=== PATIENT | male | born 1975 | race Caucasian/White ===

== ENCOUNTER 2022-08-21 16:36 | Emergency (ER) | payer MEDICAID, SELFPAY ==
[2022-08-21 16:46] VITALS: BP 136/90; PULSE 97; RESP 18; TEMP 36.1; O2SAT 98
--- NOTE | 2022-08-21 23:35 | ED.BACK ---
HPI - Back Pain/Injury General Chief Complaint: Back Injury/Pain Stated Complaint: Back Pain Time Seen by Provider: 08/21/22 17:07 History of Present Illness HPI Narrative: 47-year-old man presenting to the emergency department with complaint of low back pain. Had a series of falls in June with subsequent injury to his back. Is visiting/traveling from [facility] and has been what sounds like receiving Toradol injections in regional ERs. He reports receiving 1 dose of possibly prednisone as well. Describes a deep boring pain centered around the low back and when up and ambulating tingling discomfort down his entire left leg. He did earlier on manage a couple of visits with physical therapy but subsequently developed what sounds like a diverticular abscess where drains were placed through July-lifts short to show consistent freshly scarred site-this derailed his care on his back; deferred surgical intervention he indicates. Does have an appointment after this weekend on Wednesday, he shows scheduled provider at [facility] looking to be Sports Med or Orthopedics, to arrange next steps in care. Has been treating with topical NSAID and lidocaine patches and ibuprofen and at 1 point muscle relaxers none which apparently do not do much. He is having trouble sleeping and would just like some relief of pain. Does have MRI records among other imaging and I am able to review the read which shows moderate neural foraminal narrowing on the left at L5-S1. Spinal canal otherwise is patent. Disc bulging and facet arthrosis at L4-5 and L5-S1. Is not currently having any new weakness Related Data Previous Rx's Medication Instructions Recorded hydrocodone 5 mg-acetaminophen 325 1 - 2 tab PO Q6H PRN pain #15 tabs 08/21/22 mg tablet prednisone 20 mg tablet See Rx Instructions .Route 08/21/22 .COMPLEX #17 tabs Allergies Allergy/AdvReac Type Severity Reaction Status Date / Time No Known Drug Allergies Allergy Verified 08/21/22 16:50 Review of Systems Status of ROS: Reports: 6 or more systems reviewed and unremarkable except as noted in History and below [facility]SH [facility] Social History (Updated 08/21/22 @ 23:43 by King Olmedo MD) Smoking Status: Current every day smoker Exam Narrative: Exam Narrative: Pleasant. Tall. Talkative. Skin is warm and dry. No lower extremity edema. Well-perfused generally. Breathing easily. Transfers just a little gingerly. Head is atraumatic. Examination of the back is without deformity. No upper back tenderness. Is generally moderately tender to palpation across the low back through the SI joints across the top of the sacrum. He flinches with this exam. Positive straight leg raise on the left reproducing the aforementioned tingling through the entire leg. Heart with elevated rate in a regular rhythm. Const: Vital Signs, click to edit/add: Vital Signs - 24 hr 08/21/22 16:46 Temperature 97 F L Pulse Rate [Right Pulse Oximeter] 97 Respiratory Rate 18 Blood Pressure [Ri ght Upper Arm] 136/90 H Pulse Oximetry 98 Oxygen Delivery Me thod Room Air Documenting provider has reviewed patient's vital signs: yes Course Vital Signs Vital signs: Initial Vital Signs Temperature 97 F L 08/21/22 16:46 Temperature Source Temporal Artery Scan 08/21/22 16:46 Pulse Rate 97 08/21/22 16:46 Pulse Rhythm 08/21/22 16:46 Pulse Strength 3+ Normal 08/21/22 16:46 Respiratory Rate 18 08/21/22 16:46 Blood Pressure 136/90 H 08/21/22 16:46 Blood Pressure Mean 105 08/21/22 16:46 Blood Pressure Position Sitting 08/21/22 16:46 Pulse Oximetry 98 08/21/22 16:46 Oxygen Delivery Method 08/21/22 16:46 Vital Signs Temperature 97 F L 08/21/22 16:46 Pulse Rate 97 08/21/22 16:46 Respiratory Rate 18 08/21/22 16:46 Blood Pressure 136/90 H 08/21/22 16:46 Pulse Oximetry 98 08/21/22 16:46 Oxygen Delivery Method 08/21/22 16:46 Temperature 97 F L 08/21/22 16:46 Pulse Rate 97 08/21/22 16:46 Respiratory Rate 18 08/21/22 16:46 Blood Pressure 136/90 H 08/21/22 16:46 Pulse Oximetry 98 08/21/22 16:46 Oxygen Delivery Method 08/21/22 16:46 MDM - Back Pain/Injury MDM Narrative Medical decision making narrative: We discussed potential treatment possibilities. He has only been on a brief course of steroids; perhaps it is time to do a little longer course. Does have pending more definitive appointment upcoming shortly. Needing care through the weekend. I did review [employer]; consistent as reported. Medical Records Attestation: I reviewed the patient's medical records. Discharge Plan Discharge Clinical Impression: Radicular low back pain, Nicotine dependence Patient Disposition: Home w/ Parent or Adult Condition: Stable Additional Instructions: See handout for review of exercises or stretches that might benefit your low back and radiating symptoms. Follow-up Wednesday as scheduled. Ibuprofen or naproxen can be combined with any of your prescribed medications. Maximum singular dosing of acetaminophen is 1000 mg. Keep in mind that each tablet of [place] has 325 mg of acetaminophen. Be sure to stay well hydrated. This can help with pain and decrease chance of constipation. If you are taking [place], I might pair that with senna once or twice a day as a bowel stimulant. Please try to quit smoking. Prescriptions: New hydrocodone-acetaminophen 5-325 mg tablet 1 - 2 tab PO Q6H PRN (Reason: pain) Qty: 15 0RF prednisone 20 mg tablet See Rx Instructions .ROUTE .COMPLEX Qty: 17 0RF Rx Instructions: Take 60 mg p.o. daily days 1 through 3; then 40 mg daily days 4 through 6; then 20 mg daily days 7 - 8 Follow Up/Referrals: Provider,Not a Local [Primary Care Provider] - Stand Alone Forms: [employer] Info Instructions
== END 2022-08-21 20:00 | disposition home or self-care (01) ==
LOC: ED 19:38
PROVIDERS: Emergency Provider Family Medicine
DX: M54.16 Radiculopathy, lumbar region (principal); F17.200 Nicotine dependence, unspecified, uncomplicated
CPT/HCPCS: 99282; 99283

== ENCOUNTER 2023-05-03 22:42 | Emergency (ER) | payer MEDICAID, SELFPAY ==
[2023-05-03 23:07] VITALS: BP 141/103; PULSE 111; RESP 16; TEMP 36.7; O2SAT 98; BMI 26.1
[2023-05-03] MEDS: ONDANSETRON 2 MG/ML inj 4 MG IVP (23:15)
[2023-05-03] MEDS: 0.9 % SODIUM CHLORIDE 1000 ml 1,000 ML IV (23:15)
--- NOTE | 2023-05-03 23:27 | CRLHL7_ITS ---
For Patients: As a result of the Century Cures Act, medical imaging exams and procedure reports are released immediately into your electronic medical record. You may view this report before your referring provider. If you have questions, please contact your health care provider. INDICATION: Lower abdominal pain, history of diverticulitis TECHNIQUE: CT abdomen and pelvis acquired with 98 cc Isovue 370 IV contrast. Permanently recorded images are archived. COMPARISON: None. FINDINGS: Lower chest: 6 mm left lower lobe pulmonary nodule. 4 mm nodule more inferiorly within the left lower lobe. Mild scarring versus atelectasis in the lower lobes. Liver: Numerous too small to characterize hypodense foci throughout the liver. There is an ill-defined hypodense lesion within segment II the liver with nodular discontinuous peripheral enhancement measuring approximately 4.5 x 3.8 x 3.3 cm. Small simple cyst in segment VIII. Gallbladder and bile ducts: Unremarkable. No stones or inflammation. No biliary dilatation. Pancreas: Unremarkable. No mass or inflammation. Spleen: Unremarkable. Normal in size. No masses. Adrenal glands: Unremarkable. No nodules. Kidneys, Ureters, and Bladder: Unremarkable. No suspicious masses, stones, or hydronephrosis. Unremarkable ureters and bladder. GI tract: Extensive colonic diverticulosis. Short-segment mural thickening with pericolonic inflammation by inflamed diverticulum in the proximal sigmoid colon. No evidence for perforation or abscess formation. No obstruction. Normal appendix. Vasculature: Abdominal aorta is normal in caliber. Mesenteric arteries are patent. Lymph nodes: No lymphadenopathy. Peritoneum/Abdominal Wall: Small bilateral fat-containing inguinal hernias. No free air or significant free fluid. Pelvis: Unremarkable. Bones: Unremarkable for age. IMPRESSION: Acute uncomplicated proximal sigmoid colon diverticulitis. Recommend follow-up imaging or direct visualization after treatment to exclude an underlying inflammatory carcinoma. Ill-defined hypodense lesion within segment II of the liver with nodular discontinuous peripheral enhancement measuring up to 4.5 cm, most likely a hemangioma. Consider of outpatient liver MRI for confirmation. 6 mm left lower lobe pulmonary nodule. Recommend follow-up chest CT in 6 to 12 months to evaluate for interval change. Please note that all CT scans at this facility use dose modulation, iterative reconstruction, and/or weight-based dosing when appropriate to reduce radiation dose to as low as reasonably achievable. Dictated by Hemal Negrete MD @ 05/04/2023 12:11:22 AM ----- ADDENDUM ----- Addendum: Additional comparison studies, CTs of the abdomen pelvis from 04/04/2023, 01/01/2023, 12/30/2022 and 03/2022, have been made available. Unchanged hypodense lesion within segment II of the liver with fluid attenuation. There a similar pattern of peripheral vascular flow, which is favored to be within hepatic and portal veins vice the lesion itself. This is most consistent with a simple cyst. This is also unchanged in size compared to 07/16/2022. No further follow-up is recommended. The 6 mm left lower lobe pulmonary nodule is stable compared to 07/16/2022. Consider follow-up chest CT in 8-14 months. Dictated by Hemal Negrete MD @ May 18 2023 6:09PM (Electronically Signed)
[2023-05-03 23:31] VITALS: TEMP 36.7
[2023-05-03] MEDS: KETOROLAC 15 MG/ML inj IVP (23:31)
[2023-05-03] MEDS: MORPHINE 4 MG/ML INJ IVP (23:32)
[2023-05-03 23:34] LABS: Lactate* 1.4 mmol/L (0.5-1.9)
[2023-05-03 23:36] LABS: Basophils Percent Auto 0.4 % (0.0-3.0); Eosinophils Percent Auto 2.3 % (0.0-7.0); Hematocrit 45.4 % (37.0-53.0); Hemoglobin* 15.3 gm/dL (13.5-17.5); Immature Granulocytes Pct Auto 0.9 %; Mean Corpuscular HGB Conc 34 gm/dL (32-36); Mean Corpuscular Hemoglobin 30 pg (26-34); Mean Corpuscular Volume 90 fL (80-100); Monocytes Percent Auto 5.4 % (0.0-11.0); Platelet Count* 240 K/uL (140-440); RDW Coefficient of Variation % 13.4 % (11.5-15.5); Red Blood Count 5.04 m/uL (4.30-5.90); Slide Review Reflex No; White Blood Count* 16.19 K/uL (4.50-11.00)
[2023-05-03 23:49] LABS: Albumin* 4.4 g/dL (3.3-5.0)
[2023-05-03 23:50] LABS: Chloride* 104 mmol/L (96-114); Sodium* 138 mmol/L (135-149)
[2023-05-03 23:52] LABS: Amylase* 59 U/L (18-89); Anion Gap 8 mEq/L (7-15); Aspartate Amino Transferase* 29 U/L (12-35); Bilirubin Direct* 0.1 mg/dL (0.0-0.5); Bilirubin Total* 0.4 mg/dL (0.1-1.5); Blood Urea Nitrogen* 18 mg/dL (7-30); Carbon Dioxide* 26 mmol/L (20-32); Creatinine* 0.8 mg/dL (0.5-1.5); Est. Creatinine Clearance* 139.22; Estimated Glomerular Filt Rate 108 ml/min; Total Protein* 7.3 g/dL (6.0-8.3)
[2023-05-03 23:53] LABS: Alanine Aminotransferase* 28 U/L (4-50); Alkaline Phosphatase* 75 U/L (40-150); Calcium* 9.6 mg/dL (8.4-10.6); Glucose* 91 mg/dL (60-115); Lipase* 88 U/L (23-300)
[2023-05-03 23:58] LABS: Ethanol* < 0.01 % (0.01-0.03)
[2023-05-04] MEDS: PIPERACILLIN/TAZOBACTAM 4.5 GM in 0.9 % SODIUM CHLORIDE Mini-bag 100 ML IVPB (00:45)
--- NOTE | 2023-05-04 00:56 | ED.ABDPAIN ---
HPI - Abdominal Pain General Chief Complaint: Abdominal Pain Stated Complaint: bad stomach pains Time Seen by Provider: 05/03/23 23:22 Source: patient Mode of arrival: ambulatory Limitations: no limitations History of Present Illness HPI narrative: Patient is a 48-year-old gentleman who presents here with abdominal pain this characteristic of his diverticulitis, he has had 2 previous resections of partial for this. Min told that he may need to have a total colectomy if this is ongoing, he noted pain about 3 or 4 days ago that is increased, is usually left-sided but now it is more across the middle. He is hopeful that it will not do become abscess, as he has had previous drains done by Interventional Radiology. 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 No history of drugs, he had a normal bowel movement today, but no diarrhea he has had no nausea vomiting ate well today. He tells me Augmentin usually takes away the infection, MD elicited complaint: abdominal pain Location: LLQ and suprapubic Quality: cramping, stabbing and aching Radiation: none Migration to: no migration Exacerbating factors: nothing Associated symptoms: denies other symptoms Treatments prior to arrival: other Related Data Home Medications Medication Instructions Recorded Confirmed No Known Home Medications 05/03/23 05/03/23 Allergies Allergy/AdvReac Type Severity Reaction Status Date / Time No Known Drug Allergies Allergy Verified 08/21/22 16:50 Review of Systems Status of ROS Reports: 10 or more systems reviewed and unremarkable except as noted in History and below PFSH [facility] Social History Smoking Status: Current every day smoker What tobacco products do you use: cigarettes Do you use any of these nicotine containing products: None Second hand tobacco smoke exposure: No How often do you have a drink containing alcohol: never How often do you have six or more drinks on one occasion: Never AUDIT-C Alcohol total score: 0 Non-prescribed substance use: denies use service: No Exam Narrative: Exam Narrative: On examination he is in no apparent distress he is pleasant alert and pupils equal round reactive to light TMs are normal oropharynx normal there is no adenopathy anterior posterior chains chest is good air entry bilaterally with no wheezing crackles noted heart sounds are normal he is tender along his left lower quadrant along the suprapubic he does not have peritoneal signs bowel sounds are quiet, there is no organomegaly, no CVA tenderness normal male genitalia is appreciated, there is no hernias. Rectal exam is deferred Const: Vital Signs, click to edit/add: Vital Signs - 24 hr 05/03/23 23:07 05/03/23 23:31 Temperature 98.1 F 98.1 F Pulse Rate [Left F emoral] 111 H Respiratory Rate 16 Blood Pressure [Ri ght Upper Arm] 141/103 H Pulse Oximetry 98 Oxygen Delivery Me thod Room Air Documenting provider has reviewed patient's vital signs: yes Course Course ED Course: I did discuss with him we will give him a dose of Zosyn here. He was reassured by this CT scan at least from the lack of an abscess for the diverticulitis I think we will place him on Augmentin, have follow-up with his wrecked colorectal surgeon at [facility]. I also think they need to compare this CT of today's visit with previous CTs to see if the left lobe issue was there previous. He does tell me he has had a colonoscopy within the last year, as metastatic issues could also arise like this. He was comfortable this plan. Vital Signs Vital signs: Initial Vital Signs Temperature 98.1 F 05/03/23 23:07 Temperature Source Temporal Artery Scan 05/03/23 23:07 Pulse Rate 111 H 05/03/23 23:07 Respiratory Rate 16 05/03/23 23:07 Blood Pressure 141/103 H 05/03/23 23:07 Blood Pressure Mean 115 H 05/03/23 23:07 Blood Pressure Position Sitting 05/03/23 23:07 Pulse Oximetry 98 05/03/23 23:07 Oxygen Delivery Method Room Air 05/03/23 23:07 Vital Signs Temperature 98.1 F 05/03/23 23:07 Pulse Rate 111 H 05/03/23 23:07 Respiratory Rate 16 05/03/23 23:07 Blood Pressure 141/103 H 05/03/23 23:07 Pulse Oximetry 98 05/03/23 23:07 Oxygen Delivery Method Room Air 05/03/23 23:07 Temperature 98.1 F 09/25/23 23:31 Pulse Rate 111 H 05/03/23 23:07 Respiratory Rate 16 05/03/23 23:07 Blood Pressure 141/103 H 05/03/23 23:07 Pulse Oximetry 98 05/03/23 23:07 Oxygen Delivery Method Room Air 05/03/23 23:07 MDM - Abdominal Pain MDM Narrative Medical decision making narrative: During this evaluation of this patient I considered multiple differential diagnosis is which included the life-threatening such as appendicitis, aortic aneurysm, mesenteric ischemia, bowel perforation, volvulus, and bowel obstruction. Other differential diagnosis is include but are not limited to cholecystitis, pancreatitis, hepatitis, gastritis, GERD, diverticulitis, peptic ulcer disease, pyelonephritis/UTI, renal colic/stone, testicular torsion as well as other acute scrotal processes, inflammatory bowel disease, as well as other etiologies Medical Records Attestation: I reviewed the patient's medical records. Lab Data Attestation: I reviewed the patient's lab results. Labs: Lab Results 05/03/23 Range/Units 23:15 WBC 16.19 H (4.50-11.00) K/uL RBC 5.04 (4.30-5.90) m/uL Hgb 15.3 (13.5-17.5) gm/dL Hct 45.4 (37.0-53.0) % MCV 90 (80-100) fL MCH 30 (26-34) pg MCHC 34 (32-36) gm/dL RDW Coeff of Romero 13.4 (11.5-15.5) % Plt Count 240 (140-440) K/uL Neut % (Auto) 71.0 (42.0-72.0) % Lymph % (Auto) 20.0 (20-44) % [place] % (Auto) 5.4 (0.0-11.0) % Eos % (Auto) 2.3 (0.0-7.0) % Baso % (Auto) 0.4 (0.0-3.0) % Neut # (Auto) 11.50 H (1.7-7.0) K/uL Lymph # (Auto) 3.20 H (0.90-2.90) K/uL [place] # (Auto) 0.90 (0.00-0.90) K/UL Eos # (Auto) 0.40 (0.00-0.50) K/uL Baso # (Auto) 0.10 (0.00-0.30) K/uL Abs Immat Gran (auto) 0.10 (0.00-0.30) K/uL Imm/Tot Granulo (auto) 0.9 % Sodium 138 (135-149) mmol/L Potassium 4.0 (3.6-5.1) mmol/L Chloride 104 (96-114) mmol/L Carbon Dioxide 26 (20-32) mmol/L Anion Gap 8 (7-15) mEq/L BUN 18 (7-30) mg/dL Creatinine 0.8 (0.5-1.5) mg/dL Estimated Creat Clear 139.22 Estimated GFR 108 ml/min Glucose 91 (60-115) mg/dL Lactate 1.4 (0.5-1.9) mmol/L Calcium 9.6 (8.4-10.6) mg/dL Total Bilirubin 0.4 (0.1-1.5) mg/dL Direct Bilirubin 0.1 (0.0-0.5) mg/dL AST 29 (12-35) U/L ALT 28 (4-50) U/L Alkaline Phosphatase 75 (40-150) U/L Total Protein 7.3 (6.0-8.3) g/dL Albumin 4.4 (3.3-5.0) g/dL Amylase 59 (18-89) U/L Lipase 88 (23-300) U/L Ethyl Alcohol < 0.01 L (0.01-0.03) % Imaging Data CT scan - abdomen: My impression: Uncomplicated diverticulitis with the of the sigmoid colon, no evidence of abscess, or perforation. He does however have what appears to be a left lobe of his liver either a mass or hemangioma. I do not have old CT scans to compare to. Discharge Plan Discharge Clinical Impression: Diverticulitis, Liver mass, left lobe Patient Disposition: Home, Self-Care Condition: Improved Instructions: Diverticulitis (DC) Additional Instructions: Home rest medications as directed. I do recommend that you call [facility] tomorrow and get appointment with your [facility] specialist, also recommend that you send the CD to them so they can compare with your previous CT over the spot on your liver that we discussed. Increasing abdominal pain fevers chills or signs that this is worsening you need to come back to the emergency room, take antibiotics as directed. Activity Level: Light activity Discharge Diet: Regular Prescriptions: No Action No Known Home Medications Follow Up/Referrals: Provider,Not a Local [Primary Care Provider] - Stand Alone Forms: [employer] Info Instructions
== END 2023-05-04 01:32 | disposition home or self-care (01) ==
PROVIDERS: Emergency Provider Family Medicine
DX: K57.92 Diverticulitis of intestine, part unspecified, without perforation or abscess without bleeding (principal); R16.0 Hepatomegaly, not elsewhere classified
CPT/HCPCS: 36415; 74177; 80048; 80076; 81001; 82077; 82150; 83605; 83690; 85025; 96365; 96375; 99284; 99285; J1885; J2270; J2405; J2543; J7030; Q9967

== ENCOUNTER 2023-06-21 21:18 | Emergency (ER) | payer MEDICAID, SELFPAY ==
[2023-06-21 21:53] VITALS: BP 136/94; PULSE 91; RESP 18; TEMP 36.7; O2SAT 98
--- NOTE | 2023-06-21 22:13 | ED.GENADULT ---
HPI - General Adult General Date Seen: 06/21/23 Chief complaint: Abdominal Pain Stated complaint: Stomach pain Time Seen by Provider: 06/21/23 21:57 Source: patient, RN notes reviewed and old records reviewed Mode of arrival: ambulatory Limitations: no limitations History of Present Illness HPI narrative: Patient is a 48-year-old male with a history of chronic neck and back pain, alcohol use, generalized anxiety and diverticulitis who presents with left lower quadrant pain. He has had multiple bouts of diverticulitis and tells me he scheduled to have surgery at [facility] on Wednesday. He has been on every other day Augmentin for quite some time and says about 5 days ago he was having more pain so his doctor at [facility] told him to go to twice a day Augmentin. For quite sometime he has had persistent abdominal pain and has been being prescribed Pride by his primary clinic for management of this pain. He last filled 15 tablets on the and says that was supposed to last him through the weekend. He says he contacted the clinic today but Dr. Trinh was not available and so he is out of pain pills. He says that pain has not changed, it is no worse and he does not have any complaints of nausea vomiting fever or other symptoms. He is here because he ran out of pain medication. Related Data Home Medications Medication Instructions Recorded Confirmed ibuprofen 200 mg tablet 600 mg PO Q6H PRN 05/18/23 05/26/23 amoxicillin 875 mg-potassium tab PO 05/26/23 05/26/23 clavulanate 125 mg tablet Previous Rx's Medication Instructions Recorded nicotine (polacrilex) 4 mg gum 4 mg buccal Q1-2H PRN nicotine 05/06/23 cravings #50 ea hydrocodone 5 mg-acetaminophen 325 1 tab PO TID PRN Diverticulitis 06/16/23 mg tablet #15 tabs Allergies Allergy/AdvReac Type Severity Reaction Status Date / Time No Known Drug Allergies Allergy Verified 05/26/23 09:20 [facility] Medical History (Updated 06/21/23 @ 22:13 by Gaye Cortez MD) Chronic neck and back pain ?M54.2 - Cervicalgia (ICD-10) ?M54.9 - Dorsalgia, unspecified (ICD-10) ?G89.29 - Other chronic pain (ICD-10) Hypertension ?I10 - Essential (primary) hypertension (ICD-10) Cochlear implant status ?Z96.21 - Cochlear implant status (ICD-10) Alcohol use disorder ?F10.90 - Alcohol use, unspecified, uncomplicated (ICD-10) Generalized anxiety disorder ?F41.1 - Generalized anxiety disorder (ICD-10) Surgical History (Updated 05/18/23 @ 09:58 by Nelly Serra MD) H/O arthroscopic knee surgery ?Z98.890 - Other specified postprocedural states (ICD-10) S/P colectomy ?Z90.49 - Acquired absence of other specified parts of digestive tract (ICD-10) Social History (Updated 05/25/23 @ 11:41 by Anahi Boothe ~ PSR) Narrative: Not working currently. Lives with sister in [place], [place] use Smoking Status: Current every day smoker What tobacco products do you use: cigarettes Do you use any of these nicotine containing products: None Second hand tobacco smoke exposure: No How often do you have a drink containing alcohol: never How often do you have six or more drinks on one occasion: Never AUDIT-C Alcohol total score: 0 Non-prescribed substance use: denies use Little interest or pleasure in doing things: not at all Feeling down, depressed, or hopeless: not at all service: No Exam Narrative: Exam Narrative: Vital signs as noted above. In general, an alert, well-appearing patient. Looks comfortable. Head: Normocephalic, atraumatic. Eyes: Pupils are equal reactive. Extraocular movements are full. Conjunctivae are normal. ENT: Mucous membranes are moist. Throat is normal. Neck: Supple without lymphadenopathy. Heart: Regular rate and rhythm. No murmur or rub. Lungs: Clear bilaterally. No increased work of breathing, crackles or wheezes. Abdomen: Soft and minimally tender, he identifies a point at the site of an old drain insertion as where his pain is localized. There is no rebound guarding or rigidity. Extremities: Well perfused. No edema. No calf tenderness. Pulses intact. Neurologic: Patient is alert and oriented to person and place. Speech is fluent. Face is symmetric. Moves all extremities equally. Affect: Normal. Skin: Warm and dry. Well perfused. Const: Vital Signs, click to edit/add: Vital Signs - 24 hr 06/21/23 21:53 Temperature 98.1 F Pulse Rate [Right Pulse Oximeter] 91 Respiratory Rate 18 Blood Pressure [Ri ght Upper Arm] 136/94 H Pulse Oximetry 98 Oxygen Delivery Me thod Room Air Documenting provider has reviewed patient's vital signs: yes Course Course ED Course: I was unable to review the [employer] due to some kind of problem with the website. I did review his previous records and recent hydrocodone feels. His abdominal exam is benign, he is afebrile, he is supposed to go to [facility] the day after tomorrow for a complete workup including imaging. I think for now we do not need to pursue significant workup as he is not here for worsening symptoms. Have discussed with him that true refills of his medication will need to come from the clinics I would like him to call again tomorrow. I am giving him for oxycodone from [facility], he drove himself here so I do not want to give him oral meds here prior to him leaving. Did review with him that if he is worsening, if he has more significant pain, fever, vomiting etc. that he needs to be seen again in the ER rather than waiting until Wednesday to make sure he does not have a complications such as abscess, perforation etcetera. Vital Signs Vital signs: Initial Vital Signs Temperature 98.1 F 06/21/23 21:53 Temperature Source Temporal Artery Scan 06/21/23 21:53 Pulse Rate 91 06/21/23 21:53 Respiratory Rate 18 06/21/23 21:53 Blood Pressure 136/94 H 06/21/23 21:53 Blood Pressure Mean 108 H 06/21/23 21:53 Blood Pressure Position Semi-Fowlers 06/21/23 21:53 Pulse Oximetry 98 06/21/23 21:53 Oxygen Delivery Method Room Air 06/21/23 21:53 Vital Signs Temperature 98.1 F 06/21/23 21:53 Pulse Rate 91 06/21/23 21:53 Respiratory Rate 18 06/21/23 21:53 Blood Pressure 136/94 H 06/21/23 21:53 Pulse Oximetry 98 06/21/23 21:53 Oxygen Delivery Method Room Air 06/21/23 21:53 Temperature 98.1 F 06/21/23 21:53 Pulse Rate 91 06/21/23 21:53 Respiratory Rate 18 06/21/23 21:53 Blood Pressure 136/94 H 06/21/23 21:53 Pulse Oximetry 98 06/21/23 21:53 Oxygen Delivery Method Room Air 06/21/23 21:53 Discharge Plan Discharge Clinical Impression: Diverticulitis, Chronic abdominal pain Patient Disposition: Home, Self-Care Condition: Stable Instructions: Diverticulitis (DC) Additional Instructions: If you have worsening pain or new symptoms such as fever, vomiting, bloody stools, return to the emergency department for evaluation. Otherwise, follow up at [facility] on Wednesday as planned. Prescriptions: No Action ibuprofen 200 mg tablet 600 mg PO Q6H PRN amoxicillin-pot clavulanate 875-125 mg tablet PO nicotine (polacrilex) 4 mg gum 4 mg buccal Q1-2H PRN (Reason: nicotine cravings) Qty: 50 3RF hydrocodone-acetaminophen 5-325 mg tablet 1 tab PO TID PRN (Reason: Diverticulitis) Qty: 15 0RF Follow Up/Referrals: Provider,Not a Local [Primary Care Provider] - Stand Alone Forms: [facility] Info Instructions
[2023-06-21 22:27] VITALS: BP 128/84; RESP 16; O2SAT 99
--- NOTE | 2023-06-22 18:38 | ED.NURSE ---
Pt presents to ER on 06/22 stating that his rx from ER visit earlier today was not at pharmacy. Upon reviewing pt's discharge records from last night, pt informed that rx was physically given to pt to obtain from [employer]. Pt now stating he was seen in clinic today by an ER doctor and was written for more pain medication that did not arrive at [facility] pharmacy. Pt informed that he can be seen in ER if he would like to be evaluated.
== END 2023-06-21 22:30 | disposition home or self-care (01) ==
LOC: ED 22:14
PROVIDERS: Emergency Provider Emergency Medicine
DX: K57.92 Diverticulitis of intestine, part unspecified, without perforation or abscess without bleeding (principal)
CPT/HCPCS: 99283; 99284

== ENCOUNTER 2023-06-22 18:40 | Emergency (ER) | payer MEDICAID, SELFPAY ==
--- NOTE | 2023-06-22 18:44 | ED.NURSE ---
Pt presents to ER on 06/22 stating that his rx from ER visit earlier today was not at pharmacy. Upon reviewing pt's discharge records from last night, pt informed that rx was physically given to pt to obtain from [facility]. Pt now stating he was seen in clinic today by an ER doctor and was written for more pain medication that did not arrive at [facility] pharmacy. Pt informed that he can be seen in ER if he would like to be evaluated.
[2023-06-22 18:49] VITALS: BP 128/84; PULSE 82; RESP 18; TEMP 36.9; O2SAT 97; BMI 26.1
--- NOTE | 2023-06-22 20:07 | ED_ITS ---
HPI - General Adult General Date Seen: 06/22/23 Chief complaint: Abdominal Pain Stated complaint: pain Time Seen by Provider: 06/22/23 19:07 Source: patient Mode of arrival: ambulatory Limitations: no limitations History of Present Illness HPI narrative: Patient is a 48-year-old male presents to emergency department for left lower quadrant abdominal pain, right lower quadrant abdominal pain and upper back pain. These are all chronic medical issues and he is scheduled to have surgery on his diverticulitis in 3 days. He was here yesterday and received 4 pills of oxycodone. He spoke to his primary care provider this morning and they try to cm prescription to his pharmacy. The patient claims he went to his pharmacy in the never received the prescription. His primary care provider then sent the prescription again and it still did not go through. He states now he is in lot of pain in was hoping for medication for it. He states this is the exact pain he has had in the past and is nothing new. Related Data Home Medications Medication Instructions Recorded Confirmed ibuprofen 200 mg tablet 600 mg PO Q6H PRN 05/18/23 05/26/23 amoxicillin 875 mg-potassium tab PO 05/26/23 05/26/23 clavulanate 125 mg tablet Previous Rx's Medication Instructions Recorded nicotine (polacrilex) 4 mg gum 4 mg buccal Q1-2H PRN nicotine 05/06/23 cravings #50 ea hydrocodone 5 mg-acetaminophen 325 1 tab PO TID PRN Diverticulitis 06/22/23 mg tablet #15 tabs Allergies Allergy/AdvReac Type Severity Reaction Status Date / Time No Known Drug Allergies Allergy Verified 05/26/23 09:20 Review of Systems Status of ROS: Reports: 10 or more systems reviewed and unremarkable except as noted in History and below [facility] Medical History Chronic neck and back pain ?M54.2 - Cervicalgia (ICD-10) ?M54.9 - Dorsalgia, unspecified (ICD-10) ?G89.29 - Other chronic pain (ICD-10) Hypertension ?I10 - Essential (primary) hypertension (ICD-10) Cochlear implant status ?Z96.21 - Cochlear implant status (ICD-10) Alcohol use disorder ?F10.90 - Alcohol use, unspecified, uncomplicated (ICD-10) Generalized anxiety disorder ?F41.1 - Generalized anxiety disorder (ICD-10) Surgical History H/O arthroscopic knee surgery ?Z98.890 - Other specified postprocedural states (ICD-10) S/P colectomy ?Z90.49 - Acquired absence of other specified parts of digestive tract (ICD- 10) Social History Narrative: Not working currently. Lives with sister in [place], [employer] use Smoking Status: Current every day smoker What tobacco products do you use: cigarettes Do you use any of these nicotine containing products: None Second hand tobacco smoke exposure: No How often do you have a drink containing alcohol: never How often do you have six or more drinks on one occasion: Never AUDIT-C Alcohol total score: 0 Non-prescribed substance use: denies use Little interest or pleasure in doing things: not at all Feeling down, depressed, or hopeless: not at all service: No Exam Narrative: Exam Narrative: Const: Well-nourished, Well-developed, in mild distress Eyes: PERRL, no conjunctival injection, and symmetrical lids HENT: Atraumatic external nose and ears. Moist mucous membranes. Neck: Symmetric, trachea midline, No thyromegaly. CVS: RRR, No murmurs or gallops. Peripheral pulses 2+ and equal in all extremities RESP: Unlabored respiratory effort. Clear to auscultation bilaterally. GI: Bilateral lower quadrant abdominal pain, Nondistended, No rebound or guarding. MSK:Extremities w/o deformity, Normal Active ROM Skin: Warm, Dry. No rashes or lesions. Neuro: Normal Muscle tone, No focal neurological deficits. Psych: Awake, Alert, & Oriented x3. Appropriate mood and affect. Const: Vital Signs, click to edit/add: Vital Signs - 24 hr 06/22/23 18:49 Temperature 98.4 F Pulse Rate [Pulse Oximeter] 82 Respiratory Rate 18 Blood Pressure [Ri ght Upper Arm] 128/84 Pulse Oximetry 97 Oxygen Delivery Me thod Room Air Course Vital Signs Vital signs: Initial Vital Signs Temperature 98.4 F 06/22/23 18:49 Temperature Source Temporal Artery Scan 06/22/23 18:49 Pulse Rate 82 06/22/23 18:49 Respiratory Rate 18 06/22/23 18:49 Blood Pressure 128/84 06/22/23 18:49 Blood Pressure Mean 98 06/22/23 18:49 Blood Pressure Position Sitting 06/22/23 18:49 Pulse Oximetry 97 06/22/23 18:49 Oxygen Delivery Method Room Air 06/22/23 18:49 Vital Signs Temperature 98.4 F 06/22/23 18:49 Pulse Rate 82 06/22/23 18:49 Respiratory Rate 18 06/22/23 18:49 Blood Pressure 128/84 06/22/23 18:49 Pulse Oximetry 97 06/22/23 18:49 Oxygen Delivery Method Room Air 06/22/23 18:49 Temperature 98.4 F 06/22/23 18:49 Pulse Rate 82 06/22/23 18:49 Respiratory Rate 18 06/22/23 18:49 Blood Pressure 128/84 06/22/23 18:49 Pulse Oximetry 97 06/22/23 18:49 Oxygen Delivery Method Room Air 06/22/23 18:49 Medical Decision Making MDM Narrative Medical decision making narrative: Patient is a 48-year-old male presenting to emergency department for left lower and right lower quadrant abdominal pain along with chronic back pain. These are all chronic issues and he is going to several specialist for procedures for them. He has been trying to get pain medication from his primary care provider but there was a computer issue with the prescriptions being sent. We were able to see the prescriptions that were sent by his primary care provider who was a [place] physician. It shows there sent but when we spoke to the pharmacy they were sent to they state they have never received the order. At this time is clear he was supposed to receive pain medication from his primary care provider but there was a computer glitch in the was never sent through. Due to that I feel comfortable filling this prescription through [facility]. The prescription was for 15 pills what we can only give 12. We left a message with his pharmacy to cancel the previous prescriptions. Patient is agreeable with this plan. Since is all chronic pain I did not think is necessary to do further workup as we already know what is wrong. He states the pain is not any worse than normal for him. Discharge Plan Discharge Clinical Impression: Diverticulitis, Chronic neck and back pain Condition: Stable Instructions: Diverticulitis (DC) Additional Instructions: I will give the pain medication hold the over until your procedure this Wednesday. We left messages with Sujata to cancel the prescriptions that were sent by her primary care provider if they do end up receiving them tomorrow. Prescriptions: No Action ibuprofen 200 mg tablet 600 mg PO Q6H PRN amoxicillin-pot clavulanate 875-125 mg tablet PO nicotine (polacrilex) 4 mg gum 4 mg buccal Q1-2H PRN (Reason: nicotine cravings) Qty: 50 3RF hydrocodone-acetaminophen 5-325 mg tablet 1 tab PO TID PRN (Reason: Diverticulitis) Qty: 15 0RF Follow Up/Referrals: Provider,Not a Local [Primary Care Provider] - Stand Alone Forms: [employer] Info Instructions
== END 2023-06-22 20:33 | disposition home or self-care (01) ==
LOC: ED 20:19
PROVIDERS: Emergency Provider Student in an Organized Health Care Education/Training Program
DX: K57.92 Diverticulitis of intestine, part unspecified, without perforation or abscess without bleeding (principal); M54.2 Cervicalgia; M54.9 Dorsalgia, unspecified; G89.29 Other chronic pain
CPT/HCPCS: 99282; 99283; 99284

== ENCOUNTER 2023-07-17 14:16 | Emergency (ER) | payer MEDICAID, SELFPAY ==
[2023-07-17 14:49] VITALS: BP 147/95; PULSE 86; RESP 18; TEMP 36.9; O2SAT 100; BMI 24.9
--- NOTE | 2023-07-17 15:31 | ED_ITS ---
HPI - Back Pain/Injury General Date Seen: 07/17/23 Chief Complaint: Back Injury/Pain Stated Complaint: Lower back pain Time Seen by Provider: 07/17/23 14:45 Source: patient Mode of arrival: ambulatory Limitations: no limitations History of Present Illness HPI Narrative: Patient is a pleasant 48-year-old gentleman who presents here with worsening of his chronic back pain, he underwent an epidural injection on the left side yesterday by [facility]. He reports increasing pain, into his back and a little bit into his left buttock on left leg. He has run out of his oxycodone, which she gets through a pain contract with his primary care physician, . Tried some Tylenol ibuprofen today and really no improvement. He has recently had surgery for his diverticulitis, he is happy with the results of this. This was done at the [facility]. He is now focusing on his back, and trying to get himself back, he has chronic back pain is 100% disabled secondary to this, does not have a firm place to live, but is staying currently at his sister house. Denies any bowel or bladder symptoms weakness, fevers chills or sweats. Related Data Home Medications Medication Instructions Recorded Confirmed ibuprofen 200 mg tablet 600 mg PO Q6H PRN 05/18/23 07/07/23 Previous Rx's Medication Instructions Recorded nicotine (polacrilex) 4 mg gum 4 mg buccal Q1-2H PRN nicotine 05/06/23 cravings #50 ea hydrocodone 5 mg-acetaminophen 325 1 tab PO TID PRN back pain #60 tabs 07/16/23 mg tablet gabapentin 300 mg capsule 300 mg PO TID #90 caps 07/17/23 Allergies Allergy/AdvReac Type Severity Reaction Status Date / Time No Known Drug Allergies Allergy Verified 07/07/23 10:24 Review of Systems Status of ROS: Reports: 10 or more systems reviewed and unremarkable except as noted in History and below [facility] Medical History Diverticulitis ?K57.92 - Diverticulitis of intestine, part unspecified, without perforation or abscess without bleeding (ICD-10) Low back pain ?M54.50 - Low back pain, unspecified (ICD-10) Chronic neck and back pain ?M54.2 - Cervicalgia (ICD-10) ?M54.9 - Dorsalgia, unspecified (ICD-10) ?G89.29 - Other chronic pain (ICD-10) Hypertension ?I10 - Essential (primary) hypertension (ICD-10) Cochlear implant status ?Z96.21 - Cochlear implant status (ICD-10) Alcohol use disorder ?F10.90 - Alcohol use, unspecified, uncomplicated (ICD-10) Generalized anxiety disorder ?F41.1 - Generalized anxiety disorder (ICD-10) Surgical History H/O arthroscopic knee surgery ?Z98.890 - Other specified postprocedural states (ICD-10) S/P colectomy ?Z90.49 - Acquired absence of other specified parts of digestive tract (ICD- 10) Social History Narrative: Not working currently. Lives with sister in [place], [employer] use Smoking Status: Current every day smoker What tobacco products do you use: cigarettes Do you use any of these nicotine containing products: None Second hand tobacco smoke exposure: No How often do you have a drink containing alcohol: never How often do you have six or more drinks on one occasion: Never AUDIT-C Alcohol total score: 0 Non-prescribed substance use: denies use Little interest or pleasure in doing things: not at all Feeling down, depressed, or hopeless: not at all service: No Exam Narrative: Exam Narrative: On examination he is in no apparent distress he is a very tall thin gentleman. He is able stand for me normally, forward flexion is hands to his knees backward extension full, no evidence of any redness swelling or masses noted on his lumbar spine, palpation percussion, with the needle estrada from his epidural on the left side, will which was on off center approach. He is able to walk on his toes and his heels, for me EHLs great toe flexors ankle dorsiflexors plantar fle xion infections and hip flexors are graded 5/5 power bilaterally, SLR is are negative to 90? sitting, his muscle bulk seems normal bilaterally, his reflexes are +2/4 his knees and ankles bilaterally also. No evidence of any redness or selling a signs of infection noted on over his back. Const: Vital Signs, click to edit/add: Vital Signs - 24 hr 07/17/23 14:49 Temperature 98.4 F Pulse Rate [Left P ulse Oximeter] 86 Respiratory Rate 18 Blood Pressure [Le ft Upper Arm] 147/95 H Pulse Oximetry 100 Oxygen Delivery Me thod Room Air Documenting provider has reviewed patient's vital signs: yes Course Vital Signs Vital signs: Initial Vital Signs Temperature 98.4 F 07/17/23 14:49 Temperature Source Temporal Artery Scan 07/17/23 14:49 Pulse Rate 86 07/17/23 14:49 Pulse Rhythm Regular 07/17/23 14:49 Pulse Strength 3+ Normal 07/17/23 14:49 Respiratory Rate 18 07/17/23 14:49 Blood Pressure 147/95 H 07/17/23 14:49 Blood Pressure Mean 112 H 07/17/23 14:49 Blood Pressure Position Sitting 07/17/23 14:49 Pulse Oximetry 100 07/17/23 14:49 Oxygen Delivery Method Room Air 07/17/23 14:49 Vital Signs Temperature 98.4 F 07/17/23 14:49 Pulse Rate 86 07/17/23 14:49 Respiratory Rate 18 07/17/23 14:49 Blood Pressure 147/95 H 07/17/23 14:49 Pulse Oximetry 100 07/17/23 14:49 Oxygen Delivery Method Room Air 07/17/23 14:49 Temperature 98.4 F 07/17/23 14:49 Pulse Rate 86 07/17/23 14:49 Respiratory Rate 18 07/17/23 14:49 Blood Pressure 147/95 H 07/17/23 14:49 Pulse Oximetry 100 07/17/23 14:49 Oxygen Delivery Method Room Air 07/17/23 14:49 MDM - Back Pain/Injury MDM Narrative Medical decision making narrative: Life-threatening differential diagnosis considered include: Cauda equina an epidural abscess, other differential diagnosis considered includes sprain, contusion, nerve root entrapment, radiculopathy, muscle spasm, urolithiasis, lumbar fracture, pyelonephritis, appendicitis, biliary colic, as well as other etiologies. The patient denies saddle anesthesia bowel or bladder incontinence or lower extremity weakness, recent weight loss, or history of malignancy. I think this is an exacerbation of his chronic back pain, I did not think any new imaging is needed. I reviewed with him that his recent prescriptions for narcotic medication, and his pain contract, he has approximately 10 days early for this. Unfortunate I cannot give him any more narcotic medication, and he will have to contact his regular physician for this however I did over options available to him, including gabapentin, Toradol, prednisone, he would like to try the gabapentin and the Toradol, I did review the PERSONAL CARE WORKER, Medical Records Attestation: I reviewed the patient's medical records. Discharge Plan Discharge Clinical Impression: Chronic neck and back pain Patient Disposition: Home, Self-Care Condition: Stable Instructions: Chronic Back Pain (DC) Additional Instructions: As discussed with you, please use ice over your back, this will help this. I also would recommend starting the gabapentin, take as directed. Follow-up with primary care, or review this with your primary care physician Activity Level: Light activity Prescriptions: New gabapentin 300 mg capsule 300 mg PO TID Qty: 90 2RF No Action ibuprofen 200 mg tablet 600 mg PO Q6H PRN nicotine (polacrilex) 4 mg gum 4 mg buccal Q1-2H PRN (Reason: nicotine cravings) Qty: 50 3RF hydrocodone-acetaminophen 5-325 mg tablet 1 tab PO TID PRN (Reason: back pain) Qty: 60 0RF Follow Up/Referrals: Gonzalo Trinh MD [Primary Care Provider] - Stand Alone Forms: [employer] Info Instructions
== END 2023-07-17 16:00 | disposition home or self-care (01) ==
LOC: ED 15:48
PROVIDERS: Emergency Provider Family Medicine; PCP Internal Medicine
DX: M54.50 Low back pain, unspecified (principal); M54.2 Cervicalgia
CPT/HCPCS: 99284

== ENCOUNTER 2024-03-07 20:14 | Emergency (ER) | payer BC, SELFPAY ==
--- OUTSIDE RECORDS SUMMARY | 2024-03-07 20:23 | XMS_ITS ---
Author Organization [facility] Address [address] [place] [id number] Care Team Providers Care Co Founder Name Role Phone Unavailable Unavailable Unavailable Surgery Details Not on file Complications Check Surgery Details section. Procedure Estimated Blood Loss Check Surgery Details section. Procedure Findings Check Surgery Details section. Procedure Specimens Taken Check Surgery Details section.
--- OUTSIDE RECORDS SUMMARY | 2024-03-07 20:23 | XMS_ITS | Encounter Summary ---
Author Organization [facility] Address [address] [place] [address] Care Team Providers Care Line Mover Name Role Phone Parul Cameron APRN, C.N.P., D.N.P. Primary Care Provider Reason for Referral * Outpatient (Routine) - Authorized Specialty Diagnoses / Procedures Referred By Contac t Referred To Contact Emergency Medicine Diagnoses Pain Back Lumbar Cyst Renal Mohinder Escalona P.A.-C., P.A. [address] [phone] [facility] Region Referral ID Status Reason Start Date Expiration Date V isits Requested Visits Authorized [id number] Authorized 03/07/2024 09/06/2025 1 1 Reason for Visit * Reason Comments Back Pain Pt presents with chr onic lt buttock/hip pain that is much worse today and noting decreased function of lt leg. No bowel or bladder involvement. Encounter Details Date Type Department Care Team (Late st Contact Info) Description 03/07/2024 3:49 PM CDT - 03/07/2024 6:11 PM CDT Emergency [facility] [address] [phone] Shanel Arguelles APRN, C.N.P., D.N.P. [address] [phone] Pain Back Lumbar (Primary Dx); Pain Low Back Chronic; Cyst Renal Discharge Disposition: Home or Self Care Social History Tobacco Use Types Packs/Day Years Used Date Smoking Tobacco: Every Day Cigarettes 0.5 32.9 Started: 1991 Passive Smoke Exposure: Past Smokeless Tobacco: Never Comments:5-10 cpd. Starting varenicline, 21 mg patch & gum (when he returns home) 01/05/23 Alcohol Use Standard Drinks/Week Comments Yes 3 (1 standard drink = 0.6 oz pur e alcohol) stopped 04-28-23 Humiliation, Afraid, Rape, and Kick questionnair e Answer Date Recorded Within the last year, have y ou been afraid of your partner or ex-partner? No 11/19/2022 Within the last year, have y ou been humiliated or emotionally abused in other ways by your partner or ex-partner? No Within the last year, have y ou been kicked, hit, slapped, or otherwise physically hurt by your partner or ex-partner? No 11/19/2022 Within the last year, have y ou been raped or forced to have any kind of sexual activity by your partner or ex-partner? No 11/19/2022 Social Connection and Isolat ion Panel [NHANES] Answer Date Recorded In a typical week, how many times do you talk on the phone with family, friends, or neighbors? More than three times a week 11/19/2022 How often do you get togethe r with friends or relatives? Twice a week 11/19/2022 How often do you attend chur or taoism services? Never 11/19/2022 Do you belong to any clubs o r organizations such as mu-ism groups, unions, fraternal or athletic groups, or school groups? No 11/19/2022 How often do you attend meet ings of the clubs or organizations you belong to? Never 11/19/2022 Are you , , di vorced, , never , or living with a partner? 11/19/2022 AUDIT-C Answer Date Recorded Q1: How often do you have a drink containing alc ohol? Never 11/19/2022 Average Number of Drinks Not on file 023 Frequency of Binge Drinking Not on file 11/07 Overall Financial Resource Strain (CARDIA) Answe r Date Recorded How hard is it for you to pa y for the very basics like food, housing, medical care, and heating? Very hard 11/19/2022 PHQ-2 Answer Date Recorded PHQ-2 Score 0 01/27/2023 [facility] Occupational Stress Questionnaire Answer Date Recorded Do you feel stress - tense, restless, nervous, or anxious, or unable to sleep at night because your mind is troubled all the time - these days? Not at all 11/19/2022 Exercise Vital Sign Answer Date Recorde d On average, how many days pe r week do you engage in moderate to strenuous exercise (like a brisk walk)? 0 days 11/19/2022 On average, how many minutes do you engage in exercise at this level? 0 min 11/19/2022 Hunger Vital Sign Answer Date Recorded Within the past 12 months, y ou worried that your food would run out before you got the money to buy more. Often true Within the past 12 months, t he food you bought just didn't last and you didn't have money to get more. Sometimes true PRAPARE - Transportation Answer Date Re corded In the past 12 months, has l ack of transportation kept you from medical appointments or from getting medications? No 11/07 In the past 12 months, has l ack of transportation kept you from meetings, work, or from getting things needed for daily living? No 11/19/2022 Housing Stability Vital Sign Answer Jorge Luis e Recorded In the last 12 months, was t here a time when you were not able to pay the mortgage or rent on time? Yes 11/19/2022 In the last 12 months, how many places have you lived? 2 11/19/2022 In the last 12 months, was t here a time when you did not have a steady place to sleep or slept in a group home (including now)? No 11/19/2022 Depression Answer Date Recor ded PHQ-9 Total Score (max 27) 1 01/27 Nutrition Answer Date Recorded On average, how many serving s of fruits and vegetables do you eat per day (serving size is equal to 1 cup or approximately the size of a tennis ball)? 0-1 11/19/2022 Dental Answer Date Recorded Dental: Regular Dentist No 11/20/19 23 Employment Answer Date Recorded Employment status Temporarily disabled Education Answer Date Recorded What is the highest level of school you have completed or the highest degree you have received? Some college, no degree 11/19/2022 Sex and Gender Information Value Date Recorded Sex Assigned at Male 07/09/2017 9:27 AM RN BABY Gender Identity Male 07/09/2017 9:27 AM RN BABY Sexual Orientation Straight 07/09/2017 9: 27 AM RN BABY documented as of this encounter Last Filed Vital Signs Vital Sign Reading Time Taken Comments Blood Pressure 133/99 03/07/2024 5:58 PM CDT Pulse 83 03/07/2024 5:58 PM CDT Temperature 37.2 ??C (99 ??F) 03/07/2024 6:06 PM CDT Respiratory Rate 13 03/07/2024 5:59 PM CDT Oxygen Saturation 99% 03/07/2024 5:58 PM CDT Inhaled Oxygen Concentration - - Weight 97 kg (213 lb 13.5 oz) 03/07/2024 4:04 PM CDT Height - - Body Mass Index 26.04 06/25/2023 6:55 AM RN BABY documented in this encounter Discharge Instructions * Discharge Instructions* Mohinder Escalona P.A.-C., P.A. - 03/07/2024 5:52 PM CDT As we discussed, your imaging and workup here in the emergency room was reassuring. You stated you did not want any prescription for a muscle relaxer at this time so I did not send him to the pharmacy for you. Return to the ED if your condition worsens. * Attachments The following attachments cannot be sent through Care Everywhere. * Acute Back Pain Adult ([place]) documented in this encounter Medications at Time of Discharge Medication Sig Dispensed Refills Start Date End Date acetaminophen (TYLENOL) 500 mg tablet Take 2 tablets (1,000 mg total) by mouth every 6 (six) hours as needed for pain. 06/29/2023 enoxaparin (LOVENOX) 40 mg/0.4 mL injection Inject 0.4 mL (40 mg total) under the skin daily for 7 doses. 2.8 mL 06/30/2023 HYDROcodone-acetaminophe n (NORCO) 5-325 mg per tablet Take 1 tablet by mouth 3 (three) times a day as needed. 12/16/2023 ibuprofen (MOTRIN) 400 mg tablet Take 1 tablet (400 mg total) by mouth every 6 (six) hours as needed for pain. 06/29/2023 naloxone (NARCAN) 4 mg/actuation nasal spray Administer 1 spray (4 mg total) into one nostril as needed for reversal. Use 1 spray in 1 nostril. Repeat with second device in other nostril after 2-3 minutes if no or minimal response. 2 each 06/29/2023 documented as of this encounter Plan of Treatment Scheduled Orders Name Type Priority Associated Diagnoses Orde r Schedule Bacterial Culture, Aerobic + Susceptibility, Urine Microbiology STAT STAT for 1 Occur rences starting 03/07/2024 until 03/07/2024 Scheduled Referrals Name Type Priority Associated Diagnoses Orde r Schedule POST ED VISIT Family Medicine Outpatient Referral Routine Pain Back Lumbar Cyst Renal Expected: 03/07/2024, Expires: 06/07/2025 documented as of this encounter Procedures Procedure Name Priority Date/Time Associated Diagnosis Comments CT ABDOMEN PELVIS WITH IV CONTRAST RAD - Semiurgent (Fast; most ED patients; some inpatients) 03/07/2024 5:20 PM CDT URINALYSIS WITH MICROSCOPIC IF INDICATED, U STAT 03/07/2024 5:09 PM CDT LACTATE, B/P STAT 03/07/2024 4:55 PM CDT CBC WITH DIFFERENTIAL, B STAT 03/07/2024 4:54 PM CDT BASIC METABOLIC PANEL, S/P STAT 03/07/2024 4:54 PM CDT documented in this encounter Results * CT Abdomen Pelvis with IV Contrast (03/07/2024 5:20 PM CDT) Anatomical Region Laterality Modality Abdomen, Pelvis, Abdominal R ST LOS, Abdominal ARZ LOS, Abdominal FLA LOS N/A Computed Tomography 03/07/2024 5:22 PM CDT Impressions 03/07/2024 5:35 PM CDT 1. No acute findings within the abdomen or pelvis. 2. Unchanged filling defect within the dilated distal common bile duct similar with 12/31/2023. Consider nonemergent MRI/MRCP for further evaluation if indicated. 3. Stable 11 mm intermediate attenuating right renal lesion. Most commonly these are hemorrhagic or proteinaceous cysts although indeterminate. This could also be evaluated on MRI. Narrative 03/07/2024 5:35 PM CDT EXAM: CT ABDOMEN PELVIS WITH IV CONTRAST COMPARISON: Multiple CTs of the abdomen and pelvis, most recently 12/31/2023 FINDINGS: Cavernous hemangioma in the left liver. Multiple other smaller cysts or hemangiomas are not significantly changed from prior studies. The gallbladder, pancreas, spleen, and adrenal glands are unremarkable. No change in size of an 11 mm intermediate attenuating renal lesions in the lower pole of the right kidney. Several other renal cysts. No hydronephrosis. Circumferential thickening of the decompressed urinary bladder. Mild prostate enlargement. There does appear to be a persistent filling defect within the distal common bile duct which remains stable in size. Prior partial colectomy and primary anastomosis. Colonic diverticulosis without evidence of diverticulitis. Negative appendix. Stable 5 mm nodule adjacent to the gallbladder. Normal caliber abdominal aorta. Patent mesenteric vasculature. Mild vascular calcifications. No lymphadenopathy in the abdomen or pelvis. Several pulmonary nodules in the lung bases are unchanged in the last several studies. For example a 6 mm nodule in the left lung base and a 5 mm nodule in the right lung base. Normal alignment of the lumbar spine. No bony spinal canal stenosis. Mild left- sided foraminal stenosis at L5-S1 no destructive bone lesions. Small bilateral fat-containing inguinal hernias. Procedure Note Mich Meeks M.D. - 03/07/2024 EXAM: CT ABDOMEN PELVIS WITH IV CONTRAST COMPARISON: Multiple CTs of the abdomen and pelvis, most recently12/31/2023 FINDINGS: Cavernous hemangioma in the left liver. Multiple other smallercysts or hemangiomas are not significantly changed from prior studies. Thegallbladder, pancreas, spleen, and adrenal glands are unremarkable. Nochange in size of an 11 mm intermediate attenuating renal lesions in the lower pole of the rightkidney. Several other renal cysts. No hydronephrosis. Circumferentialthickening of the decompressed urinary bladder. Mild prostateenlargement. There does appear to be a persistent filling defect within the distalcommon bile duct which remains stable in size. Prior partial colectomy and primary anastomosis. Colonic diverticulosiswithout evidence of diverticulitis. Negative appendix. Stable 5 mm noduleadjacent to the gallbladder. Normal caliber abdominal aorta. Patent mesenteric vasculature. Mildvascular calcifications. No lymphadenopathy in the abdomen or pelvis. Several pulmonary nodules in the lung bases are unchanged in the lastseveral studies. For example a 6 mm nodule in the left lung base and a 5mm nodule in the right lung base. Normal alignment of the lumbar spine. No bony spinal canal stenosis. Mildleft- sided foraminal stenosis at L5-S1 no destructive bone lesions. Smallbilateral fat-containing inguinal hernias. IMPRESSION: 1. No acute findings within the abdomen or pelvis. 2. Unchanged filling defect within the dilated distal common bile ductsimilar with 12/31/2023. Consider nonemergent MRI/MRCP for furtherevaluation if indicated. 3. Stable 11 mm intermediate attenuating right renal lesion. Most commonlythese are hemorrhagic or proteinaceous cysts although indeterminate. Thiscould also be evaluated on MRI. Chance Karli Escalona P.A.-C., P.A. IMG CT P ROCEDURES * Urinalysis with Microscopic if Indicated (03/07/2024 5:09 PM CDT) Source Urine, Urine, Midstream 03/07/2024 5:20 PM CDT [facility] Clarity Clear Clear 03/07/2024 5:20 PM CDT [facility] Color Yellow 03/07/2024 5:20 PM CDT [facility] Comment: ----REFERENCE VALUE---- Colorless Yellow Temitope Blood Negative Negative 03/07/2024 5:20 PM CDT [facility] Nitrite Negative Negative 03/07/2024 5:20 PM CDT [facility] Leukocyte Esterase Negative Negative 03/07/2024 5:20 PM CDT [facility] Protein Negative mg/dL 03/07/2024 5:20 PM CDT [facility] Comment: ----REFERENCE VALUE---- Negative Trace Glucose Negative Negative mg/dL 03/07/2024 5:20 PM CDT [facility] Ketone Negative Negative mg/dL 03/07/2024 5:20 PM CDT [facility] Bilirubin Negative Negative 03/07/2024 5:20 PM CDT [facility] pH 7.0 5.0 - 8.0 03/07/2024 5:20 PM CDT [facility] Specific [place] 1.006 1.001 - 1.035 03/07/2024 5:20 PM CDT [facility] Urobilinogen 0.2 0.2 - 1.0 mg/dL 03/07/2024 5:20 PM CDT [facility] Urine (Urine, Midstream) 03/07/2024 5:09 PM CDT 03/07/2024 5:14 PM CDT Shanel Arguelles APRN, Eryn.N.P., D.N.P. LA B URINE ORDERABLES Performing Organization Address City/[facility]/ZIP Co de Phone Number [facility] [address] [place] [address] * Lactate (03/07/2024 4:55 PM CDT) Lactate, P 1.5 0.5 - 2.2 mmol/L 03/07/2024 5:12 PM CDT [facility] Blood (Blood, Venous) 03/07/2024 4:55 PM CDT 03/07/2024 4:57 PM CDT Eryn Levin APRN.N.P., D.N.P. LA B BLOOD NON ADD-ON Performing Organization Address City/[facility]/ZIP Co de Phone Number [facility] [address] [place] [address], [facility] [place] [address] * (ABNORMAL) Basic Metabolic Panel (03/07/2024 4:54 PM CDT) Potassium, P 3.7 3.6 - 5.2 mmol/L 03/07/2024 5:15 PM CDT [facility] Sodium, P 138 135 - 145 mmol/L 03/07/2024 5:15 PM CDT [facility] Chloride, P 105 98 - 107 mmol/L 03/07/2024 5:15 PM CDT [facility] Bicarbonate, P 20(L) 22 - 29 mmol/L 03/07/2024 5:15 PM CDT [facility] Anion Gap, P 13 7 - 15 03/07/2024 5:15 PM CDT [facility] BUN (Blood Urea Nitrogen), P 8 8 - 24 mg/dL 03/07/2024 5:15 PM CDT [facility] Creatinine 0.88 0.74 - 1.35 mg/dL 03/07/2024 5:15 PM CDT [facility] Estimated GFR (eGFR) >90 >=60 mL/min/BSA 03/07/2024 5:15 PM CDT [facility] Comment: Estimated GFR calculated using the 2020 CKD_EPI creatinine equation. Calcium, Total, P 9.6 8.6 - 10.0 mg/dL 03/07/2024 5:15 PM CDT [facility] Glucose, P 93 70 - 140 mg/dL 03/07/2024 5:15 PM CDT [facility] Blood (Blood, Venous) 03/07/2024 4:54 PM CDT 03/07/2024 4:57 PM CDT Shanel Arguelles APRN, C.N.P., D.N.P. LA B BLOOD ADD-ON [facility] [address] [place] [address], [facility] [address] [place] [address] * (ABNORMAL) CBC with Differential, Blood (03/07/2024 4:54 PM CDT) Hemoglobin 15.2 13.2 - 16.6 g/dL 03/07/2024 5:06 PM CDT [facility] Hematocrit 43.5 38.3 - 48.6 % 03/07/2024 5:06 PM CDT [facility] Erythrocytes 5.06 4.35 - 5.65 x10(12)/L 03/07/2024 5:06 PM CDT [facility] MCV 86.0 78.2 - 97.9 fL 03/07/2024 5:06 PM CDT [facility] RBC Distrib Width 13.0 11.8 - 14.5 % 03/07/2024 5:06 PM CDT [facility] Platelet Count 262 135 - 317 x10(9)/L 03/07/2024 5:06 PM CDT [facility] Leukocytes 10.2(H) 3.4 - 9.6 x10(9)/L 03/07/2024 5:06 PM CDT [facility] Neutrophils 7.24(H) 1.56 - 6.45 x10(9)/L 03/07/2024 5:06 PM CDT [facility] Lymphocytes 2.40 0.95 - 3.07 x10(9)/L 03/07/2024 5:06 PM CDT [facility] Monocytes 0.43 0.26 - 0.81 x10(9)/L 03/07/2024 5:06 PM CDT [facility] Eosinophils 0.09 0.03 - 0.48 x10(9)/L 03/07/2024 5:06 PM CDT [facility] Basophils 0.04 0.01 - 0.08 x10(9)/L 03/07/2024 5:06 PM CDT [facility] Blood (Blood, Venous) 03/07/2024 4:54 PM CDT 03/07/2024 4:57 PM CDT Shanel Arguelles APRN, C.N.P., D.N.P. LA Carline BLOOD ADD-ON [facility] [address] [place] [address], [facility] AUST [facility] - [facility] [address] [place] [address] documented in this encounter Visit Diagnoses Diagnosis Pain Back Lumbar- Primary Pain Low Back Chronic Cyst Renal documented in this encounter Administered Medications Inactive Administered Medications - up to 3 most recent administrations Medication Order MAR Action Action Date Dose Rate Site iohexoL 300 mg iodine/mL solution 1-200 mL (Omnipaque) 1-200 mL, intravenous, Once in imaging, contrast, Starting on Wed03/07/24 at 1712, For 1 dose Given 03/07/2024 5:16 PM CDT 150 mL ketorolac injection 15 mg (ToradoL) 15 mg, intramuscular, Once, On Wed03/07/24 at 1626, For 1 dose, Adult IV push rate: Over 15 seconds. Peds IV push rate: Over 1 minute. Doses > 15 mg IV/IM are discouraged due to lack of additional analgesic benefit. Given 03/07/2024 4:35 PM CDT 15 mg Right Deltoid lidocaine 5 % 1 patch (Lidoderm) 1 patch, transdermal, Administer over 12 Hours, Once, On Wed03/07/24 at 1635, For 1 dose, Remove after 12 hours. Medication Applied 03/07/2024 4:52 PM CDT 1 patch Lower Back orphenadrine injection 60 mg (Norflex) 60 mg, intramuscular, Once, On Wed03/07/24 at 1635, For 1 dose Given 03/07/2024 4:51 PM CDT 60 mg Left Deltoid sodium chloride 0.9 % flush 1-250 mL 1-250 mL, intravenous, Once in imaging, line care, Starting on Wed03/07/24 at 1712, For 1 dose Given 03/07/2024 5:15 PM CDT 90 mL sodium chloride 0.9 % injection 10 mL 10 mL, intravenous, As needed, line care, Starting on Wed03/07/24 at 1712 Given 03/07/2024 5:15 PM CDT 10 mL Given 03/07/2024 5:00 PM CDT 10 mL documented in this encounter Active and Recently Administered Medications Times are shown in CDT. Scheduled Medication Order 03/05/2024 03/06/2024 03/07/2024 ketorolac injection 15 mg (ToradoL) (COMPLETED) 15 mg, intramuscular, Once, On Wed03/07/24 at 1626, For 1 dose, Adult IV push rate: Over 15 seconds. Peds IV push rate: Over 1 minute. Doses > 15 mg IV/IM are discouraged due to lack of additional analgesic benefit. 1635 (Given - Provid er: Pavithra Martins R.N.) lidocaine 5 % 1 patch (Lidoderm) 1 patch, transdermal, Administer over 12 Hours, Once, On Wed03/07/24 at 1635, For 1 dose, Remove after 12 hours. 1651 (Medication Sumaya lied - Provider: Pavithra Martins R.N.)181 (Due: Medication Removed - Provider: Discharge Provider, Automatic - Comment: Time automatically adjusted from order being discontinued) orphenadrine injection 60 mg (Norflex) (COMPLETED) 60 mg, intramuscular, Once, On Wed03/07/24 at 1635, For 1 dose 1650 (Given - Provid er: Pavithra Martins R.N.) PRN Medication Order 03/05/2024 03/06/2024 03/07/2024 iohexoL 300 mg iodine/mL solution 1-200 mL (Omnipaque) (COMPLETED) 1-200 mL, intravenous, Once in imaging, contrast, Starting on Wed03/07/24 at 1712, For 1 dose 171 (Given - Provid er: Isaac Sims(R)(CT), R.T.(R)) sodium chloride 0.9 % flush 1-250 mL (COMPLETED) 1-250 mL, intravenous, Once in imaging, line care, Starting on Wed03/07/24 at 1712, For 1 dose 171 (Given - Provid er: Germaine SimsTNatalie(R)(CT), R.T.(R)) sodium chloride 0.9 % injection 10 mL 10 mL, intravenous, As needed, line care, Starting on Wed03/07/24 at 1712 1700 (Given - Provid er: Pavithra Martins R.N.)171 (Given - Provider: Isaac Sims(R)(CT), R.T.(R)) documented in this encounter Additional Health Concerns Assessment Noted Time PHQ-9 Depression Total Score: 1 01/28/20 23 1:59 PM CDT documented as of this encounter Care Teams Line Mover Relationship Specialty Start Date End Date Parul aCmeron APRN, C.N.P., D.N.P. [address] [facility] [place] [address] PCP - General 11/29/23 documented as of this encounter
--- OUTSIDE RECORDS SUMMARY | 2024-03-07 20:23 | XMS_ITS | Clinical Summary ---
Author Organization [facility] Address [address] [place] [id number] Care Team Providers Care Cupola Operator Name Role Phone Unavailable Primary Care Provider Unavailabl e Social History Tobacco Use Types Packs/Day Years Used Date Smoking Tobacco: Never Assessed Adolescent Education Answer Date Record ed Getting School Help Needed Not on file 01/02 Sex and Gender Information Value Date Recorded Sex Assigned at Not on file Gender Identity Not on file Sexual Orientation Not on file Plan of Treatment Health Maintenance Due Date Last Done Comments ADVANCE CARE PLANNING 1973 ANNUAL REVIEW OF HM ORDERS 1973 CT COLONOGRAPHY 1973 FIT 1973 FLEX SIG 1973 GLUCOSE 1973 YEARLY PREVENTIVE VISIT 1973 sDNA (Cologuard) 1973 COLONOSCOPY 1983 COLORECTAL CANCER SCREENING 1983 HIV SCREENING 1988 HEPATITIS C SCREENING 1991 HEPATITIS B IMMUNIZATION (1 of 3 - 19+ 3-dose series) 1992 LIPID 2013 COVID-19 Vaccine (3 - 2022-2 4 season) 2023 06/13/2021, 12/24/2020 ZOSTER IMMUNIZATION (1 of 2) 2023 PHQ-2 (once per calendar year) 2023 INFLUENZA VACCINE (#1) 2024 , 07/06/2018, 09/08/2016 DTAP/TDAP/TD IMMUNIZATION (3 - Td or Tdap) 02/14/2033 02/14/2023, 01/04/2014 Pneumococcal Vaccine: Pediatrics (0 to 5 Years) and At-Risk Patients (6 to 64 Years) Aged Out 07/06/2018, 09/08/2016 No longer eligible based on patient's age to complete this topic HPV IMMUNIZATION Aged Out No longer e ligible based on patient's age to complete this topic IPV IMMUNIZATION Aged Out No longer e ligible based on patient's age to complete this topic MENINGITIS IMMUNIZATION Aged Out No l onger eligible based on patient's age to complete this topic RSV MONOCLONAL ANTIBODY Aged Out No l onger eligible based on patient's age to complete this topic
--- OUTSIDE RECORDS SUMMARY | 2024-03-07 20:23 | XMS_ITS | Clinical Summary ---
Author Organization [facility] Address [address] [place] [address] Care Team Providers Care Java Programmer Name Role Phone Parul Cameron APRN, C.N.P., D.N.P. Primary Care Provider Source Comments Patient records contain information from all sites at [facility]. For routine questions regarding patient records, call [phone] during business hours, M-F 8:00 AM - 5:00 PM Central Time. Record requests for emergency care only can be directed to [phone] at any time.[facility] Allergies Active Allergy Reactions Criticality Noted Date Comments Ciprofloxacin Rash Medium 07/20/2022 Had rash after taking cipro and flagyl Metronidazole Rash Medium 07/20/2022 Had rash after taking cipro and flagyl. Took Flagyl 06/24/23 with no side effects. Lisinopril Headache Medium 06/23/2023 Medications Medication Sig Dispensed Refills Start Date End Date Status ibuprofen (MOTRIN) 400 mg tablet Take 1 tablet (400 mg total) by mouth every 6 (six) hours as needed for pain. 06/29/2023 Active acetaminophen (TYLENOL) 500 mg tablet Take 2 tablets (1,000 mg total) by mouth every 6 (six) hours as needed for pain. 06/29/2023 Active enoxaparin (LOVENOX) 40 mg/0.4 mL injection Inject 0.4 mL (40 mg total) under the skin daily for 7 doses. 2.8 mL 06/30/2023 Active naloxone (NARCAN) 4 mg/actuation nasal spray Administer 1 spray (4 mg total) into one nostril as needed for reversal. Use 1 spray in 1 nostril. Repeat with second device in other nostril after 2-3 minutes if no or minimal response. 2 each 06/29/2023 Active HYDROcodone-acetamin ophen (NORCO) 5-325 mg per tablet Take 1 tablet by mouth 3 (three) times a day as needed. 12/16/2023 Active Active Problems Problem Noted Date Diagnosed Date Pain Neck 06/23/2023 Overweight Body Mass Index 25-29.9 Adult 023 Colectomy Partial Status Post 06/23/2023 Colectomy Sigmoid Colon Status Post 06/23/2023 Obstruction Common Bile Duct 06/23/2023 Aortic Ectasia 06/23/2023 Nodules Pulmonary Multiple 06/23/2023 Other Stimulant Dependence In Remission 04/06/20 23 Elevated Thyroid Function Test 01/01/2023 Alcohol Moderate Or Severe U se Disorder (Dependence) Uncomplicated 12/31/2022 Pain Low Back Chronic 12/31/2022 Diverticulitis 07/19/2022 History Of Falling 06/22/2022 Depression Major Recurrent S evere Without Psychotic Features 07/09/2017 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 [address] [place] [phone] Shanel Arguelles APRN, C.N.P., D.N.P. Pain Back Lumbar (Primary Dx); Pain Low Back Chronic; Cyst Renal Discharge Disposition: Home or Self Care 01/03/2024 1:05 PM CDT - 01/03/2024 2:[address] [facility] [address] [phone] Romy Johnson P.A.-C., P.A. Pain Back Lumbar (Primary Dx) Discharge Disposition: Home or Self Care 12/30/2023 11:44 PM CDT - 12/31/2023 2:[address] [facility] [address] [phone] Mamta Zamudio M.D. Abdominal Pain (Primary Dx); Pain Back Lumbar Discharge Disposition: Home or Self Care 12/14/2023 Orders Only [facility] PCP TH MNT Parul Cameron APRN, C.N.P., D.N.P. Screening Lipid 12/07/2023 3:21 AM CDT - 12/07/2023 3:[address] [facility] [address] [phone] Deangelo Kothari M.D. Pain Low Back Chronic (Primary Dx) Discharge Disposition: Home or Self Care from Last 3 Months Immunizations Name Administration Dates Next Due Influenza, Injectable, Mdck, Preservative Free, Quadrivalent 06/13/2021 Influenza, Unspecified 09/08/2016 PPSV23 07/06/2018,09/08/2016 Tdap 02/14/2023,01/04/2014 influenza vaccine quad (FLUZ ONE/FLUARIX) (6 months and older)(PF) 07/06/2018 Family History Medical History Relation Name Comments Genetic disease Brother Ortiz Alcohol abuse Father Al Completed Suicide Father Al Suicide Attempts Father Al Lung cancer Maternal Grandfather Alcohol abuse Mother's Sister 1 Mansi Drug abuse Mother's Sister 1 Mansi Suicide Attempts Mother's Sister 1 Mansi Alcohol abuse Mother's Sister 2 Celestina Suicide Attempts Mother's Sister 2 Celestina Anxiety disorder Sister Alivia Bipolar disorder Sister Alivia Depression Sister Alivia Relation Name Status Comments Brother Ortiz Father Al Maternal Grandfather Mother's Sister 1 Mansi Mother's Sister 2 Celestina Sister Alivia Social History Tobacco Use Types Packs/Day Years Used Date Smoking Tobacco: Every Day Cigarettes 0.5 32.9 Started: 1991 Passive Smoke Exposure: Past Smokeless Tobacco: Never Tobacco Cessation:Ready to Q uit: Not Asked; Counseling Given: Not Answered Comments:5-10 cpd. Starting varenicline, 21 mg patch [...] 11/19/2022 How often do you attend chur ch or denominational services? Never 11/19/2022 Do you belong to any clubs o r organizations such as methodist groups, unions, fraternal or athletic groups, or [...] Answer Date Recorded PHQ-2 Score 0 01/27/2023 [facility] - Occupational Stress Questionnaire Answer Date Recorded [...] place to sleep or slept in a fci (including now)? No 11/19/2022 Depression Answer Date [...] Sex Assigned at Male 07/09/2017 9:27 AM ENVIRONMENTAL SOLUTIONS ENGINEER Gender Identity Male 07/09/2017 9:27 AM ENVIRONMENTAL SOLUTIONS ENGINEER Sexual Orientation Straight 07/09/2017 9: 27 AM ENVIRONMENTAL SOLUTIONS ENGINEER Last Filed Vital Signs Vital Sign Reading Time Taken Comments Blood Pressure 133/99 03/07/2024 5:58 PM CDT Pulse 83 03/07/2024 5:58 PM CDT Temperature 37.2 ??C (99 ??F) 03/07/2024 6:06 PM CDT Respiratory Rate 13 03/07/2024 5:59 PM CDT Oxygen Saturation 99% 03/07/2024 5:58 PM CDT Inhaled Oxygen Concentration - - Weight 97 kg (213 lb 13.5 oz) 03/07/2024 4:04 PM CDT Height 193 cm (6' 3.98) 06/25/2023 6:55 AM ENVIRONMENTAL SOLUTIONS ENGINEER Body Mass Index 26.04 06/25/2023 6:55 AM ENVIRONMENTAL SOLUTIONS ENGINEER Plan of Treatment Health Maintenance Due Date Last Done Comments CT Colonography 1973 Cologuard 1973 FIT 1973 Hepatitis C Screening 1973 Lipid (Cholesterol) Screening 1973 Hepatitis B Vaccines (1 of 3 - 19+ 3-dose series) 1992 Pneumococcal vaccine (0-64 y ears) (2 of 2 - PCV) 07/06/2019 07/06/2018, 09/08/2016 COVID-19 Vaccine (3 - 2022-2 4 season) 2023 06/13/2021, 12/24/2020 Zoster Vaccines (1 of 2) 2023 Depression Monitoring (PHQ-9) 05/29/2023 01/27/2023 Visit: Chronic Disease, age 18+ 04/08/2024 Influenza Vaccine (#1) 2024 , 07/06/2018, 09/08/2016 Office Visit for Blood Press ure Check / Re-check 06/23/2024 06/23/2023 Fasting Glucose for Diabetes Screening 03/07/2027 03/07/2024, 12/31/2023, 06/23/2023, Additional history exists Colonoscopy 09/16/2032 09/16/2022, 09/16/2022 Colorectal Cancer Screening 09/16/2032 DTaP,Tdap,and Td Vaccines (3 - Td or Tdap) 02/14/2033 02/14/2023, 01/04/2014 Medical Devices Implanted Type Area Human Resources Advisor Device Identifier Shelf Expiration Date Model / Serial / Lot Baha Attract Device-01/09/2015 Implanted:01/09 by Juve García M.D. (Quantity not on file) BAHA Device Cochlea Description:BAHA Attract MRI condtional at 1.5T, Normal mode. External processor must be removed before going into zone IV. Yeison Lanier 02/26/23 4 mm Baha Attract system - paperwork on system was scanned into images on MRI done 04/28/19 - conditional - 1.5 T - use normal mode [email or web address] Cartilage Costal Lg - [place] [id number] Implanted:Qty: 1 on 12/19/2010 Bone or Tissue Other/Legacy - See Implant Description [employer] Description:Device Manufactu rer - [employer]. Body Location - Other. bone for packing defect. Device Status Text - [id number]. Ear Hilliard Titanium Partial 3.00 - [place] [id number] Implanted:Qty: 1 on 08/28/2008 Ear Implant Other/Legacy - See Implant Description [facility] Description:Device Manufactu rer - [employer] Body Location - Other. Left. Device Status Text - [id number] [id number]. Scan at 1.5T in Normal mode due to BAHA Attract Mary Kay [place] MRSO 03/26/2023 Ear Ttp Variac Total 0.2x3.0 7mm - [place] [id number] Implanted:Qty: 1 on 12/19/2010 Ear Implant Other/Legacy - See Implant Description [facility] Description:Device Manufactu rer - [employer] Body Location - Other. Left. Device Status Text - [id number] [id number]. Scan at 1.5T in Normal mode due to BAHA Attract Mary Kay [place] MRSO 03/26/2023 Ear Oss Ti Total System Centered Adj. - [place] [id number] Implanted:Qty: 1 on 12/19/2010 Ear Implant Other/Legacy - See Implant Description [facility] [facility] Description:Device Manufactu rer - [employer]. Body Location - Other. Left. Device Status Text - [id number] [id number]. Scan at 1.5T in Normal mode due to BAHA Attract Mary Kay Leal MRSO 03/26/2023 Ear Ttp Variac Total 0.2x3.0 7mm - [place] [id number] Implanted:Qty: 1 on 12/19/2010 Ear Implant Other/Legacy - See Implant Description [employer] Description:Device Manufactu rer - [employer] Body Location - Other. Left. Device Status Text - [id number] [id number]. Scan at 1.5T in Normal mode due to BAHA Attract Mary Kay [place] MRSO 03/26/2023 Procedures Procedure Name Priority Date/Time Associated Diagnosis Comments CT ABDOMEN PELVIS WITH IV CONTRAST RAD - Semiurgent (Fast; most ED patients; some inpatients) 03/07/2024 5:20 PM CDT URINALYSIS WITH MICROSCOPIC IF INDICATED, U STAT 03/07/2024 5:09 PM CDT LACTATE, B/P STAT 03/07/2024 4:55 PM CDT BASIC METABOLIC PANEL, S/P STAT 03/07/2024 4:54 PM CDT CBC WITH DIFFERENTIAL, B STAT 03/07/2024 4:[address] ABDOMEN PELVIS WITH IV CONTRAST RAD - Semiurgent (Fast; most ED patients; some inpatients) 12/31/2023 1:20 AM CDT LIPASE, S/P STAT 12/31/2023 12:27 AM CDT LACTATE, B/P STAT 12/31/2023 12:27 AM CDT C-REACTIVE PROTEIN (CRP), S/P STAT 12/31/2023 12:27 AM CDT COMPREHENSIVE METABOLIC PANEL, S/P STAT 12/31/2023 12:27 AM CDT CBC WITH DIFFERENTIAL, B STAT 12/31/2023 12:27 AM CDT COLONOSCOPY Routine 09/16/2022 10:44 AM ENVIRONMENTAL SOLUTIONS ENGINEER Diverticulitis Colon from Last 3 Months or Most Recently Relevant to Health Maintenance Results * CT Abdomen Pelvis with IV Contrast (03/07/2024 5:20 PM CDT) Only the most recent of2 resultswithin the time period is included. Anatomical Region Laterality Modality Abdomen, Pelvis, Abdominal [...] indeterminate. Thiscould also be evaluated on MRI. Mohinder Escalona P.A.-C., P.A. IMG CT P ROCEDURES [...] 8.0 03/07/2024 5:20 PM CDT [facility] Specific [place] 1.006 1.001 - 1.035 03/07/2024 5:20 PM CDT [facility] Urobilinogen 0.2 0.2 - 1.0 mg/dL 03/07/2024 5:20 PM CDT [facility] Urine (Urine, Midstream) 03/07/2024 5:09 PM CDT 03/07/2024 5:14 PM CDT Shanel Arguelles APRN, C.N.P., D.N.P. LA B URINE ORDERABLES [facility] [address] [place] [address], [facility] - [facility] [address] [place] [address] * Lactate (03/07/2024 4:55 PM CDT) Only the most recent of2 resultswithin the time period is included. Lactate, P 1.5 0.5 - 2.2 mmol/L 03/07/2024 5:12 PM CDT [facility] Blood (Blood, Venous) 03/07/2024 4:55 PM CDT 03/07/2024 4:57 PM CDT Shanel Arguelles APRN, C.N.P., MikkiNNataliePNatalie LA B BLOOD NON ADD-ON [facility] [address] [place] [address], [facility] [address] [place] [address] * (ABNORMAL) CBC with Differential, Blood (03/07/2024 4:54 PM CDT) Only the most recent of2 resultswithin the time period is included. Hemoglobin 15.2 13.2 - 16.6 g/dL 03/07/2024 [...] 4:57 PM CDT Shanel Arguelles APRN, C.N.P., D.N.PNatalie RICHTER BLOOD ADD-ON [facility] [address] [place] [address], [facility] [address] [place] [address] * (ABNORMAL) Basic Metabolic Panel (03/07/2024 4:54 [...] 4:57 PM CDT Shanel Arguelles APRN, C.N.P., Lakshmi RICHTER BLOOD ADD-ON [facility] [address] [place], [place] [id number] [place] [address] Lab - [facility] [address] [place] [address] * CRP (C-Reactive Protein) (12/31/2023 12:27 AM CDT) C-Reactive Protein (CRP), P 3.9 <5.0 mg/L 12/31/2023 12:51 AM CDT [facility] Blood (Blood, Venous) 12/31/2023 12:27 AM CDT 12/31/2023 12:32 AM CDT Mamta Zamudio M.D. LAB BLOOD ADD-ON Performing Organization Address City/[facility]/ZIP Co de Phone Number [facility] [address] [place], [place] [address] - [facility] [address] [place] [address] * Lipase (12/31/2023 12:27 AM CDT) Lipase, P 28 13 - 60 U/L 12/31/2023 12:51 AM CDT [facility] Blood (Blood, Venous) 12/31/2023 12:27 AM CDT 12/31/2023 12:32 AM CDT Mamta Zamudio M.D. LAB BLOOD ADD-ON [facility] [address] [place] [address], [facility] - [facility] [address] [place] [address] * Comprehensive Metabolic Panel (12/31/2023 12:27 AM CDT) Potassium, P 3.7 3.6 - 5.2 mmol/L 12/31/2023 12:51 AM CDT [facility] Sodium, P 138 135 - 145 mmol/L 12/31/2023 12:51 AM CDT [facility] Chloride, P 103 98 - 107 mmol/L 12/31/2023 12:51 AM CDT [facility] Bicarbonate, P 27 22 - 29 mmol/L 12/31/2023 12:51 AM CDT [facility] Anion Gap, P 8 7 - 15 12/31/2023 12:51 AM CDT [facility] BUN (Blood Urea Nitrogen), P 11 8 - 24 mg/dL 12/31/2023 12:51 AM CDT [facility] Creatinine 1.13 0.74 - 1.35 mg/dL 12/31/2023 12:51 AM CDT [facility] Estimated GFR (eGFR) 79 >=60 mL/min/BS A 12/31/2023 12:51 AM CDT [facility] Comment: Estimated GFR calculated using the 2020 CKD_EPI creatinine equation. Calcium, Total, P 9.3 8.6 - 10.0 mg/dL 12/31/2023 12:51 AM CDT [facility] Glucose, P 95 70 - 140 mg/dL 12/31/2023 12:51 AM CDT [facility] Protein, Total, P 6.3 6.3 - 7.9 g/dL 12/31/2023 12:51 AM CDT [facility] Albumin, P 3.9 3.5 - 5.0 g/dL 12/31/2023 12:51 AM CDT [facility] Aspartate Aminotransferase (AST), P 15 8 - 48 U/L 12/31/2023 12:51 AM CDT [facility] Alkaline Phosphatase, P 77 40 - 129 U/L 12/31/2023 12:51 AM CDT [facility] Alanine Aminotransferase (ALT), P 25 7 - 55 U/L 12/31/2023 12:51 AM CDT [facility] Bilirubin, Total, P 0.2 0.0 - 1.2 mg/dL 12/31/2023 12:51 AM CDT [facility] Blood (Blood, Venous) 12/31/2023 12:27 AM CDT 12/31/2023 12:32 AM CDT Mamta Zamudio M.D. LAB BLOOD ADD-ON [facility] [address] [place] [address], [place] AUST [facility] - [facility] [address] [place] [address] from Last 3 Months or Most Recently Relevant to Health Maintenance Advance Directives For more information, please contact: [phone] * Full Code (Latest Code Status on File) Date Activated Date Inactivated Comments 06/25/2023 6:32 AM 06/29/2023 2:46 PM Question Answer Comments Full Code: Discussed * Full Code Date Activated Date Inactivated Comments 12/31/2022 10:52 AM 01/06/2023 11:14 AM Question Answer Comments Full Code: Discussed * Full Code Date Activated Date Inactivated Comments 12/31/2022 3:29 AM 12/31/2022 10:52 AM Question Answer Comments Full Code: Not Discussed Due to: Not medically appropriate Care Teams Java Programmer Relationship Specialty Start Date End Date Parul Cameron APRN, C.N.P., D.N.P. [address] [place] [phone] PCP - General 11/29/23
--- OUTSIDE RECORDS SUMMARY | 2024-03-07 20:23 | XMS_ITS | Referral Summary ---
Author Organization [facility] Address [address] [place] [address] Care Team Providers Care Embossing Machine Operator Helper Name Role Phone Parul Cameron APRN, C.N.P., D.N.P. Primary Care Provider Source Comments Patient records contain information from all sites at [facility]. For routine questions regarding patient records, call [phone] during business hours, M-F 8:00 AM - 5:00 PM Central Time. Record requests for emergency care only can be directed to [phone] at any time.[facility] Encounters Date Type Department Care Team Description 03/07/2024 3:49 PM CDT - 03/07/2024 6:11 PM CDT Emergency [facility] [address] [place] [phone] Shanel Arguelles APRN, C.N.P., D.N.P. Pain Back Lumbar (Primary Dx); Pain Low Back Chronic; Cyst Renal Discharge Disposition: Home or Self Care 01/03/2024 1:05 PM CDT - 01/03/2024 2:06 PM CDT Emergency [facility] [address] [phone] Romy Johnson P.A.Nayla., P.A. Pain Back Lumbar (Primary Dx) Discharge Disposition: Home or Self Care 12/30/2023 11:44 PM CDT - 12/31/2023 2:25 AM CDT Emergency [facility] [address] [phone] Mamta Zamudio M.D. Abdominal Pain (Primary Dx); Pain Back Lumbar Discharge Disposition: Home or Self Care 12/14/2023 Orders Only [facility] Parul Cameron APRN, C.N.P., D.N.P. Screening Lipid 12/07/2023 3:21 AM CDT - 12/07/2023 3:48 AM CDT Emergency [facility] [address] [phone] Deangelo Kothari M.D. Pain Low Back Chronic (Primary Dx) Discharge Disposition: Home or Self Care from Last 3 Months Allergies Active Allergy Reactions Criticality Noted Date [...] 06/23/2023 Other Stimulant Dependence In Remission 04/06/20 Elevated Thyroid Function Test 01/01/2023 Alcohol Moderate [...] Pressure 06/22/202206/09 Contusion Hand Subsequent Right 06/23/2023 Immunizations Name Administration Dates Next Due Influenza, Injectable, Mdck, Preservative Free, Quadrivalent 06/13/2021 Influenza, Unspecified 09/08/2016 PPSV23 07/06/2018,09/08/2016 Tdap 02/14/2023,01/04/2014 influenza vaccine quad (FLUZ ONE/FLUARIX) (6 months and older)(PF) 07/06/2018 Social History Tobacco Use Types Packs/Day Years [...] How often do you attend chur or restorationism services? Never 11/19/2022 Do you belong to any clubs o r organizations such as sikhism groups, unions, fraternal or athletic groups, or [...] Answer Date Recorded PHQ-2 Score 0 01/27/2023 [facility] of Occupat ional Health - Occupational Stress Questionnaire Answer Date Recorded [...] place to sleep or slept in a penitentiary (including now)? No 11/19/2022 Depression Answer Date [...] Sex Assigned at Male 07/09/2017 9:27 AM COIN MACHINE MECHANIC Gender Identity Male 07/09/2017 9:27 AM COIN MACHINE MECHANIC Sexual Orientation Straight 07/09/2017 9: 27 AM COIN MACHINE MECHANIC Last Filed Vital Signs Vital Sign Reading [...] 193 cm (6' 3.98) 06/25/2023 6:55 AM COIN MACHINE MECHANIC Body Mass Index 26.04 06/25/2023 6:55 AM COIN MACHINE MECHANIC Plan of Treatment Not on file Medical Devices Implanted Type Area Finger Buffs Assembler Device Identifier Shelf Expiration Date Model / [...] - 1.5 T - use normal mode [email or web address] Cartilage Costal Lg - [place] [id number] Implanted:Qty: 1 on 12/19/2010 Bone or Tissue Other/Legacy - See Implant Description [employer] Description:Device Manufactu rer - [employer]. Body Location - Other. bone for packing defect. Device Status Text - [id number]. Ear Hilliard Titanium Partial 3.00 - [place] [id number] Implanted:Qty: 1 on 08/28/2008 Ear Implant Other/Legacy - See Implant Description [facility] Medical Description:Device Manufactu rer - [employer] Body Location - Other. Left. Device Status Text - [id number] [id number]. Scan at 1.5T in Normal mode due to BAHA Attract Mary Kay Leal MRSO 03/26/2023 Ear Ttp Variac Total 0.2x3.0 7mm - [place] [id number] Implanted:Qty: 1 on 12/19/2010 Ear Implant Other/Legacy - See Implant Description [facility] Medical Description:Device Manufactu rer - [employer] Body Location - Other. Left. Device Status Text - [id number] [id number]. Scan at 1.5T in Normal mode due to BAHA Attract Mary Kay Nolan MRSO 03/26/2023 Ear Oss Ti Total System Centered Adj. - [place] [id number] Implanted:Qty: 1 on 12/19/2010 Ear Implant Other/Legacy - See Implant Description [facility] Description:Device Manufactu rer - [employer]. Body Location - Other. Left. Device Status Text - [id number] [id number]. Scan at 1.5T in Normal mode due to BAHA Attract Mary Kay Nolan MRSO 03/26/2023 Ear Ttp Variac Total 0.2x3.0 7mm - [place] [id number] Implanted:Qty: 1 on 12/19/2010 Ear Implant Other/Legacy - See Implant Description [employer] Description:Device Manufactu rer - [employer] Body Location - Other. Left. Device Status Text - [id number] [id number]. Scan at 1.5T in Normal mode due to BAHA Attract Mary Kay Nolan MRSO 03/26/2023 Procedures Procedure Name Priority Date/Time [...] AM CDT COLONOSCOPY Routine 09/16/2022 10:44 AM COIN MACHINE MECHANIC Diverticulitis Colon from Last 3 Months or [...] indeterminate. Thiscould also be evaluated on MRI. Curtis Peacock P.A.-C. IMG CT P ROCEDURES * Urinalysis with [...] 8.0 03/07/2024 5:20 PM CDT AUST Specific [place] 1.006 1.001 - 1.035 03/07/2024 5:20 PM CDT AUST Urobilinogen 0.2 0.2 - 1.0 mg/dL 03/07/2024 5:20 PM CDT AUST Urine (Urine, Midstream) 03/07/2024 5:09 PM CDT 03/07/2024 5:14 PM CDT Shanel Arguelles APRN, C.N.P., D.N.P. [place] URINE ORDERABLES [facility] [address] [place] [address], [facility] A[facility] [address] [place] [address] * Lactate (03/07/2024 4:55 PM CDT) Only the most recent of2 resultswithin the time period is included. Lactate, P 1.5 0.5 - 2.2 mmol/L 03/07/2024 5:12 PM CDT AUST Blood (Blood, Venous) 03/07/2024 4:55 PM CDT 03/07/2024 4:57 PM CDT Shanel Arguelles APRN, C.N.P., D.N.PNatalie RICHTER BLOOD NON ADD-ON [facility] [address] [place] [address], [facility] [address] [place] [address] * (ABNORMAL) CBC with Differential, Blood (03/07/2024 4:54 PM CDT) Only the most recent of2 resultswithin the time period is included. Pathologist [facility] Hemoglobin 15.2 13.2 - 16.6 g/dL 03/07/2024 [...] Arguelles APRN, C.N.P., D.N.PNatalie RICHTER BLOOD ADD-ON [facility] [address] [place] [address], [facility] [address] [place] [address] * (ABNORMAL) Basic Metabolic Panel (03/07/2024 4:54 [...] 4:54 PM CDT 03/07/2024 4:57 PM CDT Eryn Levin APRN.N.Madelin, MikkiNWill RICHTER BLOOD ADD-ON Performing Organization Address City/[facility]/ZIP Co de Phone Number [facility] [address] [place] [address], [facility] [address] [place] [address] * CRP (C-Reactive Protein) (12/31/2023 12:27 AM CDT) C-Reactive Protein (CRP), P 3.9 <5.0 mg/L 12/31/2023 12:51 AM CDT AUST Blood (Blood, Venous) 12/31/2023 12:27 AM CDT 12/31/2023 12:32 AM CDT Mamta Zamudio M.D. LAB BLOOD ADD-ON Performing Organization Address [facility]/ZIP Co de Phone Number [facility] [address] [place] [address], [facility] [address] [place] [address] * Lipase (12/31/2023 12:27 AM CDT) Lipase, P 28 13 - 60 U/L 12/31/2023 12:51 AM CDT AUST Blood (Blood, Venous) 12/31/2023 12:27 AM CDT 12/31/2023 12:32 AM CDT Mamta Zamudio M.D. LAB BLOOD ADD-ON Performing Organization Address City/[facility]/ZIP Co de Phone Number [facility] [address] [place] [address], [facility] AUST [facility] [address] [place] [address] * Comprehensive Metabolic Panel (12/31/2023 12:27 AM [...] CDT Mamta Zamudio M.D. LAB BLOOD ADD-ON [facility] [address] [place] [address], [place] AUST [facility] [address] [place] [address] from Last 3 Months or Most Recently Relevant to Health Maintenance Advance Directives For more information, please contact: [phone] * Full Code (Latest Code Status on [...] Due to: Not medically appropriate Care Teams Embossing Machine Operator Helper Relationship Specialty Start Date End Date Parul Cameron APRN, C.N.P., D.N.P. [address] [place] [address] PCP - General 11/29/23
--- OUTSIDE RECORDS SUMMARY | 2024-03-07 20:23 | XMS_ITS | Referral Summary ---
Author Organization [facility] Address [address] [place] [id number] Care Team Providers Care Hand Upper And Bottom Lacer Name Role Phone Unavailable Primary Care Provider Unavailabl e Social History Tobacco Use Types Packs/Day Years Used Date Smoking Tobacco: Never Assessed Adolescent Education Answer Date Record ed Getting School Help Needed Not on file 01/02 Sex and Gender Information Value Date Recorded Sex Assigned at Not on file Gender Identity Not on file Sexual Orientation Not on file Plan of Treatment Not on file
--- OUTSIDE RECORDS SUMMARY | 2024-03-07 20:24 | XMS_ITS | Clinical Summary ---
Author Organization [facility] Address [place], [place] [address] Care Team Providers Care Front End Developer Designer Name Role Phone Clinic, No Pcp Or Primary Care Provider Unavaila ble Allergies Active Allergy Reactions Criticality Noted Date Comments Ciprofloxacin Rash Medium 07/20/2022 Had rash after taking cipro and flagyl Metronidazole Rash Medium 07/20/2022 Had rash after taking cipro and flagyl Medications Medication Sig Dispensed Refills Start Date End Date Status baclofen (LIORESAL) 10 mg tabletIndications:Mus kimmie spasm of back Take 1 Tablet (10 mg) by mouth three times daily. Take as needed for muscle spasms. 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 Social Connections Answer Date Recorded Frequency of Communication with Friends and Fami ly Not on file 10/08/2022 Sex and Gender Information Value Date Recorded Sex Assigned at Not on file Gender Identity Not on file Sexual Orientation Not on file Obstetrics History Last Filed Vital Signs Vital Sign Reading Time Taken Comments Blood Pressure 133/91 11/07/2023 1:17 AM CDT Pulse 92 11/07/2023 1:17 AM CDT Temperature 36.3 ??C (97.3 ??F) 11/07/2023 1:17 AM CD T Respiratory Rate 16 11/07/2023 1:17 AM CDT Oxygen Saturation 99% 11/07/2023 1:17 AM CDT Inhaled Oxygen Concentration - - Weight 99.9 kg (220 lb 3.2 oz) 11/07/2023 1:17 A M CDT Height 195.6 cm (6' 5) 11/07/2023 1:17 AM CDT Body Mass Index 26.11 11/07/2023 1:17 AM CDT Plan of Treatment Health Maintenance Due Date Last Done Comments Pneumococcal series for age 6-64 (1 of 2 - PCV) 1979 Tdap 1984 Depression screening for age 12+ 1985 HIV for age 15-65 1988 Hepatitis C screening for age 18-79 1991 Tetanus booster 1993 Colonoscopy through age 75 2018 Lipids for age 45-75 2018 COVID-19 vaccine series (2022-24 season) 2023 06/13/2021, 12/24/2020 Zoster (shingles) series for age 50+ (1 of 2) 2023 BMI (ht and wt on same day) for age 18+ 10/09/2023 0 10/08/2022 Influenza for age 50-64 04/09/2024 Care Teams Front End Developer Designer Relationship Specialty Start Date End Date Clinic, No Pcp Or . PCP - General 09/19/17
--- OUTSIDE RECORDS SUMMARY | 2024-03-07 20:24 | XMS_ITS | Encounter Summary ---
Author Organization [facility] Address [address] [place] [address] Care Team Providers Care Economic Forecaster Name Role Phone Parul Cameron APRN C.N.P., D.N.P. Primary Care Provider Reason for Referral * Medication Prior Authorization - Closed Specialty Diagnoses / Procedures Referred By Contac t Referred To Contact Romy Johnson P.A.-C., P.A. [address] [phone] Referral ID Status Reason Start Date Expiration Date Visits Re quested Visits Authorized [id number] Closed 1 1 Reason for Visit * Reason Comments Back Pain Presents with chroni c left low back pain rated 7/10, worsening today as he ran out of his medications yesterday morning. Encounter Details Date Type Department Care Team (Late Contact Info) Description 01/03/2024 1:05 PM CDT - 01/03/2024 2:06 PM CDT Emergency [facility] [address] [phone] Romy Johnson P.A.-C., P.A. [address] [phone] Pain Back Lumbar (Primary Dx) Discharge Disposition: Home or Self Care Social [...] often do you attend chur ch or jainism services? Never 11/19/2022 Do you belong to any clubs o r organizations such as yazdanism groups, unions, fraternal or athletic groups, or [...] Answer Date Recorded PHQ-2 Score 0 01/27/2023 [facility] of Occupat ional Health - Occupational Stress [...] place to sleep or slept in a longterm (including now)? No 11/19/2022 Depression Answer Date Recor ded PHQ-9 Total Score (max 27) 1 01/27 Nutrition Answer Date Recorded On average, how many serving s of fruits and vegetables do you eat per day (serving size is equal to 1 cup or approximately the size of a tennis ball)? 0-1 11/19/2022 Dental Answer Date Recorded Dental: Regular Dentist No 11/20/19 Employment Answer Date Recorded Employment status Temporarily disabled Education Answer Date Recorded What is the highest level of school you have completed or the highest degree you have received? Some college, no degree 11/19/2022 Sex and Gender Information Value Date Recorded Sex Assigned at Male 07/09/2017 9:27 AM TEST KITCHEN HOME ECONOMIST Gender Identity Male 07/09/2017 9:27 AM TEST KITCHEN HOME ECONOMIST Sexual Orientation Straight 07/09/2017 9: 27 AM TEST KITCHEN HOME ECONOMIST documented as of this encounter Last Filed Vital Signs Vital Sign Reading Time Taken Comments Blood Pressure 151/100 01/03/2024 1:09 PM CDT Pulse 82 01/03/2024 1:15 PM CDT Temperature 36.6 ??C (97.9 ??F) 01/03/2024 1:09 PM CD T Respiratory Rate 20 01/03/2024 1:09 PM CDT Oxygen Saturation 99% 01/03/2024 1:15 PM CDT Inhaled Oxygen Concentration - - Weight 101 kg (222 lb 10.6 oz) 01/03/2024 1:10 P M CDT Height - - Body Mass Index 27.11 06/25/2023 6:55 AM TEST KITCHEN HOME ECONOMIST documented in this encounter Discharge Instructions * Discharge Instructions* Romy Johnson P.A.-C., P.A. - 01/03/2024 1:52 PM CDT - I have filled for [facility] to [facility], this is a short course, reach out to your primary care for a fill tomorrow. - Return if you develop bowel incontinence, urinary retention, increased weakness, inability to walk, or any other new or worsening symptoms. * Attachments The following attachments cannot be sent through Care Everywhere. * Chronic Back Pain (Armenian) documented in this encounter Medications at Time of Discharge Medication Sig Dispensed Refills Start Date End Date acetaminophen (TYLENOL) 500 mg tablet Take 2 tablets (1,000 mg total) by mouth every 6 (six) hours as needed for pain. 06/29/2023 HYDROcodone-acetaminop hen (NORCO) 5-325 mg per tablet Take 1 [...] no or minimal response. 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 4 tablet 01/03/2024 01/06/2024 documented as of this encounter ED Notes * Romy Johnson P.A.-C., P.A. - 01/03/2024 2:06 PM CDT SUBJECTIVE CHIEF COMPLAINT/REASON FOR VISIT Back Pain (Presents with chronic left low back pain rated 7/10, worsening today as he ran out of his medications yesterday morning. ) HISTORY OF PRESENT ILLNESS Back Pain Associated symptoms: no abdominal pain, no chest pain, no dysuria and no fever Angel Dunlap is a 48 y.o. male with chronic back pain being seen by [place] but is here visiting his sister and ran out of his medications. He is on Wharton, and takes Ibuprofen, medical marijuana, does the Lidoderm patches and other roll on topical medications, continually applies heat/ice. He goes to a chronic pain clinic. He tried to call to refill his medications but they stated that no one was in the office due to it being . He reports 7/10 back pain and is wondering ifhe could get a small fill of his Wharton until they can fully refill it tomorrow. He denies bowel incontinence, no urinary retention, no fever or chills, no urinary symptoms, no IV drug use, no weakness in his legs, no decreased sensation. REVIEW OF SYSTEMS Constitutional: Negative for fever. HENT: Negative for sore throat. Respiratory: Negative for shortness of breath. Cardiovascular: Negative for chest pain. Gastrointestinal: Negative for abdominal pain, nausea and vomiting. Genitourinary: Negative for dysuria. Musculoskeletal: Positive for back pain. Skin: Negative for rash. Neurological: Negative for syncope. Psychiatric/Behavioral: Negative for agitation. OBJECTIVE Initial Vitals Temperature 01/03/24 1309 36.6 ??C Pulse Rate 01/03/24 1309 81 Heart Rate -- Resp Rate 01/03/24 1309 20 Blood Pressure 01/03/24 1309 (!) 151/100 SpO2 01/03/24 1309 94 % Pain Score 01/03/24 1310 10 - Worst possible pain PHYSICAL EXAMINATION Constitutional: Nursing note and vitals reviewed. He appears not lethargic. He is cooperative. Non-toxic appearance. No distress. HENT: Head: Head is without raccoon's eyes. Eyes: Periorbital area normal appearing. Cardiovascular: Normal peripheral perfusion Pulmonary/Chest: Effort normal. No stridor. No tachypnea. No respiratory distress. Musculoskeletal: Comments: No obvious deformity or swelling, no bony step-offs, no midline tenderness, strength 5/5 bilaterally in legs, ankles, no decreased sensation, dorsal pedis pulse 2 +, cap refill under 2 seconds. Neurological: Alert. He is not disoriented. Interacting normally Skin: No rash noted. He is not diaphoretic. Psychiatric: He has a normal mood and affect. Speech pattern is normal and behavior is normal. ASSESSMENT/PLAN Angel Dunlap is a 48 y.o. male evaluated for chronic back pain needing med refill. Chronic illnesses impacting care: hypertension, aortic ectasia, chronic low back pain, diverticulitis, depression, others. Social determinants impacting care: none. DDX: Patient is well-appearing, vital signs are stable. Physical exam notable for No obvious deformity or swelling, no bony step-offs, no midline tenderness, strength 5/5 bilaterally in legs, ankles, no decreased sensation, dorsal pedis pulse 2 +, cap refill under 2 seconds. This patient presents with back pain most consistent with his chronic back pain. No back pain red flags on history or physical. Presentation not consistent with malignancy (lack of history of malignancy, lack of B symptoms), fracture (no trauma, no bony tenderness to palpation), cauda equina (no bowel or urinary incontinence/retention, no saddle anesthesia, no distal weakness), AAA, viscus perforation, osteomyelitis or epidural abscess (no IV DU, vertebral tenderness), renal colic, pyelonephritis (afebrile, no CVAT, no urinary symptoms). Given the clinical picture, no indication for imaging at this time. Patient is reasonable, with good judgement, the majority of his last fills for his Wharton have been from one provider, he is only asking for medication to get him through the night to havehis normal provider fill tomorrow, I feel this is reasonable and will give him a short course to last through the night. He is appreciative and understanding. Toradol given in exam room as he states he will have to drive himself home. I discussed the plan for discharge with the patient, and patient is agreeable. I discussed with patient the utility, limitations, and findings of the exam/interventions/studies done during this visitas well as the list of differential diagnosis. Patient understands provisional nature of this diagnosis and need for follow up. We discussed the plan of care, including supportive cares. We also discussed symptoms to monitor and symptoms that should prompt them to return for re-evaluation includingnew or worsening symptoms. All questions and concerns addressed. Final Diagnoses: as of 01/03/24 1752 Pain Back Lumbar Romy Johnson P.A.-C., P.A. 01/06/24 1157 documented in this encounter Plan of Treatment Not on file documented as of this encounter Visit Diagnoses Diagnosis Pain Back Lumbar- Primary documented in this encounter Administered Medications Inactive Administered Medications - up to 3 most recent administrations Medication Order MAR Action Action Date Dose Rate Site ketorolac injection 15 mg (TORADOL) 15 mg, intramuscular, Once, On Wed01/03/24 at 1352, For 1 dose, Adult IV push rate: Over 15 seconds. Peds IV push rate: Over 1 minute. Doses > 15 mg IV/IM are discouraged due to lack of additional analgesic benefit. Given 01/03/2024 2:00 PM CDT 15 mg Right Deltoid documented in this encounter Active and Recently Administered Medications Times are shown in CDT. Scheduled Medication Order 01/01/2024 01/02/202401/0201/03/2024 ketorolac injection 15 mg (TORADOL) (COMPLETED) 15 mg, intramuscular, Once, On 01/03/24 at 1352, For 1 dose, Adult IV push rate: Over 15 seconds. Peds IV push rate: Over 1 minute. Doses > 15 mg IV/IM are discouraged due to lack of additional analgesic benefit. 1400 (Given - Provid er: Tiera Mckeon R.N.) documented in this encounter Additional Health Concerns Assessment Noted Time PHQ-9 Depression Total Score: 1 01/28/20 23 1:59 PM CDT documented as of this encounter Care Teams Economic Forecaster Relationship Specialty Start Date End Date Parul Cameron APRN, C.N.P., D.N.P. [address] [place] [phone] PCP - General 11/29/23 documented as of this encounter
--- OUTSIDE RECORDS SUMMARY | 2024-03-07 20:24 | XMS_ITS | Encounter Summary ---
Author Organization [facility] Address [address] [place] [address] Care Team Providers Care Glaze Carrier Name Role Phone Parul Cameron APRN, C.N.P., D.N.P. Primary Care Provider Reason for Visit * Reason Comments Abdominal Pain Pt presents to ER fr om home with complaints of right side abdominal pain/lump and diarrhea that started about 1 week ago. Pt reports history of diverticulitis surgery and chronic back pain. Pt denies nausea, vomiting, SOB, and chest pain. Pt also reports taking norco and cannabis around 2100 for pain. Encounter Details Date Type Department Care Team (Late st Contact Info) Description 12/30/2023 11:44 PM CDT - 12/31/2023 2:[address] [facility] [address] [place] [phone] Mamta Zamudio M.D. [address] [place] [phone] Abdominal Pain (Primary Dx); Pain Back Lumbar Discharge Disposition: Home or Self Care Social [...] week 11/19/2022 How often do you attend [facility] or church services? Never 11/19/2022 Do you belong to any clubs o r organizations such as oriental orthodox groups, unions, fraternal or athletic groups, or [...] Answer Date Recorded PHQ-2 Score 0 01/27/2023 [facility] - Occupational Stress [...] place to sleep or slept in a long-term (including now)? 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 Gender Identity Male 07/09/2017 9:27 AM SEALANT MIXER Sexual Orientation Straight 07/09/2017 9: 27 AM SEALANT MIXER documented as of this encounter Last Filed Vital Signs Vital Sign Reading Time Taken Comments Blood Pressure 118/85 12/31/2023 2:15 AM CDT Pulse 76 12/31/2023 2:15 AM CDT Temperature 36.8 ??C (98.2 ??F) 12/31/2023 12:01 AM C DT Respiratory Rate 20 12/31/2023 12:01 AM CDT Oxygen Saturation 96% 12/31/2023 2:15 AM CDT Inhaled Oxygen Concentration - - Weight 99.5 kg (219 lb 5.7 oz) 12/31/2023 12:02 AM CDT Height - - Body Mass Index 26.71 06/25/2023 6:55 AM SEALANT MIXER documented in this encounter Discharge Instructions * Discharge Instructions* Mamta Zamudio M.D. - 12/31/2023 2:07 AM CDT Rest at home, drink fluids Continue with your pain medications as before You can apply local analgesics to the back area In addition Can take Tylenol and or ibuprofen as needed. Apply local muscle analgesics to the back area Return if getting worse Need to follow-up primary care provider about filling defect in the common bile duct. This is not emergent something you can follow-up in clinic with your primary care provider for further checking documented in this encounter Medications at Time of Discharge Medication Sig Dispensed Refills Start Date End Date acetaminophen (TYLENOL) 500 mg tablet Take 2 tablets (1,000 mg total) by mouth every 6 (six) hours as needed for pain. 06/29/2023 HYDROcodone-acetaminophe n (NORCO) 5-325 mg per tablet [...] each 06/29/2023 documented as of this encounter ED Notes * Mamta Zamudio M.D. - 12/30/2023 11:49 PM CDT SUBJECTIVE CHIEF COMPLAINT/REASON FOR VISIT No chief complaint on file. HISTORY OF PRESENT ILLNESS 48-year-old male coming to ER with concerns about low back pain abdominal pain.. Patient states that abdominal pain has been going on for about a week but has been getting progressively worse. He feels pain in the mid abdomen around apply cool area and also in the right and left lower quadrant areas. Denies any vomiting but has some diarrhea he would no fever or chills noted. Complaining of left-sided lower back pain which he has from before and it is a chronic back pain. Does have history of back pain and also has history of alcohol use disorder drug use disorder hypertension, history of diverticulitis status post partial colectomy. States that he does have pain in theleft lower back area and it has been radiating to the leg. Denies any fall or injury. Denies any fever or chills. No numbness or tingling in the legs. Does follow in [place] [facility] about his low back pain He was seen in ER about a month ago was instructed to get Tylenol , ibuprofen and lidocaine patch and follow up with his physician. 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 HENT: Negative for congestion. Respiratory: Negative for cough. Cardiovascular: Negative for chest pain. Gastrointestinal: Positive for abdominal pain and diarrhea. Negative for constipation, nausea and vomiting. Genitourinary: Negative for dysuria and flank pain. Musculoskeletal: Positive for back pain. Negative for extremity pain. Neurological: Negative for dizziness, light-headedness, numbness and headaches. OBJECTIVE Initial Vitals Temp Pulse Heart Rate Resp BP SpO2 Pain Score PHYSICAL EXAMINATION Constitutional: Nursing note and vitals reviewed. HENT: Head: Normocephalic. Mouth/Throat: Oropharynx is clear and moist. Mucous membranes are moist. Cardiovascular: Regular rhythm. Capillary refill: takes less than 3 seconds Pulmonary/Chest: Effort normal and breath sounds normal. There is normal air entry. Abdominal: There is abdominal tenderness (Periumbilical, right lower quadrant, left lower quadrant). There is no rebound and no guarding. Musculoskeletal: General: Tenderness present. Normal range of motion. Neurological: Alert and oriented to person, place, and time. Skin: Skin is warm. No rash noted. ASSESSMENT/PLAN Assessment and Plan 48-year-old male who has problems with lower back pain coming to ER with acute on chronic left-sided lower back pain also abdominal pain. On arrival his vitals are normal and stable and he is afebrile. Oxygenation is 97% on room air. Ten not tachycardic and he has not toxic appearing. My abdominal exam he does have some tenderness in the periumbilical area and right lower and left lower abdominalarea without any guarding or rigidity no signs of acute abdomen. On Back exam he does have some tenderness in the left lower back area. Numbness tingling in the legs. Neuro Exam is normal. Because of his abdominal pain will rule out appendicitis, diverticulitis, small- bowel obstruction and other pathology. Will do CBC, CMP, lipase, lactate, CRP. Will also do abdominal pelvic CT with IVcontrast. Patient given a mg of Dilaudid and Toradol and will reassess after that. His pain is better after medication. All his labs are normal. CT abdominal pelvis with the IV contrast is negative fo r appendicitis or diverticulitis. It does show he has. Incidental finding is if small filling defect in the common bile duct did Discussed pain management about the back with the patient and have him continue to take Tylenol andor ibuprofen and his previous regimen for back pain. His abdominal pain and colitis encourage him to drink more fluid, good take [id number] Pepto-Bismol. Advised to follow up in clinic nonemergent basis about this filling defect.. DIFFERENTIAL DIAGNOSES Diverticulitis, gastroenteritis, diarrhea, appendicitis, hernia, back pain, acute on chronic back pain,. PROBLEMS ADDRESSED THIS VISIT Abdominal pain, back pain. Care is significantly affected by the following Social Determinants of Health: none. I reviewed the following external records: primary care records. ED Course as of 12/31/23401December 31, 2023 0047 Leukocytes(!): 13.3 0047 Lactate: 1.2 Lactate is normal 0053 C-Reactive Protein (CRP), P: 3.9 0053 Lactate: 1.2 0053 Alkaline Phosphatase, P: 77 Liver function are normal 0153 Stable postoperative changes partial colectomy. Possible mild rectosigmoid colitis. No bowel obstruction or evidence of acute diverticulitis. 2. Since 06/23/2023, possible new filling defects within the distal common bile duct with stable mild extrahepatic ductal dilatation. Main pancreatic ductal dilatation that is similar to 06/23/2023 though increased since 04/04/2023. No intrahepatic ductal dilatation. Patient is status post endoscopic ultrasound on 06/24/2023, however nonemergent MRCP should be considered for further evaluation given the possible new filling defects in the distal common bile duct. No CT evidence of acute pancreatitis. Final Diagnoses: as of 12/31/23401 Abdominal Pain Pain Back Lumbar Mamta Zamudio M.D. 12/31/23403 documented in this encounter Plan of Treatment Not on file documented as of this encounter Procedures Procedure Name Priority Date/Time Associated Diagnosis Comments CT ABDOMEN PELVIS WITH IV CONTRAST RAD - Semiurgent (Fast; most ED patients; some inpatients) 12/31/2023 1:20 AM CDT CBC WITH DIFFERENTIAL, B STAT 12/31/2023 12:27 AM CDT C-REACTIVE PROTEIN (CRP), S/P STAT 12/31/2023 12:27 AM CDT LIPASE, S/P STAT 12/31/2023 12:27 AM CDT LACTATE, B/P STAT 12/31/2023 12:27 AM CDT COMPREHENSIVE METABOLIC PANEL, S/P STAT 12/31/2023 12:27 AM CDT documented in this encounter Results * CT Abdomen Pelvis with IV Contrast (12/31/2023 1:20 AM CDT) Anatomical Region Laterality Modality Abdomen, Pelvis, Abdominal R ST LOS, Abdominal ARZ LOS, Abdominal FLA LOS N/A Computed Tomography 12/31/2023 1:16 AM CDT Impressions 12/31/2023 1:44 AM CDT 1. Stable postoperative changes partial colectomy. Possible mild rectosigmoid colitis. No bowel obstruction or evidence of acute diverticulitis. 2. Since 06/23/2023, possible new filling defects within the distal common bile duct with stable mild extrahepatic ductal dilatation. Main pancreatic ductal dilatation that is similar to 06/23/2023 though increased since 04/04/2023. No intrahepatic ductal dilatation. Patient is status post endoscopic ultrasound on 06/24/2023, however nonemergent MRCP should be considered for further evaluation given the possible new filling defects in the distal common bile duct. No CT evidence of acute pancreatitis. Narrative 12/31/2023 1:44 AM CDT EXAM: CT ABDOMEN PELVIS WITH IV CONTRAST COMPARISON: CT abdomen/pelvis study contrast 06/23/2023, CT abdomen/pelvis with IV contrast the 2022, CT abdomen/pelvis with IV contrast 07/16/2022. FINDINGS: Postoperative changes of partial colectomy. Moderate sigmoid colonic wall thickening/edema. No bowel obstruction. Colonic diverticulosis without evidence of acute diverticulitis. Air-filled right lower quadrant appendix without CT evidence of acute appendicitis. No pneumatosis, portal venous gas or free intraperitoneal air. Main pancreatic ductal dilatation that is similar to 06/23/2023 though appears increased since 04/04/2023. Possible filling defects within the distal common bile duct that appear new since 06/23/2023 (3/193, 5/43). Stable mild extrahepatic ductal dilatation. No intrahepatic ductal dilatation. No pancreatic or peripancreatic inflammatory stranding/edema to suggest acute pancreatitis. No loculated fluid collection. Stable scattered hypoattenuating hepatic lesions including the largest located in the left hepatic lobe measuring 5.2 x 5.0 cm with peripheral nodular enhancement that is most suggestive of a hemangioma. Stable 0.5 cm node adjacent to the gallbladder (3/164). Unremarkable gallbladder, spleen, adrenal glands. Stable right renal cortical cyst. No hydronephrosis. Small fat-containing left internal hernia. Bibasilar atelectasis/scarring. Stable solid 5 mm left lower lobe nodule. No worrisome osseous abnormality. Procedure Note Benigno Rose M.D. - 12/31/2023 EXAM: CT ABDOMEN PELVIS WITH IV CONTRAST COMPARISON: CT abdomen/pelvis study contrast 06/23/2023, CT abdomen/pelviswith IV contrast the 2022, CT abdomen/pelvis with IV iloedisz07/8/2022. FINDINGS: Postoperative changes of partial colectomy. Moderate sigmoid colonic wallthickening/edema. No bowel obstruction. Colonic diverticulosis withoutevidence of acute diverticulitis. Air-filled right lower quadrant appendixwithout CT evidence of acute appendicitis. No pneumatosis, portal venous gas or free intraperitonealair. Main pancreatic ductal dilatation that is similar to 06/23/2023 thoughappears increased since 04/04/2023. Possible filling defects within thedistal common bile duct that appear new since 06/23/2023 (3/193, 5/43).Stable mild extrahepatic ductal dilatation. No intrahepatic ductal dilatation. No pancreatic orperipancreatic inflammatory stranding/edema to suggest acute pancreatitis.No loculated fluid collection. Stable scattered hypoattenuating hepatic lesions including the largestlocated in the left hepatic lobe measuring 5.2 x 5.0 cm with peripheralnodular enhancement that is most suggestive of a hemangioma. Stable 0.5 cmnode adjacent to the gallbladder (3/164). Unremarkable gallbladder, spleen, adrenal glands. Stable rightrenal cortical cyst. No hydronephrosis. Small fat-containing left internalhernia. Bibasilar atelectasis/scarring. Stable solid 5 mm left lower lobenodule. No worrisome osseous abnormality. IMPRESSION: 1. Stable postoperative changes partial colectomy. Possible mildrectosigmoid colitis. No bowel obstruction or evidence of acutediverticulitis. 2. Since 06/23/2023, possible new filling defects within the distal commonbile duct with stable mild extrahepatic ductal dilatation. Main pancreaticductal dilatation that is similar to 06/23/2023 though increased since04/04/2023. No intrahepatic ductal dilatation. Patient is status post endoscopic ultrasound on 06/24/2023,however nonemergent MRCP should be considered for further evaluation giventhe possible new filling defects in the distal common bile duct. No CTevidence of acute pancreatitis. Mamta Zamudio M.D. [facility] [place] PROCEDURES * Lipase (12/31/2023 12:27 AM CDT) Lipase, P 28 13 - 60 U/L 12/31/2023 12:51 AM CDT [facility] Blood (Blood, Venous) 12/31/2023 12:27 AM CDT 12/31/2023 12:32 AM CDT Mamta Zamudio M.D. LAB BLOOD ADD-ON [facility] [address] [place] [address], [facility] - [facility] [address] [place] [address] * Lactate (12/31/2023 12:27 AM CDT) Pathologist [facility] Lactate, P 1.2 0.5 - 2.2 mmol/L 12/31/2023 12:47 AM CDT [facility] Blood (Blood, Venous) 12/31/2023 12:27 AM CDT 12/31/2023 12:32 AM CDT Mamta Zamudio M.D. LAB BLOOD NON ADD-ON Performing Organization Address City/[facility]/ZIP Co de Phone Number [facility] [address] [place] [address], [facility] - [facility] [address] [place] [address] * CRP (C-Reactive Protein) (12/31/2023 12:27 AM CDT) Pathologist [facility] C-Reactive Protein (CRP), P 3.9 <5.0 mg/L 12/31/2023 12:51 AM CDT [facility] Blood (Blood, Venous) 12/31/2023 12:27 AM CDT 12/31/2023 12:32 AM CDT Mamta Zamudio M.D. LAB BLOOD ADD-ON [facility] [address] [place] [address], [facility] - [facility] [address] [place] [address] * Comprehensive Metabolic Panel (12/31/2023 12:27 AM [...] CDT Mamta Zamudio M.D. LAB BLOOD ADD-ON [facility] [address] [place] [address], [facility] [address] [place] [address] * (ABNORMAL) CBC with Differential, Blood (12/31/2023 12:27 AM CDT) Hemoglobin 14.7 13.2 - 16.6 g/dL 12/31/2023 12:41 AM CDT [facility] Hematocrit 42.4 38.3 - 48.6 % 12/31/2023 12:41 AM CDT [facility] Erythrocytes 4.89 4.35 - 5.65 x10(12)/L 12/31/2023 12:41 AM CDT [facility] MCV 86.7 78.2 - 97.9 fL 12/31/2023 12:41 AM CDT [facility] RBC Distrib Width 13.3 11.8 - 14.5 % 12/31/2023 12:41 AM CDT [facility] Platelet Count 270 135 - 317 x10(9)/L 12/31/2023 12:41 AM CDT [facility] Leukocytes 13.3(H) 3.4 - 9.6 x10(9)/L 12/31/2023 12:41 AM CDT [facility] Neutrophils 8.46(H) 1.56 - 6.45 x10(9)/L 12/31/2023 12:41 AM CDT [facility] Lymphocytes 3.84(H) 0.95 - 3.07 x10(9)/L 12/31/2023 12:41 AM CDT [facility] Monocytes 0.71 0.26 - 0.81 x10(9)/L 12/31/2023 12:41 AM CDT [facility] Eosinophils 0.26 0.03 - 0.48 x10(9)/L 12/31/2023 12:41 AM CDT [facility] Basophils 0.06 0.01 - 0.08 x10(9)/L 12/31/2023 12:41 AM CDT [facility] Blood (Blood, Venous) 12/31/2023 12:27 AM CDT 12/31/2023 12:32 AM CDT Mamta Zamudio M.D. LAB BLOOD ADD-ON [facility] [address] [place] [address], [facility] [address] [place] [address] documented in this encounter Visit Diagnoses Diagnosis Abdominal Pain- Primary Pain Back Lumbar documented in this encounter Administered Medications Inactive Administered Medications - up to 3 most recent administrations Medication Order MAR Action Action Date Dose Rate Site HYDROmorphone injection 1 mg (DILAUDID) 1 mg, intravenous, Once, On Wed12/31/23 at 0024, For 1 dose Given 12/31/2023 12:36 AM CDT 1 mg iohexoL 300 mg iodine/mL solution 1-200 mL (OMNIPAQUE) 1-200 mL, intravenous, Once in imaging, once, Starting on Wed12/31/23 at 0120, For 1 dose Given 12/31/2023 1:20 AM CDT 167 mL ketorolac injection 15 mg (TORADOL) 15 mg, intravenous, Once, On Wed12/31/23 at 0029, For 1 dose, Adult IV push rate: Over 15 seconds. Peds IV push rate: Over 1 minute. Doses > 15 mg IV/IM are discouraged due to lack of additional analgesic benefit. Given 12/31/2023 12:36 AM CDT 15 mg sodium chloride 0.9 % flush 1-250 mL 1-250 mL, intravenous, Once in imaging, line care, Starting on Wed12/31/23 at 0120, For 1 dose Given 12/31/2023 1:21 AM CDT 92 mL sodium chloride 0.9 % injection 10 mL 10 mL, intravenous, Once in imaging, line care, Starting on Wed12/31/23 at 0120, For 1 dose Given 12/31/2023 1:21 AM CDT 10 mL documented in this encounter Active and Recently Administered Medications Times are shown in CDT. Scheduled Medication Order 12/29/2023 12/30/2023 12/31/2023 HYDROmorphone injection 1 mg (DILAUDID) (COMPLETED) 1 mg, intravenous, Once, On Wed12/31/23 at 0024, For 1 dose 0036 (Given - Provid er: Jerry Simms R.N.) ketorolac injection 15 mg (TORADOL) (COMPLETED) 15 mg, intravenous, Once, On Wed12/31/23 at 0029, For 1 dose, Adult IV push rate: Over 15 seconds. Peds IV push rate: Over 1 minute. Doses > 15 mg IV/IM are discouraged due to lack of additional analgesic benefit. 0036 (Given - Provid er: Jerry Simms R.N.) PRN Medication Order 12/29/2023 12/30/2023 12/31/2023 iohexoL 300 mg iodine/mL solution 1-200 mL (OMNIPAQUE) (COMPLETED) 1-200 mL, intravenous, Once in imaging, once, Starting on Wed12/31/23 at 0120, For 1 dose 0120 (Given - Provid er: Isaac Mcgill(R)(CT), R.T.(R)) sodium chloride 0.9 % flush 1-250 mL (COMPLETED) 1-250 mL, intravenous, Once in imaging, line care, Starting on Wed12/31/23 at 0120, For 1 dose 0121 (Given - Provid er: Mina Mcgill.(R)(CT), R.T.(R)) sodium chloride 0.9 % injection 10 mL (COMPLETED) 10 mL, intravenous, Once in imaging, line care, Starting on Wed12/31/23 at 0120, For 1 dose 0121 (Given - Provid er: Melissa Mcgill.Daniela.(R)(CT), R.T.(R)) documented in this encounter Additional Health Concerns Assessment Noted Time PHQ-9 Depression Total Score: 1 01/28/20 23 1:59 PM CDT documented as of this encounter Care Teams Glaze Carrier Relationship Specialty Start Date End Date Parul Cameron APRN, C.N.P., D.N.P. [address] [place] [phone] PCP - General 11/29/23 documented as of this encounter
--- OUTSIDE RECORDS SUMMARY | 2024-03-07 20:24 | XMS_ITS | Encounter Summary ---
Author Organization [facility] Address [address] [place] [address] Care Team Providers Care Line Installation Supervisor Name Role Phone Parul Cameron APRN, C.N.P., D.N.P. Primary Care Provider Reason for Visit * Reason Comments Back Pain Presents to ED with c/o low back pain causing difficulty sleeping. Reports having back pain flare ups, currently working with pain management teams to address chronic back pain. Denies any new symptoms including bladder bowel changes or numbness/tingling. Used medical marijuana and gabapentin at 1900 without relief. Encounter Details Date Type Department Care Team (Late st Contact Info) Description 12/07/2023 3:21 AM CDT - 12/07/2023 3:48 AM CDT Emergency [facility] [address] [place] [address] Deangelo Kothari M.D. [address] [place] [address] Pain Low Back Chronic (Primary Dx) Discharge [...] often do you attend chur ch or anabaptist services? Never 11/19/2022 Do you belong to any clubs o r organizations such as adventism groups, unions, fraternal or athletic groups, or [...] Answer Date Recorded PHQ-2 Score 0 01/27/[address] [facility] [place] [facility] - Occupational Stress [...] place to sleep or slept in a long term (including now)? No 11/19/2022 Depression Answer Date [...] Sex Assigned at Male 07/09/2017 9:27 AM NEGATIVE NOTCHER Gender Identity Male 07/09/2017 9:27 AM NEGATIVE NOTCHER Sexual Orientation Straight 07/09/2017 9: 27 AM NEGATIVE NOTCHER documented as of this encounter Last Filed Vital Signs Vital Sign Reading Time Taken Comments Blood Pressure - - Pulse - - Temperature - - Respiratory Rate - - Oxygen Saturation - - Inhaled Oxygen Concentration - - Weight 98.8 kg (217 lb 13 oz) 12/07/2023 3:37 AM CDT Height - - Body Mass Index 26.52 06/25/2023 6:55 AM NEGATIVE NOTCHER documented in this encounter Discharge Instructions * Discharge Instructions* Deangelo Kothari M.D. - 12/07/2023 3:33 AM CDT - You may use Tylenol 1000 mg and/or ibuprofen 400 mg every 8 hours for pain - You may try over the counter lidocaine patches, Bengay cream, Icy Hot, heating pads. - Please contact your doctor if you continue to experience pain > 1 week, or return to the ED with worsening pain or new symptoms. * Attachments The following attachments cannot be sent through Care Everywhere. * Chronic Back Pain (Gambian) documented in this encounter Medications at Time of Discharge Medication Sig Dispensed Refills Start Date End Date acetaminophen (TYLENOL) 500 mg tablet Take 2 tablets (1,000 mg total) by mouth every 6 (six) hours as needed for pain. 06/29/2023 ibuprofen (MOTRIN) 400 mg tablet Take 1 [...] as of this encounter ED Notes * Deangelo Kothari M.D. - 12/07/2023 3:35 AM CDT Images from the original note were not included. SUBJECTIVE CHIEF COMPLAINT/REASON FOR VISIT Back Pain (Presents to ED with c/o low back pain causing difficulty sleeping. Reports having back pain flare ups, currently working with pain management teams to address chronic back pain. Denies any new symptoms including bladder bowel changes or numbness/tingling. Used medical marijuana and gabapentin at 1900 without relief. ) HISTORY OF PRESENT ILLNESS Patient is a 48-year-old male with history of chronic low back pain who presents to the ED for backpain. Patient reports that he is followed closely by pain medicine specialists in the [facility] for his low back pain. Is actually scheduled to have injections done in his back in 2 weeks. He presents to the ED today due to acute worsening of his chronic low back pain. The pain is mainly in the left lower back and radiates into his left lower extremity. He reports that this evening, he had difficulty getting comfortable while lying down, unable to lay on his left side. He took his medical marijuana and gabapentin this evening. He presents to the ED seeking pain relief. He denies any new or concerning symptoms such as urinary or bowel incontinence, fevers or chills, abdominal pain, new weaknessor numbness. History provided by: Patient REVIEW OF SYSTEMS OBJECTIVE Initial Vitals [12/07/23 0337] Temp Pulse Heart Rate Resp BP SpO2 Pain Score 8 PHYSICAL EXAMINATION Constitutional: Nursing note and vitals reviewed. He appears not lethargic. HENT: Head: Atraumatic. Mouth/Throat: Mucous membranes are moist. Eyes: EOM are normal. Right eye exhibits no discharge. Left eye exhibits no discharge. Neck: No tracheal deviation present. Cardiovascular: Normal rate and regular rhythm. Capillary refill: takes less than 3 seconds Pulmonary/Chest: No tachypnea. No respiratory distress. Abdominal: Normal appearance. exhibits no distension. There is no guarding. Musculoskeletal: General: No deformity. Normal range of motion. Cervical back: Normal range of motion. Back: Neurological: Alert. He is not disoriented and responsive. Focal sensory deficits do not include right leg and left leg. Normal speech. Gait normal. Focal motor strengths include, no weakness to the right leg, no weakness to the left leg, . Skin: Skin is warm and dry. No rash noted. He is not diaphoretic. ASSESSMENT/PLAN Assessment and Plan Problem 1. Chronic back pain Patient presents to the ED due to acute on chronic back pain. Back pain is most consistent with chronic musculoskeletal pain. I do not suspect emergent causes such as insufficiency fracture, cauda equina syndrome, AAA, dissection, or other intra-abdominal or pelvic emergent causes. No concerns for trauma or infection. The patient was provided Toradol and Flexeril in the ED. He was counseled to continue conservative treatments such as NSAIDs, Tylenol, lidocaine patches, heating pads. He was recommended follow up closely with his primary care physician for ongoing symptoms. Return precautions discussed.. I reviewed the following external records: office records. Final Diagnoses: as of 12/07/23 0348 Pain Low Back Chronic Deangelo Kothari M.D. 12/09/23 1210 documented in this encounter Plan of Treatment Not on file documented as of this encounter Visit Diagnoses Diagnosis Pain Low Back Chronic- Primary documented in this encounter Administered Medications Inactive Administered Medications - up to 3 most recent administrations Medication Order MAR Action Action Date Dose Rate Site cyclobenzaprine tablet 10 mg (FLEXERIL) 10 mg, oral, Once, On Wed12/07/23 at 0334, For 1 dose Given 12/07/2023 3:42 AM CDT 10 mg ketorolac injection 15 mg (TORADOL) 15 mg, intramuscular, Once, On Wed12/07/23 at 0334, For 1 dose, Adult IV push rate: Over 15 seconds. Peds IV push rate: Over 1 minute. Doses > 15 mg IV/IM are discouraged due to lack of additional analgesic benefit. Given 12/07/2023 3:42 AM CDT 15 mg Right Deltoid documented in this encounter Active and Recently Administered Medications Times are shown in CDT. Scheduled Medication Order 12/05/2023 12/06/2023 12/07/2023 cyclobenzaprine tablet 10 mg (FLEXERIL) (COMPLETED) 10 mg, oral, Once, On Wed12/07/23 at 0334, For 1 dose 034 (Given - Provid er: Macrina Jacques R.N.) ketorolac injection 15 mg (TORADOL) (COMPLETED) 15 mg, intramuscular, Once, On Wed12/07/23 at 0334, For 1 dose, Adult IV push rate: Over 15 seconds. Peds IV push rate: Over 1 minute. Doses > 15 mg IV/IM are discouraged due to lack of additional analgesic benefit. 0342 (Given - Provid er: Macrina Jacques R.N.) documented in this encounter Additional Health Concerns Assessment Noted Time PHQ-9 Depression Total Score: 1 01/28/20 23 1:59 PM CDT documented as of this encounter Care Teams Line Installation Supervisor Relationship Specialty Start Date End Date Parul Cameron APRN, C.N.P., D.N.P. [address] [place] [id number] PCP - General 11/29/23 documented as of this encounter
--- OUTSIDE RECORDS SUMMARY | 2024-03-07 20:24 | XMS_ITS | Encounter Summary ---
Author Organization [facility] Address [address] [place] [address] Care Team Providers Care Special Education Administrator Name Role Phone Parul Caemron APRN, C.N.P., D.N.P. Primary Care Provider Encounter Details Date Type Department Care Team (Late st Contact Info) Description 12/14/2023 Orders Only [facility] PCP TH MNT Parul Cameron APRN, C.N.P., D.N.P. [address] [place] [address] Screening Lipid Social History Tobacco Use Types Packs/Day Years [...] often do you attend chur ch or hindu services? Never 11/19/2022 Do you belong to any clubs o r organizations such as shinto groups, unions, fraternal or athletic groups, or [...] Answer Date Recorded PHQ-2 Score 0 [facility]27[facility]20[facility] Answer [...] place to sleep or slept in a senior living (including now)? No 11/19/2022 Depression Answer Date [...] Sex Assigned at Male 07/09/2017 9:27 AM EDUCATIONAL/DEVELOPMENT ASSISTANT Gender Identity Male 07/09/2017 9:27 AM EDUCATIONAL/DEVELOPMENT ASSISTANT Sexual Orientation Straight 07/09/2017 9: 27 AM EDUCATIONAL/DEVELOPMENT ASSISTANT documented as of this encounter Plan of Treatment Scheduled Orders Name Type Priority Associated Diagnoses Orde r Schedule Lipid Panel Lab Routine Screening Lipid Expected: 12/28/2023, Expires: 06/11/2024 documented as of this encounter Visit Diagnoses Diagnosis Screening Lipid documented in this encounter Additional Health Concerns Assessment Noted Time PHQ-9 Depression Total Score: 1 01/28/20 23 1:59 PM CDT documented as of this encounter Care Teams Special Education Administrator Relationship Specialty Start Date End Date Parul Cameron APRN, C.N.P., D.N.P. [address] [place] [address] PCP - General 11/29/23 documented as of this encounter
[2024-03-07 20:29] VITALS: BP 142/87; PULSE 85; RESP 20; TEMP 36.8; O2SAT 99; BMI 28.2
--- NOTE | 2024-03-07 20:46 | ED_ITS ---
HPI - General Adult General Chief complaint: Extremity Pain/Injury, Lower Stated complaint: L leg pain Time Seen by Provider: 03/07/24 20:32 History of Present Illness HPI narrative: This 48-year-old male has chronic neck and back pain and comes in reporting severe pain in his low back radiating down his left leg. He was at a different emergency department earlier today and received Toradol and Flexeril. He has taken these medicines without any relief. His past medical record indicates that he is taking oxycodone daily. He states that he has been taking this any is by his report not been increasing use of this medicine beyond the instructions of his prescriber. He does have an MRI scheduled here later this week. He does not report any new injury event or strenuous activity. He states that his leg feels weak at times with pain radiating down from his back. Related Data Home Medications ?Medication ?Instructions ?Recorded ?Confirmed cannabidiol 100 mg/mL oral solution 150 mg PO BID 12/08/23 03/07/24 cholecalciferol (vitamin D3) 1,250 1,250 mcg PO DAILY 02/16/24 03/07/24 mcg (50,000 unit) capsule Previous Rx's ?Medication ?Instructions ?Recorded gabapentin 300 mg capsule 600 mg (2 x 300 mg) PO TID #90 caps 12/15/23 oxycodone 5 mg tablet 5 mg PO Q8H PRN pain #60 tabs 02/23/24 celecoxib 200 mg capsule (Celebrex) 200 mg PO QDAY #20 caps 02/28/24 methylprednisolone 4 mg tablets in See Rx Instructions PO .COMPLEX 03/07/24 a dose pack (Medrol (Jori)) #21 ea Allergies Allergy/AdvReac Type Severity Reaction Status Date / Time No Known Drug Allergies Allergy Verified 03/07/24 20:31 Review of Systems Status of ROS: Reports: 10 or more systems reviewed and unremarkable except as noted in History and below Narrative: Constitutional: No fevers, no weight gain or loss. Eyes: No discharge. No vision changes. HENT: No congestion, no sore throat, no ear pain. Cardiovascular: No chest pain, no palpitations. Respiratory: No shortness of breath, no wheezes, no cough. Gastrointestinal: No abdominal pain, no vomiting, no diarrhea. Genitourinary: No dysuria, no hematuria. Musculoskeletal: Chronic low back pain now radiating down his left leg. Skin: No rashes, no pruritis. Neurological: No dizziness, weakness, sensory change, speech change. Endo/Heme/Allergies: No bruising or bleeding. No polydipsia. Pysch: no suicidality, no anxiety, no insomnia. All other systems reviewed and are negative. [facility] Medical History (Updated 03/07/24 @ 20:51 by Homero Fox MD) Avascular necrosis ?M87.00 - Idiopathic aseptic necrosis of unspecified bone (ICD-10) Diverticulitis ?K57.92 - Diverticulitis of intestine, part unspecified, without perforation or abscess without bleeding (ICD-10) Low back pain ?M54.50 - Low back pain, unspecified (ICD-10) Chronic neck and back pain ?M54.2 - Cervicalgia (ICD-10) ?M54.9 - Dorsalgia, unspecified (ICD-10) ?G89.29 - Other chronic pain (ICD-10) Hypertension ?I10 - Essential (primary) hypertension (ICD-10) Cochlear implant status ?Z96.21 - Cochlear implant status (ICD-10) Alcohol use disorder ?F10.90 - Alcohol use, unspecified, uncomplicated (ICD-10) Generalized anxiety disorder ?F41.1 - Generalized anxiety disorder (ICD-10) Surgical History (Updated 02/16/24 @ 08:50 by Kelly Acevedo ~ [facility]) H/O arthroscopic knee surgery ?Z98.890 - Other specified postprocedural states (ICD-10) S/P colectomy (~2009) ?Z90.49 - Acquired absence of other specified parts of digestive tract (ICD- 10) Social History (Reviewed 02/16/24 @ 08:48 by Kelly Acevedo ~ [facility], [facility]) Narrative: Not working currently. Lives with sister in [place], [place] use Smoking Status: Current every day smoker What tobacco products do you use: cigarettes Do you use any of these nicotine containing products: None Second hand tobacco smoke exposure: No How often do you have a drink containing alcohol: never How often do you have six or more drinks on one occasion: Never AUDIT-C Alcohol total score: 0 Non-prescribed substance use: denies use Little interest or pleasure in doing things: not at all Feeling down, depressed, or hopeless: not at all service: No Exam Narrative: Exam Narrative: Constitutional: Well-developed, well-nourished, no acute distress. HEENT: Normocephalic, atraumatic. Neck: Normal range of motion. Nontender. Supple. Heart: Intact distal pulses. Lungs: No chest discomfort. No wheezes, rhonchi, or rales. Abdomen: Nontender. Back: Normal range of motion. Extremities: Normal range of motion. No injury. Skin: Intact. No rash. Warm. No erythema or pallor. Neurologic: No altered sensation. No weakness. Alert and oriented. Straight leg raise of the left leg does elicit pain in his low back at about 20? elevation. Psychiatric: No suicidality. No anxiety or depression. No insomnia. Nursing notes and vitals signs are reviewed. Const: Vital Signs, click to edit/add: Vital Signs - 24 hr 03/07/24 20:29 Temperature 98.2 F Pulse Rate [Right Pulse Oximeter] 85 Respiratory Rate 20 Blood Pressure [Ri ght Upper Arm] 142/87 H Pulse Oximetry 99 Oxygen Delivery Me thod Room Air Course Vital Signs Vital signs: Initial Vital Signs Temperature 98.2 F 03/07/24 20:29 Temperature Source Temporal Artery Scan 03/07/24 20:29 Pulse Rate 85 03/07/24 20:29 Respiratory Rate 20 03/07/24 20:29 Blood Pressure 142/87 H 03/07/24 20:29 Blood Pressure Mean 105 03/07/24 20:29 Blood Pressure Position Sitting 03/07/24 20:29 Pulse Oximetry 99 03/07/24 20:29 Oxygen Delivery Method Room Air 03/07/24 20:29 Vital Signs Temperature 98.2 F 03/07/24 20:29 Pulse Rate 85 03/07/24 20:29 Respiratory Rate 20 03/07/24 20:29 Blood Pressure 142/87 H 03/07/24 20:29 Pulse Oximetry 99 03/07/24 20:29 Oxygen Delivery Method Room Air 03/07/24 20:29 Temperature 98.2 F 03/07/24 20:29 Pulse Rate 85 03/07/24 20:29 Respiratory Rate 20 03/07/24 20:29 Blood Pressure 142/87 H 03/07/24 20:29 Pulse Oximetry 99 03/07/24 20:29 Oxygen Delivery Method Room Air 03/07/24 20:29 Medical Decision Making MDM Narrative Medical decision making narrative: This patient has chronic neck and back pain and comes in because his pain is not adequately controlled after visit elsewhere earlier today. He states that he is taking gabapentin, Celebrex, oxycodone, and today Flexeril and Toradol were prescribed. He has not taken a steroid for quite a while. He does have an MRI scheduled later this week. He does not report any altered bowel or bladder function and does not have any report of anesthesia. This patient states that he is taking oxycodone and is doing it according to his prescribers instructions. He states that he has not accelerated use of this medicine and has plenty available for the remainder of the term of the prescription. Nevertheless he is coming here because of an adequately controlled pain. IA stated that there is no injury event or strenuous activity that mandates any kind of imaging at this time. An MRI may guide more specify treatment for his symptoms which seem to be emanating from a lumbar radiculopathy. I did agree to a 1 time injection of morphine. The patient understands we will not repeat this on to the emergency department. He also received an oral dose of dexamethasone and I provided a prescription for Medrol Dosepak. Discharge Plan Discharge Clinical Impression: Left lumbar radiculopathy Patient Disposition: Home w/ Parent or Adult Condition: Stable Additional Instructions: Continue current medications and follow-up for MRI study as scheduled. Take Medrol Dosepak as instructed also. Prescriptions: New methylprednisolone [Medrol (Jori)] 4 mg tablets,dose pack See Rx Instructions .ROUTE .COMPLEX Qty: 21 0RF Rx Instructions: orally per package directions No Action cholecalciferol (vitamin D3) 1,250 mcg (50,000 unit) capsule 1,250 mcg PO DAILY cannabidiol 100 mg/mL solution 150 mg PO BID Rx Instructions: Medicinal Cannabis celecoxib [Celebrex] 200 mg capsule 200 mg PO QDAY Qty: 20 0RF gabapentin 300 mg capsule 600 mg PO TID Qty: 90 4RF oxycodone 5 mg tablet 5 mg PO Q8H PRN (Reason: pain) Qty: 60 0RF Follow Up/Referrals: Gonzalo Trinh MD [Primary Care Provider] - Stand Alone Forms: [employer] Info Instructions
[2024-03-07] MEDS: MORPHINE 10 MG/ML inj IM (20:53)
[2024-03-07] MEDS: dexAMETHasone 10 MG/ML inj PO (20:53)
--- OUTSIDE RECORDS SUMMARY | 2024-03-07 20:53 | XMS_ITS | Referral Summary ---
Author Organization [facility] Address [address] [place] [address] Care Team Providers Care Load Out Worker Name Role Phone Unavailable Primary Care Provider [...]
--- OUTSIDE RECORDS SUMMARY | 2024-03-07 20:53 | XMS_ITS | Clinical Summary ---
Author Organization [facility] Address [address] [place] [address] Care Team Providers Care Data Management Manager Name Role Phone Parul Cameron APRN, C.N.P., D.N.P. Primary Care Provider Source Comments Patient records contain information from all sites at [facility]. For routine questions regarding patient records, call [phone] during business hours, M-F 8:00 AM - 5:00 PM Central Time. Record requests for emergency care only can be directed to [phone] at any time.[facility] Allergies Active Allergy Reactions Criticality Noted Date [...] CDT - 03/07/2024 6:11 PM CDT Emergency [facility] [address] [phone] Shanel Arguelles APRN, C.N.P., D.N.P. Pain Back Lumbar (Primary Dx); Pain Low Back Chronic; Cyst Renal Discharge Disposition: Home or Self Care 01/03/2024 1:05 PM CDT - 01/03/2024 2:06 PM CDT Emergency [facility] [address] [phone] Romy Johnson P.A.-C., P.A. Pain Back Lumbar (Primary Dx) Discharge Disposition: Home or Self Care 12/30/2023 11:44 PM CDT - 12/31/2023 2:25 AM CDT Emergency [facility] [address] [phone] Mamta Zamudio M.D. Abdominal Pain (Primary Dx); Pain Back Lumbar Discharge Disposition: Home or Self Care 12/14/2023 Orders Only [facility] PCP TH MNT Parul Cameron APRN, C.N.P., D.N.P. Screening Lipid 12/07/2023 3:21 AM CDT - 12/07/2023 3:48 AM CDT Emergency [facility] [address] [phone] Deangelo Kothari M.D. Pain Low Back Chronic [...] often do you attend chur ch or protestant services? Never 11/19/2022 Do you belong to any clubs o r organizations such as synagogue groups, unions, fraternal or athletic groups, or [...] Answer Date Recorded PHQ-2 Score 0 01/27/2023 [facility] - Occupational Stress Questionnaire Answer Date Recorded [...] Sex Assigned at Male 07/09/2017 9:27 AM ECONOMIC SPECIALIST Gender Identity Male 07/09/2017 9:27 AM ECONOMIC SPECIALIST Sexual Orientation Straight 07/09/2017 9: 27 AM ECONOMIC SPECIALIST Last Filed Vital Signs Vital Sign Reading [...] 193 cm (6' 3.98) 06/25/2023 6:55 AM ECONOMIC SPECIALIST Body Mass Index 26.04 06/25/2023 6:55 AM ECONOMIC SPECIALIST Plan of Treatment Health Maintenance Due Date [...] 02/14/2023, 01/04/2014 Medical Devices Implanted Type Area Manufacturing Executive Device Identifier Shelf Expiration Date Model / [...] mode [email or web address] Cartilage Costal Lg - [place] [id number] Implanted:Qty: 1 on 12/19/2010 Bone or Tissue Other/Legacy - See Implant Description [employer] Description:Device Manufactu rer - [employer]. Body Location - Other. bone for packing defect. Device Status Text - [id number]. Ear Hilliard Titanium Partial 3.00 - [place] [id number] Implanted:Qty: 1 on 08/28/2008 Ear Implant Other/Legacy - See Implant Description [facility] Medical Description:Device Manufactu rer - [employer] Body Location - Other. Left. Device Status Text - [id number] [id number]. Scan at 1.5T in Normal mode due to BAHA Attract Mary Kay Dunn MRSO 03/26/2023 Ear Ttp Variac Total 0.2x3.0 7mm - [place] [id number] Implanted:Qty: 1 on 12/19/2010 Ear Implant Other/Legacy - See Implant Description [facility] Medical Description:Device Manufactu rer - [employer] Body Location - Other. Left. Device Status Text - [id number] [id number]. Scan at 1.5T in Normal mode due to BAHA Attract Mary Kay Dunn MRSO 03/26/2023 Ear Oss Ti Total System Centered Adj. - [place] [id number] Implanted:Qty: 1 on 12/19/2010 Ear Implant Other/Legacy - See Implant Description [facility] Description:Device Manufactu rer - [employer]. Body Location - Other. Left. Device Status Text - AUD [id number]. Scan at 1.5T in Normal mode due to BAHA Attract Mary Kay Leal MRSO 03/26/2023 Ear Ttp Variac Total 0.2x3.0 7mm - [place] [id number] Implanted:Qty: 1 on 12/19/2010 Ear Implant Other/Legacy - See Implant Description [employer] Description:Device Manufactu rer - [employer] Body Location - Other. Left. Device Status Text - AUD [id number]. Scan at 1.5T in Normal mode due to BAHA Attract Mary Kay Dunn MRSO 03/26/2023 Procedures Procedure Name Priority Date/Time [...] AM CDT COLONOSCOPY Routine 09/16/2022 10:44 AM ECONOMIC SPECIALIST Diverticulitis Colon from Last 3 Months or [...] 8.0 03/07/2024 5:20 PM CDT AUST Specific Lucien 1.006 1.001 - 1.035 03/07/2024 5:20 PM CDT AUST Urobilinogen 0.2 0.2 - 1.0 mg/dL 03/07/2024 5:20 PM CDT AUST Urine (Urine, Midstream) 03/07/2024 5:09 PM CDT 03/07/2024 5:14 PM CDT Shanel Arguelles APRN, C.N.P., D.N.P. LA B URINE ORDERABLES [facility] [address] [place] [address], [facility] AUST [place] Lab - [facility] [address] [place] [address] * Lactate (03/07/2024 4:55 PM CDT) Only the most recent of2 resultswithin the time period is included. Lactate, P 1.5 0.5 - 2.2 mmol/L 03/07/2024 5:12 PM CDT AUST Blood (Blood, Venous) 03/07/2024 4:55 PM CDT 03/07/2024 4:57 PM CDT Shanel Arguelles APRN, C.N.P., MikkiNNataliePNatalie LA B BLOOD NON ADD-ON [facility] [address] [place] [address], [facility] AUST Janak Lab - [facility] [address] [place] [address] * (ABNORMAL) CBC with Differential, Blood (03/07/2024 [...] Arguelles APRN, C.N.P., D.N.PNatalie RICHTER BLOOD ADD-ON [facility] [address] [place] [address], [facility] AUST [place] [facility] - [facility] [address] [place] [address] * (ABNORMAL) Basic Metabolic Panel (03/07/2024 4:54 [...] Arguelles APRN, C.N.P., Lakshmi RICHTER BLOOD ADD-ON [facility] [address] [place], [place] [id number] [place] [address] Lab - [facility] [address] [place] [address] * CRP (C-Reactive Protein) (12/31/2023 12:27 AM CDT) C-Reactive Protein (CRP), P 3.9 <5.0 mg/L 12/31/2023 12:51 AM CDT AUST Blood (Blood, Venous) 12/31/2023 12:27 AM CDT 12/31/2023 12:32 AM CDT Mamta Zamudio M.D. LAB BLOOD ADD-ON Performing Organization Address City/[facility]/ZIP Co de Phone Number [facility] [address] [place], [place] [address] - [facility] [address] [place] [address] * Lipase (12/31/2023 12:27 AM CDT) Lipase, P 28 13 - 60 U/L 12/31/2023 12:51 AM CDT AUST Blood (Blood, Venous) 12/31/2023 12:27 AM CDT 12/31/2023 12:32 AM CDT Mamta Zamudio M.D. LAB BLOOD ADD-ON [facility] [address] [place] [address], [facility] Lab - [facility] [address] [place] [address] * Comprehensive Metabolic Panel (12/31/2023 12:27 AM [...] AM CDT 12/31/2023 12:32 AM CDT Mamta Zamduio M.D. LAB BLOOD ADD-ON [facility] [address] [place] [address], [place] AUST Janak Lab - [facility] [address] [place] [address] from Last 3 Months or Most Recently Relevant to Health Maintenance Advance Directives For more information, please contact: [phone] * Full Code (Latest Code Status on [...] Due to: Not medically appropriate Care Teams Data Management Manager Relationship Specialty Start Date End Date Parul Cameron APRN, C.N.P., D.N.P. [address] [place] [phone] PCP - General 11/29/23
--- OUTSIDE RECORDS SUMMARY | 2024-03-07 20:53 | XMS_ITS | Clinical Summary ---
Author Organization [facility] Address [address] [place] [address] Care Team Providers Care Program Architect Name Role Phone Unavailable Primary Care Provider [...]
--- OUTSIDE RECORDS SUMMARY | 2024-03-07 20:53 | XMS_ITS | Referral Summary ---
Author Organization [facility] Address [address] [place] [address] Care Team Providers Care Fourdrinier Operator Name Role Phone Parul Cameron APRN, C.N.P., D.N.P. Primary Care Provider Source Comments Patient records contain information from all sites at [facility]. For routine questions regarding patient records, call [phone] during business hours, M-F 8:00 AM - 5:00 PM Central Time. Record requests for emergency care only can be directed to [phone] at any time.[facility] Encounters Date Type Department Care Team Description 03/07/2024 3:49 PM CDT - 03/07/2024 6:11 PM CDT Emergency [facility] [address] [phone] Shanel Arguelles APRN, C.N.P., D.N.P. Pain Back Lumbar (Primary Dx); Pain Low Back Chronic; Cyst Renal Discharge Disposition: Home or Self Care 01/03/2024 1:05 PM CDT - 01/03/2024 2:06 PM CDT Emergency [facility] [address] [phone] Romy Johnson P.A.Nayla., P.A. Pain Back Lumbar (Primary Dx) Discharge Disposition: Home or Self Care 12/30/2023 11:44 PM CDT - 12/31/2023 2:25 AM CDT Emergency [facility] [address] [phone] Mamta Zamudio M.D. Abdominal Pain (Primary Dx); Pain Back Lumbar Discharge Disposition: Home or Self Care 12/14/2023 Orders Only [facility] PCP [facility] MNT Parul Cameron APRN, C.N.P., D.N.P. Screening Lipid 12/07/2023 3:21 AM CDT - 12/07/2023 3:48 AM CDT Emergency [facility] [address] [phone] Deangelo Kothari M.D. Pain Low Back Chronic [...] How often do you attend chur or worship services? Never 11/19/2022 Do you belong to any clubs o r organizations such as orthodoxy groups, unions, fraternal or athletic groups, or [...] Answer Date Recorded PHQ-2 Score 0 01/27/2023 [facility] of Occupat ional Health - Occupational Stress [...] place to sleep or slept in a jail (including now)? No 11/19/2022 Depression Answer Date [...] Sex Assigned at Male 07/09/2017 9:27 AM MEDICAL INSURANCE CODING SPECIALIST Gender Identity Male 07/09/2017 9:27 AM MEDICAL INSURANCE CODING SPECIALIST Sexual Orientation Straight 07/09/2017 9: 27 AM MEDICAL INSURANCE CODING SPECIALIST Last Filed Vital Signs Vital Sign [...] 193 cm (6' 3.98) 06/25/2023 6:55 AM MEDICAL INSURANCE CODING SPECIALIST Body Mass Index 26.04 06/25/2023 6:55 AM MEDICAL INSURANCE CODING SPECIALIST Plan of Treatment Not on file Medical Devices Implanted Type Area Advertising Executive Device Identifier Shelf Expiration Date Model [...] mode [email or web address] Cartilage Costal Lg - [place] [id number] Implanted:Qty: 1 on 12/19/2010 Bone or Tissue Other/Legacy - See Implant Description [employer] Description:Device Manufactu rer - [employer]. Body Location - Other. bone for packing defect. Device Status Text - BONETISSU-[id number]. Ear Hilliard Titanium Partial 3.00 - [place] [id number] Implanted:Qty: 1 on 08/28/2008 Ear Implant Other/Legacy - See Implant Description [facility] Medical Description:Device Manufactu rer - [employer] Body Location - Other. Left. Device Status Text - AUD IMP-[id number]. Scan at 1.5T in Normal mode due to BAHA Attract Mary Kay Leal MRSO 03/26/2023 Ear Ttp Variac Total 0.2x3.0 7mm - [place] [id number] Implanted:Qty: 1 on 12/19/2010 Ear Implant Other/Legacy - See Implant Description [facility] Medical Description:Device Manufactu rer - [employer] Body Location - Other. Left. Device Status Text - AUD [id number]. Scan at 1.5T in Normal mode due to BAHA Attract Mary Kay Wheeler MRSO 03/26/2023 Ear Oss Ti Total System Centered Adj. - [place] [id number] Implanted:Qty: 1 on 12/19/2010 Ear Implant Other/Legacy - See Implant Description [facility] Description:Device Manufactu rer - [place]. Body Location - Other. Left. Device Status Text - AUD [id number]. Scan at 1.5T in Normal mode due to BAHA Attract Mary Kay Wheeler MRSO 03/26/2023 Ear Ttp Variac Total 0.2x3.0 7mm - [place] [id number] Implanted:Qty: 1 on 12/19/2010 Ear Implant Other/Legacy - See Implant Description [employer] Description:Device Manufactu rer - [employer] Body Location - Other. Left. Device Status Text - AUD [id number]. Scan at 1.5T in Normal mode due to BAHA Attract Mary Kay Wheeler MRSO 03/26/2023 Procedures Procedure Name Priority Date/Time [...] AM CDT COLONOSCOPY Routine 09/16/2022 10:44 AM MEDICAL INSURANCE CODING SPECIALIST Diverticulitis Colon from Last 3 Months [...] 8.0 03/07/2024 5:20 PM CDT AUST Specific [place] 1.006 1.001 - 1.035 03/07/2024 5:20 PM CDT AUST Urobilinogen 0.2 0.2 - 1.0 mg/dL 03/07/2024 5:20 PM CDT AUST Urine (Urine, Midstream) 03/07/2024 5:09 PM CDT 03/07/2024 5:14 PM CDT Shanel Arguelles APRN, C.N.P., D.N.P. LA Carline URINE ORDERABLES [facility] [address] [place] [address], [facility] AUST Janak Lab - [facility] [address] [place] [address] * Lactate (03/07/2024 4:55 PM CDT) Only the most recent of2 resultswithin the time period is included. Lactate, P 1.5 0.5 - 2.2 mmol/L 03/07/2024 5:12 PM CDT AUST Blood (Blood, Venous) 03/07/2024 4:55 PM CDT 03/07/2024 4:57 PM CDT Shanel Arguelles APRN, C.N.P., D.N.PNatalie RICHTER BLOOD NON ADD-ON [facility] [address] [place] [address], [facility] AUST [place] [facility] - [facility] [address] [place] [address] * (ABNORMAL) CBC with Differential, Blood (03/07/2024 4:54 PM CDT) Only the most recent of2 resultswithin the time period is included. Pathologist [facility] Hemoglobin 15.2 13.2 - 16.6 g/dL 03/07/2024 [...] Arguelles APRN, C.N.P., D.N.PNatalie RICHTER BLOOD ADD-ON [facility] [address] [place] [address], [facility] AUST [place] [facility] - [facility] [address] [place] [address] * (ABNORMAL) Basic Metabolic Panel (03/07/2024 4:54 [...] MikkiNWill RICHTER BLOOD ADD-ON Performing Organization Address City/[facility]/ZIP Co de Phone Number [facility] [address] [place] [address], [facility] - [facility] [address] [place] [address] * CRP (C-Reactive Protein) (12/31/2023 12:27 AM CDT) C-Reactive Protein (CRP), P 3.9 <5.0 mg/L 12/31/2023 12:51 AM CDT AUST Blood (Blood, Venous) 12/31/2023 12:27 AM CDT 12/31/2023 12:32 AM CDT Mamta Zamudio M.D. LAB BLOOD ADD-ON Performing Organization Address [facility]/ZIP Co de Phone Number [facility] [address] [place] [address], [facility] - [facility] [address] [place] [address] * Lipase (12/31/2023 12:27 AM CDT) Lipase, P 28 13 - 60 U/L 12/31/2023 12:51 AM CDT AUST Blood (Blood, Venous) 12/31/2023 12:27 AM CDT 12/31/2023 12:32 AM CDT Mamta Zamudio M.D. LAB BLOOD ADD-ON Performing Organization Address City/[facility]/ZIP Co de Phone Number [facility] [address] [place] [address], [facility] AUST [place] Lab - [facility] [address] [place] [address] * Comprehensive Metabolic Panel (12/31/2023 12:27 AM [...] CDT Mamta Zamudio M.D. LAB BLOOD ADD-ON [facility] [address] [place] [address], [place] AUST [facility] - [facility] [address] [place] [address] from Last 3 Months or Most Recently Relevant to Health Maintenance Advance Directives For more information, please contact: [phone] * Full Code (Latest Code Status on [...] Due to: Not medically appropriate Care Teams Fourdrinier Operator Relationship Specialty Start Date End Date Parul Cameron APRN, C.N.P., D.N.P. [address] [place] [address] PCP - General 11/29/23
--- OUTSIDE RECORDS SUMMARY | 2024-03-07 20:53 | XMS_ITS ---
Author Organization [facility] Address [address] [place] [address] Care Team Providers Care Cytologist Name Role Phone Unavailable Unavailable Unavailable Surgery Details Not on file Complications Check Surgery Details section. Procedure Estimated Blood Loss Check Surgery Details section. Procedure Findings Check Surgery Details section. Procedure Specimens Taken Check Surgery Details section.
--- OUTSIDE RECORDS SUMMARY | 2024-03-07 20:54 | XMS_ITS | Clinical Summary ---
Author Organization [facility] Address [place], [place] [address] Care Team Providers Care Pile Header Name Role Phone Clinic, No Pcp Or [...] Influenza for age 50-64 04/09/2024 Care Teams Pile Header Relationship Specialty Start Date End Date Clinic, No Pcp Or . PCP - General 09/19/17
--- OUTSIDE RECORDS SUMMARY | 2024-03-07 20:54 | XMS_ITS | Encounter Summary ---
Author Organization [facility] Address [address] [place] [address] Care Team Providers Care Veterinary Virus Serum Inspector Name Role Phone Parul Cameron APRN C.N.P., D.N.P. Primary Care Provider Reason for Referral * Medication Prior Authorization - Closed Specialty Diagnoses / Procedures Referred By Contac t Referred To Contact Romy Johnson P.A.-C., P.A. [address] [phone] Referral ID Status Reason Start Date Expiration Date Visits Re quested Visits Authorized [id number] Closed 1 1 Reason for Visit * Reason Comments Back Pain Presents with chroni c left low back pain rated 7/10, worsening today as he ran out of his medications yesterday morning. Encounter Details Date Type Department Care Team (Late Contact Info) Description 01/03/2024 1:05 PM CDT - 01/03/2024 2:06 PM CDT Emergency [facility] [address] [phone] Romy [...] often do you attend chur ch or bahai services? Never 11/19/2022 Do you belong to any clubs o r organizations such as anabaptist groups, unions, fraternal or athletic groups, or [...] Answer Date Recorded PHQ-2 Score 0 01/27/2023 [facility] Occupat ional Health - Occupational Stress [...] 11/19/2022 Housing Stability Vital Sign Answer Jorge Ulis e Recorded In the last 12 months, [...] place to sleep or slept in a prison (including now)? No 11/19/2022 Depression Answer Date [...] Sex Assigned at Male 07/09/2017 9:27 AM PERMIT COORDINATOR Gender Identity Male 07/09/2017 9:27 AM PERMIT COORDINATOR Sexual Orientation Straight 07/09/2017 9: 27 AM PERMIT COORDINATOR documented as of this encounter Last Filed [...] Body Mass Index 27.11 06/25/2023 6:55 AM PERMIT COORDINATOR documented in this encounter Discharge Instructions * Discharge Instructions* Romy Johnson P.A.-C., P.A. - 01/03/2024 1:52 PM CDT - I have filled for [place] to [facility], this is a short course, reach out to your primary care for a fill tomorrow. - Return if you develop bowel incontinence, urinary retention, increased weakness, inability to walk, or any other new or worsening symptoms. * Attachments The following attachments cannot be sent through Care Everywhere. * Chronic Back Pain (Syriac) documented in this encounter Medications at Time [...] 06/29/2023 HYDROcodone-acetaminop hen (NORCO) 5-325 mg per tabletIndications:Hull Grinder devyn Pain/Nonacute Pain Take 1 tablet by [...] with chronic back pain being seen by [facility] but is here visiting his sister and ran out of his medications. He is on [place], and takes Ibuprofen, medical marijuana, does the [...] could get a small fill of his [place] until they can fully refill it tomorrow. [...] majority of his last fills for his [place] have been from one provider, he is [...] documented as of this encounter Care Teams Veterinary Virus Serum Inspector Relationship Specialty Start Date End Date Parul Cameron APRN, C.N.P., D.N.P. [address] [place] [phone] PCP - General 11/29/23 documented as of this encounter
--- OUTSIDE RECORDS SUMMARY | 2024-03-07 20:54 | XMS_ITS | Encounter Summary ---
Author Organization [facility] Address [address] [place] [address] Care Team Providers Care Retail Clerk Name Role Phone Parul Cameron APRN, C.N.P., D.N.P. Primary Care Provider Encounter Details Date Type Department Care Team (Late st Contact Info) Description 12/14/2023 Orders Only [facility] PCP [facility] MNT Parul Cameron APRN, C.N.P., D.N.P. [address] [place] [phone] Screening Lipid Social History Tobacco [...] often do you attend chur ch or gnosticist services? Never 11/19/2022 Do you belong to any clubs o r organizations such as amish groups, unions, fraternal or athletic groups, or [...] Answer Date Recorded PHQ-2 Score 0 [facility]27[facility]20[facility] Answer Date [...] Sex Assigned at Male 07/09/2017 9:27 AM MATERIAL FLOW ENGINEER Gender Identity Male 07/09/2017 9:27 AM MATERIAL FLOW ENGINEER Sexual Orientation Straight 07/09/2017 9: 27 AM MATERIAL FLOW ENGINEER documented as of this encounter Plan of [...] documented as of this encounter Care Teams Retail Clerk Relationship Specialty Start Date End Date Parul Cameron APRN, C.N.P., D.N.P. [address] [place] [phone] PCP - General 11/29/23 documented as of this encounter
--- OUTSIDE RECORDS SUMMARY | 2024-03-07 20:54 | XMS_ITS | Encounter Summary ---
Author Organization [facility] Address [address] [place] [address] Care Team Providers Care Hand Laminator Name Role Phone Parul Cameron APRN, C.N.P., D.N.P. Primary Care Provider Reason for Referral * Outpatient (Routine) - Authorized Specialty Diagnoses / Procedures Referred By Contac t Referred To Contact Emergency Medicine Diagnoses Pain Back Lumbar Cyst Renal Mohinder Escalona P.A.-C., P.A. [address] [phone] [facility] Region Referral ID Status Reason Start Date Expiration Date V isits Requested Visits Authorized [id number] Authorized 03/07/2024 09/06/2025 1 1 Reason for Visit * Reason Comments Back Pain Pt presents with chr onic lt buttock/hip pain that is much worse today and noting decreased function of lt leg. No bowel or bladder involvement. Encounter Details Date Type Department Care Team (Late st Contact Info) Description 03/07/2024 3:49 PM CDT - 03/07/2024 6:11 PM CDT Emergency [facility] [address] [place] [phone] Shanel Arguelles [...] How often do you attend chur or scientology services? Never 11/19/2022 Do you belong to any clubs o r organizations such as buddhist groups, unions, fraternal or athletic groups, or [...] Answer Date Recorded PHQ-2 Score 0 01/27/2023 [facility] - Occupational Stress Questionnaire Answer Date [...] place to sleep or slept in a correction (including now)? No 11/19/2022 Depression Answer Date [...] Sex Assigned at Male 07/09/2017 9:27 AM CLAMP TRUCK DRIVER Gender Identity Male 07/09/2017 9:27 AM CLAMP TRUCK DRIVER Sexual Orientation Straight 07/09/2017 9: 27 AM CLAMP TRUCK DRIVER documented as of this encounter Last Filed [...] Body Mass Index 26.04 06/25/2023 6:55 AM CLAMP TRUCK DRIVER documented in this encounter Discharge Instructions * [...] Care Everywhere. * Acute Back Pain Adult (Latvian) documented in this encounter Medications at Time [...] 8.0 03/07/2024 5:20 PM CDT AUST Specific [place] 1.006 1.001 - 1.035 03/07/2024 5:20 PM CDT AUST Urobilinogen 0.2 0.2 - 1.0 mg/dL 03/07/2024 5:20 PM CDT AUST Urine (Urine, Midstream) 03/07/2024 5:09 PM CDT 03/07/2024 5:14 PM CDT hSanel Arguelles APRN, Eryn.N.P., D.N.P. LA B URINE ORDERABLES Performing Organization Address City/[facility]/ZIP Co de Phone Number [facility] [address] [place] [address] * Lactate (03/07/2024 4:55 PM CDT) Lactate, P 1.5 0.5 - 2.2 mmol/L 03/07/2024 5:12 PM CDT AUST Blood (Blood, Venous) 03/07/2024 4:55 PM CDT 03/07/2024 4:57 PM CDT Eryn Levin APRN.N.P., D.N.P. LA B BLOOD NON ADD-ON Performing Organization Address City/[facility]/ZIP Co de Phone Number [facility] [address] [place] [address], [facility] [place] [address] * (ABNORMAL) Basic Metabolic Panel (03/07/2024 4:54 [...] APRN, C.N.P., D.N.P. LA B BLOOD ADD-ON [facility] [address] [place] [address], [facility] AUST [facility]ak Lab - [facility] [address] [place] [address] * (ABNORMAL) CBC with Differential, Blood (03/07/2024 [...] APRN, C.N.P., D.N.P. LA Carline BLOOD ADD-ON [facility] [address] [place] [address], [facility] AUST [facility] - [facility] [address] [place] [address] documented in this encounter Visit Diagnoses Diagnosis [...] documented as of this encounter Care Teams Hand Laminator Relationship Specialty Start Date End Date Parul Cameron APRN, C.N.P., D.N.P. [address] [facility] [place] [address] PCP - General 11/29/23 documented as of this encounter
--- OUTSIDE RECORDS SUMMARY | 2024-03-07 20:54 | XMS_ITS | Encounter Summary ---
Author Organization [facility] Address [address] [place] [address] Care Team Providers Care Coiler Operator Name Role Phone Parul Cameron APRN, [...] CDT - 12/31/2023 2:25 AM CDT Emergency [facility] [address] [place] [phone] Mamta Zamudio M.D. [address] [place] [phone] Abdominal Pain (Primary Dx); Pain Back Lumbar [...] week 11/19/2022 How often do you attend [facility] or [facility] services? Never 11/19/2022 Do you belong to [...] Answer Date Recorded PHQ-2 Score 0 01/27/2023 [facility] of Occupat ional Health - Occupational Stress [...] place to sleep or slept in a mcfp (including now)? No 11/19/2022 Depression Answer Date [...] Sex Assigned at Male 07/09/2017 9:27 AM HABILITATIVE INTERVENTIONIST Gender Identity Male 07/09/2017 9:27 AM HABILITATIVE INTERVENTIONIST Sexual Orientation Straight 07/09/2017 9: 27 AM HABILITATIVE INTERVENTIONIST documented as of this encounter Last Filed [...] Body Mass Index 26.71 06/25/2023 6:55 AM HABILITATIVE INTERVENTIONIST documented in this encounter Discharge Instructions * [...] tingling in the legs. Does follow in [place] [facility] about his low back pain He was seen in ER about a month ago was instructed to get Tylenol , ibuprofen and lidocaine patch and follow up with his physician. History provided by: Patient medicaid collection specialist needed/used: no REVIEW OF SYSTEMS Constitutional: Negative [...] him to drink more fluid, good take [id number] Pepto-Bismol. Advised to follow up in clinic [...] contrast the 2022, CT abdomen/pelvis with IV /8/2022. FINDINGS: Postoperative changes of partial colectomy. Moderate [...] CTevidence of acute pancreatitis. Mamta Zamudio M.D. [facility] CT PROCEDURES * Lipase (12/31/2023 12:27 AM CDT) Lipase, P 28 13 - 60 U/L 12/31/2023 12:51 AM CDT AUST Blood (Blood, Venous) 12/31/2023 12:27 AM CDT 12/31/2023 12:32 AM CDT Mamta Zamudio M.D. LAB BLOOD ADD-ON [facility] [address] [place] [address], [facility] - [facility] [address] [place] [address] * Lactate (12/31/2023 12:27 AM CDT) Pathologist [facility] Lactate, P 1.2 0.5 - 2.2 mmol/L 12/31/2023 12:47 AM CDT AUST Blood (Blood, Venous) 12/31/2023 12:27 AM CDT 12/31/2023 12:32 AM CDT Mamta Zamudio M.D. LAB BLOOD NON ADD-ON Performing Organization Address City/[facility]/ZIP Co de Phone Number [facility] [address] [place] [address], [facility] - [facility] [address] [place] [address] * CRP (C-Reactive Protein) (12/31/2023 12:27 AM CDT) Pathologist [facility] C-Reactive Protein (CRP), P 3.9 <5.0 mg/L 12/31/2023 12:51 AM CDT AUST Blood (Blood, Venous) 12/31/2023 12:27 AM CDT 12/31/2023 12:32 AM CDT Mamta Zamudio M.D. LAB BLOOD ADD-ON [facility] [address] [place] [address], [facility] - [facility] [address] [place] [address] * Comprehensive Metabolic Panel (12/31/2023 12:27 AM [...] CDT Mamta Zamudio M.D. LAB BLOOD ADD-ON [facility] [address] [place] [address], [facility] AUST Janak Lab - [facility] [address] [place] [address] * (ABNORMAL) CBC with Differential, Blood (12/31/2023 [...] CDT Mamta Zamudio M.D. LAB BLOOD ADD-ON [facility] [address] [place] [address], [facility] [address] [place] [address] documented in this encounter Visit Diagnoses Diagnosis [...] documented as of this encounter Care Teams Coiler Operator Relationship Specialty Start Date End Date Parul Cameron APRN, C.N.P., D.N.P. [address] [place] [phone] PCP - General 11/29/23 documented as of this encounter
--- OUTSIDE RECORDS SUMMARY | 2024-03-07 20:54 | XMS_ITS | Encounter Summary ---
Author Organization [facility] Address [address] [place] [address] Care Team Providers Care Billing Analyst Name Role Phone Parul Cameron APRN, C.N.P., [...] 12/07/2023 3:48 AM CDT Emergency [facility] [address] [place] [phone] Deangelo Kothari M.D. [address] [place] [address] Pain Low Back Chronic (Primary Dx) Discharge [...] often do you attend chur ch or methodist services? Never 11/19/2022 Do you belong to any clubs o r organizations such as voodoo groups, unions, fraternal or athletic groups, or [...] Answer Date Recorded PHQ-2 Score 0 01/27/2023 [facility] of Occupat ional Health - Occupational Stress [...] place to sleep or slept in a retirement (including now)? No 11/19/2022 Depression Answer Date [...] Sex Assigned at Male 07/09/2017 9:27 AM HACK SAW OPERATOR Gender Identity Male 07/09/2017 9:27 AM HACK SAW OPERATOR Sexual Orientation Straight 07/09/2017 9: 27 AM HACK SAW OPERATOR documented as of this encounter Last Filed Vital Signs Vital Sign Reading Time Taken Comments Blood Pressure - - Pulse - - Temperature - - Respiratory Rate - - Oxygen Saturation - - Inhaled Oxygen Concentration - - Weight 98.8 kg (217 lb 13 oz) 12/07/2023 3:37 AM CDT Height - - Body Mass Index 26.52 06/25/2023 6:55 AM HACK SAW OPERATOR documented in this encounter Discharge Instructions * [...] through Care Everywhere. * Chronic Back Pain (Tuvaluan) documented in this encounter Medications at Time [...] closely by pain medicine specialists in the [facility] for his low back pain. Is actually [...] documented as of this encounter Care Teams Billing Analyst Relationship Specialty Start Date End Date Parul Cameron APRN, C.N.P., D.N.P. [address] [place] [phone] PCP - General 11/29/23 documented as of this encounter
== END 2024-03-07 21:04 | disposition home or self-care (01) ==
PROVIDERS: Emergency Provider Emergency Medicine Emergency Medical Services; PCP Internal Medicine
DX: M54.16 Radiculopathy, lumbar region (principal)
CPT/HCPCS: 96372; 99284; J1100; J2270

== ENCOUNTER 2024-03-10 07:09 | Outpatient (CLI) | payer BC, SELFPAY ==
--- OUTSIDE RECORDS SUMMARY | 2024-03-10 07:12 | XMS_ITS ---
Author Organization [facility] Address [address] [place] [address] Care Team Providers Care Rn Bariatric Name Role Phone Unavailable Unavailable Unavailable Surgery Details Not on file Complications Check Surgery Details section. Procedure Estimated Blood Loss Check Surgery Details section. Procedure Findings Check Surgery Details section. Procedure Specimens Taken Check Surgery Details section.
--- OUTSIDE RECORDS SUMMARY | 2024-03-10 07:12 | XMS_ITS | Referral Summary ---
Author Organization [facility] Address [address] [place] [address] Care Team Providers Care Senior Qa Automation Engineer Name Role Phone Parul Cameron APRN, C.N.P., D.N.P. Primary Care Provider Source Comments Patient records contain information from all sites at [facility]. For routine questions regarding patient records, call [phone] during business hours, M-F 8:00 AM - 5:00 PM Central Time. Record requests for emergency care only can be directed to [phone] at any time.[facility] Encounters Date Type Department Care Team Description 03/07/2024 3:49 PM CDT - 03/07/2024 6:11 PM CDT Emergency [facility] [address] [phone] Shanel Arguelles APRN, C.N.P., D.N.P. Pain Back Lumbar (Primary Dx); Pain Low Back Chronic; Cyst Renal; Radiculopathy Discharge Disposition: Home or Self Care 01/03/2024 1:05 PM CDT - 01/03/2024 2:06 PM CDT Emergency [facility] [address] [place] [phone] Romy Johnson P.A.-C., P.A. Pain Back Lumbar (Primary Dx) Discharge Disposition: Home or Self Care 12/30/2023 11:44 PM CDT - 12/31/2023 2:25 AM CDT Emergency [facility] [address] [place] [phone] Mamta Zamudio M.D. Abdominal Pain (Primary Dx); Pain Back Lumbar Discharge Disposition: Home or Self Care 12/14/2023 Orders Only [facility] PCP [facility] Parul Cameron APRN, C.N.P., D.N.P. Screening Lipid from Last 3 Months Allergies Active Allergy [...] How often do you attend chur or mandaeism services? Never 11/19/2022 Do you belong to any clubs o r organizations such as gnosticist groups, unions, fraternal or athletic groups, or [...] 01/27/2023 [facility] of Occupat ional Health - Occupational Stress [...] place to sleep or slept in a alf (including now)? No 11/19/2022 Depression Answer Date [...] Sex Assigned at Male 07/09/2017 9:27 AM BIOLOGICAL AIDE Gender Identity Male 07/09/2017 9:27 AM BIOLOGICAL AIDE Sexual Orientation Straight 07/09/2017 9: 27 AM BIOLOGICAL AIDE Last Filed Vital Signs Vital Sign Reading [...] 193 cm (6' 3.98) 06/25/2023 6:55 AM BIOLOGICAL AIDE Body Mass Index 26.04 06/25/2023 6:55 AM BIOLOGICAL AIDE Plan of Treatment Not on file Medical Devices Implanted Type Area Boat Detailer Device Identifier Shelf Expiration Date Model / [...] - 1.5 T - use normal mode [email or web address] Cartilage Costal Lg - [place] [id number] Implanted:Qty: 1 on 12/19/2010 Bone or Tissue Other/Legacy - See Implant Description [employer] Description:Device Manufactu rer - [employer]. Body Location - Other. bone for packing defect. Device Status Text - [id number]. Ear Hilliard Titanium Partial 3.00 - [place] [id number] Implanted:Qty: 1 on 08/28/2008 Ear Implant Other/Legacy - See Implant Description [facility] Medical Description:Device Manufactu rer - [employer] Body Location - Other. Left. Device Status Text - [id number] [id number]. Scan at 1.5T in Normal mode due to BAHA Attract Mary Kay Leal [facility] 03/26/2023 Ear Ttp Variac Total 0.2x3.0 7mm - [place] [id number] Implanted:Qty: 1 on 12/19/2010 Ear Implant Other/Legacy - See Implant Description [facility] Medical Description:Device Manufactu rer - [employer] Body Location - Other. Left. Device Status Text - [id number] [id number]. Scan at 1.5T in Normal mode due to BAHA Attract Mary Kay Leal [facility] 03/26/2023 Ear Oss Ti Total System Centered Adj. - [place] [id number] Implanted:Qty: 1 on 12/19/2010 Ear Implant Other/Legacy - See Implant Description [facility] Description:Device Manufactu rer - [employer]. Body Location - Other. Left. Device Status Text - [id number] [id number]. Scan at 1.5T in Normal mode due to BAHA Vinicio Leal [facility] 03/26/2023 Ear Ttp Variac Total 0.2x3.0 7mm - [place] [id number] Implanted:Qty: 1 on 12/19/2010 Ear Implant Other/Legacy - See Implant Description [employer] Description:Device Manufactu rer - [employer] Body Location - Other. Left. Device Status Text - [id number] [id number]. Scan at 1.5T in Normal mode due to BAHA Attract Mary Kay Leal MRSO 03/26/2023 Procedures Procedure Name Priority Date/Time Associated Diagnosis Comments CT ABDOMEN PELVIS WITH IV CONTRAST RAD - Semiurgent (Fast; most ED patients; some inpatients) 03/07/2024 5:20 PM CDT URINALYSIS WITH MICROSCOPIC IF INDICATED, U STAT 03/07/2024 5:09 PM CDT BACTERIAL CULTURE, AEROBIC + SUSC, URINE STAT 03/07/2024 5:09 PM CDT LACTATE, B/P [...] AM CDT COLONOSCOPY Routine 09/16/2022 10:44 AM BIOLOGICAL AIDE Diverticulitis Colon from Last 3 Months or [...] Thiscould also be evaluated on MRI. Chance L Pola Espinoza, P.A. IMG CT P ROCEDURES * Urinalysis [...] 8.0 03/07/2024 5:20 PM CDT AUST Specific [place] 1.006 1.001 - 1.035 03/07/2024 5:20 PM CDT AUST Urobilinogen 0.2 0.2 - 1.0 mg/dL 03/07/2024 5:20 PM CDT AUST Urine (Urine, Midstream) 03/07/2024 5:09 PM CDT 03/07/2024 5:14 PM CDT Shanel Arguelles APRN, C.N.P., D.N.P. LA B URINE ORDERABLES [facility] [address] [place] [address], [facility] AUST [place] [facility] - [facility] [address] [place] [address] * Bacterial Culture, Aerobic + Susceptibility, Urine (03/07/2024 5:09 PM CDT) Urine Culture No growth after 1 day of incubation. 03/09/2024 8:41 AM CDT MKTO Urine (Urine, Midstream) 03/07/2024 5:09 PM CDT 03/08/2024 12:02 AM CDT Comment:Specimen Source Site : Urine Shanel Arguelles APRN, C.N.P., Lakshmi RICHTER MICROBIOLOGY - GENERAL ORDERABLES [facility] [address] [place] [address], [facility] MKTO [facility] [place] [address] [place] [address] * Lactate (03/07/2024 4:55 PM CDT) Only the most recent of2 resultswithin the time period is included. Lactate, P 1.5 0.5 - 2.2 mmol/L 03/07/2024 5:12 PM CDT AUST Blood (Blood, Venous) 03/07/2024 4:55 PM CDT 03/07/2024 4:57 PM CDT Shanel Arguelles APRN, C.N.P., Zach.N.P. SHIRA B BLOOD NON ADD-ON [facility] [address] [place] [address], [facility] AUST [place] [facility] - [facility] [address] [place] [address] * (ABNORMAL) CBC with Differential, Blood (03/07/2024 [...] APRN, C.N.P., D.N.P. LA B BLOOD ADD-ON [facility] [address] [place] [address], [facility] AUST [place] [facility] - [facility] [address] [place] [address] * (ABNORMAL) Basic Metabolic Panel (03/07/2024 4:54 [...] PM CDT Shanel Arguelles APRN, C.N.P., D.N.PNatalie LA Carline BLOOD ADD-ON Performing Organization Address [facility]/ZIP Co de Phone Number [facility] [address] [place] [address], [facility] AUST [place] [facility] - [facility] [address] [place] [address] * CRP (C-Reactive Protein) (12/31/2023 12:27 AM CDT) C-Reactive Protein (CRP), P 3.9 <5.0 mg/L 12/31/2023 12:51 AM CDT AUST Blood (Blood, Venous) 12/31/2023 12:27 AM CDT 12/31/2023 12:32 AM CDT Mamta Zamudio M.D. LAB BLOOD ADD-ON Performing Organization Address City/[facility]/ZIP Co de Phone Number [facility] [address] [place] [address], [facility] AUST [place] [facility] - [facility] [address] [place] [address] * Lipase (12/31/2023 12:27 AM CDT) Lipase, P 28 13 - 60 U/L 12/31/2023 12:51 AM CDT AUST Blood (Blood, Venous) 12/31/2023 12:27 AM CDT 12/31/2023 12:32 AM CDT Mamta Zamudio M.D. LAB BLOOD ADD-ON [facility] [address] [place] [address], [facility] - [facility] [address] [place] [address] * Comprehensive Metabolic Panel (12/31/2023 12:27 AM [...] M.D. LAB BLOOD ADD-ON [facility] [address] [place] [address], [facility] AUST [place] [facility] - [facility] [address] [place] [address] from Last 3 Months or Most Recently Relevant to Health Maintenance Advance Directives For more information, please contact: [phone] * Full Code (Latest Code Status on [...] Due to: Not medically appropriate Care Teams Senior Qa Automation Engineer Relationship Specialty Start Date End Date Parul Cameron APRN, C.N.P., D.N.P. [address] [place] [phone] PCP - General 11/29/23
--- OUTSIDE RECORDS SUMMARY | 2024-03-10 07:12 | XMS_ITS | Clinical Summary ---
Author Organization [facility] Address [address] [place] [address] Care Team Providers Care Millinery Department Manager Name Role Phone Unavailable Primary Care Provider [...]
--- OUTSIDE RECORDS SUMMARY | 2024-03-10 07:12 | XMS_ITS | Referral Summary ---
Author Organization [facility] Address [address] [place] [address] Care Team Providers Care Dividend Deposit Entry Clerk Name Role Phone Unavailable Primary Care Provider [...]
--- OUTSIDE RECORDS SUMMARY | 2024-03-10 07:12 | XMS_ITS | Clinical Summary ---
Author Organization [facility] Address [address] [place] [address] Care Team Providers Care Scraper Tender Name Role Phone Parul Cameron APRN, C.N.P., D.N.P. Primary Care Provider Source Comments Patient records contain information from all sites at [facility]. For routine questions regarding patient records, call [phone] during business hours, M-F 8:00 AM - 5:00 PM Central Time. Record requests for emergency care only can be directed to [phone] at any time.[facility] Allergies Active Allergy Reactions Criticality Noted [...] - 03/07/2024 6:[address] [facility] [address] [place] [phone] Shanel Arguelles APRN, C.N.P., D.N.P. Pain Back Lumbar (Primary Dx); Pain Low Back Chronic; Cyst Renal; Radiculopathy Discharge Disposition: Home or Self Care 01/03/2024 1:05 PM CDT - 01/03/2024 2:[address] [facility] [address] [place] [phone] Romy Johnson P.A.-C., P.A. Pain Back Lumbar (Primary Dx) Discharge Disposition: Home or Self Care 12/30/2023 11:44 PM CDT - 12/31/2023 2:25 AM CDT Emergency [facility] [address] [place], [place] [address] Mamta Zamudio M.D. Abdominal Pain (Primary Dx); Pain Back Lumbar Discharge Disposition: Home or Self Care 12/14/2023 Orders Only [facility] Parul Cameron, DUSTIN, C.N.P., D.N.P. Screening Lipid from Last 3 Months Immunizations Name Administration [...] 2 Celestina Suicide Attempts Mother's Sister 2 Celesit[place] Anxiety disorder Sister Alivia Bipolar disorder Sister [...] week 11/19/2022 How often do you attend [facility] or [facility] services? Never 11/19/2022 Do you belong to [...] Answer Date Recorded PHQ-2 Score 0 01/27/2023 [facility] [place] of Occupat ional Health - Occupational Stress [...] Sex Assigned at Male 07/09/2017 9:27 AM CARGO SUPERVISOR Gender Identity Male 07/09/2017 9:27 AM CARGO SUPERVISOR Sexual Orientation Straight 07/09/2017 9: 27 AM CARGO SUPERVISOR Last Filed Vital Signs Vital Sign Reading [...] 193 cm (6' 3.98) 06/25/2023 6:55 AM CARGO SUPERVISOR Body Mass Index 26.04 06/25/2023 6:55 AM CARGO SUPERVISOR Plan of Treatment Health Maintenance Due Date [...] 02/14/2023, 01/04/2014 Medical Devices Implanted Type Area Thread Spinner Device Identifier Shelf Expiration Date Model / [...] mode [email or web address] Cartilage Costal Lg - [place] [id number] Implanted:Qty: 1 on 12/19/2010 Bone or Tissue Other/Legacy - See Implant Description [employer] Description:Device Manufactu rer - [employer]. Body Location - Other. bone for packing defect. Device Status Text - [id number]. Ear Hilliard Titanium Partial 3.00 - [place] [id number] Implanted:Qty: 1 on 08/28/2008 Ear Implant Other/Legacy - See Implant Description [facility] Medical Description:Device Manufactu rer - [employer] Body Location - Other. Left. Device Status Text - [id number] [id number]. Scan at 1.5T in Normal mode due to BAHA Attract Mary Kay Leal MRSO 03/26/2023 Ear Ttp Variac Total 0.2x3.0 7mm - [place] [id number] Implanted:Qty: 1 on 12/19/2010 Ear Implant Other/Legacy - See Implant Description [facility] Medical Description:Device Manufactu rer - [employer] Body Location - Other. Left. Device Status Text - [id number] [id number]. Scan at 1.5T in Normal mode due to BAHA Attract Mary Kayjena Estrellaver MRSO 03/26/2023 Ear Oss Ti Total System Centered Adj. - [place] [id number] Implanted:Qty: 1 on 12/19/2010 Ear Implant Other/Legacy - See Implant Description [employer] Description:Device Manufactu rer - [employer]. Body Location - Other. Left. Device Status Text - [id number] [id number]. Scan at 1.5T in Normal mode due to BAHA Attract Mary Kayjena Leal MRSO 03/26/2023 Ear Ttp Variac Total 0.2x3.0 7mm - [place] [id number] Implanted:Qty: 1 on 12/19/2010 Ear Implant Other/Legacy - See Implant Description [facility] Medical Description:Device Manufactu rer - [employer] Body Location - Other. Left. Device Status Text - [id number] [id number]. Scan at 1.5T in Normal mode due [...] AM CDT COLONOSCOPY Routine 09/16/2022 10:44 AM CARGO SUPERVISOR Diverticulitis Colon from Last 3 Months or [...] 8.0 03/07/2024 5:20 PM CDT [facility] Specific [place] 1.006 1.001 - 1.035 03/07/2024 5:20 PM CDT [facility] Urobilinogen 0.2 0.2 - 1.0 mg/dL 03/07/2024 5:20 PM CDT [facility] Urine (Urine, Midstream) 03/07/2024 5:09 PM CDT 03/07/2024 5:14 PM CDT Shanel Arguelles APRN, C.N.P., D.N.P. LA B URINE ORDERABLES [facility] [address] [place] [address], [facility] [address] [place] [address] * Bacterial Culture, Aerobic + Susceptibility, Urine (03/07/2024 5:09 PM CDT) Urine Culture No growth after 1 day of incubation. 03/09/2024 8:41 AM CDT MKTO Urine (Urine, Midstream) 03/07/2024 5:09 PM CDT 03/08/2024 12:02 AM CDT Comment:Specimen Source Site : Urine Shanel Arguelles APRN, C.N.P., Lakshmi RICHTER MICROBIOLOGY - GENERAL ORDERABLES [facility] [address] [place] [address], [facility] MKTO [facility] [place] [address] [place] [address] * Lactate (03/07/2024 4:55 PM CDT) Only the most recent of2 resultswithin the time period is included. Lactate, P 1.5 0.5 - 2.2 mmol/L 03/07/2024 5:12 PM CDT [facility] Blood (Blood, Venous) 03/07/2024 4:55 PM CDT 03/07/2024 4:57 PM CDT Shanel Arguelles APRN, C.N.P., Lakshmi RICHTER BLOOD NON ADD-ON Performing Organization Address City/[facility]/ZIP Co de Phone Number [facility] [address] [place] [address], [facility] [place] [facility] [address] [place] [address] * (ABNORMAL) CBC with Differential, Blood (03/07/2024 [...] APRN, C.N.P., D.N.P. LA B BLOOD ADD-ON [facility] [address] [place] [address], [facility] [place] [facility] [address] [place] [address] * (ABNORMAL) Basic Metabolic Panel (03/07/2024 4:54 [...] APRN, C.N.P., D.N.P. LA Carline BLOOD ADD-ON Performing Organization Address City/[facility]/ZIP Co de Phone Number [facility] [address] [place] [address], [facility] - [facility] [address] [place] [address] * CRP (C-Reactive Protein) (12/31/2023 12:27 AM CDT) C-Reactive Protein (CRP), P 3.9 <5.0 mg/L 12/31/2023 12:51 AM CDT [facility] Blood (Blood, Venous) 12/31/2023 12:27 AM CDT 12/31/2023 12:32 AM CDT Mamta Zamudio M.D. LAB BLOOD ADD-ON [facility] [address] [place] [address], [facility] [place] [facility] [address] [place] [address] * Lipase (12/31/2023 12:27 AM CDT) Lipase, P 28 13 - 60 U/L 12/31/2023 12:51 AM CDT [facility] Blood (Blood, Venous) 12/31/2023 12:27 AM CDT 12/31/2023 12:32 AM CDT Mamta Zamudio M.D. LAB BLOOD ADD-ON [facility] [address] [place] [address], [facility] [place] [facility] [address] [place] [address] * Comprehensive Metabolic Panel (12/31/2023 12:27 AM [...] CDT Mamta Zamudio M.D. LAB BLOOD ADD-ON [facility] [address] [place] [address], [facility] [address] [place] [address] from Last 3 Months or Most Recently Relevant to Health Maintenance Advance Directives For more information, please contact: [phone] * Full Code (Latest Code Status on [...] Due to: Not medically appropriate Care Teams Scraper Tender Relationship Specialty Start Date End Date Parul Cameron APRN, C.N.P., D.N.P. [address] [place] [id number] PCP - General 11/29/23
--- OUTSIDE RECORDS SUMMARY | 2024-03-10 07:13 | XMS_ITS | Encounter Summary ---
Author Organization [facility] Address [address] [place] [address] Care Team Providers Care Dinkey Engine Mechanic Name Role Phone Parul Cameron APRN, C.N.P., [...] - 12/07/2023 3:[address] [facility] [address] [place] [address] Deangelo Kothari M.D. [address] [place] [address] Pain Low Back Chronic (Primary Dx) Discharge [...] any clubs o r organizations such as mandaeism groups, unions, fraternal or athletic groups, or [...] Answer Date Recorded PHQ-2 Score 0 01/27/2023 [facility] [place] of Occupat ional Health - Occupational Stress [...] Sex Assigned at Male 07/09/2017 9:27 AM INCOME TAX AUDITOR Gender Identity Male 07/09/2017 9:27 AM INCOME TAX AUDITOR Sexual Orientation Straight 07/09/2017 9: 27 AM INCOME TAX AUDITOR documented as of this encounter Last Filed Vital Signs Vital Sign Reading Time Taken Comments Blood Pressure - - Pulse - - Temperature - - Respiratory Rate - - Oxygen Saturation - - Inhaled Oxygen Concentration - - Weight 98.8 kg (217 lb 13 oz) 12/07/2023 3:37 AM CDT Height - - Body Mass Index 26.52 06/25/2023 6:55 AM INCOME TAX AUDITOR documented in this encounter Discharge Instructions * [...] through Care Everywhere. * Chronic Back Pain (Setswana) documented in this encounter Medications at Time [...] closely by pain medicine specialists in the [facility] for his low back pain. Is actually [...] documented as of this encounter Care Teams Dinkey Engine Mechanic Relationship Specialty Start Date End Date Parul Cameron APRN, C.N.P., D.N.P. [address] [place] [phone] PCP - General 11/29/23 documented as of this encounter
--- OUTSIDE RECORDS SUMMARY | 2024-03-10 07:13 | XMS_ITS | Encounter Summary ---
Author Organization [facility] Address [address] [place] [address] [address] Care [address] Man Name Role Phone Parul Cameron APRN, C.N.P., [...] CDT - 03/07/2024 6:11 PM CDT Emergency [facility] [address] [place] [phone] Shanel Arguelles APRN, C.N.P., D.N.P. [address] [place] [phone] Pain Back Lumbar (Primary Dx); Pain Low Back Chronic; Cyst Renal; Radiculopathy Discharge Disposition: Home or Self Care Social [...] often do you attend chur ch or yarsani services? Never 11/19/2022 Do you belong to any clubs o r organizations such as sabianism groups, unions, fraternal or athletic groups, or [...] Answer Date Recorded PHQ-2 Score 0 01/27/2023 [facility] [place] of Occupat ional Health - Occupational Stress [...] Sex Assigned at Male 07/09/2017 9:27 AM FEATHER MAKER Gender Identity Male 07/09/2017 9:27 AM FEATHER MAKER Sexual Orientation Straight 07/09/2017 9: 27 AM FEATHER MAKER documented as of this encounter Last Filed [...] Body Mass Index 26.04 06/25/2023 6:55 AM FEATHER MAKER documented in this encounter Discharge Instructions * [...] Care Everywhere. * Acute Back Pain Adult ([place]) documented in this encounter Medications at Time [...] as of this encounter ED Notes * Shanel Arguelles APRN, C.N.P., D.N.P. - 03/07/2024 4:25 PM CDT This is a 48-year-old male, who presents to the emergency department for evaluation of left back/hip pain. Patient reports history of radiculopathy, that has been treated mainly at the spine clinic up in the [facility]. He has had several steroid injections to SI joint. However, he has not had any treatment since December. Yesterday, he started having a flare-up of his radiculopathy to his left hip, pain shoots down his posterior thigh. Patient is febrile, otherwise vitally stable. He is awake, alert, and oriented x3. He presents withno lumbar spine tenderness, or urinary retention, or saddle anesthesia concerning for cauda equina.He presents with no skin changes suggestive of infectious source. Patient expresses frustration over not having opioids to treat his symptoms. Patient says to me that he has been seen multiple times for similar symptoms and has been provided with opioid prescription in the past. He has not seen PCP, or pain clinic to discuss chronic management of his radiculopathy. Patient was informed that opioids are not helpful in the setting of back pain or radiculopathy. Patient was offered a more extensive workup, and he is agreeable. CBC shows slight leukocytosis with left shift.. However, this has improved since results from 2 months ago. BMP shows no acute kidney injury. Lactate is normal. UA shows no evidence of acute cystitisor nephrolithiasis. CT scan of abdomen and pelvis shows no evidence of pyelonephritis, nephrolithiasis, abscesses, or lumbar spine injury. Patient was informed of lab and imaging results. Recommend PCP follow-up for chronic management of his radiculopathy. He was offered a short course of oral Norflex. He may continue to take giob-mba-afwyvig ibuprofen 800 mg every 6-8 hours as needed for pain. In addition, he can use Aspercreme patches or Voltaren gel. Strict return precautions were discussed. I personally performed the substantive portion of this service which was medical decision-making. Pertinent MDM details included below. Refer to the CALL CENTER DIRECTOR/PA's note for additional details. I have reviewed and agree with the documentation by the SHANE student including Past Medical Family Social History and Review of Systems. ED Course as of 03/08/24 0900 Tue Mar 07, [address] Abdomen Pelvis with IV Contrast Final Diagnoses: as of 03/08/24 09 Pain Back Lumbar Pain Low Back Chronic Cyst Renal Radiculopathy Shanel Arguelles APRN, C.N.P., D.N.P. 03/08/24 09 * Mohinder Escalona P.A.-C., P.A. - 03/07/2024 3:42 PM CDT SUBJECTIVE CHIEF COMPLAINT/REASON FOR VISIT Back Pain (Pt presents with chronic lt buttock/hip pain that is much worse today and noting decreased function of lt leg. No bowel or bladder involvement.) HISTORY OF PRESENT ILLNESS History provided by: Patient and medical records cannoneer needed/used: no Angel Dunlap is a 48 y.o. male with past medical history of depression, alcohol use disorder, depression, anxiety, hypertension, history of falls, stimulant dependence in remission, status post partial colectomy, common bile duct obstruction and fast aortic ectasia, presents today for left side pain sharp stabbing pain that is constant. REVIEW OF SYSTEMS OBJECTIVE Initial Vitals Temperature 03/07/24 1605 (!) 39.2 ??C Pulse Rate 03/07/24 1609 86 Heart Rate -- Resp -- Blood Pressure 03/07/24 1609 (!) 142/98 SpO2 03/07/24 1609 96 % Pain Score 03/07/24 1601 10 - Worst possible pain PHYSICAL EXAMINATION Constitutional: Nursing note and vitals reviewed. No distress. HENT: Head: Normocephalic and atraumatic. No signs of injury. Cardiovascular: Normal rate, regular rhythm and normal heart sounds. Pulses are palpable. Capillaryrefill: takes less than 3 seconds Pulmonary/Chest: Effort normal and breath sounds normal. No tachypnea. No respiratory distress. He has no wheezes. He has no rales. Abdominal: Soft. There is no abdominal tenderness. There is no rebound and no guarding. Musculoskeletal: General: No deformity or edema. Cervical back: Normal range of motion. Neurological: Alert and oriented to person, place, and time. Normal speech. Skin: Skin is dry, intact and normal color. No rash (No rash on exposed skin) noted. He is not diaphoretic. ASSESSMENT/PLAN Angel Dunlap is a 48 y.o. male who presents to the emergency department with Back Pain (Pt presents with chronic lt buttock/hip pain that is much worse today and noting decreased function of lt leg. No bowel or bladder involvement.). Patient presents to the ED with complaints of left-sided bu ttock/hip pain as well as low back pain as much worse today and has been getting worse for quite some time. Patient states he was had these pains for about 18 months that they have slowly worsened and are now intolerable. He also states he is having decreased range of motion of the left leg. He states he always has some tingling and numbness as well as weakness to the left leg due to his lumbar spine issue he has been dealing with for the last 18 months. He states he has had multiple MRIs as well. He denies any fevers, chills, nausea, vomiting, diaphoresis, saddle anesthesia, bowel or bladderretention or incontinence, any numbness or tingling down both legs, or any other complaints. He denies any IV drug use. I do see a history of Lovenox in his medication history that he was no longer on this and he was not bridged to any other blood thinner. Patient states he was on Lovenox after an abdominal surgery that he previously had. He denies any other blood thinner use or previous blood clots. Physical exam is overall unremarkable except for tenderness to palpation of the left lumbar paraspinal muscles as well as tenderness to palpation of the left glued. Sensation intact bilateral lower extremities without discrepancies, no focal neurological deficits on examination. Bilateral pedal pulses intact without discrepancies, cap refill less than 3 seconds bilateral lower extremities. No erythema or edema to the lumbar region or the glute, no obvious abscess or cellulitis. No tenderness topalpation of the spinous processes. No obvious fracture or dislocation. Bilateral patellar reflex 2+. No saddle anesthesia on examination. Bilateral lungs clear to auscultation, cardiac auscultation is benign. Patient was not tachypneic or tachycardic while here in the ED, he was initially somewhatfebrile but on repeat temperature he did not have a fever, satting well on room air. Differential Diagnosis: Includes but is not limited to spinal epidural abscess, chronic low back pain, fracture or dislocation, muscle sprain or strain, radiculopathy, cauda equina, among others. Given patient was febrile, lab workup and imaging performed. No red flag symptoms on history and nosignificant red flag or concerning findings on examination. Comments on lab and imaging findings as outlined in the ED course. Workup overall revealed mild leukocytosis seen on CBC, BNP was grossly benign, lactate within normal limits, urinalysis was negative. CT abdomen and pelvis with IV contrast did not show any acute findings. I did discuss with him the incidental finding of the right renal lesion. Treatment here in the ED included Toradol, Norflex, Lidoderm patch. Patient became frustrated and stated his pain was not adequately treated with these things. I discussed with him that his lab findings and workup was overall reassuring and given that he already has prescriptions for opiate pain med ications that can not give him any further pain medications at this time. I did discuss with him a muscle relaxer but he stated he did not want muscle relaxer. Patient stated he preferred to be discharged if we were not going to do any further workup. Plan: Given overall benign patient workup, exam and hemodynamic stability while here in the ED, patient will be discharged home with symptomatic tx. Patient did not want muscle relaxer. Referral to PCP placed. Return precautions given. Chronic illnesses impacting care chronic low back pain Social determinants impacting care food insecurity present, housing stability high-risk. Consulted providers none Prescriptions and tests considered but not performed: None Decision to escalate care/hospitalization: None ED Course as of 03/08/242050Mar 07, 20241653 Patient denies any hardware in his spine, does not remember what he was on Lovenox for states it was after a surgery or before surgery, denies any history of blood clots or any other blood thinner use. 1706 Leukocytes(!): 10.2 Mild leukocytosis 170 Hemoglobin: 15.[address] Abdomen Pelvis with IV Contrast No acute abdominal pelvic findings on CT imaging. 175 Leukocyte Esterase: Negative Urinalysis negative 175 Nitrite, U: Negative 1753 Potassium, P: 3.7 1753 Sodium, P: 138 1753 Chloride, P: 105 1753 Bicarbonate, P(!): 20 1753 Anion Gap, P: 13 1753 BUN (Blood Urea Nitrogen), P: 8 1753 Creatinine: 0.88 No Acute kidney injury 1806 Patient did ambulate in the ED prior to discharge. 180 Repeat temperature 37.2??, reassuring Final Diagnoses: as of 03/08/242050 Pain Back Lumbar Pain Low Back Chronic Cyst Renal Radiculopathy Mohinder Escalona P.A.-C., P.A. 03/08/242116 documented in this encounter Plan of Treatment [...] P.A.-C., P.A. IMG CT P ROCEDURES * Bacterial Culture, Aerobic + Susceptibility, Urine (03/07/2024 5:09 PM CDT) Urine Culture No growth after 1 day of incubation. 03/09/2024 8:41 AM CDT [facility] Urine (Urine, Midstream) 03/07/2024 5:09 PM CDT 03/08/2024 12:02 AM CDT Comment:Specimen Source Site : Urine Shanel Arguelles APRN, C.N.P., D.N.P. SHIRA Crowley MICROBIOLOGY - GENERAL ORDERABLES [facility] [address] [place] [address], [facility] [place] [address] [place] [address] * Urinalysis with Microscopic if Indicated (03/07/2024 [...] 8.0 03/07/2024 5:20 PM CDT [facility] Specific [place] 1.006 1.001 - 1.035 03/07/2024 5:20 PM CDT [facility] Urobilinogen 0.2 0.2 - 1.0 mg/dL 03/07/2024 5:20 PM CDT [facility] Urine (Urine, Midstream) 03/07/2024 5:09 PM CDT 03/07/2024 5:14 PM CDT Shanel Arguelles APRN, C.N.P., D.N.P. LA B URINE ORDERABLES [facility] [address] [place] [address], [facility] [address] [place] [address] * Lactate (03/07/2024 4:55 PM CDT) Lactate, P 1.5 0.5 - 2.2 mmol/L 03/07/2024 5:12 PM CDT [facility] Blood (Blood, Venous) 03/07/2024 4:55 PM CDT 03/07/2024 4:57 PM CDT Shanel Arguelles APRN C.N.PNatalie, Lakshmi RICHTER BLOOD NON ADD-ON [facility] [address] [place] [address], [facility] [place] [facility] [address] [place] [address] * (ABNORMAL) Basic Metabolic Panel (03/07/2024 4:54 [...] 4:54 PM CDT 03/07/2024 4:57 PM CDT ShanelErendira Santamaria APRNNWill, Lakshmi RICHTER BLOOD ADD-ON [facility] [address] [place] [address], [facility] [address] [place] [address] * (ABNORMAL) CBC with Differential, Blood (03/07/2024 [...] 4:54 PM CDT 03/07/2024 4:57 PM CDT Erendira Levin APRNNWill, Lakshmi RICHTER BLOOD ADD-ON [facility] [address] [place] [address], [place] A[facility] [address] [place] [address] documented in this encounter Visit Diagnoses Diagnosis Pain Back Lumbar- Primary Pain Low Back Chronic Cyst Renal Radiculopathy documented in this encounter Administered Medications Inactive [...] For 1 dose, Remove after 12 hours. 165 (Medication Shane lied - Provider: Pavithra Martins R.N.)181 (Due: Medication Removed - Provider: Discharge Provider, Automatic - Comment: Time automatically adjusted from order being discontinued) orphenadrine injection 60 mg (Norflex) (COMPLETED) 60 mg, intramuscular, Once, On Wed03/07/24 at 1635, For 1 dose 1651 (Given - Provid er: Pavithra Martins R.N.) PRN Medication Order 03/05/2024 03/06/2024 03/07/2024 iohexoL 300 mg iodine/mL solution 1-200 mL (Omnipaque) (COMPLETED) 1-200 mL, intravenous, Once in imaging, contrast, Starting on Wed03/07/24 at 1712, For 1 dose 1716 (Given - Provid er: Isaac Sims(R)(CT), R.T.(R)) sodium chloride 0.9 % flush 1-250 mL (COMPLETED) 1-250 mL, intravenous, Once in imaging, line care, Starting on Wed03/07/24 at 1712, For 1 dose 1715 (Given - Provid er: Mina Sims.(R)(CT), R.T.(R)) sodium chloride 0.9 % injection 10 mL 10 mL, intravenous, As needed, line care, Starting on Wed03/07/24 at 1712 1700 (Given - Provid er: Pavithra Martins R.N.)1715 (Given - Provider: Isaac Sims(Melissa)(CT), Isaac(R)) documented in this encounter Additional Health Concerns Assessment Noted Time PHQ-9 Depression Total Score: 1 01/28/20 23 1:59 PM CDT documented as of this encounter Care Teams Drive Man Relationship Specialty Start Date End Date Parul Cameron APRN, C.N.P., D.N.P. [address] [place] [phone] PCP - General 11/29/23 documented as of this encounter
--- OUTSIDE RECORDS SUMMARY | 2024-03-10 07:13 | XMS_ITS | Encounter Summary ---
Author Organization [facility] Address [address] [place] [address] Care Team Providers Care Machine Engineer Name Role Phone Parul Cameron APRN, C.N.P., D.N.P. Primary Care Provider Encounter Details Date Type Department Care Team (Late st Contact Info) Description 12/14/2023 Orders Only [facility] PCP TH MNT Parul Cameron APRN, C.N.P., D.N.P. [address] [place] [phone] Screening Lipid Social History Tobacco [...] often do you attend chur ch or sabianist services? Never 11/19/2022 Do you belong to any clubs o r organizations such as bahai groups, unions, fraternal or athletic groups, or [...] Answer Date Recorded PHQ-2 Score 0 [facility]/2023 [facility] Answer Date [...] place to sleep or slept in a snf (including now)? No 11/19/2022 Depression Answer Date [...] Sex Assigned at Male 07/09/2017 9:27 AM MANAGER EMERGENCY DEPARTMENT Gender Identity Male 07/09/2017 9:27 AM MANAGER EMERGENCY DEPARTMENT Sexual Orientation Straight 07/09/2017 9: 27 AM MANAGER EMERGENCY DEPARTMENT documented as of this encounter Plan of Treatment Not on file documented as of this encounter Visit Diagnoses Diagnosis Screening Lipid documented in this encounter Additional Health Concerns Assessment Noted Time PHQ-9 Depression Total Score: 1 01/28/20 23 1:59 PM CDT documented as of this encounter Care Teams Machine Engineer Relationship Specialty Start Date End Date Parul Cameron APRN, C.N.P., D.N.P. [address] [place] [address] [place] [phone] PCP - General 11/29/23 documented as of this encounter
--- OUTSIDE RECORDS SUMMARY | 2024-03-10 07:13 | XMS_ITS | Encounter Summary ---
Author Organization [facility] Address [address] [place] [address] Care Team Providers Care Aids Counselor Name Role Phone Parul Cameron APRN, C.N.P., [...] 2:25 AM CDT Emergency [facility] [address] [place] [phone] Mamta Zamudio M.D. [address] [place] [phone] Abdominal Pain (Primary Dx); Pain Back Lumbar [...] week 11/19/2022 How often do you attend [facility] or caodaism services? Never 11/19/2022 Do you belong to any clubs o r organizations such as hinduism groups, unions, fraternal or athletic groups, or [...] Answer Date Recorded PHQ-2 Score 0 01/27/2023 [facility] [place] of Occupat ional Health - Occupational Stress [...] place to sleep or slept in a detention (including now)? No 11/19/2022 Depression Answer Date [...] Sex Assigned at Male 07/09/2017 9:27 AM SPINNER FRAME Gender Identity Male 07/09/2017 9:27 AM SPINNER FRAME Sexual Orientation Straight 07/09/2017 9: 27 AM SPINNER FRAME documented as of this encounter Last Filed [...] Body Mass Index 26.71 06/25/2023 6:55 AM SPINNER FRAME documented in this encounter Discharge Instructions * [...] tingling in the legs. Does follow in [facility] about his low back pain He was seen in ER about a month ago was instructed to get Tylenol , ibuprofen and lidocaine patch and follow up with his physician. 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 Advised to follow up in clinic [...] contrast the 2022, CT abdomen/pelvis with IV qecvmbkc84/8/2022. FINDINGS: Postoperative changes of partial colectomy. Moderate [...] CTevidence of acute pancreatitis. Mamta Zamudio M.D. [facility] CT PROCEDURES * Lipase (12/31/2023 12:27 AM CDT) Lipase, P 28 13 - 60 U/L 12/31/2023 12:51 AM CDT [facility] Blood (Blood, Venous) 12/31/2023 12:27 AM CDT 12/31/2023 12:32 AM CDT Mamta Zamudio M.D. LAB BLOOD ADD-ON [facility] [address] [place] [address], [facility] - [facility] [address] [place] [address] * Lactate (12/31/2023 12:27 AM CDT) Pathologist [facility] Lactate, P 1.2 0.5 - 2.2 mmol/L 12/31/2023 12:47 AM CDT [facility] Blood (Blood, Venous) 12/31/2023 12:27 AM CDT 12/31/2023 12:32 AM CDT Mamta Zamudio M.D. LAB BLOOD NON ADD-ON Performing Organization Address City/[facility]/ZIP Co de Phone Number [facility] [address] [place] [address], [facility] - [facility] [address] [place] [address] * CRP (C-Reactive Protein) (12/31/2023 12:27 AM CDT) Pathologist [facility] C-Reactive Protein (CRP), P 3.9 <5.0 mg/L 12/31/2023 12:51 AM CDT [facility] Blood (Blood, Venous) 12/31/2023 12:27 AM CDT 12/31/2023 12:32 AM CDT Mamta Zamudio M.D. LAB BLOOD ADD-ON [facility] [address] [place] [address], [facility] - [facility] [address] [place] [address] * Comprehensive Metabolic Panel (12/31/2023 12:27 AM [...] CDT Mamta Zamudio M.D. LAB BLOOD ADD-ON [facility] [address] [place] [address], [facility] - [facility] [address] [place] [address] * (ABNORMAL) CBC with Differential, Blood (12/31/2023 [...] CDT Mamta Zamudio M.D. LAB BLOOD ADD-ON [facility] [address] [place] [address], [facility] [address] [place] [address] documented in this encounter Visit Diagnoses Diagnosis [...] documented as of this encounter Care Teams Aids Counselor Relationship Specialty Start Date End Date Parul Cameron APRN, C.N.P., D.N.P. [address] [place] [phone] PCP - General 11/29/23 documented as of this encounter
--- OUTSIDE RECORDS SUMMARY | 2024-03-10 07:13 | XMS_ITS | Clinical Summary ---
Author Organization [facility] Address [place], [place] [address] Care Team Providers Care Beer Still Runner Compounder Name Role Phone Clinic, No Pcp Or [...] Influenza for age 50-64 04/09/2024 Care Teams Beer Still Runner Compounder Relationship Specialty Start Date End Date Clinic, No Pcp Or . PCP - General 09/19/17
--- OUTSIDE RECORDS SUMMARY | 2024-03-10 07:13 | XMS_ITS | Encounter Summary ---
Author Organization [facility] Address [address] [place] [address] Care Team Providers Care Patron Attendant Name Role Phone Parul Cameron APRN C.N.P., D.N.P. Primary Care Provider Reason for Referral * Medication Prior Authorization - Closed Specialty Diagnoses / Procedures Referred By Contac t Referred To Contact Romy Johnson P.A.-C., P.A. [address] [place] [phone] Referral ID Status Reason Start Date Expiration Date Visits Re quested Visits Authorized [id number] Closed 1 1 Reason for Visit * Reason Comments Back Pain Presents with chroni c left low back pain rated 7/10, worsening today as he ran out of his medications yesterday morning. Encounter Details Date Type Department Care Team (Late Contact Info) Description 01/03/2024 1:05 PM CDT - 01/03/2024 2:06 PM CDT Emergency [facility] [address] [place] [phone] Romy [...] often do you attend chur ch or zoroastrianism services? Never 11/19/2022 Do you belong to any clubs o r organizations such as denominational groups, unions, fraternal or athletic groups, or [...] Answer Date Recorded PHQ-2 Score 0 01/27/2023 [facility] of Occupat ional Health - Occupational [...] Sex Assigned at Male 07/09/2017 9:27 AM WASTEWATER TREATMENT PLANT SUPERVISOR Gender Identity Male 07/09/2017 9:27 AM WASTEWATER TREATMENT PLANT SUPERVISOR Sexual Orientation Straight 07/09/2017 9: 27 AM WASTEWATER TREATMENT PLANT SUPERVISOR documented as of this encounter Last Filed [...] Body Mass Index 27.11 06/25/2023 6:55 AM WASTEWATER TREATMENT PLANT SUPERVISOR documented in this encounter Discharge Instructions * Discharge Instructions* Romy Johnson P.A.-C., P.A. - 01/03/2024 1:52 PM CDT - I have filled for Ralls to [facility], this is a short course, reach out to your primary care for a fill tomorrow. - Return if you develop bowel incontinence, urinary retention, increased weakness, inability to walk, or any other new or worsening symptoms. * Attachments The following attachments cannot be sent through Care Everywhere. * Chronic Back Pain (Slovenian) documented in this encounter Medications at Time [...] 06/29/2023 HYDROcodone-acetaminop hen (NORCO) 5-325 mg per tabletIndications:[employer]ad[employer] Plans Staff Officer devyn Pain/Nonacute Pain Take 1 tablet by [...] with chronic back pain being seen by [place] but is here visiting his sister and ran out of his medications. He is on Ralls, and takes Ibuprofen, medical marijuana, does the [...] could get a small fill of his Ralls until they can fully refill it tomorrow. [...] majority of his last fills for his Ralls have been from one provider, he is [...] documented as of this encounter Care Teams Patron Attendant Relationship Specialty Start Date End Date Parul Cameron APRN, C.N.P., D.N.P. [address] [place] [phone] PCP - General 11/29/23 documented as of this encounter
--- NOTE | 2024-03-10 07:15 | CRLHL7_ITS ---
For Patients: As a result of the Century Cures Act, medical imaging exams and procedure reports are released immediately into your electronic medical record. You may view this report before your referring provider. If you have questions, please contact your health care provider. INDICATION: Lumbar radiculopathy. TECHNIQUE : Lumbar spine MRI without contrast. COMPARISON: None. FINDINGS : Five lumbar type vertebral bodies, with the last fully formed disc space designated as L5-S1. Normal lumbar lordotic curve. No recent compression fracture or marrow replacing process. Lower cord/conus signal is normal. The conus terminates at a normal location. No intradural lesion. A small cyst within the right superior kidney. Discs/Endplates: Disc dehydration L5-S1. Remaining discs are within normal limits. Findings at individual levels as follows: T11-12: No spinal canal or neural foraminal stenosis. T12-L1: No spinal canal or neural foraminal stenosis. L1-2: No spinal canal or neural foraminal stenosis. L2-3: No spinal canal or neural foraminal stenosis. L3-4: No spinal canal or neural foraminal stenosis. L4-5: Bilateral low-grade facet arthrosis. No spinal canal or neural foraminal stenosis. L5-S1: Minimal disc bulge. Bilateral facet arthrosis. No spinal canal or neural foraminal stenosis. Imaged SI joints: Minimal arthrosis. Imaged sacrum: Within normal limits. IMPRESSION: 1. Minimal lumbar spondylosis without significant spinal canal/neural foraminal stenosis or impingement of neural structures. 2. No intradural pathology. Lower cord/conus and cauda equina nerve roots are normal. Dictated by Angel Lopez MD @ 03/12/2024 1:26:20 PM (Electronically Signed)
== END 2024-03-10 07:10 | disposition home or self-care (01) ==
LOC: MRI 07:10
PROVIDERS: PCP Internal Medicine; Visit Provider Family Medicine
DX: M54.16 Radiculopathy, lumbar region (principal); M47.896 Other spondylosis, lumbar region
CPT/HCPCS: 72148

== ENCOUNTER 2024-03-31 21:57 | Emergency (ER) | payer BC, SELFPAY ==
[2024-03-31 22:08] VITALS: BP 129/79; PULSE 89; RESP 16; TEMP 36.8; O2SAT 98; BMI 26.1
--- NOTE | 2024-03-31 23:30 | ED.HA ---
HPI - Headache General Chief Complaint: Headache/Migraine Stated Complaint: Buzzing in ears, headache, dizzy Time Seen by Provider: 03/31/24 23:12 History of Present Illness HPI Narrative: This 48-year-old male comes in reporting headache on the right side of his head over the past 4-6 days. He also reports some buzzing in his ears, right greater than left. He has a history of chronic neck and back pain. He is currently taking oxycodone as prescribed by his primary physician. He does not report any nausea, vomiting, sensitivity to light. He does not have any visual changes and no report of unilateral weakness or altered sensation. He arrives here with normal vital signs. Related Data Home Medications ?Medication ?Instructions ?Recorded ?Confirmed cannabidiol 100 mg/mL oral solution 150 mg PO BID 12/08/23 03/10/24 cholecalciferol (vitamin D3) 1,250 1,250 mcg PO DAILY 02/16/24 03/10/24 mcg (50,000 unit) capsule Previous Rx's ?Medication ?Instructions ?Recorded gabapentin 300 mg capsule 600 mg (2 x 300 mg) PO TID #90 caps 12/15/23 celecoxib 200 mg capsule (Celebrex) 200 mg PO QDAY #20 caps 02/28/24 methylprednisolone 4 mg tablets in See Rx Instructions PO .COMPLEX 03/07/24 a dose pack (Medrol (Jori)) #21 ea celecoxib 200 mg capsule (Celebrex) 200 mg PO QDAY #30 caps 03/22/24 oxycodone 5 mg tablet 5 mg PO Q8H PRN pain #30 tabs 03/30/24 cyclobenzaprine 10 mg tablet 10 mg PO BID PRN muscle spasm #30 03/31/24 tabs methylprednisolone 4 mg tablets in See Rx Instructions PO .COMPLEX 03/31/24 a dose pack (Medrol (Jori)) #21 ea Allergies Allergy/AdvReac Type Severity Reaction Status Date / Time No Known Drug Allergies Allergy Verified 03/31/24 22:11 Review of Systems Status of ROS: Reports: 10 or more systems reviewed and unremarkable except as noted in History and below Narrative: Constitutional: No fevers, no weight gain or loss. Eyes: No discharge. No vision changes. HENT: No congestion, no sore throat, no ear pain. Cardiovascular: No chest pain, no palpitations. Respiratory: No shortness of breath, no wheezes, no cough. Gastrointestinal: No abdominal pain, no vomiting, no diarrhea. Genitourinary: No dysuria, no hematuria. Musculoskeletal: Normal range of motion. Chronic back pain. Skin: No rashes, no pruritis. Neurological: No dizziness, weakness, sensory change, speech change. Endo/Heme/Allergies: No bruising or bleeding. No polydipsia. Pysch: no suicidality, no anxiety, no insomnia. All other systems reviewed and are negative. [facility] Medical History (Updated 03/31/24 @ 23:35 by Homero Fox MD) Avascular necrosis ?M87.00 - Idiopathic aseptic necrosis of unspecified bone (ICD-10) Diverticulitis ?K57.92 - Diverticulitis of intestine, part unspecified, without perforation or abscess without bleeding (ICD-10) Low back pain ?M54.50 - Low back pain, unspecified (ICD-10) Chronic neck and back pain ?M54.2 - Cervicalgia (ICD-10) ?M54.9 - Dorsalgia, unspecified (ICD-10) ?G89.29 - Other chronic pain (ICD-10) Hypertension ?I10 - Essential (primary) hypertension (ICD-10) Cochlear implant status ?Z96.21 - Cochlear implant status (ICD-10) Alcohol use disorder ?F10.90 - Alcohol use, unspecified, uncomplicated (ICD-10) Generalized anxiety disorder ?F41.1 - Generalized anxiety disorder (ICD-10) Surgical History (Updated 02/16/24 @ 08:50 by Kelly Acevedo ~ [facility], [facility]) H/O arthroscopic knee surgery ?Z98.890 - Other specified postprocedural states (ICD-10) S/P colectomy (~2009) ?Z90.49 - Acquired absence of other specified parts of digestive tract (ICD-10) Social History (Reviewed 02/16/24 @ 08:48 by Kelly Acevedo ~ [facility], [facility]) Narrative: Not working currently. Lives with sister in [place], [place] use Smoking Status: Current every day smoker What tobacco products do you use: cigarettes Do you use any of these nicotine containing products: None Second hand tobacco smoke exposure: No How often do you have a drink containing alcohol: never How often do you have six or more drinks on one occasion: Never AUDIT-C Alcohol total score: 0 Non-prescribed substance use: denies use Little interest or pleasure in doing things: not at all Feeling down, depressed, or hopeless: not at all service: No Exam Narrative: Exam Narrative: Constitutional: Well-developed, well-nourished, no acute distress. HEENT: Normocephalic, atraumatic. Surgical changes from mastoidectomy related to a cholesteatoma of the left ear. Neck: Normal range of motion. Nontender. Supple. Heart: Regular. No murmurs. Normal rate. Intact distal pulses. Lungs: Clear to auscultation. No chest discomfort. No wheezes, rhonchi, or rales. Abdomen: Normal bowel sounds. Nontender. No rebound tenderness. Genitalia: Deferred. Back: No midline tenderness. Normal range of motion. Extremities: Normal range of motion. No injury. Skin: Intact. No rash. Warm. No erythema or pallor. Neurologic: No altered sensation. No weakness. Alert and oriented. Psychiatric: No suicidality. No anxiety or depression. No insomnia. Nursing notes and vitals signs are reviewed. Const: Vital Signs, click to edit/add: Vital Signs - 24 hr 03/31/24 22:08 Temperature 98.2 F Pulse Rate [Right Pulse Oximeter] 89 Respiratory Rate 16 Blood Pressure [Ri ght Upper Arm] 129/79 Pulse Oximetry 98 Oxygen Delivery Me thod Room Air Course Vital Signs Vital signs: Initial Vital Signs Temperature 98.2 F 03/31/24 22:08 Temperature Source Temporal Artery Scan 03/31/24 22:08 Pulse Rate 89 03/31/24 22:08 Pulse Rhythm Regular 03/31/24 22:08 Pulse Strength 3+ Normal 03/31/24 22:08 Respiratory Rate 16 03/31/24 22:08 Blood Pressure 129/79 03/31/24 22:08 Blood Pressure Mean 95 03/31/24 22:08 Blood Pressure Position Sitting 03/31/24 22:08 Pulse Oximetry 98 03/31/24 22:08 Oxygen Delivery Method Room Air 03/31/24 22:08 Vital Signs Temperature 98.2 F 03/31/24 22:08 Pulse Rate 89 03/31/24 22:08 Respiratory Rate 16 03/31/24 22:08 Blood Pressure 129/79 03/31/24 22:08 Pulse Oximetry 98 03/31/24 22:08 Oxygen Delivery Method Room Air 03/31/24 22:08 Temperature 98.2 F 03/31/24 22:08 Pulse Rate 89 03/31/24 22:08 Respiratory Rate 16 03/31/24 22:08 Blood Pressure 129/79 03/31/24 22:08 Pulse Oximetry 98 03/31/24 22:08 Oxygen Delivery Method Room Air 03/31/24 22:08 MDM - Headache MDM Narrative Medical decision making narrative: This patient comes in reporting headache and tinnitus symptoms. He is not exhibiting any signs or symptoms of a more serious cause for headache. I did discuss imaging options with the patient. He is interested in a follow-up with an Ear Nose and Throat physician. He has worked with ear nose and throat clinicians in the past but no longer has a connection. He has a history of cholesteatoma and mastoidectomy. This seems to be doing well as it is on his left side. Today's symptoms are more focused on the right side of his head. He is not showing any neurologic deficits. He is already taking narcotic pain medicines. I did offer typical treatments to treat headache and the patient seemed most interested in having a connection with ear nose and throat clinician. He did receive an oral dose of dexamethasone and meclizine. I did prescribe a Medrol Dosepak also. Discharge Plan Discharge Clinical Impression: Headache, Tinnitus Patient Disposition: Home, Self-Care Condition: Stable Additional Instructions: Take medication as prescribed. Follow-up with ear nose and throat clinic, Dr. Robledo. Call [phone] for appointment. Prescriptions: New methylprednisolone [Medrol (Jori)] 4 mg tablets,dose pack See Rx Instructions .ROUTE .COMPLEX Qty: 21 0RF Rx Instructions: orally per package directions No Action cholecalciferol (vitamin D3) 1,250 mcg (50,000 unit) capsule 1,250 mcg PO DAILY cannabidiol 100 mg/mL solution 150 mg PO BID Rx Instructions: Medicinal Cannabis celecoxib [Celebrex] 200 mg capsule 200 mg PO QDAY Qty: 20 0RF methylprednisolone [Medrol (Jori)] 4 mg tablets,dose pack See Rx Instructions .ROUTE .COMPLEX Qty: 21 0RF Rx Instructions: orally per package directions gabapentin 300 mg capsule 600 mg PO TID Qty: 90 4RF celecoxib [Celebrex] 200 mg capsule 200 mg PO QDAY Qty: 30 1RF oxycodone 5 mg tablet 5 mg PO Q8H PRN (Reason: pain) Qty: 30 0RF cyclobenzaprine 10 mg tablet 10 mg PO BID PRN (Reason: muscle spasm) Qty: 30 0RF Follow Up/Referrals: Gonzalo Trinh MD [Primary Care Provider] - Stand Alone Forms: [facility] [employer] Info Instructions
[2024-03-31] MEDS: MECLIZINE HCL 25 MG TABLET PO (23:45)
[2024-03-31] MEDS: dexAMETHasone 10 MG/ML inj PO (23:45)
--- OUTSIDE RECORDS SUMMARY | 2024-04-01 00:04 | XMS_ITS ---
Author Organization [facility] Address [address] [place] [address] [address] [place] [address] Care Team Providers Care Front Of House Manager Name Role Phone Ziggy BEST, Gonzalo Primary Care Provider Maritza Ramachandran Unavailable [phone] Suman BEST, Zeeshan Unavailable Unavailable Medications Medication SIG (Take, Route, Frequency, Duration) Notes Start Date End Date Status CeleBREX 200 MG 1 capsule with food Orally Once a day Active Gabapentin 300 MG TAKE 2 CAPSULES BY M OUTH THREE TIMES DAILY Oral for 15 Days Active Medical Cannabis Act randal HYDROcodone-Acetaminophen 5-325 MG 1 tablet as needed Orally Twice a day Active Encounters Encounter Location Date Provider Diagnosis [address] [place] [address] 03/28/2024 Maritza Sweet Plan Of Treatment No Information Progress Notes * Angel DUNLAP WDOB:1975 (48 yo M)Acc No.[id number]:03/28/2024 Patient:?Angel DUNLAP Provider:?Maritza Sweet MD :1975???Age:48 Y???Sex:Male Jorge Luis e:03/28/2024 Phone: Address:[address] [place] [id number] Pcp:Gonzalo Trinh MD Subjective: * Chief Complaints: * HPI: ???Pre-op Call:?New PAT Template 2023?*Patient reminded of appointment day and time, SEDATION- NPO Instructions Given, *No illness reported or current antibiotic use, *No blood thinners, *No DM or insulin use, *No GLP1 use (Ozempic, Trulicity, Wegovy, etc.), *No vaccines in last 2 weeks, *Preop call completed by:SILVERIO Egan.?Post-op Call:?Post-Op Call?Post - Op Call Completed, LVM with call back number to care director rn if patient has questions or concerns or if they are showing signs of infection..? * Medical History:? * Surgical History:? * Medications:?TakingCeleBREX 200 MG Capsule 1 capsule with food Orally Once a day Medical Cannabis Gabapentin 300 MG Capsule TAKE 2 CAPSULES BY MOUTH THREE TIMES DAILY Oral HYDROcodone-Acetaminophen 5-325 MG Tablet 1 tablet as needed Orally Twice a day Taking CeleBREX 200 MG Capsule 1 capsule with food Orally Once a day Taking Medical Cannabis Taking Gabapentin 300 MG Capsule TAKE 2 CAPSULES BY MOUTH THREE TIMES DAILY Oral Taking HYDROcodone-Acetaminophen 5-325 MG Tablet 1 tablet as needed Orally Twice a day Objective: * Vitals:? * Billing Information: * Visit Code:? * Procedure Codes:? * Sign off status: Completed true * Provider:?Maritza Sweet MD Date:?03/28/20 Generated for Jerry suarez/Alireza/Cata on:?04/01/2024 12:03 AM CDT History and Physical Notes * HPI (History of Present Illness) Category Sub-Category Detail Notes Post-op Call Post-Op Call Post - Op Call C ompleted, LVM with call back number to care director rn if patient has questions or concerns or if they are showing signs of infection. Pre-op Call New PAT Template 2023 *Patient r eminded of appointment day and time, SEDATION- NPO Instructions Given, *No illness reported or current antibiotic use, *No blood thinners, *No DM or insulin use, *No GLP1 use (Ozempic, Trulicity, Wegovy, etc.), *No vaccines in last 2 weeks, *Preop call completed by:SILVERIO Egan
--- OUTSIDE RECORDS SUMMARY | 2024-04-01 00:04 | XMS_ITS | Patient Health Record ---
Author Organization [facility] Address [address] [place] [address] [address] [place] [address] Care Team Providers Care Plate Glass Installer Name Role Phone Ziggy BEST, Gonzalo Primary Care Provider Maritza Ramachandran Unavailable [phone] Suman BEST, Zeeshan Unavailable Unavailable Cleve Shabazz Unavailable [phone] Hong Le Unavailable [phone] Joshua Waddell Unavailable [phone] Musa Moses Unavailable [phone] Radha Hutson Unavailable [phone] Sreekanth Worrell Unavailable [phone] Allergies No Known Allergies Results Component Value Reference Range Notes MRI : Pelvis (Not yet review ed by provider) Interpretation: Performing Lab: Notes/Report: Original Report EXAM: MRI OF THE PELVIS, WITHOUT CONTRAST CLINICAL: Lower left hip/back pain for 1.5-2 years. COMPARISONS: None available. TECHNICAL: Multiplanar multisequence MRI of the pelvis was obtained. SEDATION: None. CONTRAST: None. FINDINGS: Please note that this large ppxjd-rp-zkgp examination of the pelvis is not optimized for evaluation of the labrum and hip internal derangement. Curvilinear signal changes of avascular necrosis are seen to involve the anterosuperior right femoral head without significant adjacent bone marrow edema and there is no evidence of articular surface collapse. Osseous structures of the bony pelvis are intact and unremarkable. The sacroiliac joints appear unremarkable. The symphysis pubis appears unremarkable. No evidence of myotendinous injury. No convincing pelvic mass identified as visualized, however evaluation is limited. IMPRESSION: 1. 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 2. No additional internal derangement identified. [facility] Read by: Juan David Wilson D.O. Reviewed and Electronically Signed by: Juan David Wilson D.O. - Original Report EXAM: MRI OF THE PEL VIS, WITHOUT CONTRAST CLINICAL: Lower left hip/back pain for 1.5-2 years. COMPARISONS: None available. TECHNICAL: Multiplan ar multisequence MRI of the pelvis was obtained. SEDATION: None. CONTRAST: None. FINDINGS: Please note that thi s large cutcw-ar-qnhk examination of the pelvis is not optimized for evalua tion of the labrum and hip internal derangement. Curvilinear signal c hanges of avascular necrosis are seen to involve the anterosuperior right femoral head without significant adjacent bone marrow edema and there is no evid ence of articular surface collapse. Osseous structures o f the bony pelvis are intact and unremarkable. The sacroiliac joint s appear unremarkable. The symphysis pubis appears unremarkable. No evidence of myote ndinous injury. No convincing pelvic mass identified as visualized, however evaluation is limited. IMPRESSION: 1. Findings of avasc ular necrosis involving the anterosuperior right femoral head. 2. No additional int ernal derangement identified. [facility] Read by: Juan David wagner D.O. Reviewed and Electro nically Signed by: Juan David Wilson D.O. Urine toxicology Reviewed date:11/04/2023 03:17:46 PM Interpretation:See Results Performing Lab: Notes/Report: See Results OPI 300 216.4 Reason For Referral Reason Please evaluate and treat for low back and left lower extremity pain REHAB PT and OT: [facility] LUMBAR Diagnosis 1 Radiculopathy, lumba r region (M54.16) Referral Organization [place] [address] [facility] Referring Provider First Name Maritza Referring Provider Last Name Kee Referring Provider Speciality Pain Medic ine Referred Provider Sharon RehabilitatiCharmaine vallejo Referred Provider Specialty Rehabilitati on General Notes Martell Espino 01/2023 04:37:37 PM >[facility], no PA required. Ok to schedule. Referral Priority Routine Reason Please evaluate lowe r extremity pain and weakness with a bilateral lower extremity EMG. Please call patient to schedule at [phone] Diagnosis 1 Radiculopathy, lumba r region (M54.16) Diagnosis 2 Weakness (R53.1) Referral Organization [facility] Referring Provider First Name Joshua Referring Provider Last Name Bairon Referring Provider Speciality Physician Manager Of Community Relations Referred Provider [facility] o f Neurology, EMGs- All Locations Referred Provider Specialty Electromyogr aphy (EMG) General Notes Bambi Aranda 024 08:45:13 AM >Please call the patient to schedule and fax back all notes to [phone]. If you need additional records for this referral, please call [phone]. Thanks! Referral Priority Routine Reason Please evaluate and treat lower extremity pain and weakness with difficulty walking. Lumbar MRI was completed 09/28/2023 at [place]. Please call patient to schedule at [phone] Diagnosis 1 Radiculopathy, lumba r region (M54.16) Diagnosis 2 Weakness (R53.1) Referral Organization [facility] Referring Provider First Name Joshua Referring Provider Last Name Bairon Referring Provider Speciality Physician Manager Of Community Relations Referred Provider [facility] Referred Provider Specialty Neurology General Notes Bambi Aranda 08:44:17 AM >Please call the patient to schedule and fax back all notes to [phone]. If you need additional records for this referral, please call [phone]. Thanks! Referral Priority Routine Reason REHAB *PHYSICIAN IVY AIKEN PMR/OCC MED Please evaluate and treat neck and low back pain. Consider [facility]. Please call patient to schedule at [phone] Diagnosis 1 Low back pain, unspe cified (M54.50) Diagnosis 2 Cervicalgia (M54.2) Referral Organization [facility] Referring Provider First Name Joshua Referring Provider Last Name Bairon Referring Provider Speciality Physician Manager Of Community Relations Referred Provider Sera Coe Referred Provider Specialty Physical Med icine and Rehabilitation General Notes Bambi Aranda 08:43:44 AM >Please call the patient to schedule and fax back all notes to [phone]. If you need additional records for this referral, please call [phone]. Thanks! Referral Priority Routine Reason Please evaluate and treat for low back pain with pool therapy. Patient prefers [facility] in [facility]. Please call the patient to schedule at [phone]. Diagnosis 1 Radiculopathy of lum bosacral region (M54.17) Referral Organization [place] [address] [facility] Referring Provider First Name Maritza Referring Provider Last Name Kee Referring Provider Speciality Pain Medic ine Referred Provider Marian Coe Referred Provider Specialty Physical The [facility]ist General Notes Bambi Aranda 08:27:30 AM >Please call the patient to schedule and fax back all notes to [phone]. If you need additional records for this referral, please call [phone]. Thanks! Referral Priority Routine Reason Please evaluate for left lower extremity weakness. Patient prefers [facility] in [place]. Please call patient to schedule, . Diagnosis 1 Radiculopathy, lumbo sacral region (M54.17) Referral Organization [facility] Referring Provider First Name Sreekanth Referring Provider Last Name Gm Referring Provider Speciality Nurse Blanka titgeorgette Referred Provider [facility] [place] Referred Provider Specialty Neurology General Notes Candida Arandaa 024 10:36:01 AM >Please call the patient to schedule and fax back all notes to [phone]. If you need additional records for this referral, please call [phone]. Thanks! Referral Priority Routine Reason Please evaluate and treat for low back and neck pain. Patient prefers [facility] in [place]. Please call the patient to schedule at [phone]. Diagnosis 1 Radiculopathy, cervi zarina region (M54.12) Diagnosis 2 Radiculopathy of lum bosacral region (M54.17) Diagnosis 3 Cervicalgia (M54.2) Diagnosis 4 Low back pain, unspe cified (M54.50) Diagnosis 5 Trochanteric bursiti s, left hip (M70.62) Referral Organization [facility] Referring Provider First Name Maritza Referring Provider Last Name Kee Referring Provider Speciality Pain Medic ine Referred Provider Specialty Physical [facility] General Notes Ana LuisabenBambi 345 01:16:53 PM >Please call the patient to schedule and fax back all notes to [phone]. If you need additional records for this referral, please call [phone]. Thanks! Referral Priority Routine Reason Evaluate and treat l ow back/SI pain with pool therapy Call patient at [phone] Fax notes to [phone] Diagnosis 1 Low back pain, unspe cified (M54.50) Diagnosis 2 Sacroiliitis (M46.1) Referral Organization [facility] Referring Provider First Name Maritza Referring Provider Last Name Kee Referring Provider Speciality Pain Medic ine Referred Provider Josue Vogt PT Referred Provider Specialty Physical The rapist General Notes Bambi Aranda 024 08:23:35 AM >Please call the patient to schedule and fax back all notes to [phone]. If you need additional records for this referral, please call [phone]. Thanks! Referral Priority Routine Medications Medication SIG (Take, Route, Frequency, Duration) Notes Start Date End Date Status Hydrocodone-Acetaminophen 5-325 MG 1 tablet as needed Orally Twice a day Active oxyCODONE HCl 5 MG 1 capsule as needed Orally every 6 hrs Active CeleBREX 200 MG 1 capsule with food Orally Once a day Active Gabapentin 300 MG TAKE 2 CAPSULES BY M OUTH THREE TIMES DAILY Oral for 15 Days Active Medical Cannabis Act randal HYDROcodone-Acetaminophen 5-325 MG 1 tablet as needed Orally Twice a day Active Social History Tobacco Use: Social History Observation Description Date Details (start date - stop date) Current Smoker NA - NA Tobacco Use/Smoking: Question Answer Notes Are you a current smoker How often do you smoke cigarettes? every day How many cigarettes a day do you smoke? 6-10 How soon after you wake up d o you smoke your first cigarette? within 5 minutes Are you interested in quitting? Thinking about q uitting Alcohol Screen Question Answer Notes Did you have a drink containing alcohol in the p ast year? No Points 0 Interpretation Negative Problems Problem Type SNOMED Code ICD Code Onset Dates Problem Status W/U Status Risk Notes Problem Mononeuropathy (532656274) Mononeuropathy, unspecified (G58.9) Active confirmed Problem Chronic pain (51889218) Other chronic pain (G89.29) Active confirmed Problem Solitary sacroiliitis (430793924) Sacroiliitis, not elsewhere classified (M46.1) Active confirmed Problem Cervical radiculopathy (48208214) Radiculopathy, cervical region (M54.12) Active confirmed Problem Lumbar radiculopathy (773004563) Radiculopathy, lumbar region (M54.16) Active confirmed Problem Pain in thoracic spine (712273822) Pain in thoracic spine (M54.6) Active confirmed Problem Trochanteric bursitis of left hip (837272662113656) Trochanteric bursitis, left hip (M70.62) Active confirmed Problem Weakness (19758338) Weakness (R53.1) Active confirmed Problem Cervicalgia (04721624) Cervicalgia (M54.2) Active confirmed Problem Lumbosacral radiculopathy (1774781) Radiculopathy, lumbosacral region (M54.17) Active confirmed Problem Low back pain (224828012) Low back pain, unspecified (M54.50) Active confirmed Problem Solitary sacroiliitis (825856855) Sacroiliitis (M46.1) Active confirmed Problem Lumbosacral radiculopathy (1552666) Radiculopathy of lumbosacral region (M54.17) Active confirmed Vital Signs Blood pressure diastolic 78 mm Hg 01/20/2024 Height 77 in 01/20/2024 Blood pressure systolic 122 mm Hg 01/20/2024 Weight 220 lbs 01/20/2024 BMI 26.09 kg/m2 01/20/2024 Encounters Encounter Location Date Provider Diagnosis [facility] [address] [place] [address] 03/29/2024 Maritza Sweet [facility] [address] [facility] [address] [place] [address] 07/13/2023 Maritza Sweet Mononeuropathy, unspecified G58.9 ; Radiculopathy, lumbar region M54.16 ; Trochanteric bursitis, left hip M70.62 ; Sacroiliitis M46.1 and Other chronic pain G89.[address] [facility] [address] [place] [address] 07/15/2023 [facility] [address] [place] [address] 07/16/2023 [facility] [address] [place] [address] 07/29/2023 [facility] [address] [place] [address] 07/30/2023 [facility] [address] [place] [address] 08/12/2023 [facility]ano [facility] [address] [facility] [address] [place] [address] 08/13/2023 Rano [facility] [address] [facility] [address] [place] [address] 08/25/2023 [facility] [address] [facility] [address] [place] [address] 08/30/2023 Ranfracisco Colintas 104 [facility] [address] [facility] [address] [place] [address] 09/30/2023 Joshua Waddell Weakness R53.1 ; Radiculopathy, lumbar region M54.16 ; Cervicalgia M54.2 ; Low back pain, unspecified M54.50 and Other chronic pain G89.29 [facility] [address] [facility] [address] [place] [address] 10/05/2023 Rano Kee Other chronic pain G89.29 and Radiculopathy of lumbosacral region M54.17 [facility] [address] [facility] [address] [place] [address] 10/14/2023 Rano [facility] [address] [facility] [address] [place] [address] 10/18/2023 Maritza Sweet [facility] 250 [facility] [address] [facility] [address] [place] [address] 10/20/2023 Sreekanth Worrell Other chronic pain G89.29 ; Radiculopathy of lumbosacral region M54.17 ; Cannabis use, unspecified, uncomplicated F12.90 ; Pain in thoracic spine M54.6 and Radiculopathy, cervical region M54.12 [facility] [address] [place] [address] 11/12/2023 Maritza Sweet [facility] 250 [facility] [address] [facility] [address] [place] [address] 11/15/2023 Hong Le Radiculopathy, cervical region M54.12 ; Radiculopathy of lumbosacral region M54.17 ; Pain in thoracic spine M54.6 ; Other chronic pain G89.29 and Cannabis use, unspecified, uncomplicated F12.90 [facility] [address] [place] [address] 11/15/2023 Rano [facility] [address] [facility] [address] [place] [address] 12/20/2023 Rano [facility] [address] [facility] [address] [place] [address] 12/22/2023 Rano [facility] [address] [place] [address] 01/04/2024 Cleve Mele [facility] [address] [place] [address] 01/05/2024 Cleve Mele [facility] [address] [place] [address] 01/18/2024 Rano [facility] [address] [facility] [address] [place] [address] 01/19/2024 Weroo Cristitas [place] [address] [facility] [address] [place] [address] [address] [place] [address] 01/20/2024 Rano [place]as Sacroiliitis, not elsewhere classified M46.1 ; Mononeuropathy, unspecified G58.9 ; Cervicalgia M54.2 ; Low back pain, unspecified M54.50 and Other chronic pain G89.29 [facility] [address] [facility] [address] [place] [address] 02/03/2024 Rano [facility] [address] [facility] [address] [place] [address] 02/07/2024 Rano [facility] [address] [place] [address] 03/28/2024 Rano Faltas [facility] [address] [place] [address] [address] [place] [address] 07/13/2023 Rano Faltas [facility] [address] [place] [address] 07/28/2023 Rano Faltas [facility] [address] [place] [address] 08/16/2023 Rano Faltas [facility] [address] [place] [address] 08/30/2023 Rano Faltas [facility] [address] [place] [address] 09/07/2023 Rano Faltas [facility] [address] [place] [address] 09/09/2023 Rano Faltas Radiculopathy, lumbar region M54.16 [facility] [address] [place] [address] 09/30/2023 Joshua Waddell [facility] [address] [place] [address] 10/12/2023 Rano Faltas [facility] [address] [place] [address] 10/14/2023 Rano Faltas [facility] [address] [place] [address] 11/23/2023 Rano Faltas [facility] [address] [place] [address] 11/23/2023 Rano Faltas [facility] [address] [place] [address] 12/13/2023 Rano Faltas [facility] [address] [place] [address] 12/23/2023 Rano Faltas [facility] [address] [place] [address] 12/30/2023 Rano Faltas [facility] [address] [place] [address] 01/04/2024 Rano Faltas [facility] [address] [place] [address] 01/20/2024 Rano Faltas [facility] [address] [place] [address] 01/24/2024 Rano Faltas [facility] [address] [place] [address] 02/07/2024 Rano Faltas [facility] [address] [place] [address] 02/16/2024 Rano Faltas [facility] [address] [place] [address] 03/23/2024 Rano [place]alt[place] Assessments Encounter Date Diagnosis (ICD Code) Assessment Notes Treatment Notes Treatment Clinical Notes 07/13/2023 Mononeuropathy, unspecified (ICD-10 - G58.9) 07/13/2023 Radiculopathy, lumbar region (ICD-10 - M54.16) 09/30/2023 Radiculopathy, lumbar region (ICD-10 - M54.16) 09/30/2023 Weakness (ICD-10 - R53.1) 09/09/2023 Radiculopathy, lumbar region (ICD-10 - M54.16) 10/05/2023 Other chronic pain (ICD-10 - G89.29) Wei returns to clinic today for a follow-up evaluation regarding his chronic pain. I have reviewed the [facility] database and did not find any inconsistencies. We discussed his current symptoms and medications as well as his most recent imaging. I am recommending that Wei proceed with [place] bilateral lower [place] [facility] and neurology consultation [place] [facility] as scheduled at this time. Furthermore, based on the results of his recent lumbar MRI and pain patterns, I am ordering a lumbar flexion and extension xray at this time to see if there is something structurally we are missing that could be causing his low back pain. In the interim, I am also going to order a repeat left L5-S1, S1 TFE at this time to try to provide him with at least some temporary pain relief while we determine further treatments for his pain. Regarding condition, I am referring Wei to [facility] in [facility] for pool therapy at this time. I discussed with him that pool therapy will help with his strength and mobility without placing increased pressure on his spine. I will consider land based therapies after his pain is better controlled. Finally, regarding medications, I am starting him on an MDP at this time. I discussed with him how this medication will help with his current inflammation and should provide him at least temporary pain relief. I also provided him with a Toradol shot in clinic today for some quick relief of his pain. This treatment plan was reviewed with Wei, and he was agreeable. I will continue to monitor his progress, and he will follow up in two weeks to review his xray and EMG results, or soone if needed. Plan:1. Proceed with Bilateral [place] [facility]. Order lumbar flexion and extension XR3. Order repeat left L5-S1, S1 TFE4. Refer to [facility] for Pool Therapy5. Start MDP6. Toradol shot today in clinic7. Follow-up in two weeks Discharge instructions reviewed verbally. Discussed the risks/benefits of prescribed medication. The patient is aware that medication may be discontinued at any time due to poor compliance with visits, and recommended treatment and/or if patient doesn't adhere to the signed pain contract. The patient was instructed to return to the office as scheduled and call with any questions, problems or concerns. 10/05/2023 Radiculopathy of lumbosacral region (ICD-10 - M54.17) 10/20/2023 Other chronic pain (ICD-10 - G89.29) Wei returns to clinic today for a follow up evaluation regarding his chronic low back pain (L>R) and left lower extremity pain. I have reviewed the [place] [employer] [employer] database and did not find any inconsistencies. We discussed his current symptoms and medications. I will continue with a treatment plan consisting of conservative therapies at this time. I have reviewed his bilateral LE EMG dated 10/08/2023, lumbar MRI dated 09/28/2023, and lumbar flexion/extension XR dated 10/07/2023 in clinic today. His EMG study is normal, and shows no evidence of mononeuropathy, plexopathy, or radiculopathy. I have advised him to continue to monitor relief from the left L5-S1, S1 TFE as it can take 10-14 days for the steroid to take full effect. I will also send a referral to [facility] for evaluation of his left lower extremity weakness. Regarding his neck pain, I have reviewed his cervical MRI from 05/17/2023 in clinic today. Based on imaging results, I will order a C5-6 SYLVIE as I believe it would be beneficial for his painful symptoms. I will consider a cervical MBB/RFA workup if he does not receive adequate relief with the SYLVIE. I will also order a thoracic MRI to [facility] in [place] to further assess his painful symptoms. In the meantime, he will undergo a Toradol shot in clinic today to help alleviate his painful symptoms. Regarding medications, Wei inquires about medical cannabis certification today. I discussed how he would be certified through the [facility]. I informed him on the risks and benefits of medical cannabis and how he would work with a dispensary to find the best products for her symptoms. He expressed understanding and wanted to proceed. Therefore, I have certified him for medical cannabis through the [facility] today, and he consented to a UDS for certification purposes. This treatment plan was reviewed with Wei, and he was agreeable. I will continue to monitor his progress and he will follow up in one month or sooner if needed. Plan:1. Reviewed EMG, lumbar MRI, lumbar flexion/extension XR2. Continue to monitor relief from left L5-S1, S1 TFE3. Referral [place] [facility] [place] extremity weakness and migraines4. Reviewed cervical MRI5. Order C5-6 SYLVIE 6. Consider cervical MBB/RFA workup7. Order thoracic MRI 8. Toradol injection in clinic9. Medical cannabis [id number]. UDS today 11. Follow up after MRI; Pt will call to schedule Discharge instructions reviewed verbally. Discussed the risks/benefits of prescribed medication. The patient was instructed to return to the office as scheduled and call with any questions, problems or concerns. ALIDA UPTON EMGExam Date: 10/08/2023Impressi on: This is a normal EMG study of the both lower extremities with no evidence of mononeuropathy, plexopathy, or radiculopathy. The inability to activate MUPs and low activation are related to technical factors and pain intolerance. LUMBAR MRI Exam Date: 09/28/2023Impressi on: Degenerative disc disease at L5-S1 with small annular tear on the left. Degenerative changes of the posterior facets noted at L4-5 and L5-S1. No significant interval changes since 2022 LUMBAR FLEXION/EXTENSION XRExam Date: 10/07/2023FINDINGS : No acute fracture no significant subluxation. Possible trace retrolisthesis of L3 on L4. Minimal disc height loss most prominent L5-S1. No change in alignment with flexion or extension views. Nonobstructive bowel gas pattern. CERVICAL MRI Exam Date: 05/17/2023Impressi on: 1. Multilevel cervical degenerative spondylotic changes. No cervical vertebral body fracture detected. 2. No high-grade cervical canal stenosis. No cord signal abnormality detected. 3. Moderate left neural foraminal stenosis at C3-4. Moderate right neural foraminal stenosis at C4-5. Moderate to advanced neural foraminal stenosis bilaterally at C5-6. Moderate left neural foraminal stenosis at C6-7. Moderate right neural foraminal stenosis at C7-T1. 11/15/2023 Radiculopathy, cervical region (ICD-10 - M54.12) 01/20/2024 Mononeuropathy, unspecified (ICD-10 - G58.9) 01/20/2024 Sacroiliitis, not elsewhere classified (ICD-10 - M46.1) 01/20/2024 Cervicalgia (ICD-10 - M54.2) 11/15/2023 Pain in thoracic spine (ICD-10 - M54.6) 11/15/2023 Radiculopathy of lumbosacral region (ICD-10 - M54.17) 10/20/2023 Radiculopathy of lumbosacral region (ICD-10 - M54.17) 09/30/2023 Cervicalgia (ICD-10 - M54.2) 07/13/2023 Trochanteric bursitis, left hip (ICD-10 - M70.62) 07/13/2023 Sacroiliitis (ICD-10 - M46.1) 09/30/2023 Low back pain, unspecified (ICD-10 - M54.50) 10/20/2023 Cannabis use, unspecified, uncomplicated (ICD-10 - F12.90) 11/15/2023 Other chronic pain (ICD-10 - G89.29) Angel Ulloa) returns to clinic today for a follow-up evaluation regarding his chronic low back pain (L>R) and left lower extremity pain. I have reviewed the [facility] database and did not find any inconsistencies. We discussed his current symptoms and medications. I will continue with a treatment plan consisting of conservative therapies at this time. Wei is pending a C5-C6 SYLVIE today and a consultation with FLORI on 11/26/2023. He was encouraged to proceed with these treatment options. Additionally, I reviewed Wei's Thoracic Spine MRI, dated 10/29/2023, and explained to Wei that the imaging is largely unremarkable, therefore his pain centralized to in-between his shoulder blades is likely muscular, however I advised that he may experience some therapeutic benefit to this area from the YSLVIE that will be completed today. This treatment plan was reviewed with Wei, and he was agreeable. I will continue to monitor his progress and he will follow up as needed. Plan:1. Pending C5-C6 SYLVIE today2. Pending MCON consult on . Reviewed Thoracic Spine MRI4, Follow-up as needed Discharge instructions reviewed verbally. Discussed the risks/benefits of prescribed medication. The patient was instructed to return to the office as scheduled and call with any questions, problems or concerns. 10/29/2023 Thoracic Spine MRI Impression:1. Convex to the right curvature of the cervical spine and convex to the left curvature of the upper thoracic spine.2. Multilevel cervical and thoracic spondylosis.3. No thoracic cord deformity or central spinal canal stenosis.4. Mild multilevel facet arthropathy. 01/20/2024 Low back pain, unspecified (ICD-10 - M54.50) 01/20/2024 Other chronic pain (ICD-10 - G89.29) Angel returns to clinic today for a follow up evaluation regarding his chronic low back pain (L>R) and left lower extremity pain and weakness. I have reviewed the [facility] database and did not find any inconsistencies. We discussed his current symptoms and medications. I will continue with a treatment plan consisting of medication management and conservative therapies at this time. A Toradol shot was administered in clinic today to address Angel's pain flare. I have recommended updated imaging to evaluate Angel's pain local to his sacroiliac joints, and I have therefore ordered a Pelvic MRI accordingly. I have also ordered therapeutic ALIDA SIJ injections to address his pain. This treatment plan was reviewed with Angel, and he was agreeable. I will continue to monitor his progress and he will follow up in 6 weeks or sooner if needed. Plan:1. Toradol shot today2. Order Pelvic MRI for SIJ evaluation3. Order therapeutic ALIDA SIJ injections4. Follow up in 6 weeks Discharge instructions reviewed verbally. Discussed the risks/benefits of prescribed medication. The patient is aware that medication may be discontinued at any time due to poor compliance with visits, and recommended treatment and/or if patient doesn't adhere to the signed pain contract. The patient was instructed to return to the office as scheduled and call with any questions, problems or concerns. 10/20/2023 Pain in thoracic spine (ICD-10 - M54.6) 09/30/2023 Other chronic pain (ICD-10 - G89.29) Wei returns to clinic today for a follow up evaluation regarding his chronic pain. I have reviewed the [place] [facility] database and did not find any inconsistencies. We discussed his current symptoms and medications as well as his most recent imaging. Due to his current LE symptoms, I do believe a BLE EMG is necessary. I have [place] [facility] [place] I will also refer him [place] [facility] [place] and [place]. Regarding therapy, he is unable to proceed with [facility] due to location and transportation issues. I will refer him to [facility] in [place] for PM&R consult and consideration of MEDX. I did discuss Wei's current condition with Dr. Sweet and he advised to consider an Li SCS trial for retractory non-surgical low back pain. This treatment plan was reviewed with Wei, and he was agreeable. I will continue to monitor his progress and he will follow up as needed with Dr. Sweet. Plan:1. Reviewed lumbar MRI2. Order [place] [place]3. Ref[place] [facility] [place] weakness4. Referral to [facility] [place] for PM&R consult5. Per Dr. Sweet, consider Li SCS trial for retractory non-surgical low back pain6. Follow up with Dr. Sweet post EMG Discharge instructions reviewed verbally. Discussed the risks/benefits of prescribed medication. The patient is aware that medication may be discontinued at any time due to poor compliance with visits, and recommended treatment and/or if patient doesn't adhere to the signed pain contract. The patient was instructed to return to the office as scheduled and call with any questions, problems or concerns. 11/15/2023 Cannabis use, unspecified, uncomplicated (ICD-10 - F12.90) 07/13/2023 Other chronic pain (ICD-10 - G89.29) Angel presents to the clinic for an evaluation regarding his chronic low back and left lower extremity pain. I have reviewed his symptoms and current medications. Angel completed a lumbar MRI on 05/17/2023. I have reviewed this imaging with him today using spinal models and diagrams. Based upon this imaging, my physical examination, and his clinical presentation, I have recommended that Angel proceed with a left L5-S1, S1 TFE, followed by a left GTB injection, and bilateral SI joint injections. I discussed these procedures with the patient, outlining the potential risks and benefits in detail and answering all questions to patient's satisfaction. Following this discussion, Angel expressed interest in proceeding and I have placed orders for the aforementioned procedure accordingly. I will consider a bilateral superior cluneal nerve injection pending relief form the aforementioned interventions. I have referred the patient to [facility] for MedX therapy. I recommend a course of physical therapy and occupational therapy. I recommend physical therapy to focus on addressing myofascial tender points, mechanical spine pain, mobility, establish a HEP, instruct on self-cares and pain management. The patient would benefit from strengthening exercises including MedX to target deep spinal muscles and core muscles. I recommend occupational therapy assessment to address ADL tolerance ergonomics, and functional conditioning. I recommend starting treatment 1-2 times per week. I recommend follow-up after completion of the initial 8 visits to ensure tolerance for activity, to assess for any new concerns or questions and to determine the need for additional treatments. There are no contraindications for use of MedX equipment. Regarding medications, I have checked the [place] [facility] database and I did not find any inconsistencies. Since heavy drinking is associated Folate, B-6, and thiamine deficiencies, I have recommended that he start an OTC B Complex supplement. This treatment plan was reviewed with the patient, and he was agreeable. He will return in six weeks for further evaluation or sooner if needed. I will continue to monitor his progress, adjusting his treatment plan as necessary. Plan:1. Review lumbar MRI2. Order left L5-S1, S1 TFE3. Order left GTB injection4. Order bilateral SI joint injection5. Consider bilateral cluneal superior nerve injections6. Referral to [facility]7. Start B-Complex supplement8. Follow-up in six weeks Discharge instructions reviewed verbally. Discussed the risks/benefits of prescribed medication. The patient is aware that medication may be discontinued at any time due to poor compliance with visits, and recommended treatment and/or if patient does adhere to the signed pain contract. The patient was instructed to return to the office as scheduled and call with any questions, problems or concerns. Five lumbar type vertebral bodies. Preserved vertebral body heights. Benign vertebral hemangioma in L5, unchanged. Mild chronic fatty marrow changes anteriorly L5. Otherwise, vertebral marrow is within normal limits. The conus medullaris terminates at the level of the L1, and is unimpinged. No definite signal abnormality involving the conus medullaris or cauda equina is detected. L1-2: No disc bulge. No significant spinal canal or neural foraminal narrowing. L2-3: No disc bulge. No significant spinal canal or neural foraminal narrowing. L3-4: Mild left-sided facet arthropathy. No disc bulge. No significant spinal canal or neural foraminal narrowing. L4-5: Mild bilateral facet arthropathy. No disc bulge. No significant spinal canal or neural foraminal narrowing. L5-S1: Mild left-sided marginal osteophytosis and slight improvement of previously demonstrated left foraminal to extraforaminal disc protrusion with annular fissure. Mild left neural foraminal stenosis, also slightly improved. Other: Right renal cyst. Hepatic cysts or hemangiomas. 10/20/2023 Radiculopathy, cervical region (ICD-10 - M54.12) 07/13/2023 Other I, Mitchel joseph, am serving as a scribe to document services personally performed by Maritza Sweet MD, based upon my observations and the provider's statements to me. All documentation has been reviewed by the aforementioned doctor prior to being entered into the official medical record. I, Maritza Sweet MD attest that the above named individual is acting in scribe capacity, has observed my performance of the services and has documented them in accordance with my direction. The documentation recorded by the scribe accurately reflects the service I personally performed and the decisions made by me. We would like to thank Dr. Will for referring Angel to us today. It has been a pleasure to participate in his care. Please feel free to contact me if you have any questions. 09/30/2023 Other I, Leroy Campos , am serving as a scribe to document services personally performed by Joshua Waddell PA-C, based upon my observations and the provider's statements to me. All documentation has been reviewed by the aforementioned MARY as well as Cleve Shabazz MD, prior to being entered into the official medical record. I, Cleve Shabazz MD attest that the above named individual is acting in scribe capacity, has observed Joshua Waddell's performance of the services and has documented them in accordance with her direction. The documentation recorded by the scribe accurately reflects the service Joshua Waddell PA-C, personally performed and the decisions made by her. 10/05/2023 Other I, Jocelyn mcgee, am serving as a scribe to document services personally performed by Maritza Sweet MD, based upon my observations and the provider's statements to me. All documentation has been reviewed by the aforementioned doctor prior to being entered into the official medical record. I, Maritza Sweet MD attest that the above named individual is acting in scribe capacity, has observed my performance of the services and has documented them in accordance with my direction. The documentation recorded by the scribe accurately reflects the service I personally performed and the decisions made by me. 10/20/2023 Other I, Lyssa Aguilar, am serving as a scribe to document services personally performed by Sreekanth Worrell NP, based upon my observations and the provider's statements to me. All documentation has been reviewed by the aforementioned [employer] DEPARTMENT MANAGER. I, Sreekanth Worrell NP, attest that the above named individual is acting in scribe capacity, has observed my performance of the services and has documented them in accordance with my direction. The documentation recorded by the scribe accurately reflects the service I personally performed and the decisions made during the clinic visit. 11/15/2023 Other I, Caroline gilliam, am serving as a scribe to document services personally performed by Hong Le PA-C, based upon my observations and the provider's statements to me. All documentation has been reviewed by the aforementioned MARY. I, Hong Le PA-C, attest that the above named individual is acting in scribe capacity, has observed my performance of the services and has documented them in accordance with my direction. The documentation recorded by the scribe accurately reflects the service I personally performed and the decisions made during the clinic visit. 01/20/2024 Other I, Piero cherry, am serving as a scribe to document services personally performed by Maritza Sweet MD, based upon my observations and the provider's statements to me. All documentation has been reviewed by the aforementioned doctor prior to being entered into the official medical record. I, Maritza Sweet MD attest that the above named individual is acting in scribe capacity, has observed my performance of the services and has documented them in accordance with my direction. The documentation recorded by the scribe accurately reflects the service I personally performed and the decisions made by me. Plan Of Treatment Pending Test Test Name Order Date MRI : Lumbar without contrast 09/02/2023 MRI : Lumbar 09/09/2023 MRI : Pelvis 01/20/2024 MRI : Thoracic Spine 10/20/2023 X ray : Lumbar AP and Lateral, Flexion/E xtension 10/05/2023 Insurance Providers Payer Name Payer Address Payer Phone Subscriber Number Group Number Insured Name Patient Relationship to Insured Coverage Start Date Coverage End Date [employer] [place] PMAP [address] [address] [place] [address] [id number] Codykrystal Angel Self - patient is the insured 4 [facility] [address] [address] [place], [place] [id number] Fabi Angel Self - patient is the insured Medications Administered Medication Instructions Date of Administration Dosage Notes Toradol 10/05/2023 1 mL Toradol 10/20/2023 1 mL Toradol 01/20/2024 1 mL Medical (General) History Medical History History ICD Code Anxiety Arthritis Diverticulitis headaches hearing loss Surgical History Surgery Date(Month/Year) Trochanteric Bursa Injection 12/2023 Hospitalization History Reason Date(Month/Year)
--- OUTSIDE RECORDS SUMMARY | 2024-04-01 00:04 | XMS_ITS ---
Author Organization [facility] Address [address] [place] [address] [address] [place] [address] Care Team Providers Care Professional System Administrator Name Role Phone Ziggy BEST, Gonzalo Primary Care Provider Maritza Ramachandran Unavailable [phone] Zeeshan Will MD Unavailable Unavailable REASON FOR VISIT repeat SYLVIE Encounters Encounter Location Date Provider Diagnosis [facility] [address] [place] [address] [address] [place] [address] 03/23/2024 Maritza Sweet Plan Of Treatment No Information Procedure Notes * Category Sub-Category Detail Notes JUANPABLO Repeat B Repeat JUANPABLO Indications Injection Ordered: : C5-6 SYLVIE Repeat JUANPABLO within 12 months of initial?: Yes ?Date of last JUANPABLO to this re gion:: 01/19/2024 ?Has it been at least 3 week s since the last JUANPABLO to this region?: Yes ?How many ESIs to this regio n were performed in the past 12 months?: 2 ?Patient is experiencing:: radiculopathy,severe radicular pain (VAS score of 7 or greater) ?Recurrent functional impair ments:: patient is unable to turn head while driving,patient is unable to clean home without increased pain,patient is unable to do dishes without increased pain ?Imaging findings:: Foramina l and/or central canal stenosis Nuroforaminal stenosis ?Did the last JUANPABLO provide at least 50% reduction in pain for at least 3 weeks?: Yes ??Improved functional impair ments (for at least 3 weeks):: Other:,Post JUANPABLO the patient had an increase in ability to turn head while driving,Post JUANPABLO the patient had an increase in ability to do dishes without increased pain,Post JUANPABLO the patient had an increase in ability to clean home without increased pain Could read, decrease in migraines, sleep was better, and was able to turn the head easier ??Percent reduction in pain for at least 3 weeks after last JUANPABLO:: 75 ?Is the patient continuing w ith conservative care between injections?: Yes ??Continued conservative car e between injections:: Anti-inflammatory medications ??Details of Conservative Care:: Medical Cannibis, Oxycodone, Celebrex, Gabapentin and Stretching Progress Notes * Angel DUNLAP WDOB:1975 (48 yo M)Acc No.[id number]:03/23/2024 Patient:?Angel DUNLAP W :1975???Age:48 Y???Sex:Male Phone: Address:[address] [place] [phone] Subjective: * Chief Complaints: * ???repeat SYLVIE * Medical History:? * Surgical History:? * Hospitalization/Major Diagno stic Procedure:? * Medications:? Objective: * Vitals:? * Physical Examination:? Assessment: Plan: * Treatment: * Procedures:?JUANPABLO Repeat B:?Repeat JUANPABLO Indications?Injection Ordered:? C5-6 SYLVIE,?Repeat JUANPABLO within 12 months of initial??Yes,?Date of last JUANPABLO to this region:?01/19/2024,?Has it been at least 3 weeks since the last JUANPABLO to this region??Yes,?How many ESIs to this region were performed in the past 12 months??2,?Patient is experiencing:?radiculopathy,severe radicular pain (VAS score of 7 or greater),?Recurrent functional impairments:?patient is unable to turn head while driving,patient is unable to clean home without increased pain,patient is unable to do dishes without increased pain,?Imaging findings:?Foraminal and/or central canal stenosis Nuroforaminal stenosis,?Did the last JUANPABLO provide at least 50% reduction in pain for at least 3 weeks??Yes,?Improved functional impairments (for at least 3 weeks):?Other:,Post JUANPABLO the patient had an increase in ability to turn head while driving,Post JUANPABLO the patient had an increase in ability to do dishes without increased pain,Post JUANPABLO the patient had an increase in ability to clean home without increased pain Could read, decrease in migraines, sleep was better, and was able to turn the head easier,?Percent reduction in pain for at least 3 weeks after last JUANPABLO:?75,?Is the patient continuing with conservative care between injections??Yes,?Continued conservative care between injections:?Anti- inflammatory medications,?Details of Conservative Care:? Medical Cannibis, Oxycodone, Celebrex, Gabapentin and Stretching.? * Procedure Codes:? * true * Date:? Generated for Jerry suarez/Alireza/eTransmitting on:?04/01/2024 12:04 AM CDT
--- OUTSIDE RECORDS SUMMARY | 2024-04-01 00:04 | XMS_ITS ---
Author Organization [facility] Address [address] [place] [address] [address] [place] [address] Care Team Providers Care Electrotype Servicer Name Role Phone Ziggy BEST, Gonzalo Primary Care Provider Maritza Ramachandran Unavailable [phone] Suman BEST, Zeeshan Unavailable Unavailable REASON FOR VISIT *Sedation* C5-6 Cervical Epidural Steroid Injection Encounters Encounter Location Date Provider Diagnosis [address] [place] [address] 03/29/2024 Maritza Sweet Plan Of Treatment No Information Progress Notes * Angel DUNLAP WDOB:1975 (48 yo M)Acc No.[id number]:03/29/2024 Patient:?JOANNANADIRAAngel Wang Provider:?Maritza Sweet MD :1975???Age:48 Y???Sex:Male Jorge Luis e:03/29/2024 Phone: Address:[address] [place], [place] [phone] Pcp:Gonzalo Trinh MD * Billing Information: * Visit Code:? * Procedure Codes:? * Electronic signature of Maritza Sweet MD on 04/01/2024 at 12:03 AM CDT Sign off status: Pending * Provider:?Maritza Sweet MD Date:?03/29/20 24 Generated for Chinmayi ng/Faleonidg/eTransmitting on:?04/01/2024 12:03 AM CDT
--- OUTSIDE RECORDS SUMMARY | 2024-04-01 00:05 | XMS_ITS | Clinical Summary ---
Author Organization [place] Address [address] [place] [address] Care Team Providers Care Pipe Puller Name Role Phone Unavailable Primary Care Provider [...]
--- OUTSIDE RECORDS SUMMARY | 2024-04-01 00:05 | XMS_ITS ---
Author Organization [facility] Address [address] [place] [address] Care Team Providers Care Basket Person Name Role Phone Unavailable Unavailable Unavailable Surgery Details Not on file Complications Check Surgery Details section. Procedure Estimated Blood Loss Check Surgery Details section. Procedure Findings Check Surgery Details section. Procedure Specimens Taken Check Surgery Details section.
--- OUTSIDE RECORDS SUMMARY | 2024-04-01 00:05 | XMS_ITS | Clinical Summary ---
Author Organization [facility] Address [address] [place] [address] Care Team Providers Care Health And Safety Consultant Name Role Phone Parul Cameron APRN, C.N.P., D.N.P. Primary Care Provider Source Comments Patient records contain information from all sites at [facility]. For routine questions regarding patient records, call [phone] during business hours, M-F 8:00 AM - 5:00 PM Central Time. Record requests for emergency care only can be directed to [phone] at any time.[facility] Allergies Active Allergy Reactions Criticality Noted [...] Encounters Date Type Department Care Team Description 03/14/2024 Orders Only [facility]CP [facility] MNT Parul Cameron APRN, C.N.P., D.N.P. Screening Lipid 03/07/2024 3:49 PM CDT - 03/07/2024 6:11 PM CDT Emergency [facility] [address] [place] [address] Shanel Arguelles APRN, C.N.P., D.N.P. Pain Back Lumbar (Primary Dx); Pain Low Back Chronic; Cyst Renal; Radiculopathy Discharge Disposition: Home or Self Care 01/03/2024 1:05 PM CDT - 01/03/2024 2:06 PM CDT Emergency [facility] [address] [address] Romy Johnson P.A.-C., P.A. Pain Back Lumbar (Primary Dx) Discharge Disposition: Home or Self Care 12/30/2023 11:44 PM CDT - 12/31/2023 2:25 AM CDT Emergency [facility] [address] [address] Mamta Zamudio M.D. Abdominal Pain (Primary Dx); Pain Back Lumbar Discharge Disposition: Home or Self Care from [...] week 11/19/2022 How often do you attend [facility] or jehovah's witness services? Never 11/19/2022 Do you belong to any clubs o r organizations such as episcopalian groups, unions, fraternal or athletic groups, or [...] Date Recorded PHQ-2 Score 0 01/27/2023 [facility] of Occupat ional Health - Occupational Stress [...] Sex Assigned at Male 07/09/2017 9:27 AM GLUING MACHINE FEEDER Gender Identity Male 07/09/2017 9:27 AM GLUING MACHINE FEEDER Sexual Orientation Straight 07/09/2017 9: 27 AM GLUING MACHINE FEEDER Last Filed Vital Signs Vital Sign Reading [...] 193 cm (6' 3.98) 06/25/2023 6:55 AM GLUING MACHINE FEEDER Body Mass Index 26.04 06/25/2023 6:55 AM GLUING MACHINE FEEDER Plan of Treatment Health Maintenance Due Date [...] 02/14/2023, 01/04/2014 Medical Devices Implanted Type Area [employer] Device Identifier Shelf Expiration Date Model / [...] mode [email or web address] Cartilage Costal Lg - [place] [id number] Implanted:Qty: 1 on 12/19/2010 Bone or Tissue Other/Legacy - See Implant Description [employer] Description:Device Manufactu rer - [employer]. Body Location - Other. bone for packing defect. Device Status Text - [id number]. Ear Hilliard Titanium Partial 3.00 - [place] [id number] Implanted:Qty: 1 on 08/28/2008 Ear Implant Other/Legacy - See Implant Description [facility] Medical Description:Device Manufactu rer - [employer] Body Location - Other. Left. Device Status Text - AUD [id number]. Scan at 1.5T in Normal mode due to BAHA Attract Mary Kay Leal MRSO 03/26/2023 Ear Ttp Variac Total 0.2x3.0 7mm - [place] [id number] Implanted:Qty: 1 on 12/19/2010 Ear Implant Other/Legacy - See Implant Description [facility] Medical Description:Device Manufactu rer - [employer]. Body Location - Other. Left. Device Status Text - AUD [id number]. Scan at 1.5T in Normal mode due to BAHA Attract Mary Kayjena Estrellaver MRSO 03/26/2023 Ear Oss Ti Total System Centered Adj. - [place] [id number] Implanted:Qty: 1 on 12/19/2010 Ear Implant Other/Legacy - See Implant Description [facility] Description:Device Manufactu rer - [employer]. Body Location - Other. Left. Device Status Text - AUD [id number]. Scan at 1.5T in Normal mode due to BAHA Attract Mary Kayjena Leal MRSO 03/26/2023 Ear Ttp Variac Total 0.2x3.0 7mm - [place] [id number] Implanted:Qty: 1 on 12/19/2010 Ear Implant Other/Legacy - See Implant Description [facility] Medical Description:Device Manufactu rer - [employer]. Body Location - Other. Left. Device Status Text - AUD [id number]. Scan at 1.5T in Normal mode due [...] AM CDT COLONOSCOPY Routine 09/16/2022 10:44 AM GLUING MACHINE FEEDER Diverticulitis Colon from Last 3 Months or [...] 8.0 03/07/2024 5:20 PM CDT [facility] Specific [place] 1.006 1.001 - 1.035 03/07/2024 5:20 PM CDT A[facility] Urobilinogen 0.2 0.2 - 1.0 mg/dL 03/07/2024 5:20 PM CDT AUST Urine (Urine, Midstream) 03/07/2024 5:09 PM CDT 03/07/2024 5:14 PM CDT Shanel Arguelles APRN, C.N.P., D.N.P. LA B URINE ORDERABLES [facility] [address] [place] [address], [facility] - [facility] [address] [place] [address] * Bacterial Culture, Aerobic + Susceptibility, Urine (03/07/2024 5:09 PM CDT) Urine Culture No growth after 1 day of incubation. 03/09/2024 8:41 AM CDT MKTO Urine (Urine, Midstream) 03/07/2024 5:09 PM CDT 03/08/2024 12:02 AM CDT Comment:Specimen Source Site : Urine Shanel Arguelles APRN, C.N.P., Lakshmi RICHTER MICROBIOLOGY - GENERAL ORDERABLES [facility] [address] [place] [address], [facility] MKTO [facility] [place] [address] [place] [address] * Lactate (03/07/2024 4:55 PM CDT) Only the most recent of2 resultswithin the time period is included. Lactate, P 1.5 0.5 - 2.2 mmol/L 03/07/2024 5:12 PM CDT AUST Blood (Blood, Venous) 03/07/2024 4:55 PM CDT 03/07/2024 4:57 PM CDT Shanel Arguelles APRN, C.N.P., Lakshmi RICHTER BLOOD NON ADD-ON Performing Organization Address City/[facility]/ZIP Co de Phone Number [facility] [address] [place] [address], [facility] [place] [facility] - [facility] [address] [place] [address] * (ABNORMAL) CBC with Differential, Blood (03/07/2024 [...] APRN, C.N.P., D.N.P. LA B BLOOD ADD-ON [facility] [address] [place] [address], [facility] [place] [facility] - [facility] [address] [place] [address] * (ABNORMAL) Basic Metabolic Panel (03/07/2024 4:54 [...] LA Carline BLOOD ADD-ON Performing Organization Address City/[facility]/ZIP Co de Phone Number [facility] [address] [place] [address], [facility] - [facility] [address] [place] [address] * CRP (C-Reactive Protein) (12/31/2023 12:27 AM CDT) C-Reactive Protein (CRP), P 3.9 <5.0 mg/L 12/31/2023 12:51 AM CDT AUST Blood (Blood, Venous) 12/31/2023 12:27 AM CDT 12/31/2023 12:32 AM CDT Mamta Zamudio M.D. LAB BLOOD ADD-ON [facility] [address] [place] [address], [facility] [place] [facility] - [facility] [address] [place] [address] * Lipase (12/31/2023 12:27 AM CDT) Lipase, P 28 13 - 60 U/L 12/31/2023 12:51 AM CDT A[facility] Blood (Blood, Venous) 12/31/2023 12:27 AM CDT 12/31/2023 12:32 AM CDT Mamta Zamudio M.D. LAB BLOOD ADD-ON [facility] [address] [place] [address], [facility] [place] [facility] - [facility] [address] [place] [address] * Comprehensive Metabolic Panel (12/31/2023 12:27 AM [...] CDT Mamta Zamudio M.D. LAB BLOOD ADD-ON [facility] [address] [place] [address], [facility] [address] [place] [address] from Last 3 Months or Most Recently Relevant to Health Maintenance Advance Directives For more information, please contact: [phone] * Full Code (Latest Code Status on [...] Due to: Not medically appropriate Care Teams Health And Safety Consultant Relationship Specialty Start Date End Date Parul Cameron APRN, C.N.P., D.N.P. [address] [place] [id number] PCP - General 11/29/23
--- OUTSIDE RECORDS SUMMARY | 2024-04-01 00:05 | XMS_ITS | Referral Summary ---
Author Organization [facility] Address [address] [place] [address] Care Team Providers Care Tower Equipment Installer Name Role Phone Parul Cameron APRN, C.N.P., D.N.P. Primary Care Provider Source Comments Patient records contain information from all sites at [facility]. For routine questions regarding patient records, call [phone] during business hours, M-F 8:00 AM - 5:00 PM Central Time. Record requests for emergency care only can be directed to [phone] at any time[address] Encounters Date Type Department Care Team Description 03/14/2024 [facility] Only [facility] APRN, C.N.P., D.N.P. Screening Lipid 03/07/2024 3:49 PM CDT - 03/07/2024 6:11 PM CDT Emergency [facility] [address] [phone] Shanel Arguelles APRN, C.N.P., D.N.P. Pain Back Lumbar (Primary Dx); Pain Low Back Chronic; Cyst Renal; Radiculopathy Discharge Disposition: Home or Self Care 01/03/2024 1:05 PM CDT - 01/03/2024 2:06 PM CDT Emergency [facility] [address] [phone] Romy Johnson P.A.-C., P.A. Pain Back Lumbar (Primary Dx) Discharge Disposition: Home or Self Care 12/30/2023 11:44 PM CDT - 12/31/2023 2:25 AM CDT Emergency [facility] [address] [place] [phone] Mamta Zamudio M.D. Abdominal Pain (Primary Dx); [...] How often do you attend chur or islam services? Never 11/19/2022 Do you belong to any clubs o r organizations such as muslim groups, unions, fraternal or athletic groups, or [...] Answer Date Recorded PHQ-2 Score 0 01/27/2023 [facility] of Occupat ional Health - [...] place to sleep or slept in a usp (including now)? No 11/19/2022 Depression Answer Date [...] Sex Assigned at Male 07/09/2017 9:27 AM CHUCKING AND BORING MACHINE OPERATOR Gender Identity Male 07/09/2017 9:27 AM CHUCKING AND BORING MACHINE OPERATOR Sexual Orientation Straight 07/09/2017 9: 27 AM CHUCKING AND BORING MACHINE OPERATOR Last Filed Vital Signs Vital Sign Reading [...] 193 cm (6' 3.98) 06/25/2023 6:55 AM CHUCKING AND BORING MACHINE OPERATOR Body Mass Index 26.04 06/25/2023 6:55 AM CHUCKING AND BORING MACHINE OPERATOR Plan of Treatment Not on file Medical Devices Implanted Type Area Obstetrician/Gynecologist Device Identifier Shelf Expiration Date Model / [...] - 1.5 T - use normal mode [email or web address] Cartilage Costal Lg - [place] [id number] Implanted:Qty: 1 on 12/19/2010 Bone or Tissue Other/Legacy - See Implant Description [employer] Description:Device Manufactu rer - [employer]. Body Location - Other. bone for packing defect. Device Status Text - [id number]. Ear Hilliard Titanium Partial 3.00 - [place] [id number] Implanted:Qty: 1 on 08/28/2008 Ear Implant Other/Legacy - See Implant Description [facility] Medical Description:Device Manufactu rer - [employer] Body Location - Other. Left. Device Status Text - AUD [id number]. Scan at 1.5T in Normal mode due to BAHA Attract Mary [facility] Leal [facility] 03/26/2023 Ear Ttp Variac Total 0.2x3.0 7mm - [place] [id number] Implanted:Qty: 1 on 12/19/2010 Ear Implant Other/Legacy - See Implant Description [facility] Medical Description:Device Manufactu rer - [employer]. Body Location - Other. Left. Device Status Text - AUD [id number]. Scan at 1.5T in Normal mode due to BAHA Attract Mary Kay Leal [facility] 03/26/2023 Ear Oss Ti Total System Centered Adj. - [place] [id number] Implanted:Qty: 1 on 12/19/2010 Ear Implant Other/Legacy - See Implant Description [facility] Description:Device Manufactu rer - [employer]. Body Location - Other. Left. Device Status Text - AUD [id number]. Scan at 1.5T in Normal mode due to BAHA Vinicio Leal MRSO 03/26/2023 Ear Ttp Variac Total 0.2x3.0 7mm - [place] [id number] Implanted:Qty: 1 on 12/19/2010 Ear Implant Other/Legacy - See Implant Description [facility] Description:Device Manufactu rer - [employer]. Body Location - Other. Left. Device Status Text - AUD [id number]. Scan at 1.5T in Normal mode due [...] AM CDT COLONOSCOPY Routine 09/16/2022 10:44 AM CHUCKING AND BORING MACHINE OPERATOR Diverticulitis Colon from Last 3 Months or [...] 8.0 03/07/2024 5:20 PM CDT [facility] Specific [place] 1.006 1.001 - 1.035 03/07/2024 5:20 PM CDT AUST Urobilinogen 0.2 0.2 - 1.0 mg/dL 03/07/2024 5:20 PM CDT AUST Urine (Urine, Midstream) 03/07/2024 5:09 PM CDT 03/07/2024 5:14 PM CDT Shanel Arguelles APRN, C.N.P., D.N.P. LA B URINE ORDERABLES [facility] [address] [place] [address], [facility] A[facility] [place] [facility] - [facility] [address] [place] [address] * Bacterial Culture, Aerobic + Susceptibility, Urine (03/07/2024 5:09 PM CDT) Urine Culture No growth after 1 day of incubation. 03/09/2024 8:41 AM CDT MKTO Urine (Urine, Midstream) 03/07/2024 5:09 PM CDT 03/08/2024 12:02 AM CDT Comment:Specimen Source Site : Urine Shanel Arguelles APRN, C.N.P., Lakshmi RICHTER MICROBIOLOGY - GENERAL ORDERABLES [facility] [address] [place] [address], [facility] MKTO [facility] in [place] [address] [place] [address] * Lactate (03/07/2024 4:55 PM CDT) Only the most recent of2 resultswithin the time period is included. Lactate, P 1.5 0.5 - 2.2 mmol/L 03/07/2024 5:12 PM CDT AUST Blood (Blood, Venous) 03/07/2024 4:55 PM CDT 03/07/2024 4:57 PM CDT Shanel Arguelles APRN, C.N.P., Zach.N.P. SHIRA B BLOOD NON ADD-ON [facility] [address] [place] [address], [facility] - [facility] [address] [place] [address] * (ABNORMAL) CBC with Differential, Blood (03/07/2024 [...] APRN, C.N.P., D.N.P. LA B BLOOD ADD-ON [facility] [address] [place] [address], [facility] [place] [facility] - [facility] [address] [place] [address] * (ABNORMAL) Basic Metabolic Panel (03/07/2024 4:54 [...] LA Carline BLOOD ADD-ON Performing Organization Address [facility]/ZIP Co de Phone Number [facility] [address] [place] [address], [facility] AUST [facility] [facility] - [facility] [address] [place] [address] * CRP (C-Reactive Protein) (12/31/2023 12:27 AM CDT) C-Reactive Protein (CRP), P 3.9 <5.0 mg/L 12/31/2023 12:51 AM CDT A[facility] Blood (Blood, Venous) 12/31/2023 12:27 AM CDT 12/31/2023 12:32 AM CDT Mamta Zamudio M.D. LAB BLOOD ADD-ON Performing Organization Address City/[facility]/ZIP Co de Phone Number [facility] [address] [place] [address], [facility] - [facility] [address] [place] [address] * Lipase (12/31/2023 12:27 AM CDT) Lipase, P 28 13 - 60 U/L 12/31/2023 12:51 AM CDT [facility] Blood (Blood, Venous) 12/31/2023 12:27 AM CDT 12/31/2023 12:32 AM CDT Mamta Zamudio M.D. LAB BLOOD ADD-ON [facility] [address] [place] [address], [facility] - [facility] [address] [place] [address] * Comprehensive Metabolic Panel (12/31/2023 12:27 AM [...] CDT Mamta Zamudio M.D. LAB BLOOD ADD-ON [facility] [address] [place] [address], [facility] - [facility] [address] [place] [address] from Last 3 Months or Most Recently Relevant to Health Maintenance Advance Directives For more information, please contact: [phone] * Full Code (Latest Code Status on [...] Due to: Not medically appropriate Care Teams Tower Equipment Installer Relationship Specialty Start Date End Date Parul Cameron APRN, C.N.P., D.N.P. [address] [place] [phone] PCP - General 11/29/23
--- OUTSIDE RECORDS SUMMARY | 2024-04-01 00:05 | XMS_ITS | Referral Summary ---
Author Organization [facility] Address [address] [place] [address] Care Team Providers Care Molder Helper Name Role Phone Unavailable Primary Care Provider [...]
--- OUTSIDE RECORDS SUMMARY | 2024-04-01 00:05 | XMS_ITS | Encounter Summary ---
Author Organization [facility] Address [address] [place] [address] Care Team Providers Care Iron Caster Name Role Phone Parul Cameron APRN, C.N.P., D.N.P. Primary Care Provider Encounter Details Date Type Department Care Team (Late st Contact Info) Description 03/14/2024 Orders Only [facility] PCP [facility] MNT Parul Cameron APRN, C.N.P., D.N.P. [address] [place] [phone] Screening Lipid Social History Tobacco [...] often do you attend chur ch or restorationist services? Never 11/19/2022 Do you belong to any clubs o r organizations such as moravian groups, unions, fraternal or athletic groups, or [...] PHQ-2 Score 0 [facility]/2023 [facility] Answer Date [...] place to sleep or slept in a assisted (including now)? No 11/19/2022 Depression Answer Date [...] Sex Assigned at Male 07/09/2017 9:27 AM NUCLEAR SPECTROSCOPIST Gender Identity Male 07/09/2017 9:27 AM NUCLEAR SPECTROSCOPIST Sexual Orientation Straight 07/09/2017 9: 27 AM NUCLEAR SPECTROSCOPIST documented as of this encounter Plan of Treatment Not on file documented as of this encounter Visit Diagnoses Diagnosis Screening Lipid documented in this encounter Additional Health Concerns Assessment Noted Time PHQ-9 Depression Total Score: 1 01/28/20 23 1:59 PM CDT documented as of this encounter Care Teams Iron Caster Relationship Specialty Start Date End Date Parul Cameron APRN, C.N.P., D.N.P. [address] [place] [address] [place] [phone] PCP - General 11/29/23 documented as of this encounter
--- OUTSIDE RECORDS SUMMARY | 2024-04-01 00:06 | XMS_ITS | Encounter Summary ---
Author Organization [facility] Address [address] [place] [address] Care Team Providers Care Riveting Machine Operator Name Role Phone Parul Cameron APRN, [...] CDT - 03/07/2024 6:11 PM CDT Emergency [facility] [address] [place] [phone] Shanel Arguelles APRN, C.N.P., D.N.P. [address] [place] [phone] Pain Back Lumbar (Primary Dx); Pain Low [...] often do you attend chur ch or yazidism services? Never 11/19/2022 Do you belong to any clubs o r organizations such as temple groups, unions, fraternal or athletic groups, or [...] Answer Date Recorded PHQ-2 Score 0 01/27/2023 [facility] of Occupat ional Health - Occupational Stress [...] Sex Assigned at Male 07/09/2017 9:27 AM MONORAIL OPERATOR Gender Identity Male 07/09/2017 9:27 AM MONORAIL OPERATOR Sexual Orientation Straight 07/09/2017 9: 27 AM MONORAIL OPERATOR documented as of this encounter Last [...] Body Mass Index 26.04 06/25/2023 6:55 AM MONORAIL OPERATOR documented in this encounter Discharge Instructions [...] Care Everywhere. * Acute Back Pain Adult (Japanese) documented in this encounter Medications at Time [...] at the spine clinic [facility] in the [facility]. He has had several steroid injections to [...] oral Norflex. He may continue to take ncoo-zyt-mzybvja ibuprofen 800 mg every 6-8 hours as needed for pain. In addition, he can use Aspercreme patches or Voltaren gel. Strict return precautions were discussed. I personally performed the substantive portion of this service which was medical decision-making. Pertinent MDM details included below. Refer to the COAGULANT DIPPER/PA's note for additional details. I have reviewed and agree with the documentation by the SHANE student including Past Medical Family Social History and Review of Systems. ED Course as of 03/08/24 0900 WedMar 07, [address] Abdomen Pelvis with IV Contrast Final Diagnoses: as of 03/08/24 0900 Pain Back Lumbar Pain Low Back Chronic Cyst Renal Radiculopathy Shanel Arguelles APRN, Eryn.N.P., D.N.P. 03/08/24 0900 Shanel Arguelles APRN, Eryn.N.PNatalie, D.N.P. 03/10/24 1046 * Mohinder Escalona, Gideon., P.A. - 03/07/2024 3:42 PM CDT SUBJECTIVE CHIEF COMPLAINT/REASON FOR VISIT Back Pain (Pt presents with chronic lt buttock/hip pain that is much worse today and noting decreased function of lt leg. 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 male [...] acute abdominal pelvic findings on CT imaging. 1752 Leukocyte Esterase: Negative Urinalysis negative 1752 Nitrite, U: Negative 1753 Potassium, P: 3.7 [...] day of incubation. 03/09/2024 8:41 AM CDT [facility] Urine (Urine, Midstream) 03/07/2024 5:09 PM CDT 03/08/2024 12:02 AM CDT Comment:Specimen Source Site : Urine Shanel Arguelles APRN, C.N.P., D.N.P. [place] MICROBIOLOGY - GENERAL ORDERABLES [facility] [place] [address], [place] MKTO [facility] [place] [address] [place] [address] * Urinalysis with Microscopic if Indicated (03/07/2024 [...] 8.0 03/07/2024 5:20 PM CDT [facility] Specific [place] 1.006 1.001 - 1.035 03/07/2024 5:20 PM CDT [facility] Urobilinogen 0.2 0.2 - 1.0 mg/dL 03/07/2024 5:20 PM CDT [facility] Urine (Urine, Midstream) 03/07/2024 5:09 PM CDT 03/07/2024 5:14 PM CDT Shanel Arguelles APRN, C.N.P., D.N.P. LA B URINE ORDERABLES [facility] [address] [place] [address], [place] AUST [facility] [address] [place] [address] * Lactate (03/07/2024 4:55 PM CDT) Pathologist [facility] Lactate, P 1.5 0.5 - 2.2 mmol/L 03/07/2024 5:12 PM CDT [facility] Blood (Blood, Venous) 03/07/2024 4:55 PM CDT 03/07/2024 4:57 PM CDT Shanel Arguelles APRN, C.N.P., D.N.PNatalie LA B BLOOD NON ADD-ON [facility] [address] [place] [address], [facility] AUST [facility] [address] [place] [address] * (ABNORMAL) Basic Metabolic Panel (03/07/2024 4:54 [...] Arguelles APRN, C.N.P., Lakshmi RICHTER BLOOD ADD-ON [facility] [address] [place] [address], [facility] AUST [facility] [address] [place] [address] * (ABNORMAL) CBC with Differential, Blood (03/07/2024 [...] PM CDT 03/07/2024 4:57 PM CDT Shanel Guajardoted CHAN, C.N.P., Lakshmi RICHTER BLOOD ADD-ON [facility] [address] [place] [address], [facility] AUST [facility] [address] [place] [address] documented in this encounter Visit Diagnoses Diagnosis [...] 1635 (Given - Provid er: Pavithra Martins RMarie.) lidocaine 5 % 1 patch (Lidoderm) 1 patch, transdermal, Administer over 12 Hours, Once, On Wed03/07/24 at 1635, For 1 dose, Remove after 12 hours. 1652 (Medication Shane lied - Provider: Pavithra Martins RJorge)1811 (Due: Medication Removed - Provider: Discharge Provider, [...] 1 dose 1716 (Given - Provid er: Renae Maria RJackie(R)(CT), R.T.(R)) sodium chloride 0.9 % flush 1-250 mL (COMPLETED) 1-250 mL, intravenous, Once in imaging, line care, Starting on Wed03/07/24 at 1712, For 1 dose 1715 (Given - Provid er: Isaac Sims(Melissa)(CT), R.T.(R)) sodium chloride 0.9 % injection 10 mL 10 mL, intravenous, As needed, line care, Starting on Wed03/07/24 at 1712 1700 (Given - Provid er: Pavithra Martins R.N.)1715 (Given - Provider: Isaac Sims(Melissa)(CT), R.T.(R)) documented in this encounter Additional Health Concerns Assessment Noted Time PHQ-9 Depression Total Score: 1 01/28/20 23 1:59 PM CDT documented as of this encounter Care Teams Riveting Machine Operator Relationship Specialty Start Date End Date Parul Cameron APRN, C.N.P., D.N.P. [address] [place] [phone] PCP - General 11/29/23 documented as of this encounter
--- OUTSIDE RECORDS SUMMARY | 2024-04-01 00:06 | XMS_ITS | Encounter Summary ---
Author Organization [facility] Address [address] [place] [address] Care Team Providers Care Manager Winter Name Role Phone Parul Cameron APRN C.N.P., D.N.P. Primary Care Provider Reason for Referral * Medication Prior Authorization - Closed Specialty Diagnoses / Procedures Referred By Contac t Referred To Contact Romy Johnson P.A.-C., P.A. [address] [place] [phone] Referral ID Status Reason Start Date Expiration Date Visits Re quested Visits Authorized [id number] Closed 1 1 Reason for Visit * Reason Comments Back Pain Presents with chroni c left low back pain rated 7/10, worsening today as he ran out of his medications yesterday morning. Encounter Details Date Type Department Care Team (Late Contact Info) Description 01/03/2024 1:05 PM CDT - 01/03/2024 2:06 PM CDT Emergency [facility] [address] [place] [phone] Romy [...] often do you attend chur ch or rastafari services? Never 11/19/2022 Do you belong to any clubs o r organizations such as alevism groups, unions, fraternal or athletic groups, or [...] Answer Date Recorded PHQ-2 Score 0 01/27/2023 [facility] of Occupat ional Health - Occupational [...] Sex Assigned at Male 07/09/2017 9:27 AM AGILE BUSINESS ANALYST Gender Identity Male 07/09/2017 9:27 AM AGILE BUSINESS ANALYST Sexual Orientation Straight 07/09/2017 9: 27 AM AGILE BUSINESS ANALYST documented as of this encounter Last Filed [...] Body Mass Index 27.11 06/25/2023 6:55 AM AGILE BUSINESS ANALYST documented in this encounter Discharge Instructions * Discharge Instructions* Romy Johnson P.A.-C., P.A. - 01/03/2024 1:52 PM CDT - I have filled for [place] to [facility], this is a short course, reach out to your primary care for a fill tomorrow. - Return if you develop bowel incontinence, urinary retention, increased weakness, inability to walk, or any other new or worsening symptoms. * Attachments The following attachments cannot be sent through Care Everywhere. 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 He is on [place], and takes Ibuprofen, medical marijuana, does the [...] could get a small fill of his [place] until they can fully refill it tomorrow. [...] majority of his last fills for his [place] have been from one provider, he is [...] documented as of this encounter Care Teams Manager Winter Relationship Specialty Start Date End Date Parul Cameron APRN, C.N.P., D.N.P. [address] [place] [phone] PCP - General 11/29/23 documented as of this encounter
--- OUTSIDE RECORDS SUMMARY | 2024-04-01 00:06 | XMS_ITS | Encounter Summary ---
Author Organization [facility] Address [address] [place] [address] Care Team Providers Care Key Account Coordinator Name Role Phone Parul Cameron APRN, C.N.P., [...] CDT - 12/31/2023 2:25 AM CDT Emergency [facility] [address] [place] [phone] Mamta Zamudio M.D. [address] [place] [phone] Abdominal Pain (Primary Dx); Pain Back Lumbar [...] week 11/19/2022 How often do you attend [facility] or pentecostal services? Never 11/19/2022 Do you belong to [...] Answer Date Recorded PHQ-2 Score 0 01/27/2023 [facility] of Occupat ional Health - Occupational Stress [...] Sex Assigned at Male 07/09/2017 9:27 AM TOOL AND DIE MAKER Gender Identity Male 07/09/2017 9:27 AM TOOL AND DIE MAKER Sexual Orientation Straight 07/09/2017 9: 27 AM TOOL AND DIE MAKER documented as of this encounter Last [...] Body Mass Index 26.71 06/25/2023 6:55 AM TOOL AND DIE MAKER documented in this encounter Discharge Instructions [...] tingling in the legs. Does follow in [place] [facility] about his low back pain He was seen in ER about a month ago was instructed to get Tylenol , ibuprofen and lidocaine patch and follow up with his physician. 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 Advised to follow up in clinic [...] contrast the 2022, CT abdomen/pelvis with IV xfnnekgn58/8/2022. FINDINGS: Postoperative changes of partial colectomy. Moderate [...] CTevidence of acute pancreatitis. Mamta Zamudio M.D. [facility] PROCEDURES * Lipase (12/31/2023 12:27 AM CDT) Lipase, P 28 13 - 60 U/L 12/31/2023 12:51 AM CDT [facility] Blood (Blood, Venous) 12/31/2023 12:27 AM CDT 12/31/2023 12:32 AM CDT Mamta Zamudio M.D. LAB BLOOD ADD-ON [facility] [address] [place] [address], [facility] - [facility] [address] [place] [address] * Lactate (12/31/2023 12:27 AM CDT) Pathologist [facility] Lactate, P 1.2 0.5 - 2.2 mmol/L 12/31/2023 12:47 AM CDT [facility] Blood (Blood, Venous) 12/31/2023 12:27 AM CDT 12/31/2023 12:32 AM CDT Mamta Zamudio M.D. LAB BLOOD NON ADD-ON Performing Organization Address City/[facility]/ZIP Co de Phone Number [facility] [address] [place] [address], [facility] - [facility] [address] [place] [address] * CRP (C-Reactive Protein) (12/31/2023 12:27 AM CDT) Pathologist [facility] C-Reactive Protein (CRP), P 3.9 <5.0 mg/L 12/31/2023 12:51 AM CDT [facility] Blood (Blood, Venous) 12/31/2023 12:27 AM CDT 12/31/2023 12:32 AM CDT Mamta Zamudio M.D. LAB BLOOD ADD-ON [facility] [address] [place] [address], [facility] - [facility] [address] [place] [address] * Comprehensive Metabolic Panel (12/31/2023 12:27 AM [...] CDT Mamta Zamudio M.D. LAB BLOOD ADD-ON [facility] [address] [place] [address], [facility] AUST [facility] - [facility] [address] [place] [address] * (ABNORMAL) CBC with Differential, Blood (12/31/2023 [...] CDT Mamta Zamudio M.D. LAB BLOOD ADD-ON [facility] [address] [place] [address], [facility] [address] [place] [address] documented in this encounter Visit Diagnoses Diagnosis [...] documented as of this encounter Care Teams Key Account Coordinator Relationship Specialty Start Date End Date Parul Cameron APRN, C.N.P., D.N.P. [address] [place] [phone] PCP - General 11/29/23 documented as of this encounter
--- OUTSIDE RECORDS SUMMARY | 2024-04-01 00:06 | XMS_ITS | Clinical Summary ---
Author Organization [facility] Address [place], [place] [address] Care Team Providers Care Specimen Technician Name Role Phone Clinic, No Pcp Or [...] Influenza for age 50-64 04/09/2024 Care Teams Specimen Technician Relationship Specialty Start Date End Date Clinic, No Pcp Or . PCP - General 09/19/17
== END 2024-04-01 00:35 | disposition home or self-care (01) ==
LOC: ED 04-01 00:02
PROVIDERS: Emergency Provider Emergency Medicine Emergency Medical Services; PCP Internal Medicine
DX: R51.9 Headache, unspecified (principal); H93.13 Tinnitus, bilateral
CPT/HCPCS: 97110; 97112; 97140; 97163; 97530; 99283; 99284; A9270; J1100

== ENCOUNTER 2024-05-01 10:00 | Outpatient (RCR) | payer BC, SELFPAY ==
--- NOTE | 2024-03-24 13:30 | PT.OPEX ---
[facility] Eval Start: 03/24/24 08:15 Freq: Status: Active Protocol: Document 03/24/24 08:16 CRP (Rec: 03/24/24 13:25 CRP [id number]) E-signed By Armand Peres PT Physical Therapy Outpatient Evaluation Insurance Information Recert Due Date 06/22/24 Insurance Name Medicaid,Blue Cross/[employer] Medical Diagnosis Lumbar radiculitis Lumbar radiculopathy Referring MD Dr Liz Subjective Subjective Jun 2022 started having L lower lumbar spine pain and pain that travels down the glute into the back of the L thigh to the knee. Pain is constant from low back into the L LE. No positions generally will help. Will have times of tingling into the L LE all the way down to the foot. Pt did try a run of PT down in [place], [place]. Was 6 weeks trying to work on lumbar extension strengthening. Does try to work on trunk ROM stretching multiple times per day. Had surgery for diverticulitis 9 months. 12-16 inch abdominal incision. This was his second abdominal surgery. Current Work Status Unemployed Occupation Working on going on to disability Objective Other/Pertinent Objective Posture: Shows signs of flexed posture at L4-S1 Trunk ROM FLex min dec - moves first and most at lower lumbar spine. Ext mane dec with pain, R SB min dec, L SB mane dec with pain. R rot mod dec with L LBP, L rot mod/mane dec with L LBP Bilat hip ROM - flex past 90 degrees = painful SLR: L + at 40 deg Segmental testing: Unable to test L4-S1 secondary to mane pain at a grade 1 Functional Test Performed & Score Oswestry: 62 Assessment Assessment/Impression Pt presents to the clinic with nearly 2 years of constant L LBP and L LE pain. Pts signs and sxs are consistent with disc related disorders and severe adverse neurodynamics. More specifically, the pt shows a lower lumbar spine overloaded flexion pattern without the ability to use functional extension, poor lumbopelvic motor control, loss of trunk ROM, loss of bilat hip ROM and severe nerve mobility dysfunction. Skilled PT is necessary to incorporate ther ex, nm lani, ther act, manual therapy and pt education to decrease pain and improve functional mobility. 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 Pt will be independent with HEP in 8 weeks. 2. Pt will walk for exer x 30 min with 75% decrease in pain in 12 weeks. 3. 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 Treatment Plan/Direct Interventions Joint Mobilization,Manual Therapy,Neuromuscular Re-ed, Self-Care/Home Management, Therapeutic Activities, Therapeutic Exercises Frequency/Duration 1-2x/wk for 12 weeks Patient Will Be Discharged From Therapy Completion of LTG(s),Skills Plateau,Independent w/HEP, Independently Progressing Evaluation Billing Untimed Code Treatment Minutes 45 Complexity High Certification Information Initial Certification Date 03/24/24 Ending Certification Date 06/22/24 Provider Signature Required Yes Provider Signature Shows Agreement With POC & Medical Necessity Physician NPI Number Write NPI# Here Physician Comment/Change : Physician Signature & Date Requested Please Sign/Date Here
== END 2024-05-01 10:51 | disposition home or self-care (01) ==
PROVIDERS: PCP Internal Medicine; Visit Provider Family Medicine
DX: M54.16 Radiculopathy, lumbar region (principal); Z51.89 Encounter for other specified aftercare
CPT/HCPCS: 97110; 97112; 97140; 97163; 97530

== ENCOUNTER 2024-12-05 20:12 | Emergency (ER) | payer BC, SELFPAY ==
--- OUTSIDE RECORDS SUMMARY | 2024-12-05 20:14 | XMS_ITS ---
Author Organization [facility] Address [address] [place] [address] [address] [place] [address] Care Team Providers Care Gasket Supervisor Name Role Phone Ziggy BEST, Gonzalo Primary Care Provider Maritza Ramachandran Unavailable [phone] Zeeshan Will MD Unavailable Unavailable Hong Le Unavailable [phone] Allergies No Known Allergies REASON FOR VISIT Headaches, Neck pain, Low back pain, Left hip pain Medications Medication SIG (Take, Route, Fr equency, Duration) Notes Start Date End Date Status Gabapentin 300 MG TAKE 2 CAPSULES BY M OUTH THREE TIMES DAILY Oral for 15 Days Act randal CeleBREX 200 MG 1 capsule with food Orally Once a day Active Medical Cannabis Act randal oxyCODONE HCl 5 MG 1 capsule as needed Orally up to three times a day Active Social History Tobacco Use: [...] interested in quitting? Thinking about q uitting AUDIT-C (Standard) Question Answer Notes Did you have a drink containing alcohol in the p ast year? No Points 0 Interpretation Negative Vital Signs Blood pressure systolic 126 mm Hg 11/28/19 25 Blood pressure diastolic 84 mm Hg 025 Height 77 in 11/27/2024 Weight 228 lbs 11/27/2024 BMI 27.03 kg/m2 11/27/2024 Procedures Procedure Date Ordered Date Performed Result Body Sit e Intervention: 11/27/2024 SANAW Ok to schedule @ B V w/ JSW Intervention: 2 11/27/2024 JSW BV Ok to schedule @ BV w/ JSW Encounters Encounter Location Date Provider Diagnosis [facility] [id number] [facility] [address] [place] [address] 11/27/2024 Hong Le Radiculopathy, cervical region M54.12 ; Radiculopathy, lumbar region M54.16 and Other chronic pain G89.29 Assessments Encounter Date Diagnosis (ICD Code) Assessment Notes Treatment Notes Treatment Clinical Notes Section Notes 11/27/2024 Radiculopathy , cervical region (ICD-10 - M54.12) 11/27/2024 Radiculopathy , lumbar region (ICD-10 - M54.16) 11/27/2024 Other chronic pain (ICD-10 - G89.29) Wei presents to the clinic for an evaluation regarding his chronic neck pain, low back pain, left hip pain, and headaches. I have reviewed his symptoms and current medications. Wei completed cervical and lumbar MRIs on 11/22/2024. I have reviewed this imaging with him today using spinal models and diagrams. Based upon this imaging, my physical examination, and his clinical presentation, I have recommended that Wei proceed with a C5-6 SYLVIE and bilateral L5-S1 TFE. I discussed these procedures with the patient, outlining the potential risks and benefits in detail and answering all questions to patient's satisfaction. Following this discussion, Wei expressed interest in proceeding and I have placed an order for the aforementioned procedure accordingly. Regarding medications, I have checked the [facility] database and I did not find any inconsistencies. This treatment plan was reviewed with the patient, and he was agreeable. He will return for further evaluation as needed. I will continue to monitor his progress, adjusting his treatment plan as necessary. Plan: 1. Review Lumbar MRI 2. Order bilateral L5-S1 TFE 3. Review cervical MRI 4. Order C5-6 SYLVIE 5. Proceed with SIJ injection 6. Follow-up as needed Discharge instructions reviewed verbally. Discussed the risks/benefits of prescribed medication. The patient was instructed to return to the office as scheduled and call with any questions, problems or concerns. Cervical MRI (Rayus)Exam Date: 5CONCLU CRISTOFER: Multilevel cervical spondylosis with the following notable findings:1. At least moderate to severe foraminal stenosis left C3-4, right C4-5, bilateral C5-6, left C6-7, right C7-T1.2. C7-T1 right-sided protrusion/osteo phyte contributes to right foraminal stenosis.3. Moderate to severe disc degeneration C5-6, C6-7.4. Chronic mild C5-C7 compression deformities. No acute fracture. Lumbar MRI (Rayus)Exam Date: 5CONCLU CRISTOFER:1. L5-S1 mild disc bulge and mild foraminal stenosis.2. Multilevel facet degeneration most advanced at L4-5.3. No acute fracture, infection, or neoplasm. 11/27/2024 Other I, Mitchel Santiago, am serving as a scribe to document [...] the decisions made during the clinic visit. Plan Of Treatment Treatment Notes Assessment Notes Other chronic pain Wei presents to the clinic for an evaluation regarding his chronic neck pain, low back pain, left hip pain, and headaches. I have reviewed his symptoms and current medications. Wei completed cervical and lumbar MRIs on 11/22/2024. I have reviewed this imaging with him today using spinal models and diagrams. Based upon this imaging, my physical examination, and his clinical presentation, I have recommended that Wei proceed with a C5-6 SYLVIE and bilateral L5-S1 TFE. I discussed these procedures with the patient, outlining the potential risks and benefits in detail and answering all questions to patient's satisfaction. Following this discussion, Wei expressed interest in proceeding and I have placed an order for the aforementioned procedure accordingly. Regarding medications, I have checked the [facility] database and I did not find any inconsistencies. This treatment plan was reviewed with the patient, and he was agreeable. He will return for further evaluation as needed. I will continue to monitor his progress, adjusting his treatment plan as necessary. Plan: 1. Review Lumbar MRI 2. Order bilateral L5-S1 TFE 3. Review cervical MRI 4. Order C5-6 SYLVIE 5. Proceed with SIJ injection 6. Follow-up as needed Discharge instructions reviewed verbally. Discussed the risks/benefits of prescribed medication. The patient was instructed to return to the office as scheduled and call with any questions, problems or concerns. Other Carmien, Mitchel Santiago, am serving as a scribe to document [...] the decisions made during the clinic visit. Pending Test Test Name Order Date Intervention: 11/27/2024 Intervention: 2 11/27/2024 Next Appt Details Follow Up: prn, Reason: Procedure Notes * Category Sub-Category Detail Notes JUANPABLO Initial M Initial JUANPABLO Indications Injection Ordere d:: Bilateral L5-S1 TFE JUANPABLO for same area within past 12 months? :: No Patient has a diagnosis of:: Radiculopathy, Radicular Pain Supporting imaging findings: : Disc herniation, Foraminal and/or central stenosis The patient's quality of lif e and/or function is affected:: Yes How is their quality of life or function affected?:: _ Sleeping, washing, dressing, walking, standing. Has the pain duration been at least 4 we eks?: Yes Conservative Care Details:: 4 weeks of conservative care with ongoing pain JUANPABLO Repeat M Repeat JUANPABLO Indications Injection Ordered: : C5-6 SYLVIE Repeat JUANPABLO within 12 months of last JUANPABLO? :: Yes Patient Diagnosis:: Radiculopathy Date of last JUANPABLO to this region:: 03/29/2024 How many ESIs to this region were performed in the last 12 months:: 1 Supporting imaging findings:: Disc herniation, Foraminal and/or central stenosis Clinical Severity: recurrence of pain impacts quality of life, recurrence of pain impacts function, Additional Details: Sleeping, washing, dressing, walking, standing. Did the last JUANPABLO provide at least 50% relief of pain or function for 3 or more months?: Yes Baseline Scale Used:: VAS Baseline VAS (0-10) Score - Prior to last JUANPABLO:: 10 Average VAS over 3 months - POST last JUANPABLO: 8 Percent improvement sustained over 3 months:: 50 Have repeat ESIs continued f or more than 12 months?: Yes Rationale:: Patient does not desire surgery Primary Care:: The patient's primary care provider has been notified of prolonged repeat steroid use Progress Notes * Angel DUNLAP WDOB:1975 (49 yo M)Acc No.[id number]:11/27/2024 Progress Notes Patient: Angel TORRES W Provider: Amos Le PA-C :1975 A ge:49 Y S ex:Male Date:11/27/2024 Phone: Address:[address] [place] [address], [address], [facility] Pcp:Gonzalo Trinh MD Subjective: * Chief Complaints: * H eadachesNeck painLow back painLeft hip pain * HPI: C linic visit: Angel (Wei) is a 49-year-old male who returns to clinic today for a follow-up evaluation regarding his chronic neck, low back and left hip pain, as well as headaches. Interval History: Wei is scheduled for a bilateral therapeutic SI joint injection on 11/30/2024. Of note, Wei presents with cervical and lumbar MRIs dated 11/22/2024 from [facility]; see impressions below. He is not a lumbar surgical candidate per Spine. Procedures performed to date have included: - 08/31/2024 Repeat left GTB injection: 75% ongoing relief - 08/04/2025 Bilateral SIJ injections 75% relief for 3 months - 03/29/2024 C5-6 SYLVIE 50% relief for 6 months - 01/19/2024 C6-7 SYLVIE with catheter to C4 - 10/18/2023 LT L5-S1, S1 TFE: 75% relief - 08/30/2023 Left superior CNB: 75% relief for 3 weeks - 06/25/2023 thoracic epidural ([facility]) - 11/06/2022 Right L4-S1 RFA: 6 weeks of relief - 08/26/2022 Bilateral L4-S1 FJI: 1 month of relief Previous Therapy: He completed PT at [facility] from December-January 2023 without relief. He has tried chiropractic without relief as well. He was referred to [facility] though there is no convenient location for him. Current Pain Medications: Oxycodone 5mg TID (through outside provider), Gabapentin 600mg TID, medical cannabis Of note, Angel is a regular smoker. He has quit smoking for a few weeks at a time in the past. 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 P QRS MEASURE: 154,155 Fall Risk H ave you had two or more falls in the past year? N o, H ave you had any falls with injury in the past year? N o, P elvira of Care: D ocumented. D epression Screening: PHQ-9 L ittle interest or pleasure in doing things N ot at all, F eeling down, depressed, or hopeless N ot at all, T rouble falling or staying asleep, or sleeping too much S everal , F eeling tired or having little energy S everal , P oor appetite or overeating N ot at all, F eeling bad about yourself or that you are a failure, or have let yourself or your family down N ot at all, T rouble concentrating on things, such as reading the newspaper or watching television S ever, M oving or speaking so slowly that other people could have noticed; or the opposite, being so fidgety or restless that you have been moving around a lot more than usual S everal , T houghts that you would be better off or of hurting yourself in some way N ot at all, T otal Score 4 , I nterpretation M inimal Depression. I ntervention D epression Screening Findings N egative, N jj of the standardized tool used for adult depression screening: P atient Health Questionnaire (PHQ-9). * ROS: G eneral/Constitutional: Chills/Fevers N o. F atigue N o. W eight gain?No. W eight loss N o. E ndocrine: Dizziness Y es. E xcessive sweating N o. W eakness Y es. R espiratory: Chest pain N o. C ough N o. S hortness of breath at rest N o. G astrointestinal: Abdominal pain N o. B lood in stool N o. C onstipation N o. D iarrhea N o. H ematology: Easy bruising N o. P rolonged bleeding N o. S wollen glands N o. M usculoskeletal: Painful joints Y es. S wollen joints N o. ? S kin: Skin lesion(s) N o. N eurologic: Balance difficulty N o. H eadache Y es. T ingling/Numbness Y es. P sychiatric: Alcoholism N o. A nxiety N o. S ubstance abuse?No. * Medical History: * Surgical History: D enies Past Surgical History * Hospitalization/Major Diagno stic Procedure: D enies Past Hospitalization * Family History: F ather: . M other: alive. * Social History: T obacco Use: T obacco Use/Smoking A re you a c urrent smoker, H ow often do you smoke cigarettes? e very day, H ow many cigarettes a day do you smoke? 6 -10, H ow soon after you wake up do you smoke your first cigarette? w ithin 5 minutes, A re you interested in quitting? T hinking about quitting. M iscellaneous: M arital status: . D rug/Alcohol: A JAMIE-C (Standard) D id you have a drink containing alcohol in the past year? N o,?Points 0 , I nterpretation N egative. * Medications: T akingoxyCODONE HCl 5 MG Capsule 1 capsule as needed Orally up to three times a day CeleBREX 200 MG Capsule 1 capsule with food Orally Once a day Medical Cannabis Gabapentin 300 MG Capsule TAKE 2 CAPSULES BY MOUTH THREE TIMES DAILY Oral Medication List reviewed and reconciled with the patientTaking oxyCODONE HCl 5 MG Capsule 1 capsule as needed Orally up to three times a day Taking CeleBREX 200 MG Capsule 1 capsule with food Orally Once a day Taking Medical Cannabis Taking Gabapentin 300 MG Capsule TAKE 2 CAPSULES BY MOUTH THREE TIMES DAILY Oral Medication List reviewed and reconciled with the patient * Allergies: N .K.D.A.no[Allergies Verified] Objective: * Vitals: H t: 77 in, Wt:228lbs, BMI:27.03, BP:126/84mm Hg, VAS-Today:81-10, VAS-Av 1- 10, VAS-High: 10 1-10. * Examination: M usculoskeletal: Constitutional: O verweight body habitus, well groomed, in no acute distress. Musculoskeletal: n ormal gait and station, sits comfortably. Skin: N o rashes, scars, or lesions on visible skin.. Neurological n ormal coordination upper extremities, normal coordination lower extremities, alert and oriented x3, normal mood and affect. ? Assessment: * Assessment: 1. R adiculopathy, cervical region - M54.12 (Primary) 2 . R adiculopathy, lumbar region - M54.16 3 . O ther chronic pain - G89.29 Plan: * Treatment: 2.?Radiculopathy, lumbar region?Procedure: Intervention: 2* Mitchel Santiago 11/27/2024 09:30:38 AM CDT > Bilateral L5-S1 TFE. Patient prefers [facility], please call to schedule. 3.?Other chronic pain? Notes: Wei presents to the clinic for an evaluation regarding his chronic neck pain, low back pain,left hip pain, and headaches. I have reviewed his symptoms and current medications. Wei completed cervical and lumbar MRIs on 11/22/2024. I have reviewed this imaging with him today using spinal models and diagrams. Based upon this imaging, my physical examination, and his clinical presentation, I have recommended that Wei proceed with a C5-6 SYLVIE and bilateral L5-S1 TFE. I discussed these procedures with the patient, outlining the potential risks and benefits in detail and answering all questions to patient's satisfaction. Following this discussion, Wei expressed interest in proceeding and Ihave placed an order for the aforementioned procedure accordingly. Regarding medications, I have checked the [facility] database and I did not find any inconsistencies. This treatment plan was reviewed with the patient, and he was agreeable. He will return for furtherevaluation as needed. I will continue to monitor his progress, adjusting his treatment plan as necessary. Plan: 1. Review Lumbar MRI 2. Order bilateral L5-S1 TFE 3. Review cervical MRI 4. Order C5-6 SYLVIE 5. Proceed with SIJ injection 6. Follow-up as needed Discharge instructions reviewed verbally. Discussed the risks/benefits of prescribed medication. The patient was instructed to return to the office as scheduled and call with any questions, problems or concerns.?? Clinical Notes: Cervical MRI (Rayus)Exam Date: 11/22/2024ONCLUSION: Multilevel cervical spondylosis with the following notable findings:1. At least moderate to severe foraminal stenosis left C3-4, right C4-5, bilateral C5-6, left C6-7, right C7-T1.2. C7-T1 right-sided protrusion/osteophyte contributes to right foraminal stenosis.3. Moderate to severe disc degeneration C5-6, C6-7.4. Chronic mild C5-C7 compression deformities. No acute fracture. Lumbar MRI (Rayus)Exam Date: 11/22/2024ONCLUSION:1. L5-S1 mild disc bulge and mild foraminal stenosis.2. Multilevel facet degeneration most advanced at L4- 5.3. No acute fracture, infection, or neoplasm.??4.?Others? Notes: I, Mitchel Santiago, am serving as a scribe to document services personally performed by Hong Le PA-C, based upon my observations and the provider's statements to me. All documentation has been reviewed by the aforementioned MARY. Carmine, Hong Le PA-C, attest that the above named ind nabilaleo is acting in scribe capacity, has observed my performance of the services and has documented them in accordance with my direction. The documentation recorded by the scribe accurately reflectsthe service I personally performed and the decisions made during the clinic visit.?? * Procedures: E SI Initial M: Initial JUANPABLO Indications I njection Ordered: Bilateral L5-S1 TFE, E SI for same area within past 12 months?: N o, P atient has a diagnosis of:?Radiculopathy, Radicular Pain, S upporting imaging findings: D isc herniation, Foraminal and/or central stenosis, T he patient's quality of life and/or function is affected: Y es, H ow is their quality of life or function affected?: _ Sleeping, washing, dressing, walking, standing., H as the pain duration been at least 4 weeks? Y es, C onservative Care Details: 4 weeks of conservative care with ongoing pain. E SI Repeat M: Repeat JUANPABLO Indications I njection Ordered: C5-6 YSLVIE,?Repeat JUANPABLO within 12 months of last JUANPABLO?: Y es, P atient Diagnosis: R adiculopathy, D ate of last JUANPABLO to this region: 0 03/29/2024, H ow many ESIs to this region were performed in the last 12 months: 1 , S upporting imaging findings: D isc herniation, Foraminal and/or central stenosis, C linical Severity r ecurrence of pain impacts quality of life, recurrence of pain impacts function, Additional Details: Sleeping, washing, dressing, walking, standing., D id the last JUANPABLO provide at least 50% relief of pain or function for 3 or more months? Yes, B aseline Scale Used: V , B aseline VAS (0-10) Score - Prior to last JUANPABLO: 1 0, A verage VAS over 3 months - POST last JUANPABLO 8 , P ercent improvement sustained over 3 months: 5 0, H ave repeat ESIs continued for more than 12 months? Y es, R ationale: P atcornell does not desire surgery, P rimary Care: T he patient's primary care provider has been notified of prolonged repeat steroid use. * Procedure Codes: * Preventive Medicine: iSpine Inventory Forms: L ow Back Oswestry O swestry Score (0-100) 5 4,?JALEEL Interpretation 4 0-59 (Severe Disability). Counseling: B WI Care goal follow-up plan: A naila Normal BMI Follow-up L ifestyle education regarding diet Patient declined. * Follow Up: p rn * Billing Information: * Visit Code: [id number] Established Patient level 4. * Procedure Codes: * Sign off status: Completed true * Provider: Amos Le PA-C Date: 0 11/27/2024 Generated for Jerry suarez/Alireza/Cata on: 0 12/05/2024 08:14 PM CDT History and Physical Notes * HPI (History of Present Illness) Category Sub-Category Detail Notes Category Not es Depression Screening PHQ-9 Little inte rest or pleasure in doing things: Not at all Feeling down, depressed, or hopeless: No t at all Trouble falling or staying asleep, or sl eeping too much: Several days Feeling tired or having little energy: S everal days Poor appetite or overeating: Not at all Feeling bad about yourself o r that you are a failure, or have let yourself or your family down: Not at all Trouble concentrating on thi ngs, such as reading the newspaper or watching television: Several days Moving or speaking so slowly that other people could have noticed; or the opposite, being so fidgety or restless that you have been moving around a lot more than usual: Several days Thoughts that you would be b adeola off or of hurting yourself in some way: Not at all Total Score: 4 Interpretation: Minimal Depression Intervention Depression Screening Findings: N egative Name of the standardized too l used for adult depression screening:: Patient Health Questionnaire (PHQ-9) Clinic visit Angel Ulloa) is a 49-year-old male who returns to clinic today for a follow-up evaluation regarding his chronic neck, low back and left hip pain, as well as headaches. Interval History: Wei is scheduled for a bilateral therapeutic SI joint injection on 11/30/2024. Of note, Wei presents with cervical and lumbar MRIs dated 11/22/2024 from [facility]; see impressions below. He is not a lumbar surgical candidate per Spine. Procedures performed to date have included: - 08/31/2024 Repeat left GTB injection: 75% ongoing relief - 08/04/2025 Bilateral SIJ injections 75% relief for 3 months - 03/29/2024 C5-6 SYLVIE 50% relief for 6 months - 01/19/2024 C6-7 SYLVIE with catheter to C4 - 10/18/2023 LT L5-S1, S1 TFE: 75% relief - 08/30/2023 Left superior CNB: 75% relief for 3 weeks - 06/25/2023 thoracic epidural ([facility]) - 11/06/2022 Right L4-S1 RFA: 6 weeks of relief - 08/26/2022 Bilateral L4-S1 FJI: 1 month of relief Previous Therapy: He completed PT at [facility] from December-January 2023 without relief. He has tried chiropractic without relief as well. He was referred to [facility] though there is no convenient location for him. Current Pain Medications: Oxycodone 5mg TID (through outside provider), Gabapentin 600mg TID, medical cannabis Of note, Angel is a regular smoker. He has quit smoking for a few weeks at a time in the past. 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 PQRS MEASURE 154,155 Fall Risk Have you had t wo or more falls in the past year?: No Have you had any falls with injury in th e past year?: No Plan of Care:: Documented Examination Category Sub-Category Detail Notes Category Not es Musculoskeletal Constitutional: Overweight body habitus, well groomed, in no acute distress Musculoskeletal: normal gait and stat ion, sits comfortably Skin: No rashes, scars, or lesions on visible skin. Neurological normal coordination upper extremities, normal coordination lower extremities, alert and oriented x3, normal mood and affect
--- OUTSIDE RECORDS SUMMARY | 2024-12-05 20:14 | XMS_ITS | Clinical Summary ---
Author Organization [facility] Address [address] [place] [address] Care Team Providers Care Fashion Artist Name Role Phone Unavailable Primary Care Provider Unavailabl e Social History Tobacco Use Types Packs/Day Years Used Date Smoking Tobacco: Never Assessed Adolescent Education Answer Date Record ed Getting School Help Needed Not on file 01/02 Sex and Gender Information Value Date Recorded Sex Assigned at Not on file Legal Sex Male 8:47 AM CDT Gender Identity Not on file Sexual Orientation Not on file Plan of Treatment Health Maintenance Due Date Last Done Comments ADVANCE CARE PLANNING 1975 ANNUAL REVIEW OF HM ORDERS 1973 CT COLONOGRAPHY 1975 DIABETES SCREENING 1975 FIT 1975 FLEX SIG 1973 sDNA (Cologuard) 1973 YEARLY PREVENTIVE VISIT 1976 COLONOSCOPY 1983 COLORECTAL CANCER SCREENING 1983 HIV SCREENING 1988 HEPATITIS C SCREENING 1991 HEPATITIS B IMMUNIZATION (1 of 3 - 19+ 3-dose series) 1992 LIPID 2013 Pneumococcal Vaccine: 50+ Years (2 of 2 - PCV) 2023 07/06/2018, 09/08/2016 ZOSTER IMMUNIZATION (1 of 2) 2023 COVID-19 Vaccine (3 - 2023-2 5 season) 2024 06/13/2021, 12/24/2020 INFLUENZA VACCINE (#1) 2024 , 07/06/2018, 09/08/2016 PHQ-2 (once per calendar year) 2024 DTAP/TDAP/TD IMMUNIZATION (3 - Td or Tdap) 02/14/2033 02/14/2023, 01/04/2014 HPV IMMUNIZATION Aged Out No longer e ligible based on patient's age to complete this topic MENINGITIS IMMUNIZATION Aged Out No l onger eligible based on patient's age to complete this topic Insurance [employer] ID [employer] ID
--- OUTSIDE RECORDS SUMMARY | 2024-12-05 20:14 | XMS_ITS | Clinical Summary ---
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 No 11/07/2023 Interpersonal Safety Abuse 12 - 18 Not on file 11/07/2023 Interpersonal Safety Ambulatory Vulnerability No t on file 11/07/2023 Sex and Gender Information Value Date Recorded Sex Assigned at Not on file Legal Sex Male 6:57 AM [employer] Gender Identity Not on file Sexual Orientation Not on file Obstetrics History Last Filed Vital Signs Vital Sign Reading Time Taken Comments Blood Pressure 133/91 11/07/2023 1:17 AM CDT Pulse 92 11/07/2023 1:17 AM CDT Temperature 36.3 C (97.3 F) 11/07/2023 1:17 AM CDT Respiratory Rate 16 11/07/2023 1:17 AM CDT Oxygen Saturation 99% 11/07/2023 1:17 AM CDT Inhaled Oxygen Concentration - - Weight 99.9 kg (220 lb 3.2 oz) 11/07/2023 1:17 A M CDT Height 195.6 cm (6' 5) 11/07/2023 1:17 AM CDT Body Mass Index 26.11 11/07/2023 1:17 AM CDT Plan of Treatment Health Maintenance Due Date Last Done Comments Tdap 1984 Depression screening for age 12+ 1985 HIV for age 15-65 1988 Hepatitis C screening for age 18-79 1991 Tetanus booster 1993 Colonoscopy through age 75 2018 Lipids for age 45-75 2018 Pneumococcal series for age 50+ (1 of 1 - PCV) 2023 Zoster (shingles) series for age 50+ (1 of 2) 2023 BMI (ht and wt on same day) for age 18+ 10/09/2023 0 10/08/2022 COVID-19 vaccine series ( season) 2024 06/13/2021, 12/24/2020 Influenza Vaccine (Season Ended) 2025 Insurance ISMAEL FERRARO [id number] MEDICAID * Guarantor: ESTUARDO RUIZ [employer] Account Type Relation to Patient Date of Phone Billing Address [employer] Employer 08/09/2000 [employer] [facility] ID #[id number] [address] [address] [place] [address] Care Teams Continuous Process Machine Operator Relationship Specialty Start Date End Date Clinic, No Pcp Or . PCP - General 09/19/17
--- OUTSIDE RECORDS SUMMARY | 2024-12-05 20:14 | XMS_ITS | Patient Health Record ---
Author Organization [facility] Address [address] [place] [address] [address] [place] [address] Care Team Providers Care Torch Burner Name Role Phone Ziggy BEST, Gonzalo Primary Care Provider Maritza Ramachandran Unavailable [phone] Suman BEST, Zeeshan Unavailable Unavailable Cleve Shabazz Unavailable [phone] Hong Le Unavailable [phone] Joshua Waddell Unavailable [phone] Sreekanth Worrell Unavailable [phone] Allergies No Known Allergies Results Component Value Reference Range Notes Urine toxicology Reviewed date:11/21/2024 04:05:10 PM Interpretation:SEE RESULTS Performing Lab: Notes/Report: SEE RESULTS Buprenophine 0 MRI : Cervical Spines (Not y et reviewed by provider) Interpretation: Performing Lab: Notes/Report: Original Report EXAM: MRI CERVICAL SPINE WITHOUT CONTRAST CLINICAL INFORMATION: Neck pain, back pain, headaches. TECHNICAL INFORMATION: T1 and T2 FSE and STIR sagittal thin sections through the cervical spine with T2 FSE and GRE axial sections at selected levels. Additional right/left sagittal oblique T2 images through the neural foramina were obtained. INTERPRETATION: Partially visualized intracranial structures appear normal. No Chiari malformation. Normal signal in the cervical spinal cord. Mild lower cervical lordotic reversal. Chronic mild C5-C7 compression deformities. No acute fracture. Moderate to severe disc degeneration at C5-6, C6-7, mild at the other levels. Normal atlantodental and atlantooccipital articulations. Paraspinal soft tissues appear normal. C2-3: No central or foraminal stenosis. C3-4: Mild disc bulge and uncovertebral spurring, normal facet joints. No central stenosis. Moderate right and moderate to severe left foraminal stenosis. C4-5: Mild disc bulge and uncovertebral spurring, mild right facet degeneration. No central stenosis. Moderate to severe right and mild left foraminal stenosis. C5-6: Mild Modic 2 signal, disc bulge and uncovertebral spurring, normal facet joints. No central stenosis. Severe right and moderate to severe left foraminal stenosis. C6-7: Prominent Modic 2 signal, disc bulge and uncovertebral spurring. No central stenosis. Moderate right and severe left foraminal stenosis. C7-T1: Disc bulge and right posterolateral to foraminal 3 mm protrusion and osteophyte. No central stenosis. Moderate to severe right and mild left foraminal stenosis. CONCLUSION: Multilevel cervical spondylosis with the following notable findings: 1. At least moderate to severe foraminal stenosis left C3-4, right C4-5, bilateral C5-6, left C6-7, right C7-T1. 2. C7-T1 right-sided protrusion/osteophyte contributes to right foraminal stenosis. 3. Moderate to severe disc degeneration C5-6, C6-7. 4. Chronic mild C5-C7 compression deformities. No acute fracture. Read by: Nasim Burris M.D. Reviewed and Electronically Signed by: Nasim Burris M.D. - Original Report EXAM: MRI CERVICAL S PINE WITHOUT CONTRAST CLINICAL INFORMATION : Neck pain, back pain, headaches. TECHNICAL INFORMATIO N: T1 and T2 FSE and STIR sagittal thin sections through the cervical spine w ith T2 FSE and GRE axial sections at selected levels. Additional right/lef t sagittal oblique T2 images through the neural foramina were obtained. INTERPRETATION: Part ially visualized intracranial structures appear normal. No Chiari malformation. Normal signal in the cervical spinal cord. Mild lower cervical lordotic re versal. Chronic mild C5-C7 compression deformities. No acute fracture. Mode rate to severe disc degeneration at C5-6, C6-7, mild at the other levels. Normal atlantodental and atlantooccipital articulations. Paraspinal soft tiss ues appear normal. C2-3: No central or foraminal stenosis. C3-4: Mild disc bulg e and uncovertebral spurring, normal facet joints. No central stenosis. Mo derate right and moderate to severe left foraminal stenosis. C4-5: Mild disc bulg e and uncovertebral spurring, mild right facet degeneration. No central stenosis. Moderate to severe right and mild left foraminal stenosis. C5-6: Mild Modic 2 s ignal, disc bulge and uncovertebral spurring, normal facet joints. No central s tenosis. Severe right and moderate to severe left foraminal stenosis. C6-7: Prominent Tito c 2 signal, disc bulge and uncovertebral spurring. No central stenosis. Mo derate right and severe left foraminal stenosis. C7-T1: Disc bulge an d right posterolateral to foraminal 3 mm protrusion and osteophyte. No centr al stenosis. Moderate to severe right and mild left foraminal stenosis. CONCLUSION: Multilev el cervical spondylosis with the following notable findings: 1. At least moderate to severe foraminal stenosis left C3-4, right C4-5, bilateral C5-6, left C6-7, right C7-T1. 2. C7-T1 right-sided protrusion/osteophyte contributes to right foraminal stenosis. 3. Moderate to sever e disc degeneration C5-6, C6-7. 4. Chronic mild C5-C 7 compression deformities. No acute fracture. Read by: Nasim Burris M.D. Reviewed and Electro nically Signed by: Nasim Burris M.D. MRI : Lumbar (Not yet review ed by provider) Interpretation: Performing Lab: Notes/Report: Original Report EXAM: MR LUMBAR SPINE WITHOUT CONTRAST CLINICAL INFORMATION: Low back pain. TECHNICAL INFORMATION: T1, T2 FSE, and STIR sagittal images through the lumbar spine with T1 and T2 FSE axial sections at selected levels. T1 coronal images were also acquired. INTERPRETATION: 5 lumbar levels in lordotic alignment. Conus medullaris terminates at L1 and has normal signal. No evidence of arachnoid disease or abnormal neural development. Partially visualized small right hip joint degeneration. Small proteinaceous cyst in the right kidney lower pole. L5-S1: Mild disc dehydration, minimal facet degeneration. No central stenosis. Mild bilateral foraminal stenosis. L4-5: Moderate bilateral facet degeneration. No central or foraminal stenosis. L3-4: Minimal facet degeneration. No central or foraminal stenosis. L2-3: Mild right facet degeneration. No central or foraminal stenosis. T12-L1, L1-2: No central or foraminal stenosis. CONCLUSION: 1. L5-S1 mild disc bulge and mild foraminal stenosis. 2. Multilevel facet degeneration most advanced at L4-5. 3. No acute fracture, infection, or neoplasm. Read by: Nasim Burris M.D. Reviewed and Electronically Signed by: Nasim Burris M.D. - Original Report EXAM: MR LUMBAR SPIN E WITHOUT CONTRAST CLINICAL INFORMATION : Low back pain. TECHNICAL INFORMATIO N: T1, T2 FSE, and STIR sagittal images through the lumbar spine with T1 and T2 FSE axial sections at selected levels. T1 coronal images were also acquired. INTERPRETATION: 5 shari mbar levels in lordotic alignment. Conus medullaris terminates at L1 and has normal signal. No evidence of arachnoid disease or abnormal neural deve lopment. Partially visualized small right hip joint degeneration. Small proteinaceous cyst in the right kidney lower pole. L5-S1: Mild disc deh ydration, minimal facet degeneration. No central stenosis. Mild bilateral derrek inal stenosis. L4-5: Moderate bilat eral facet degeneration. No central or foraminal stenosis. L3-4: Minimal facet degeneration. No central or foraminal stenosis. L2-3: Mild right fac et degeneration. No central or foraminal stenosis. T12-L1, L1-2: No florida tral or foraminal stenosis. CONCLUSION: 1. L5-S1 mild disc b ulge and mild foraminal stenosis. 2. Multilevel facet degeneration most advanced at L4-5. 3. No acute fracture , infection, or neoplasm. Read by: Nasim Burris M.D. Reviewed and Electro nically Signed by: Nasim Burris M.D. MRI : Pelvis Reviewed date:09/07/2024 12:08:55 PM Interpretation: Performing Lab: Notes/Report: Original Report EXAM: MRI OF THE PELVIS, WITHOUT CONTRAST CLINICAL: Lower left hip/back pain for 1.5-2 years. COMPARISONS: None available. TECHNICAL: Multiplanar multisequence MRI of the pelvis was obtained. SEDATION: None. CONTRAST: None. FINDINGS: Please note that this large vnorw-xh-xpee examination of the pelvis is not optimized [...] head. 2. No additional internal derangement identified. REDDY Read by: Juan David Wilson D.O. Reviewed and Electronically Signed by: Juan David Wilson D.O. - Original Report EXAM: MRI OF THE PEL VIS, WITHOUT CONTRAST CLINICAL: Lower left hip/back pain for 1.5-2 years. COMPARISONS: None available. TECHNICAL: Multiplan ar multisequence MRI of the pelvis was obtained. SEDATION: None. CONTRAST: None. FINDINGS: Please note that thi s large cuaes-jv-cbeo examination of the pelvis is not optimized [...] 2. No additional int ernal derangement identified. REDDY Read by: Juan David wagner D.O. Reviewed and Electro nically Signed by: Juan David Wilson D.O. Reason For Referral Reason Evaluate and treat l ow back/SI pain with pool therapy Call patient at [phone] Fax notes to [phone] Diagnosis 1 Low back pain, unspe cified (M54.50) Diagnosis 2 Sacroiliitis (M46.1) Referral Organization [facility] Referring Provider First Name Maritza Referring Provider Last Name Cristichavo Referring Provider Speciality Pain Medic ine Referred Provider Channing BHATT, Josue Calvillo ea Referred Provider Specialty Physical The rapist General Notes Bambi Aranda 024 08:23:35 AM >Please call the patient to schedule and fax back all notes to [phone]. If you need additional records for this referral, please call [phone]. Thanks! Referral Priority Routine Reason Repeat Mannie SIJ Diagnosis 1 Sacroiliitis (M46.1) Referral Organization [facility] Referring Provider First Name Cleve Referring Provider Last Name Mele Referring Provider Speciality Pain Medic ine Referred Organization [facility] Referred Provider Cleve Shabazz Referred Address [address] [place] [address] [address],[place], [place],[address] Referred Provider Specialty Pain Medicin e Referral Priority Routine Reason Mannie L5-S1 TFE Diagnosis 1 Radiculopathy, lumba r region (M54.16) Referral Organization [facility] Referring Provider First Name Cleve Referring Provider Last Name Mele Referring Provider Speciality Pain Medic ine Referred Organization [facility] Referred Provider Cleve Shabazz Referred Address [address] [place] [address] [address],[place], [place],[address],[place] Referred Provider Specialty Pain Medicin e Referral Priority Routine Reason C5-C6 SYLVIE Diagnosis 1 Radiculopathy, cervi zarina region (M54.12) Referral Organization [facility] Referring Provider First Name Cleve Referring Provider Last Name Mele Referring Provider Speciality Pain Medic ine Referred Organization [facility] Referred Provider Cleve Shabazz Referred Address [address] [place] [address] [address],[place], [place],[address],[place] Referred Provider Specialty Pain Medicin e Referral Priority Routine Medications Medication SIG (Take, Route, Fr equency, [...] ast year? No Points 0 Interpretation Negative AUDIT-C (Standard) Question Answer Notes Did you have a drink containing alcohol in the p ast year? No Points 0 Interpretation Negative Problems Problem Type SNOMED Code ICD Code Onset Dates Problem Status W/U Status Risk Notes Problem Mononeuropathy (772692369) Mononeuropathy, unspecified (G58.9) Active confirmed Problem Chronic pain (00524579) Other chronic pain (G89.29) Active confirmed Problem Solitary sacroiliitis (371456324) Sacroiliitis, not elsewhere classified (M46.1) Active confirmed Problem Cervical radiculopathy (72044084) Radiculopathy, cervical region (M54.12) Active confirmed Problem Lumbar radiculopathy (694405717) Radiculopathy, lumbar region (M54.16) Active confirmed Problem Pain in thoracic spine (752695400) Pain in thoracic spine (M54.6) Active confirmed Problem Trochanteric bursitis of left hip (424811491877125) Trochanteric bursitis, left hip (M70.62) Active confirmed Problem Weakness (94864361) Weakness (R53.1) Active confirmed Problem Cervicalgia (07941216) Cervicalgia (M54.2) Active confirmed Problem Lumbosacral radiculopathy (8563761) Radiculopathy, lumbosacral region (M54.17) Active confirmed Problem Low back pain (709138457) Low back pain, unspecified (M54.50) Active confirmed Problem Solitary sacroiliitis (948746231) Sacroiliitis (M46.1) Active confirmed Problem Lumbosacral radiculopathy (4177504) Radiculopathy of lumbosacral region (M54.17) Active confirmed Vital Signs Blood pressure diastolic 84 mm Hg 11/27/2024 Height 77 in 11/27/2024 Blood pressure systolic 126 mm Hg 11/27/2024 Weight 228 lbs 11/27/2024 BMI 27.03 kg/m2 11/27/2024 Encounters Encounter Location Date Provider Diagnosis [facility] [address] [place] [address] [address] [place] [address] 12/13/2023 Rano Faltas [facility] [address] [place] [address] 12/23/2023 Rano Faltas [facility] [address] [place] [address] 12/30/2023 Rano Faltas [facility] [address] [place] [address] 01/04/2024 Rano Faltas [facility] [address] [place] [address] [address] [place] [address] 01/20/2024 Rano Faltas [facility] [address] [place] [address] 01/24/2024 Rano Faltas [facility] [address] [place] [address] [address] [place] [address] 02/07/2024 Rano Faltas [facility] [address] [place] [address] 02/16/2024 Rano Faltas [facility] [address] [place] [address] [address] [place] [address] 03/23/2024 Rano Faltas [facility] [address] [place] [address] 04/04/2024 Rano Faltas [facility] [address] [place] [address] [address] [place] [address] 04/11/2024 Rano Faltas [facility] [address] [place] [address] 05/01/2024 Rano Faltas [facility] [address] [place] [address] 07/24/2024 Rano Faltas [facility] [address] [place] [address] 07/26/2024 Rano Faltas [facility] [address] [place] [address] 08/01/2024 Cleve Shabazz [facility] [address] [place] [address] 08/30/2024 Rano Faltas [facility] [address] [place] [address] [address] [place] [address] 10/11/2024 Hong Bolick [facility] [address] [place] [address] 11/28/2024 Rano Faltas [address] [facility] [address] [place] [address] 11/06/2024 Hong Bolick Sacroiliitis, not elsewhere classified M46.1 ; Cervicalgia M54.2 ; Low back pain, unspecified M54.50 ; Other chronic pain G89.29 and Cannabis use, unspecified, uncomplicated F12.90 [address] [facility] [address] [place] [address] 11/30/2024 Cleve Shabazz Sacroiliitis, not elsewhere classified M46.1 [place] [address] [facility] [address] [facility] [address] [place] [address] 01/20/2024 Rano Faltas Sacroiliitis, not elsewhere classified M46.1 ; Mononeuropathy, unspecified G58.9 ; Cervicalgia M54.2 ; Low back pain, unspecified M54.50 and Other chronic pain G89.29 [address] [facility] [address] [place] [address] 07/24/2024 Hong Bolick Trochanteric bursitis, left hip M70.62 ; Sacroiliitis, not elsewhere classified M46.1 ; Low back pain, unspecified M54.50 and Other chronic pain G89.29 [address] [facility] [address] [place] [address] 11/27/2024 Hong Bolick Radiculopathy, cervical region M54.12 ; Radiculopathy, lumbar region M54.16 and Other chronic pain G89.29 [facility] [address] [place] [address] 01/19/2024 Rano Faltas [address] [facility] [address] [place] [address] 08/04/2024 Cleve Shabazz Sacroiliitis, not elsewhere classified M46.1 [address] [facility] [address] [place] [address] 08/31/2024 Cleve Shabazz Trochanteric bursitis, left hip M70.62 [facility] [address] [place] [address] 02/07/2024 Rano [facility] [address] [place] [address] 03/29/2024 Rano [place] [address] [place] [address] 01/05/2024 Cleve Mele [facility] [address] [place] [address] 12/22/2023 R[facility] [place] [address] [place] [address] 04/28/2024 Rano [place] [address] [place] [address] 03/28/2024 R[facility] [place] [address] [place] [address] 01/04/2024 Cleve Mele [facility] [address] [place] [address] 12/20/2023 [facility] [address] [place] [address] 01/18/2024 [facility] [address] [place] [address] 02/03/2024 Rano Cristitas Assessments Encounter Date Diagnosis (ICD Code) Assessment Notes Treatment Notes Treatment Clinical Notes Section Notes 11/06/2024 Sacroiliitis, not elsewhere classified (ICD-10 - M46.1) 11/06/2024 Cervicalgia (ICD-10 - M54.2) 11/27/2024 Radiculopathy, cervical region (ICD-10 - M54.12) 11/27/2024 Radiculopathy, lumbar region (ICD-10 - M54.16) 11/30/2024 Sacroiliitis, not elsewhere classified (ICD-10 - M46.1) 08/31/2024 Trochanteric bursitis, left hip (ICD-10 - M70.62) 08/04/2024 Sacroiliitis, not elsewhere classified (ICD-10 - M46.1) 07/24/2024 Trochanteric bursitis, left hip (ICD-10 - M70.62) 01/20/2024 Mononeuropathy, unspecified (ICD-10 - G58.9) 01/20/2024 Sacroiliitis, not elsewhere classified (ICD-10 - M46.1) 01/20/2024 Cervicalgia (ICD-10 - M54.2) 07/24/2024 Low back pain, unspecified (ICD-10 - M54.50) 07/24/2024 Sacroiliitis, not elsewhere classified (ICD-10 - M46.1) 11/06/2024 Low back pain, unspecified (ICD-10 - M54.50) 11/27/2024 Other chronic pain (ICD-10 - G89.29) [...] accordingly. Regarding medications, I have checked the [facility] database and I did not find any [...] problems or concerns. Cervical MRI (Ray[facility])Exam Date: 11/22/2024 USION: Multilevel cervical spondylosis with the following notable findings:1. At least moderate to severe foraminal stenosis left C3-4, right C4-5, bilateral C5-6, left C6-7, right C7-T1.2. C7-T1 right-sided protrusion/oste ophyte contributes to right foraminal stenosis.3. Moderate to severe disc degeneration C5-6, C6-7.4. Chronic mild C5-C7 compression deformities. No acute fracture. Lumbar MRI (Rayus)Exam Date: 11/22/2024 USION:1. L5-S1 mild disc bulge and mild foraminal stenosis.2. Multilevel facet degeneration most advanced at L4-5.3. No acute fracture, infection, or neoplasm. 07/24/2024 Other chronic pain (ICD-10 - G89.29) Wei returns to clinic today for a follow up evaluation regarding his chronic pain. We discussed his current symptoms and medications. Upon review of his clinical presentation and per his request, I will order a repeat left GTB injection and a repeat therapeutic left SIJ injection. Regarding medications, I have reviewed the [facility] database and did not find any inconsistencies. This treatment plan was reviewed with Wei, and he was agreeable. I will continue to monitor his progress and he will follow up as needed. Plan: 1. Order repeat left GTB injection 2. Order repeat therapeutic left SIJ injection 3. Follow up as needed Discharge instructions reviewed verbally. Discussed the risks/benefits of prescribed medication. The patient was instructed to return to the office as scheduled and call with any questions, problems or concerns. 11/06/2024 Other chronic pain (ICD-10 - G89.29) Wei returns to clinic today for a follow up evaluation regarding his chronic pain. We discussed his current symptoms and medications. Given previous relief, I do believe he is a good candidate for repeat bilateral SIJ injections and I will order them as requested. For further evaluation of his neck and low back, I believe updated imaging is necessary. I will order cervical and lumbar MRIs to [facility] in [place]. Regarding medications, I have reviewed the [place] [facility] database and did not find any inconsistencies. I will recertify him for the MMCP as medical cannabis continues to be helpful. UDS was completed today. This treatment plan was reviewed with Wei, and he was agreeable. I will continue to monitor his progress and he will follow up in 3 weeks or sooner if needed. Plan: 1. Order repeat bilateral SIJ injections 2. Order cervical and lumbar MRIs 3. MMCP recertification and UDS 4. Follow up in 3 weeks Discharge instructions reviewed verbally. Discussed the risks/benefits of prescribed medication. The patient was instructed to return to the office as scheduled and call with any questions, problems or concerns. 01/20/2024 Low back pain, unspecified (ICD-10 - M54.50) 01/20/2024 Other chronic pain (ICD-10 - G89.29) Angel returns to clinic today for a follow up evaluation regarding his chronic low back pain (L>R) and left lower extremity pain and weakness. I have reviewed the [place] [employer] database and did not find any inconsistencies. [...] MRI accordingly. I have also ordered therapeutic MANNIE SIJ injections to address his pain. This treatment plan was reviewed with Angel, and he was agreeable. I will continue to monitor his progress and he will follow up in 6 weeks or sooner if needed. Plan:1. Toradol shot today2. Order Pelvic MRI for SIJ evaluation3. Order therapeutic MANNIE SIJ injections4. Follow up in 6 weeks [...] call with any questions, problems or concerns. 11/06/2024 Cannabis use, unspecified, uncomplicated (ICD-10 - F12.90) 11/06/2024 Other I, Leroy Campos , am serving [...] performed and the decisions made by me. 11/27/2024 Other Carmine, Mitchel Santiago, am serving as a scribe [...] the decisions made during the clinic visit. 10/12/2024 Other I, Alexandria davalos, am serving as a scribe to document services personally performed by Sreekanth Worrell CNP, based upon my observations and the provider's statements to me. All documentation has been reviewed by the aforementioned AMBULETTE DRIVER as well as Cleve Shabazz MD, prior to being entered into the official medical record. I, Cleve Shabazz MD attest that the above named individual is acting in scribe capacity, has observed Sreekanth Worrell's performance of the services and has documented them in accordance with his direction. The documentation recorded by the scribe accurately reflects the service Sreekanth Worrell NP, and Cleve Shabazz MD, personally performed and the decisions made by them. Plan Of Treatment Pending Test Test Name Order Date MRI : Lumbar without contrast 09/02/2023 Intervention: 11/27/2024 Intervention: 2 11/27/2024 MRI : Cervical Spines 11/06/2024 MRI : Lumbar 11/06/2024 MRI : Lumbar 09/09/2023 MRI : Thoracic Spine 10/20/2023 X ray : Lumbar AP and Lateral, Flexion/E xtension 10/05/2023 Insurance Providers Payer Name Payer Address Payer Phone Subscriber Number Group Number Insured Name Patient Relationship to Insured Coverage Start Date Coverage End Date [employer] [place] PMAP [address] [address] [place] [address] [id number] Angel Dunlap Self - patient is the insured [address] [place] [address] [address] [address] [place], [place] [phone] [id number] Angel Dunlap Self - patient is the insured Medications Administered Medication Instructions Date of Administration Dosage Notes Toradol 10/05/2023 1 mL Toradol 10/20/2023 1 mL Toradol 01/20/2024 1 mL Medical (General) History Medical History History ICD Code Anxiety Arthritis Diverticulitis headaches hearing loss Surgical History Surgery Date(Month/Year) Hospitalization History Reason Date(Month/Year)
--- OUTSIDE RECORDS SUMMARY | 2024-12-05 20:15 | XMS_ITS ---
Author Organization [facility] Address [address] [place] [address] [address] [place] [address] Care Team Providers Care Facsimile Machine Operator Name Role Phone Ziggy BEST, Gonzalo Primary Care Provider Maritza Ramachandran Unavailable [phone] Suman BEST, Zeeshan Unavailable Unavailable REASON FOR VISIT pre/post Encounters Encounter Location Date Provider Diagnosis [facility] [address] [place] [address] 11/28/2024 Maritza Sweet Plan Of Treatment No Information Progress Notes * Angel DUNLAP WDOB:1975 (49 yo M)Acc No.[id number]:11/28/2024 Patient: Tico NASH Angel Wang :1975 A ge:49 Y S ex:Male Phone: Address:[address] [facility], [address], [place] [address] * true * Date: Generated for Jerry suarez/Alireza/eTransmitting on: 0 12/05/2024 08:15 PM CDT
--- OUTSIDE RECORDS SUMMARY | 2024-12-05 20:15 | XMS_ITS | Clinical Summary ---
Author Organization [facility] Address [address] [place] [address] Care Team Providers Care Medical Assistant Supervisor Name Role Phone Jacqueline Sanchez M.D. Primary Care Provider Source Comments Patient records contain information from all sites at [facility]. For routine questions regarding patient records, call [phone] during business hours, M-F 8:00 AM - 5:00 PM Central Time. Record requests for emergency care only can be directed to [phone] at any time.[facility] Allergies Active Allergy Reactions Criticality Noted Date Comments Ciprofloxacin Rash Medium 07/20/2022 Had rash after taking cipro and flagyl Metronidazole Rash Medium 07/20/2022 Had rash after taking cipro and flagyl. Took Flagyl 06/24/23 with no side effects. Lisinopril Headache Medium 06/23/2023 Medications * This document contains information received from the source organization and may not represent a complete record from that organization. enoxaparin (LOVENOX) 40 mg/0.4 mL injection Inject 0.4 mL (40 mg total) under the skin daily for 7 doses. 2.8 mL 06/29/2023 12:54 PM [employer] F[employer]ER 3 Active naloxone (NARCAN) 4 mg/actuation nasal spray Administer 1 spray (4 mg total) into one nostril as needed for reversal. Use 1 spray in 1 nostril. Repeat with second device in other nostril after 2-3 minutes if no or minimal response. 2 each 3 Active Additional Information Patient not taking.Reported on 08/10/2024 HYDROcodone-ruslan taminophen (NORCO) 5-325 mg per tablet Take 1 tablet by mouth 3 (three) times a day as needed. 4 Active gabapentin (Neurontin) 600 mg tablet Take 600 mg by mouth 3 (three) times a day. Active cholecalciferol (Vitamin D3) 1,250 mcg (50,000 Unit) capsule Take 1 capsule by mouth every 7 (seven) days. 4 Active oxyCODONE (Roxicodone) 5 mg immediate release tablet Take 1 tablet by mouth every 8 (eight) hours as needed for pain. 4 Active celecoxib (CeleBREX) 200 mg capsule Take 200 mg by mouth. 4 Active vitamin D3-vitamin K2, MK4, 1,000-100 unit-mcg tablet Take 1,250 mcg by mouth. 4 Active cyclobenzaprine (FlexeriL) 10 mg tablet Take 10 mg by mouth 2 (two) times a day as needed for muscle spasms. 4 Active Active Problems Problem Noted Date Diagnosed [...] 06/22/202206/09 Contusion Hand Subsequent Right 06/23/2023 Immunizations Immunization Administration Dates Next Due Influenza, Injectable, Mdck, [...] Date Smoking Tobacco: Every Day Cigarettes 0.5 33.6 Started: 1991 Passive Smoke Exposure: Past Smokeless Tobacco: Never Tobacco Cessation:Ready to Q uit: No; Counseling Given: Yes Comments:5-10 cpd. Starting varenicline, 21 mg patch [...] often do you attend chur ch or scientology services? Never 11/19/2022 Do you belong to any clubs o r organizations such as episcopal groups, unions, fraternal or athletic groups, or [...] 11/19/2022 PHQ-2 Answer Date Recorded PHQ-2 Score 2 04/05/2024 [facility]ational [facility] Questionnaire Answer [...] Recor ded PHQ-9 Total Score (max 27) 2 04/05 Nutrition Answer Date Recorded On average, how [...] Sex Assigned at Male 07/09/2017 9:27 AM [employer] Legal Sex Male 10:02 AM [employer] F[employer] Gender Identity Male 07/09/2017 9:27 AM [employer] Sexual Orientation Straight 07/09/2017 9: 27 AM [employer] 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 Not on file Not on file Last Filed Vital Signs Vital Sign Reading Time Taken Comments Blood Pressure 132/87 08/10/2024 11:10 AM [employer] Pulse 87 08/10/2024 11:10 AM [employer] Temperature 36.9 C (98.4 F) 04/05/2024 4:02 PM CDT Respiratory Rate 13 03/07/2024 5:59 PM CDT Oxygen Saturation 99% 03/07/2024 5:58 PM CDT Inhaled Oxygen Concentration - - Weight 97.6 kg (215 lb 2.7 oz) 04/05/2024 4:02 P M CDT Height 193 cm (6' 3.98) 06/25/2023 6:55 AM [employer] Body Mass Index 26.2 06/25/2023 6:55 AM [employer] Plan of Treatment Health Maintenance Due Date Last Done Comments CT Colonography 1975 Cologuard 1975 FIT 1975 Hepatitis C Screening 1975 Lipid (Cholesterol) Screening 1975 Hepatitis B Vaccines (1 of 3 - 19+ 3-dose series) 1992 Pneumococcal vaccine (50+ years) (2 of 2 - PCV) 07/06/2019 07/06/2018, 09/08/2016 Zoster Vaccines (1 of 2) 2023 Visit: Chronic Disease, age 18+ 04/08/2024 04/08/2023 COVID-19 Vaccine (3 - 2023- season) 2024 06/13/2021, 12/24/2020 Influenza Vaccine (#1) 2024 , 07/06/2018, 09/08/2016 Depression Monitoring (PHQ-9) 08/05/2024 04/05/2024 Depression Monitoring (PHQ-9 for quality tracking) 08/09/2024 Office Visit for Blood Pressure Check / Re-check 08/10/2025 08/10/2024 Fasting Glucose for Diabetes Screening 04/05/2027 04/05/2024, 03/07/2024, 12/31/2023, Additional history exists Colonoscopy 09/16/2032 09/16/2022 Colorectal Cancer Screening 09/16/2032 DTaP,Tdap,and Td Vaccines (3 - Td or Tdap) 02/14/2033 02/14/2023, 01/04/2014 IPV Vaccines Aged Out No longer eligi ble based on patient's age to complete this topic Medical Devices Implanted Type Area Languages And Literature Instructor Device Identifier Shelf Expiration Date Model / [...] - 1.5 T - use normal mode [email or web address] Cartilage Costal Lg - [place] [id number] Implanted:Qty: 1 on 12/19/2010 Bone or Tissue Other/Legacy - See Implant Description [employer] Description:Device Manufactu rer - [employer]. Body Location - Other. bone for packing defect. Device Status Text - [id number]. Ear Hilliard Titanium Partial 3.00 - [place] [id number] Implanted:Qty: 1 on 08/28/2008 Ear Implant Other/Legacy - See Implant Description [facility] Medical Description:Device Manufactu rer - [employer] Body Location - Other. Left. Device Status Text - AUD [id number]. Scan at 1.5T in Normal mode due to BAHA Attract Mary Kay Pecos MRSO 03/26/2023 Ear Ttp Variac Total 0.2x3.0 7mm - [place] [id number] Implanted:Qty: 1 on 12/19/2010 Ear Implant Other/Legacy - See Implant Description [facility] Medical Description:Device Manufactu rer - [employer] Body Location - Other. Left. Device Status Text - AUD [id number]. Scan at 1.5T in Normal mode due to BAHA Attract [facility] 03/26/2023 Ear Oss Ti Total System Centered Adj. - [place] [id number] Implanted:Qty: 1 on 12/19/2010 Ear Implant Other/Legacy - See Implant Description [employer] Description:Device Manufactu rer - [employer]. Body Location - Other. Left. Device Status Text - AUD [id number]. Scan at 1.5T in Normal mode due to BAHA Attract Mary Kay Pecos MRSO 03/26/2023 Ear Ttp Variac Total 0.2x3.0 7mm - [place] [id number] Implanted:Qty: 1 on 12/19/2010 Ear Implant Other/Legacy - See Implant Description [facility] Medical Description:Device Manufactu rer - [employer] Body Location - Other. Left. Device Status Text - AUD [id number]. Scan at 1.5T in Normal mode due to BAHA Attract Mary Kay Pecos MRSO 03/26/2023 Procedures Procedure Name Priority Date/Time Associated Diagnosis Comments BASIC METABOLIC PANEL, S/P Routine 04/05/2024 5:12 PM CDT Headache Unspecified COLONOSCOPY Routine 09/16/2022 10:44 AM M[employer] FARMER Diverticulitis Colon from Last 3 Months or Most Recently Relevant to Health Maintenance Results * Basic Metabolic Panel (04/05/2024 5:12 PM CDT) Potassium, P 4.2 3.6 - 5.2 mmol/L 04/05/2024 5:33 PM CDT AUST Sodium, P 138 135 - 145 mmol/L 04/05/2024 5:33 PM CDT AUST Chloride, P 100 98 - 107 mmol/L 04/05/2024 5:33 PM CDT AUST Bicarbonate, P 26 22 - 29 mmol/L 04/05/2024 5:33 PM CDT [facility] Anion Gap, P 12 7 - 15 04/05/2024 5:33 PM CDT [facility] BUN (Blood Urea Nitrogen), P 15 8 - 24 mg/dL 04/05/2024 5:33 PM CDT [facility] Creatinine 1.07 0.74 - 1.35 mg/dL 04/05/2024 5:33 PM CDT [facility] Estimated GFR (eGFR) 85 >=60 mL/min/BSA 04/05/2024 5:33 PM CDT [facility] Comment: Estimated GFR calculated using the 2020 CKD_EPI creatinine equation. Calcium, Total, P 10.0 8.6 - 10.0 mg/dL 04/05/2024 5:33 PM CDT [facility] Glucose, P 103 70 - 140 mg/dL 04/05/2024 5:33 PM CDT [facility] Blood (Blood, Venous) 04/05/2024 5:12 PM CDT 04/05/2024 5:12 PM CDT us Gayathri Osorio APRN, C.N.P. LAB BLOOD ADD-ON Fi nal Result [facility] [address] [place] [address], [facility] [address] [place] [address] * Colonoscopy (09/16/2022 10:44 AM M[employer]IVEST[employer] FARMER) 09/16/2022 10:4 4 AM M[employer] FARMER Impressions [facility]ATION - 09/16/2022 11:32 AM MIX[employer] FARMER Post-op Diagnoses: - Diverticulosis in the sigmoid colon, in the descending colon and in the ascending colon. Mucosal inflammation c/w resolving diverticulitis seen distal to the anastomosis - Patent end-to-side colo-colonic anastomosis, characterized by healthy appearing mucosa. - No specimens collected. Narrative ROCHELLE PROVATION - 09/16/2022 11:32 AM MIX[employer]IVESTOCK FARMER [facility] GI Patient Name: Angel Dunlap Date of : 1975 Age: 47 Gender: Male Procedure Date: 09/16/2022 Procedure: Colonoscopy Providers: Fer Zuleta MD Referring Provider: MELA Melchor Pre-op Diagnoses: Follow-up of diverticulitis Recommendation: - Follow-up or surveillance recommendations should be determined by referring provider Findings: Multiple small-mouthed diverticula were found in the sigmoid colon, descending colon and ascending colon. There was evidence of a prior end-to-side colo-colonic anastomosis in the sigmoid colon. This was patent and was characterized by healthy appearing mucosa. Procedural Details: The patient was seen, evaluated, history reviewed, airway and heart-lung exams were performed by licensed provider and were satisfactory for planned level of sedation care. The risks, benefits and alternatives for the procedure and sedation were discussed and informed consent was obtained. A procedural pause was conducted in the presence of assisting personnel to verify the correct patient identity and procedure to be performed. Throughout the procedure, the patient's blood pressure, pulse, and oxygen saturations were monitored continuously. The Pediatric Colonoscope was introduced under direct vision through the anus and advanced to the cecum, identified by appendiceal orifice and ileocecal valve. The colonoscopy was performed without difficulty. The patient tolerated the procedure well. The quality of the bowel preparation was good. The quality of the bowel preparation was evaluated using the BBPS ([place] Bowel Preparation Scale) with scores of: Right Colon = 3, Transverse Colon = 3 and Left Colon = 3 (entire mucosa seen well with no residual staining, small fragments of stool or opaque liquid). The total BBPS score equals 9. Estimated Blood Loss: Estimated blood loss: none. Complications: No immediate complications. Sedation: Moderate (conscious) sedation was administered by the endoscopy nurse and supervised by the endoscopist. The patient's oxygen saturation, heart rate, blood pressure and response to care were monitored. Total physician intraservice time was 16 minutes. Attending Participation: I personally performed the entire procedure. Fer Zuleta MD 09/16/2022 11:32:26 AM This report has been signed electronically. Number of Addenda: 0 Olya Taveras P.A.-C. GI PROCEDURE ORDERABLES Final Result EDEN VARGAS NA from Last 3 Months or Most Recently Relevant to Health Maintenance Insurance [facility] [place] [address] Advance Directives For more information, please contact: [phone] * Full Code (Latest Code Status on [...] Due to: Not medically appropriate Care Teams Medical Assistant Supervisor Relationship Specialty Start Date End Date ManJacqueline Coello M.D. [address] [place] [phone] PCP - General Family Medicine 04/05/24
--- OUTSIDE RECORDS SUMMARY | 2024-12-05 20:15 | XMS_ITS ---
Author Organization [facility] Address [address] [place] [address] [place] [address] Care Team Providers Care Violin Tutor Name Role Phone Ziggy BEST, Gonzalo Primary Care Provider Maritza Ramachandran Unavailable [phone] Suman BEST, Zeeshan Unavailable Unavailable Cleve Shabazz Unavailable [phone] REASON FOR VISIT iv conscious sedation Repeat Bilateral Therapeutic SIJ Injections Encounters Encounter Location Date Provider Diagnosis [address] [facility] [address] [facility] [address] [place] [address] 11/30/2024 Cleve Shabazz Sacroiliitis, not elsewhere classified M46.1 Assessments Encounter Date Diagnosis (ICD Code) Assessment Notes Treatment Notes Treatment Clinical Notes Section Notes 11/30/2024 Sacroiliitis, not elsewhere classified (ICD-10 - M46.1) Plan Of Treatment No Information Progress Notes * Angel HOOVER WDOB:1975 (49 yo M)Acc No.[id number]:11/30/2024 Patient: Angel TORRES Provider: Dulce Shabazz M.D. :1975 A ge:49 Y S ex:Male Date:11/30/2024 Phone: Address:[address] [place] [address], [address], [facility] Pcp:Gonzalo Trinh MD * Billing Information: * Visit Code: * Procedure Codes: 57230 Injection for SIJ arthrography. Modifiers: 50 J3010 Fentanyl IV 50mcg/ml. Units: 2.00. Modifiers: JZ J2250 Midazolam Hydrochloride. Units: 6.00. Modifiers: JZ A4930 Gloves Sterile Per Pair. A4649 IV Starter Kit. A4209 5 cc - 19 cc gauge syringe. A4616 IV Tubing. A4215 [place] only Sterile any size each. Units: 2.00. A4615 O2 Mask. A4550 Spinal Support Tray. A4216 NACl 0/9% PF 10ml/vial. Units: 3.00. Q9967 Omnipaque 300 mgl/mL. Units: 3.00. J0665 Inj, bupivacaine, nos, 0.5mg. J1010 Inj, methylpred acetate 1 mg. Units: 80.00. G0260 INJ SI JNT; ANES &/TX AGT &ARTHROG. Modifiers: 50 * Electronic signature of Nayan Shabazz MD on 12/05/2024 at 08:14 PM CDT Sign off status: Pending * Provider: Dulce Shabzaz M.D. Date: 0 11/30/2024 Generated for Jerry suarez/Alireza/Edwarditting on: 0 12/05/2024 08:14 PM CDT
[2024-12-05 20:18] VITALS: BP 198/86; PULSE 98; RESP 16; TEMP 36.6; O2SAT 100; BMI 27.3
--- NOTE | 2024-12-05 20:38 | ED_ITS ---
HPI - Back Pain/Injury General Chief Complaint: Back Injury/Pain Stated Complaint: low back pain Time Seen by Provider: 12/05/24 20:27 History of Present Illness HPI Narrative: This 49-year-old male has chronic back pain. He states that he has an appointment with his primary physician tomorrow morning but has been out of his pain medicine for more than a week. He is referring specifically to oxycodone but states that he does have Celebrex and a muscle relaxant that he can take. He does not report any new injury. He states that he had an injection in his back recently. Related Data Home Medications ?Medication ?Instructions ?Recorded ?Confirmed cannabidiol 100 mg/mL oral solution 150 mg PO BID 12/08/23 04/11/24 cholecalciferol (vitamin D3) 1,250 1,250 mcg PO DAILY 02/16/24 04/11/24 mcg (50,000 unit) capsule Previous Rx's ?Medication ?Instructions ?Recorded prednisone 20 mg tablet 20 mg PO BID #10 tabs 07/26/24 gabapentin 300 mg capsule 600 mg (2 x 300 mg) PO TID #180 08/14/24 caps celecoxib 200 mg capsule (Celebrex) 200 mg PO QDAY #30 caps 10/26/24 cholecalciferol (vitamin D3) 1,250 1,250 mcg PO QWEEK #4 caps 10/31/24 mcg (50,000 unit) capsule cyclobenzaprine 10 mg tablet 10 mg PO BID PRN muscle spasm #30 11/29/24 tabs oxycodone 5 mg tablet 5 mg PO Q8H PRN pain #30 tabs 12/04/24 Allergies Allergy/AdvReac Type Severity Reaction Status Date / Time No Known Drug Allergies Allergy Verified 04/11/24 09:35 Review of Systems Status of ROS: Reports: 10 or more systems reviewed and unremarkable except as noted in History and below Narrative: Constitutional: No fevers, no weight gain or loss. Eyes: No discharge. No vision changes. HENT: No congestion, no sore throat, no ear pain. Cardiovascular: No chest pain, no palpitations. Respiratory: No shortness of breath, no wheezes, no cough. Gastrointestinal: No abdominal pain, no vomiting, no diarrhea. Genitourinary: No dysuria, no hematuria. Musculoskeletal: Normal range of motion. Chronic low back pain. Skin: No rashes, no pruritis. Neurological: No dizziness, weakness, sensory change, speech change. Endo/Heme/Allergies: No bruising or bleeding. No polydipsia. Pysch: no suicidality, no anxiety, no insomnia. All other systems reviewed and are negative. [facility] Medical History (Updated 12/05/24 @ 20:42 by Homero Fox MD) Tinnitus ?H93.19 - Tinnitus, unspecified ear (ICD-10) Avascular necrosis ?M87.00 - Idiopathic aseptic necrosis of unspecified bone (ICD-10) Diverticulitis ?K57.92 - Diverticulitis of intestine, part unspecified, without perforation or abscess without bleeding (ICD-10) Low back pain ?M54.50 - Low back pain, unspecified (ICD-10) Chronic neck and back pain ?M54.2 - Cervicalgia (ICD-10) ?M54.9 - Dorsalgia, unspecified (ICD-10) ?G89.29 - Other chronic pain (ICD-10) Hypertension ?I10 - Essential (primary) hypertension (ICD-10) Cochlear implant status ?Z96.21 - Cochlear implant status (ICD-10) Alcohol use disorder ?F10.90 - Alcohol use, unspecified, uncomplicated (ICD-10) Generalized anxiety disorder ?F41.1 - Generalized anxiety disorder (ICD-10) Surgical History (Updated 02/16/24 @ 08:50 by Kelly Acevedo ~ [facility], [facility]) H/O arthroscopic knee surgery ?Z98.890 - Other specified postprocedural states (ICD-10) S/P colectomy (~2009) ?Z90.49 - Acquired absence of other specified parts of digestive tract (ICD- 10) Social History (Reviewed 02/16/24 @ 08:48 by Kelly Acevedo ~ [facility], [facility]) Narrative: Not working currently. Lives with sister in [place], [place] use Smoking Status: Current every day smoker What tobacco products do you use: cigarettes Do you use any of these nicotine containing products: None Second hand tobacco smoke exposure: No How often do you have a drink containing alcohol: never How often do you have six or more drinks on one occasion: Never AUDIT-C Alcohol total score: 0 Non-prescribed substance use: denies use service: No Exam Narrative: Exam Narrative: Constitutional: Well-developed, well-nourished, no acute distress. HEENT: Normocephalic, atraumatic. Neck: Normal range of motion. Nontender. Supple. Heart: Intact distal pulses. Lungs: No chest discomfort. No wheezes, rhonchi, or rales. Abdomen: Nontender. Back: Normal range of motion. Chronic low back pain that he reports is radiating down his leg. Extremities: Normal range of motion. No injury. Skin: Intact. No rash. Warm. No erythema or pallor. Neurologic: No altered sensation. No weakness. Alert and oriented. Psychiatric: No suicidality. No anxiety or depression. No insomnia. Nursing notes and vitals signs are reviewed. Const: Vital Signs, click to edit/add: Vital Signs - 24 hr 12/05/24 20:18 Temperature 97.9 F Pulse Rate [Pulse Oximeter] 98 Respiratory Rate 16 Blood Pressure [Ri ght Upper Arm] 198/86 H Pulse Oximetry 100 Oxygen Delivery Me thod Room Air Course Vital Signs Vital signs: Initial Vital Signs Temperature 97.9 F 12/05/24 20:18 Temperature Source Temporal Artery Scan 12/05/24 20:18 Pulse Rate 98 12/05/24 20:18 Respiratory Rate 16 12/05/24 20:18 Blood Pressure 198/86 H 12/05/24 20:18 Blood Pressure Mean 123 H 12/05/24 20:18 Blood Pressure Position Sitting 12/05/24 20:18 Pulse Oximetry 100 12/05/24 20:18 Oxygen Delivery Method Room Air 12/05/24 20:18 Vital Signs Temperature 97.9 F 12/05/24 20:18 Pulse Rate 98 12/05/24 20:18 Respiratory Rate 16 12/05/24 20:18 Blood Pressure 198/86 H 12/05/24 20:18 Pulse Oximetry 100 12/05/24 20:18 Oxygen Delivery Method Room Air 12/05/24 20:18 Temperature 97.9 F 12/05/24 20:18 Pulse Rate 98 12/05/24 20:18 Respiratory Rate 16 12/05/24 20:18 Blood Pressure 198/86 H 12/05/24 20:18 Pulse Oximetry 100 12/05/24 20:18 Oxygen Delivery Method Room Air 12/05/24 20:18 MDM - Back Pain/Injury MDM Narrative Medical decision making narrative: This patient comes in simply seeking some pain medicine, oxycodone in particular to carry him over until his appointment tomorrow morning. He states that he has not taken any oxycodone for more than a week. He does have Celebrex and a muscle relaxant that he can take. I stated that we do not refill this opiate medicine out of the ER but agreed to give him 4 tablets stick area till his appointment tomorrow morning. This was prescribed through the [employer] machine. Discharge Plan Discharge Clinical Impression: Chronic back pain Patient Disposition: Home, Self-Care Condition: Stable Additional Instructions: Take medication as needed and indicated. Follow up with primary physician tomorrow for ongoing management. Prescriptions: No Action cholecalciferol (vitamin D3) 1,250 mcg (50,000 unit) capsule 1,250 mcg PO DAILY cannabidiol 100 mg/mL solution 150 mg PO BID Rx Instructions: Medicinal Cannabis prednisone 20 mg tablet 20 mg PO BID Qty: 10 0RF gabapentin 300 mg capsule 600 mg PO TID Qty: 180 3RF celecoxib [Celebrex] 200 mg capsule 200 mg PO QDAY Qty: 30 2RF cholecalciferol (vitamin D3) 1,250 mcg (50,000 unit) capsule 1,250 mcg PO QWEEK Qty: 4 5RF cyclobenzaprine 10 mg tablet 10 mg PO BID PRN (Reason: muscle spasm) Qty: 30 3RF oxycodone 5 mg tablet 5 mg PO Q8H PRN (Reason: pain) Qty: 30 0RF Follow Up/Referrals: Gonzalo Trinh MD [Primary Care Provider] - Stand Alone Forms: [employer] Info Instructions
--- OUTSIDE RECORDS SUMMARY | 2024-12-05 20:44 | XMS_ITS | Clinical Summary ---
Author Organization [facility] Address [address] [place] [address] Care Team Providers Care Financial Sales Representative Name Role Phone Unavailable Primary Care Provider [...] patient's age to complete this topic Insurance [facility] [place] [facility] [place]
--- OUTSIDE RECORDS SUMMARY | 2024-12-05 20:44 | XMS_ITS | Clinical Summary ---
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 PCP - General 09/19/17
--- OUTSIDE RECORDS SUMMARY | 2024-12-05 20:44 | XMS_ITS | Clinical Summary ---
Author Organization [facility] Address [address] [place] [address] Care Team Providers Care Riprap Placer Name Role Phone Jacqueline Sanchez M.D. Primary Care Provider Source Comments Patient records contain information from all sites at [facility]. For routine questions regarding patient records, call [phone] during business hours, M-F 8:00 AM - 5:00 PM Central Time. Record requests for emergency care only can be directed to [phone] at any time.[facility] Allergies Active Allergy Reactions Criticality Noted Date [...] 7 doses. 2.8 mL 06/29/2023 12:54 PM MANAGER MUSIC 3 Active naloxone (NARCAN) 4 mg/actuation nasal [...] often do you attend chur ch or buddhist services? Never 11/19/2022 Do you belong to any clubs o r organizations such as anabaptism groups, unions, fraternal or athletic groups, or [...] Answer Date Recorded PHQ-2 Score 2 04/05/2024 [facility] - Occupational Stress Questionnaire [...] place to sleep or slept in a skilled nursing (including now)? 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 Not on file Not on file Last Filed Vital Signs Vital Sign Reading Time Taken Comments Blood Pressure 132/87 08/10/2024 11:10 AM MANAGER MUSIC Pulse 87 08/10/2024 11:10 AM MANAGER MUSIC Temperature 36.9 C (98.4 F) 04/05/2024 4:02 PM CDT Respiratory Rate 13 03/07/2024 5:59 PM CDT Oxygen Saturation 99% 03/07/2024 5:58 PM CDT Inhaled Oxygen Concentration - - Weight 97.6 kg (215 lb 2.7 oz) 04/05/2024 4:02 P M CDT Height 193 cm (6' 3.98) 06/25/2023 6:55 AM MANAGER MUSIC Body Mass Index 26.2 06/25/2023 6:55 AM MANAGER MUSIC Plan of Treatment Health Maintenance Due Date [...] this topic Medical Devices Implanted Type Area Production Line Manager Device Identifier Shelf Expiration Date Model / [...] - 1.5 T - use normal mode [email or web address] Cartilage Costal Lg - [place] [id number] Implanted:Qty: 1 on 12/19/2010 Bone or Tissue Other/Legacy - See Implant Description [employer] Description:Device Manufactu rer - [employer]. Body Location - Other. bone for packing defect. Device Status Text - [id number]. Ear Hilliard Titanium Partial 3.00 - [place] [id number] Implanted:Qty: 1 on 08/28/2008 Ear Implant Other/Legacy - See Implant Description [facility] Medical Description:Device Manufactu rer - [employer] Body Location - Other. Left. Device Status Text - AUD [id number]. Scan at 1.5T in Normal mode due to BAHA Attract Mary Kay Spalding MRSO 03/26/2023 Ear Ttp Variac Total 0.2x3.0 7mm - [place] [id number] Implanted:Qty: 1 on 12/19/2010 Ear Implant Other/Legacy - See Implant Description [facility] Medical Description:Device Manufactu rer - [employer] Body Location - Other. Left. Device Status Text - AUD [id number]. Scan at 1.5T in Normal mode due to BAHA Attract [facility] Kay Spalding [facility] 03/26/2023 Ear Oss Ti Total System Centered Adj. - [place] [id number] Implanted:Qty: 1 on 12/19/2010 Ear Implant Other/Legacy - See Implant Description [facility] Description:Device Manufactu rer - [employer]. Body Location - Other. Left. Device Status Text - AUD [id number]. Scan at 1.5T in Normal mode due to BAHA Attract Mary Kay Spalding MRSO 03/26/2023 Ear Ttp Variac Total 0.2x3.0 7mm - [place] [id number] Implanted:Qty: 1 on 12/19/2010 Ear Implant Other/Legacy - See Implant Description [facility] Medical Description:Device Manufactu rer - [employer] Body Location - Other. Left. Device Status Text - AUD [id number]. Scan at 1.5T in Normal mode due to BAHA Attract Mary Kay Spalding MRSO 03/26/2023 Procedures Procedure Name Priority Date/Time Associated Diagnosis Comments BASIC METABOLIC PANEL, S/P Routine 04/05/2024 5:12 PM CDT Headache Unspecified COLONOSCOPY Routine 09/16/2022 10:44 AM MANAGER MUSIC Diverticulitis Colon from Last 3 Months or [...] C.N.P. LAB BLOOD ADD-ON Fi nal Result [facility] [address] [place] [address], [facility] [address] [place] [address] * Colonoscopy (09/16/2022 10:44 AM MANAGER MUSIC) 09/16/2022 10:4 4 AM MANAGER MUSIC Impressions [facility] - 09/16/2022 11:32 AM MANAGER MUSIC Post-op Diagnoses: - Diverticulosis in the sigmoid colon, in the descending colon and in the ascending colon. Mucosal inflammation c/w resolving diverticulitis seen distal to the anastomosis - Patent end-to-side colo-colonic anastomosis, characterized by healthy appearing mucosa. - No specimens collected. Narrative [facility] [employer] - 09/16/2022 11:32 AM MANAGER MUSIC Gonda 9 GI GI Patient Name: Angel [...] bowel preparation was evaluated using the BBPS ([place] Bowel Preparation Scale) with scores of: Right [...] Most Recently Relevant to [place] [address] Advance Directives For more information, please contact: [phone] * Full Code (Latest Code Status on [...] Due to: Not medically appropriate Care Teams Riprap Placer Relationship Specialty Start Date End Date ManJacqueline Coello M.D. [address] [place] [phone] PCP - General Family Medicine 04/05/24
== END 2024-12-05 20:53 | disposition home or self-care (01) ==
LOC: ED 20:42
PROVIDERS: Emergency Provider Emergency Medicine Emergency Medical Services; PCP Internal Medicine
DX: M54.50 Low back pain, unspecified (principal)
CPT/HCPCS: 99283; 99284

== ENCOUNTER 2025-03-01 17:11 | Emergency (ER) | payer BC, SELFPAY ==
--- OUTSIDE RECORDS SUMMARY | 2025-02-15 07:30 | XMS_ITS ---
Author Organization [facility] Address [address] [place] [address] [address] [place] [address] Care Team Providers Care Marketing Representative Name Role Phone Ziggy BEST, Gonzalo Primary Care Provider Maritza Ramachandran Unavailable [phone] Suman BEST, Zeeshan Unavailable Unavailable Cleve Shabazz Unavailable [phone] REASON FOR VISIT *IV Conscious Sedation* Left GTB Injection Encounters Encounter Location Date Provider Diagnosis [address] [facility] [address] [facility] [address] [place] [address] 02/15/2025 Cleve Shabazz Trochanteric bursitis, left hip M70.62 Assessments Encounter Date Diagnosis (ICD Code) Assessment Notes Treatment Notes Treatment Clinical Notes Section Notes 02/15/2025 Trochanteric bursitis, left hip (ICD-10 - M70.62) Plan Of Treatment No Information Progress Notes * Angel HOOVER WDOB:1975 (49 yo M)Acc No.[id number]:02/15/2025 Patient: Angel TORRES Provider: Dulce Shabazz M.D. :1975 A ge:49 Y S ex:Male Date:02/15/2025 Phone: Address:[address] [place] [address], [address], [place], [id number] Pcp:Gonzalo Trinh MD * Billing Information: * Visit Code: * Procedure Codes: 38776 Large joint bursa injection. Modifiers: LT J2250 Midazolam Hydrochloride. Units: 6.00. Modifiers: JZ A4209 5 cc - 19 cc gauge syringe. A4649 IV Starter Kit. A4616 IV Tubing. A4215 [place] only Sterile any size each. A4615 O2 Mask. J0665 Inj, bupivacaine, nos, 0.5mg. J1010 Inj, methylpred acetate 1 mg. Units: 40.00. * Sign off status: Completed true * Provider: Dulce Shabazz M.D. Date: 0 02/15/2025 Generated for Jerry suarez/Alireza/Edwarditting on: 0 03/01/2025 05:13 PM CDT
--- OUTSIDE RECORDS SUMMARY | 2025-02-22 15:00 | XMS_ITS | Encounter Summary ---
Author Organization [facility] Address [address] [place] [address] Care Team Providers Care Event Sales Assistant Name Role Phone Jacqueline Sanchez M.D. Primary Care Provider Reason for Visit * Reason Comments Follow-up diverticulitis Encounter Details Date Type Department Care Team (Late st Contact Info) Description 02/22/2025 3:00 PM CDT Telemedicine Department of Family Medicine, [facility], in [place] [address] [place] [phone] Agatha Tapia, NET UI DEVELOPER, C.N.P. [address] [place] [phone] Diverticulitis (Primary Dx); Colectomy Partial Status Post; Colectomy Sigmoid Colon Status Post Discharge Disposition: Home or Self Care Social History Tobacco Use Types Packs/Day Years Used Date Smoking Tobacco: Every Day Cigarettes 0.5 33.8 Started: 1991 Passive Smoke Exposure: Past Smokeless Tobacco: Never Comments:5-10 cpd. Starting varenicline, 21 mg patch & gum (when he returns home) 01/05/23 Alcohol Use Standard Drinks/Week Comments Not Currently 3 (1 standard drink = 0.6 oz pur e alcohol) stopped 04-28-23 [facility] Utilities Answer Date Recorded In the past 12 months has th e electric, gas, oil, or water company threatened to shut off services in your home? No 02/22/2025 Humiliation, Afraid, Rape, and Kick questionnair e [...] by your partner or ex-partner? No 11/19/2022 Hunger Vital Sign Answer Date Recorded Within the past 12 months, y ou worried that your food would run out before you got the money to buy more. Never true 02/23/20 25 Within the past 12 months, t he food you bought just didn't last and you didn't have money to get more. Never true 02/22/2025 PRAPARE - Transportation Answer Date Re corded In the past 12 months, has l ack of transportation kept you from medical appointments or from getting medications? No 02/06 In the past 12 months, has l ack of transportation kept you from meetings, work, or from getting things needed for daily living? No 02/22/2025 Depression Answer Date Recor ded PHQ-9 Total Score (max 27) 0 02/22 Housing Stability Answer Date Recorded What is your living situation today? I have a [facility] place to live 02/22/2025 Education Answer Date Recorded What is the highest level of school you have completed or the highest degree you have received? 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 - 02/22/2025 3:00 PM CDT Images from the original note were not included. SUBJECTIVE REASON FOR FOLLOW-UP Angel Dunlap is a 49 y.o. male who presents for evaluation of Follow-up (diverticulitis). HISTORY OF PRESENT ILLNESS Wei is here via zoom video encounter for discussion of past surgical procedure and current symptoms. Per patient and chart review he has a history of diverticulitis, common bile duct obstruction. He underwent laparoscopic sigmoid extended colectomy with anastomosis converted to open, laparoscopic splenic flexure mobilization, sigmoidoscopy by Dr. Barba on 06/25/2023. In addition, underwent cystourethroscopy ureteral stent placement at that time with Dr. Doris Dang in [place]. No surgical or postoperative complications. Since that time he has been doing very well. As of most recent,he noted areas of bulging in the right mid abdomen. He first noticed a small bulge to the right of the umbilicus that has progressively increased in size over the last year. He was seen in clinic yesterday at [facility], unfortunately we do not have outside records. He states he was seen by general surgeon Dr. Davina Gregory at [facility] and discussed further evaluation and management. He was advised symptoms are likely hernias and plan is to obtain imaging and plan for surgery. Weiis currently enrolled in college completing a fast-track bachelor's degree and is very eager to proceed with surgery as soon as possible so that he can recover prior to the start of fall. Hungis ultimately reaching out in hopes of reaching Dr. Barba who completed his previous surgeries. Wei denies any pain or discomfort to the area. Denies any bowel or urinary issues. He is feeling overall well otherwise. REVIEW OF SYSTEMS The following systems were negative: Constitutional, Skin, Eyes, ENT, Respiratory, Cardiovascular, Gastrointestinal, Genitourinary, Hematologic, Musculoskeletal, Neurological, Psychiatric The following portions of the patient's history were reviewed and updated as appropriate: allergies, medications, family history, medical history, social history, surgical history and problem list. OBJECTIVE Vitals reviewed: Video encounter. Constitutional Appearance: Normal appearance. Pulmonary Effort: Pulmonary effort is normal. Abdominal Comments: Video encounter, limited exam. Abdomen examined from side profile via zoom, there is obvious abdominal bulging in the right mid abdomen. Patient reports the areas are soft and reducible. Neurological Mental Status: He is alert and oriented to person, place, and time. Psychiatric Mood and Affect: Mood normal. Behavior: Behavior normal. ASSESSMENT / PLAN 1. Diverticulitis (Primary) 2. Colectomy Partial Status Post 3. Colectomy Sigmoid Colon Status Post It was a pleasure seeing Wei via zoom video encounter today. Advised I would reach out to his surgical team in [place] to discuss best plan of care for him. We will obtain imaging and proceed with referrals as indicated. Consult conducted via real-time audio/video technology by Agatha Tapia APRN, C.N.PNatalie in [facility] to the patient in patient's home. documented in this encounter Plan of Treatment Not on file documented as of this encounter Visit Diagnoses Diagnosis Diverticulitis- Primary Colectomy Partial Status Post Colectomy Sigmoid Colon Status Post documented in this encounter Additional Health Concerns Assessment Noted Time PHQ-9 Depression Total Score: 0 02/23/20 25 9:03 AM CDT documented as of this encounter Care Teams Event Sales Assistant Relationship Specialty Start Date End Date Jacqueline Sanchez M.D. [address] [place] [phone] PCP - General Family Medicine 04/05/24 documented as of this encounter
--- OUTSIDE RECORDS SUMMARY | 2025-03-01 17:13 | XMS_ITS | Encounter Summary ---
Author Organization [facility] Address [address] [place] [address] Care Team Providers Care Medical Technologist Clinical Name Role Phone Jacqueline Sanchez M.D. Primary Care Provider Reason for Visit * Reason Onset Date Comments Follow-up Orders 02/28/2025 Ct abdomen Encounter Details Date Type Department Care Team (Latest Contact Info) Description 02/28/2025 Clinical Communication Department of Family Medicine, [facility], in [place], [place] [address] [place] [phone] Bouchra Davis, RMarie. [address] [place] [phone] Follow-up Orders (Ct abdomen) Social History Tobacco Use Types Packs/Day Years Used Date Smoking Tobacco: Every Day Cigarettes 0.5 33.8 Started: 1991 Passive Smoke Exposure: Past Smokeless Tobacco: Never Comments:5-10 cpd. Starting varenicline, 21 mg patch & gum (when he returns home) 01/05/23 Alcohol Use Standard Drinks/Week Comments Not Currently 3 (1 standard drink = 0.6 oz pur e alcohol) stopped 04-28-23 [facility] Utilities Answer Date Recorded In the past [...] your living situation today? I have a [facility] place to live 02/22/2025 Education Answer Date Recorded What is the highest level of school you have completed or the highest degree you have received? 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 - 02/28/2025 3:50 PM CDT SUBJECTIVE CHIEF COMPLAINT / REASON FOR CALL Follow-up Orders (Ct abdomen) Information Discussed Nurse called patient to discuss follow up orders from Agatha Tapia. Patient stated that he could not wait for [facility] to get these appointments done and decided to have follow up in [place] and states he is scheduled to see them this Wednesday. PLAN Disposition/Recommendation: notified provider and awaiting recommendations Information/Education: patient/caller able to teach back Caller agreeable to plan of care: yes The following references were used: provider Agatha Tapia * Telephone Encounter - Bouchra Davis R.N. - 02/28/2025 3:46 PM CDT ----- Message from Agatha Tapia APRN, C.N.P. sent at 02/23/2025 4:00 PM CDT ----- Please contact patient and let him know per our visit yesterday I sent a message to Dr. Barba early this morning in [place], I believe is out of clinic. I recommend proceeding with CT abdomen pelvis to evaluate further- this has been ordered. I am happy to refer him locally to general surgery once results are back if they can see him in a timely manner. documented in this encounter Plan of Treatment Not on file documented as of this encounter Visit Diagnoses Not on filedocumented in this encounter Additional Health Concerns Assessment Noted Time PHQ-9 Depression Total Score: 0 02/23/20 25 9:03 AM CDT documented as of this encounter Care Teams Medical Technologist Clinical Relationship Specialty Start Date End Date Jacqueline Sanchez M.D. [address] [place] [phone] PCP - General Family Medicine 04/05/24 documented as of this encounter
--- OUTSIDE RECORDS SUMMARY | 2025-03-01 17:13 | XMS_ITS | Clinical Summary ---
Author Organization [facility] Address [address] [place] [address] Care Team Providers Care Seam Steamer Name Role Phone Unavailable Primary Care Provider [...] 1988 HEPATITIS C SCREENING 1991 HEPATITIS B VACCINE (1 of 3 - 19+ 3-dose series) 1992 LIPID 2013 PNEUMOCOCCAL VACCINE 50+ YEARS (2 of 2 - PCV) 2023 07/06/2018, 09/08/2016 ZOSTER VACCINE (1 of 2) 2023 COVID-19 VACCINE (3 - 2023-2 5 season) 2024 06/13/2021, 12/24/2020 PHQ-2 (once per calendar year) 2024 INFLUENZA VACCINE (#1) 2025 , 07/06/2018, 09/08/2016 DTAP/TDAP/TD VACCINE (3 - Td or Tdap) 02/14/2033 02/14/2023, 01/04/2014 HPV VACCINE (No Doses Required) Completed MENINGITIS VACCINE Aged Out No longer eligible based on patient's age to complete this topic Insurance [id number] [place] [id number] [id number] [place]
--- OUTSIDE RECORDS SUMMARY | 2025-03-01 17:15 | XMS_ITS | Clinical Summary ---
Author Organization [facility] Address [address] [place] [address] Care Team Providers Care Audio Visual Engineer Name Role Phone Clinic, No Pcp Or [...] on file Legal Sex Male 6:57 AM ABA THERAPIST Gender Identity Not on file Sexual Orientation [...] Health Maintenance Due Date Last Done Comments Tetanus booster 1984 Depression screening for age 12+ 1985 HIV for age 15-65 1988 Hepatitis C screening for age 18-79 1991 Hepatitis B series for 19+ ( 1 of 3 - 19+ 3-dose series) 1992 Colonoscopy through age 75 2018 Lipids for age 45-75 2018 Pneumococcal series for age 50+ (1 of 1 - PCV) 2023 Zoster (shingles) series for age 50+ (1 of 2) 2023 BMI (ht and wt on same day) for age 18+ 10/09/2023 0 10/08/2022 COVID-19 vaccine series ( season) 2024 06/13/2021, 12/24/2020 Influenza Vaccine (#1) 2025 Insurance [place] [id number] MEDICAID A/P CLINIC ID #[id number] [address] [address] [place] [address] Care Teams Audio Visual Engineer Relationship Specialty Start Date End Date Clinic, No Pcp Or . PCP - General 09/19/17
--- OUTSIDE RECORDS SUMMARY | 2025-03-01 17:15 | XMS_ITS | Clinical Summary ---
Author Organization [facility] Address [address] [place] [address] Care Team Providers Care Fraternity House Cook Name Role Phone Jacqueline Sanchez M.D. Primary Care Provider Source Comments Patient records contain information from all sites at [facility]. For routine questions regarding patient records, call [phone] during business hours, M-F 8:00 AM - 5:00 PM Central Time. Record requests for emergency care only can be directed to [phone] at any time.[facility] Allergies Active Allergy Reactions Criticality Noted [...] 7 doses. 2.8 mL 06/29/2023 12:54 PM GLASS VIAL FILLER 3 Active Additional Information Patient not taking.Reported on 02/22/2025 naloxone (NARCAN) 4 mg/actuation nasal spray Administer 1 spray (4 mg total) into one nostril as needed for reversal. Use 1 spray in 1 nostril. Repeat with second device in other nostril after 2-3 minutes if no or minimal response. 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/24/2010 Tympanomastoidectomy Status Post 09/26/2008 Nicotine Dependence Cigarettes 08/27/2008 Depression Anxiety Hypertension Essential Primary Resolved Problems Problem Noted Date Diagnosed Date Resolved Date Aortic Ectasia 06/23/2023 02/23/2025 Other Stimulant Dependence In Remission 04/06/2023 02/23/2025 Pain Left Lower Quadrant 01/01/2023 Suicide Ideation 12/31/2022 01/01/2023 Alcohol Moderate Or Severe U se Disorder (Dependence) Uncomplicated 12/31/2022 02/23/2025 History Of Falling 06/22/2022 Elevated Blood Pressure 06/22/202206/09 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 Follow-up Orders (Ct abdomen) 02/22/2025 3:00 PM CDT Telemedicine Department of [facility], [facility], in [place], [place] [address] [place] [phone] Agatha Tapia APRN, C.N.P. Diverticulitis (Primary Dx); Colectomy Partial Status Post; Colectomy Sigmoid Colon Status Post Discharge Disposition: Home or Self Care 12/12/2024 Orders Only [facility] P[facility] Jacqueline Sanchez M.D. Screening Lipid from Last 3 Months Immunizations Immunization Administration Dates Next Due Influenza, [...] Celestina Suicide Attempts Mother's Sister 2 Celestina Drug abuse Mother's Sister 3 Suicide Attempts Mother's Sister 3 Anxiety disorder Sister 1 Alivia Bipolar disorder Sister 1 Alivia Depression Sister 1 Alivia Depression Sister 2 Relation Name Status Comments Brother Ortiz Father Al Maternal Grandfather Mother's Sister 1 Mansi Mother's Sister 2 Celestina Mother's Sister 3 Alive Sister 1 Alivia Sister 2 Alive Social History Tobacco Use Types Packs/Day Years [...] 0.6 oz pur e alcohol) stopped 04-28-[address] [facility] Utilities Answer Date Recorded In the past 12 months has e [employer], gas, oil, or water [employer] threatened to shut off services in your [...] your living situation today? I have a [facility] place to live 02/22/2025 Education Answer Date Recorded What is the highest level of school you have completed or the highest degree you have received? 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..] 2024 06/13/2021, 12/24/2020 Influenza Vaccine (#1) 2025 , 07/06/2018, 09/08/2016 Office Visit for Blood Pressure Check / Re-check 08/10/2025 08/10/2024 Fasting Glucose for Diabetes Screening 04/05/2027 04/05/2024, 03/07/2024, 12/31/2023, Additional history exists Colonoscopy 09/16/2032 09/16/2022 Colorectal Cancer Screening 09/16/2032 DTaP,Tdap,and Td Vaccines (3 - Td or Tdap) 02/14/2033 02/14/2023, 01/04/2014 Depression Screening (Annual PHQ-2) Completed 02/22/2025 IPV Vaccines Aged Out No longer eligi ble based on patient's age to complete this topic Medical Devices Implanted Type Area Appellate Law Clerk Device Identifier Shelf Expiration Date Model / Serial / Lot Baha Attract Device-01/09/2015 Implanted:01/09 by Juve García M.D. (Quantity not on file) BAHA Device Cochlea Description:BAHA Attract MRI condtional at 1.5T, Normal mode. External processor must be removed before going into zone IV. Yeison Persaudreji 02/26/23 4 mm Baha Attract system - paperwork on system was scanned into images on MRI done 04/28/19 - conditional - 1.5 T - use normal mode [email or web address] Cartilage Costal Lg - [place] [id number] Implanted:Qty: 1 on 12/19/2010 Bone or Tissue Other/Legacy - See Implant Description [employer] Description:Device Manufactu rer - [employer]. Body Location - Other. bone for packing defect. Device Status Text - [id number]. Ear Hilliard Titanium Partial 3.00 - [place] [id number] Implanted:Qty: 1 on 08/28/2008 Ear Implant Other/Legacy - See Implant Description [facility] Description:Device Manufactu rer - [employer] Body Location - Other. Left. Device Status Text - [id number]. Scan at 1.5T in Normal mode due to BAHA Attract Mary Kay Leal MRSO 03/26/2023 Ear Ttp Variac Total 0.2x3.0 7mm - [place] [id number] Implanted:Qty: 1 on 12/19/2010 Ear Implant Other/Legacy - See Implant Description [facility] Medical Description:Device Manufactu rer - [employer] Body Location - Other. Left. Device Status Text - AUD [id number]. Scan at 1.5T in Normal mode due to BAHA Attract Mary Kay [place] MRSO 03/26/2023 Ear Oss Ti Total System Centered Adj. - [place] [id number] Implanted:Qty: 1 on 12/19/2010 Ear Implant Other/Legacy - See Implant Description [facility] Description:Device Manufactu rer - [employer]. Body Location - Other. Left. Device Status Text - AUD [id number]. Scan at 1.5T in Normal mode due to BAHA Attract Mary Kay [place] MRSO 03/26/2023 Ear Ttp Variac Total 0.2x3.0 7mm - [place] [id number] Implanted:Qty: 1 on 12/19/2010 Ear Implant Other/Legacy - See Implant Description [facility] Description:Device Manufactu rer - [employer]. Body Location - Other. Left. Device Status Text - AUD [id number]. Scan at 1.5T in Normal mode due to BAHA Attract Mary Kay [place] MRSO 03/26/2023 Procedures Procedure Name Priority Date/Time Associated Diagnosis Comments BASIC METABOLIC PANEL, S/P Routine 04/05/2024 5:12 PM CDT Headache Unspecified COLONOSCOPY Routine 09/16/2022 10:44 AM GLASS VIAL FILLER Diverticulitis Colon from Last 3 Months or [...] C.N.P. LAB BLOOD ADD-ON Fi nal Result [facility] [address] [place] [address], [facility] [place] [address] [place] [address] * Colonoscopy (09/16/2022 10:44 AM GLASS VIAL FILLER) 09/16/2022 10:4 4 AM GLASS VIAL FILLER Impressions [facility] - 09/16/2022 11:32 AM GLASS VIAL FILLER Post-op Diagnoses: - Diverticulosis in the sigmoid colon, in the descending colon and in the ascending colon. Mucosal inflammation c/w resolving diverticulitis seen distal to the anastomosis - Patent end-to-side colo-colonic anastomosis, characterized by healthy appearing mucosa. - No specimens collected. Narrative [facility] - 09/16/2022 11:32 AM GLASS VIAL FILLER Gonda 9 GI GI Patient Name: Angel [...] bowel preparation was evaluated using the BBPS ([place] Bowel Preparation Scale) with scores of: Right [...] been signed electronically. Number of Addenda: 0 us Olya Taveras P.A.-C. GI PROCEDURE ORDERABLES Final Result [facility] NA from Last 3 Months or Most Recently Relevant to Health Maintenance Insurance [facility] Advance Directives For more information, please contact: [phone] * Full Code (Latest Code Status on [...] Due to: Not medically appropriate Care Teams Fraternity House Cook Relationship Specialty Start Date End Date Jacqueline Sanchez M.D. [address] [place] [phone] PCP - General Family Medicine 04/05/24
--- OUTSIDE RECORDS SUMMARY | 2025-03-01 17:15 | XMS_ITS | Patient Health Record ---
Author Organization [facility] Address [address] [place] [address] [address] [place] [address] Care Team Providers Care Mammalogy Teacher Name Role Phone Ziggy BEST, Gonzalo Primary Care Provider Maritza Ramachandran Unavailable [phone] Suman BEST, Zeeshan Unavailable Unavailable Cleve Shabazz Unavailable [phone] Hong Le Unavailable [phone] Joshua Waddell Unavailable [phone] Sreekanth Worrell Unavailable [phone] Allergies No Known Allergies Results Component Value Reference Range Notes Urine toxicology Reviewed date:11/21/2024 04:05:10 PM Interpretation:SEE RESULTS Performing Lab: Notes/Report: SEE RESULTS Buprenophine 0 MRI : Cervical Spines Reviewed date:01/08/2025 01:17:11 PM Interpretation: Performing Lab: Notes/Report: Original Report [...] and Electronically Signed by: Nasim Burris M.D. MRI : Lumbar Reviewed date:01/08/2025 01:17:11 PM Interpretation: Performing Lab: Notes/Report: Original Report [...] and Electronically Signed by: Nasim Burris M.D. Reason For Referral Reason Repeat Mannie SIJ Diagnosis 1 Sacroiliitis (M46.1) Referral Organization [facility] Referring Provider First Name Cleve Referring Provider Last Name Mele Referring Provider Speciality Pain Medic ine Referred Organization [facility] Referred Provider Cleve Shabazz Referred Address [address] [place] [address] [address],[place], [place],[address],[place] Referred Provider Specialty Pain Medicin e Referral Priority Routine Reason Mannie L5-S1 TFE Diagnosis 1 Radiculopathy, lumba r region (M54.16) Referral Organization [facility] Referring Provider First Name Cleve Referring Provider Last Name Mele Referring Provider Speciality Pain Medic ine Referred Organization [facility] Referred Provider Cleve Shabazz Referred Address [address] [place] [address] [address],[place], [place],[address],[place] Referred Provider Specialty Pain Medicin e Referral Priority Routine Reason C5-C6 SYLVIE Diagnosis 1 Radiculopathy, cervi zarina region (M54.12) Referral Organization [facility] Referring Provider First Name Cleve Referring Provider Last Name Mele Referring Provider Speciality Pain Medic ine Referred Organization [facility] Referred Provider Cleve Shabazz Referred Address [address] [place] [address] [address],[place], [place],[address],[place] Referred Provider Specialty Pain Medicin e Referral Priority Routine Medications Medication SIG (Take, Route, Fr equency, Duration) Notes Start Date End Date Status Gabapentin 300 MG TAKE 2 CAPSULES BY M OUTH THREE TIMES DAILY Oral; Duration: 15 Days Active CeleBREX 200 MG 1 capsule with [...] Status W/U Status Risk Notes Problem Mononeuropathy (721628163) Mononeuropathy, unspecified (G58.9) Active confirmed Problem Chronic pain (83337960) Other chronic pain (G89.29) Active confirmed Problem Solitary sacroiliitis (336330469) Sacroiliitis, not elsewhere classified (M46.1) Active confirmed Problem Cervical radiculopathy (03635752) Radiculopathy, cervical region (M54.12) Active confirmed Problem Lumbar radiculopathy (835195261) Radiculopathy, lumbar region (M54.16) Active confirmed Problem Pain in thoracic spine (963874681) Pain in thoracic spine (M54.6) Active confirmed Problem Trochanteric bursitis of left hip (898981971462046) Trochanteric bursitis, left hip (M70.62) Active confirmed Problem Weakness (75450130) Weakness (R53.1) Active confirmed Problem Cervicalgia (87914546) Cervicalgia (M54.2) Active confirmed Problem Lumbosacral radiculopathy (8296540) Radiculopathy, lumbosacral region (M54.17) Active confirmed Problem Low back pain, unspecified (M54.50) Active confirmed Problem Sacroiliitis (M46.1) Active confirmed Problem Radiculopathy of lumbosacral region (M54.17) Active confirmed Vital Signs Blood pressure diastolic 84 mm Hg 11/27/2024 Height 77 in 11/27/2024 Blood pressure systolic 126 mm Hg 11/27/2024 Weight 228 lbs 11/27/2024 BMI 27.03 kg/m2 11/27/2024 Encounters Encounter Location Date Provider Diagnosis [address] [address] 03/28/2024 [facility] [address] [address] 03/29/2024 [facility] [address] [address] 04/28/2024 [facility] [address] [facility] [address] [place] [address] 07/24/2024 Hong Bolick Trochanteric bursitis, left hip M70.62 ; Sacroiliitis, not elsewhere classified M46.1 ; Low back pain, unspecified M54.50 and Other chronic pain G89.29 [address] [facility] [address] [place] [address] 08/04/2024 Cleve Mele Sacroiliitis, not elsewhere classified M46.1 [address] [facility] [address] [place] [address] 08/31/2024 Cleve Mele Trochanteric bursitis, left hip M70.62 [address] [facility] [address] [place] [address] 11/06/2024 Hong Bolick Sacroiliitis, not elsewhere classified M46.1 ; Cervicalgia M54.2 ; Low back pain, unspecified M54.50 ; Other chronic pain G89.29 and Cannabis use, unspecified, uncomplicated F12.90 [address] [facility] [address] [place] [address] 11/27/2024 Hong Bolick Radiculopathy, cervical region M54.12 ; Radiculopathy, lumbar region M54.16 and Other chronic pain G89.29 [address] [facility] [address] [place] [address] 11/30/2024 Cleve Shabazz Sacroiliitis, not elsewhere classified M46.1 [address] [facility] [address] [place] [address] 12/07/2024 Cleve Shabazz Radiculopathy, lumbosacral region M54.17 [address] [facility] [address] [place] [address] 12/21/2024 Cleve Shabazz Radiculopathy, cervical region M54.12 [address] [facility] [address] [place] [address] 02/15/2025 Cleve Shabazz Trochanteric bursitis, left hip M70.62 [facility] [address] [place] [address] 03/23/2024 [facility] [address] [place] [address] 04/04/2024 [facility] [place] [facility] [address] [place] [address] [address] [place] [address] 04/11/2024 [facility] [place] [facility] [address] [place] [address] 05/01/2024 [facility] [place] [facility] [address] [place] [address] 07/24/2024 [facility] [place] [facility] [address] [place] [address] 07/26/2024 [facility] [place] [facility] [address] [place] [address] 08/01/2024 Cleve Shabazz [facility] [address] [place] [address] 08/30/2024 [facility] [place] [facility] [address] [place] [address] 10/11/2024 Hong Le [facility] [address] [place] [address] 11/28/2024 [facility] [address] [place] [address] 12/08/2024 [facility] [address] [place] [address] 12/20/2024 [facility] [address] [place] [address] 01/17/2025 Cleve Shabazz [facility] [address] [place] [address] 02/12/2025 [facility] Ass[facility] Encounter Date Diagnosis (ICD Code) Assessment Notes Treatment Notes Treatment Clinical Notes Section Notes 07/24/2024 Trochanteric bursitis, left hip (ICD-10 - M70.62) 08/04/2024 Sacroiliitis, not elsewhere classified (ICD-10 - M46.1) 08/31/2024 Trochanteric bursitis, left hip (ICD-10 - M70.62) 11/06/2024 Sacroiliitis, not elsewhere classified (ICD-10 - M46.1) 11/06/2024 Cervicalgia (ICD-10 - M54.2) 11/27/2024 Radiculopathy, cervical region (ICD-10 - M54.12) 11/27/2024 Radiculopathy, lumbar region (ICD-10 - M54.16) 11/30/2024 Sacroiliitis, not elsewhere classified (ICD-10 - M46.1) 12/07/2024 Radiculopathy, lumbosacral region (ICD-10 - M54.17) 12/21/2024 Radiculopathy, cervical region (ICD-10 - M54.12) 02/15/2025 Trochanteric bursitis, left hip (ICD-10 - M70.62) 11/06/2024 Low back pain, unspecified (ICD-10 - M54.50) 11/27/2024 Other chronic pain (ICD-10 - G89.29) Wei presents to the clinic for an evaluation regarding his chronic neck pain, low back pain, left hip pain, and headaches. I have reviewed his symptoms and current medications. eWi completed cervical and lumbar MRIs on 11/22/2024. [...] accordingly. Regarding medications, I have checked the [facility] database and I did not find [...] No acute fracture, infection, or neoplasm. 07/24/2024 Sacroiliitis, not elsewhere classified (ICD-10 - M46.1) 07/24/2024 Low back pain, unspecified (ICD-10 - M54.50) 07/24/2024 Other chronic pain (ICD-10 - G89.29) Wei returns to clinic today for a follow up evaluation regarding his chronic pain. We discussed his current symptoms and medications. Upon review of his clinical presentation and per his request, I will order a repeat left GTB injection and a repeat therapeutic left SIJ injection. Regarding medications, I have reviewed the [place] [facility] database and did not find any inconsistencies. [...] will order cervical and lumbar MRIs to [facility] in [place]. Regarding medications, I have reviewed the [place] [facility] database and did not find any inconsistencies. [...] unspecified, uncomplicated (ICD-10 - F12.90) 11/06/2024 Other Carmine, Leroy Campos , am serving as a [...] the decisions made during the clinic visit. 11/27/2024 Other Camrine, Mitchel Santiago, am serving as a scribe [...] documentation has been reviewed by the aforementioned DYE BECK REEL OPERATOR as well as Cleve Shabazz MD, prior to being entered into the official medical record. ICleve MD attest that the above named individual [...] 09/02/2023 MRI : Lumbar 09/09/2023 MRI : Thoracic Spine 10/20/2023 X ray : Lumbar AP and Lateral, Flexion/E xtension 10/05/2023 Insurance Providers Payer Name Payer Address Payer Phone Subscriber Number Group Number Insured Name Patient Relationship to Insured Coverage Start Date Coverage End Date [facility] Blue Plus [facility] [address] [address] [place] [address] [id number] Angel Dunlap Self - patient is the insured [address] [place] [address] [address] [address] [place], [place] [id number] Angel Dunlap Self - patient is the insured Medications Administered Medication Instructions Date of Administration Dosage Notes Toradol 10/05/2023 1 mL Toradol 10/20/2023 1 mL Toradol 01/20/2024 1 mL Medical (General) History Medical History History ICD Code Anxiety Arthritis Diverticulitis headaches hearing loss Surgical History Surgery Date(Month/Year) Hospitalization History Reason Date(Month/Year)
[2025-03-01 17:31] VITALS: BP 112/78; PULSE 111; RESP 18; TEMP 36.7; O2SAT 97; BMI 25.9
--- NOTE | 2025-03-01 18:03 | ED.GENADULT ---
HPI - General Adult General Date Seen: 03/01/25 Chief complaint: Abdominal Pain Stated complaint: Stomach hernia Time Seen by Provider: 03/01/25 17:45 History of Present Illness HPI narrative: Patient is a 49-year-old male with a history of a couple of abdominal surgeries related to diverticulitis, more recently has developed incisional hernia. Was seen earlier this month by Dr. Trinh who referred him to surgery. He saw Dr. Gregory in surgery clinic on the . She had ordered a CT scan to evaluate preoperatively, he says that that was scheduled to be done tomorrow but then insurance pushed back in terms of prior Auth and so it isn't going to happen for another week or so. He says he is worried that the bulge has gotten bigger and in fact he thinks there is a new bulge on the upper part of his abdomen. He has some pain in that area, any says his whole family is really worried about it. He just does not think he can wait that long to get some answers. He has not having vomiting, fevers, or other severe symptoms. He did have some diarrhea, no black or bloody stools. Related Data Home Medications ?Medication ?Instructions ?Recorded ?Confirmed cannabidiol 100 mg/mL oral solution 150 mg PO BID 12/08/23 03/01/25 Previous Rx's ?Medication ?Instructions ?Recorded gabapentin 300 mg capsule 600 mg (2 x 300 mg) PO TID #180 08/14/24 caps cholecalciferol (vitamin D3) 1,250 1,250 mcg PO QWEEK #4 caps 10/31/24 mcg (50,000 unit) capsule cyclobenzaprine 10 mg tablet 10 mg PO BID PRN muscle spasm #30 11/29/24 tabs celecoxib 200 mg capsule (Celebrex) 200 mg PO QDAY #30 caps 01/14/25 oxycodone 5 mg tablet 5 mg PO Q8H PRN pain #30 tabs 02/26/25 Allergies Allergy/AdvReac Type Severity Reaction Status Date / Time No Known Drug Allergies Allergy Verified 03/01/25 17:41 Review of Systems Status of ROS: Reports: 6 or more systems reviewed and unremarkable except as noted in History and below [facility] Medical History Ventral hernia ?K43.9 - Ventral hernia without obstruction or gangrene (ICD-10) Tinnitus ?H93.19 - Tinnitus, unspecified ear (ICD-10) Avascular necrosis ?M87.00 - Idiopathic aseptic necrosis of unspecified bone (ICD-10) Diverticulitis ?K57.92 - Diverticulitis of intestine, part unspecified, without perforation or abscess without bleeding (ICD-10) Low back pain ?M54.50 - Low back pain, unspecified (ICD-10) Chronic neck and back pain ?M54.2 - Cervicalgia (ICD-10) ?M54.9 - Dorsalgia, unspecified (ICD-10) ?G89.29 - Other chronic pain (ICD-10) Hypertension ?I10 - Essential (primary) hypertension (ICD-10) Cochlear implant status ?Z96.21 - Cochlear implant status (ICD-10) Alcohol use disorder ?F10.90 - Alcohol use, unspecified, uncomplicated (ICD-10) Generalized anxiety disorder ?F41.1 - Generalized anxiety disorder (ICD-10) Surgical History H/O arthroscopic knee surgery ?Z98.890 - Other specified postprocedural states (ICD-10) S/P colectomy (~2009) ?Z90.49 - Acquired absence of other specified parts of digestive tract (ICD-10) Social History Narrative: Not working currently. Lives with sister in [place], [place] use Smoking Status: Current every day smoker What tobacco products do you use: cigarettes Do you use any of these nicotine containing products: None Second hand tobacco smoke exposure: No How often do you have a drink containing alcohol: never How often do you have six or more drinks on one occasion: Never AUDIT-C Alcohol total score: 0 Non-prescribed substance use: denies use service: No Exam Narrative: Exam Narrative: Vital signs reviewed In general, alert, nontoxic male, he looks comfortable. Heart: Regular rate and rhythm, no murmur. Lungs: Clear. No increased work of breathing. Abdomen: Initially a I evaluated him standing up. He does have an area that bulges somewhat on the upper aspect of his incision more toward the epigastrium and then a more defined bulge closer to the umbilicus. Lying down, I can palpate a defect in the abdominal wall closer to the umbilicus, I can not clearly palpate a defect up higher. There is no evidence of incarceration or strangulation, abdomen is otherwise nontender, soft, with normal bowel sounds. 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 However, given his rising concerns, will go ahead and do imaging today to expedite his ability to follow-up with general surgery and planned surgery. Patient had a CT scan of the abdomen. I reviewed his scan, he does have 2 small hernias 1 which contains little bit of bowel and 1 of which is fat containing. He requested something for pain here, he is chronically on oxycodone, after Toradol which he was interested in trying. He had 30 mg IM. I reviewed his CT report with him, link below. Command follow-up with surgery as planned. We discussed things to watch for in terms of complications for hernias. Return as needed. Vital Signs Vital signs: Initial Vital Signs Temperature 98.1 F 03/01/25 17:31 Temperature Source Temporal Artery Scan 03/01/25 17:31 Pulse Rate 111 H 03/01/25 17:31 Respiratory Rate 18 03/01/25 17:31 Blood Pressure 112/78 03/01/25 17:31 Blood Pressure Mean 89 03/01/25 17:31 Blood Pressure Position Sitting 03/01/25 17:31 Pulse Oximetry 97 03/01/25 17:31 Oxygen Delivery Method Room Air 03/01/25 17:31 Vital Signs Temperature 98.1 F 03/01/25 17:31 Pulse Rate 111 H 03/01/25 17:31 Respiratory Rate 18 03/01/25 17:31 Blood Pressure 112/78 03/01/25 17:31 Pulse Oximetry 97 03/01/25 17:31 Oxygen Delivery Method Room Air 03/01/25 17:31 Temperature 97.6 F 03/01/25 19:18 Pulse Rate 78 03/01/25 19:18 Respiratory Rate 18 03/01/25 19:18 Blood Pressure 118/72 03/01/25 19:18 Pulse Oximetry 97 03/01/25 19:18 Oxygen Delivery Method Room Air 03/01/25 19:18 Medications Administered Medications: Discontinued Medications Generic Name Dose Route Start Last Admin Trade Name Freq PRN Reason Stop Dose Admin Sodium Chloride 500 mls @ 500 mls/hr 03/01/25 18:02 03/01/25 19:19 0.9 % Sodium Chloride 500 Ml IV 03/01/25 19:01 Infused .Q1H ONE Infusion Ketorolac Tromethamine 15 mg 03/01/25 18:44 03/01/25 18:58 Ketorolac 15 Mg/Ml Inj IVP 03/01/25 18:45 15 mg ONCE ONE Administration Medical Decision Making Imaging Data CT scan - abdomen: Attestation: I have reviewed the pertinent imaging results. Radiologist's impression: Patient: Angel Dunlap MR#: [id number] : 1975 Acct:[id number] Loc: ED Service Date: 03/01/[address]: Ordering Physician: Gaye Cortez M.D. Date of Service: 03/01/25 Procedure(s): CT abdomen pelvis w con Accession Number(s): [id number] cc: Gaye Cortez M.D.; Gonzalo Trinh M.D.~ For Patients: As a result of the Century Cures Act, medical imaging exams and procedure reports are released immediately into your electronic medical record. You may view this report before your referring provider. If you have questions, please contact your health care provider. INDICATION: Possible hernia. TECHNIQUE: CT abdomen and pelvis acquired with 107 cc of Isovue 370 IV contrast. COMPARISON: CT abdomen and pelvis 05/03/2023. FINDINGS: Lower chest: Stable small pulmonary nodules within the lung bases. Mild dependent lower lobe atelectasis. Liver: Unchanged 4.8 cm hemangioma within the left hepatic lobe. Multiple unchanged small cysts throughout the liver. Gallbladder and bile ducts: Unremarkable. No stones or inflammation. No biliary dilatation. Pancreas: Unremarkable. No mass or inflammation. Spleen: Unremarkable. Normal in size. No masses. Adrenal glands: Unremarkable. No nodules. Kidneys: Unremarkable. No suspicious masses, stones, or hydronephrosis. GI tract: Chain suture at the rectosigmoid junction. Colonic diverticulosis. No bowel obstruction. Normal appendix. Majority of the small bowel is in the left hemiabdomen. Normal appendix. Vasculature: Abdominal aorta is normal in caliber. Mesenteric arteries are patent. Lymph nodes: No lymphadenopathy. Peritoneum/Abdominal Wall: Small fat-containing supraumbilical hernia. Tiny small bowel containing periumbilical hernia. No evidence for strangulation or obstruction. Tiny fat-containing left inguinal hernia. No free air or significant free fluid. Pelvis: Unremarkable. Bones: Unremarkable for age. IMPRESSION: 1. Tiny small bowel containing periumbilical hernia. No evidence for bowel obstruction or strangulation. 2. No other acute findings within the abdomen and pelvis. 3. Several nonacute findings, as above. Please note that all CT scans at this facility use dose modulation, iterative reconstruction, and/or weight-based dosing when appropriate to reduce radiation dose to as low as reasonably achievable. Dictated by Hemal Negrete MD @ 03/01/2025 7:10:33 PM Discharge Plan Discharge Clinical Impression: Incisional hernia of anterior abdominal wall without obstruction or gangrene Patient Disposition: Home, Self-Care Condition: Stable Additional Instructions: As suspected, your CT scan shows 2 small hernias in your abdominal wall related to her prior incision. There is no evidence of complications related to these hernias. These can be fixed surgically. Please follow-up with Dr. Gregory in clinic as previously discussed. Things to watch for would be a painful lump that does not improve when you lay down, vomiting, redness of your stomach. Prescriptions: No Action cannabidiol 100 mg/mL solution 150 mg PO BID Rx Instructions: Medicinal Cannabis gabapentin 300 mg capsule 600 mg PO TID Qty: 180 3RF cholecalciferol (vitamin D3) 1,250 mcg (50,000 unit) capsule 1,250 mcg PO QWEEK Qty: 4 5RF cyclobenzaprine 10 mg tablet 10 mg PO BID PRN (Reason: muscle spasm) Qty: 30 3RF celecoxib [Celebrex] 200 mg capsule 200 mg PO QDAY Qty: 30 2RF oxycodone 5 mg tablet 5 mg PO Q8H PRN (Reason: pain) Qty: 30 0RF Follow Up/Referrals: Gonzalo Trinh MD [Primary Care Provider, Internal Medicine] Stand Alone Forms: [employer] Info Instructions
[2025-03-01] MEDS: 0.9 % SODIUM CHLORIDE 500 ML 500 ML IV (18:10)
[2025-03-01 19:18] VITALS: BP 118/72; PULSE 78; RESP 18; TEMP 36.4; O2SAT 97
== END 2025-03-01 19:28 | disposition home or self-care (01) ==
PROVIDERS: Emergency Provider Emergency Medicine; PCP Internal Medicine
DX: K43.2 Incisional hernia without obstruction or gangrene (principal)
CPT/HCPCS: 74177; 96372; 99284; J1885; J7030; Q9967

== ENCOUNTER 2025-03-15 07:45 | Inpatient (IN) | payer BC, SELFPAY ==
[2025-03-15] VITALS (26 sets, daily range): BP systolic 106–138; BP diastolic 74–91; PULSE 71–96; RESP 12–18; TEMP 36.4–37.1; O2SAT 92–100; BMI 35.6
[2025-03-15] MEDS: LACTATED RINGERS 1000 ML 1,000 ML 100 ML IV ×2 (07:50→09:12)
[2025-03-15] MEDS: SODIUM CHLORIDE 0.9 % (FLUSH) 10 ML SYRINGE IVF (08:47)
--- NOTE | 2025-03-15 10:05 | P.ANES_ITS ---
Anesthesia Charges Start Date/Time Anesthesia Start Date: 03/15/25 Anesthesia Start Time: 08:49 Stop Date/Time Anesthesia Stop Date: 03/15/25 Anesthesia Stop Time: 11:13 Coding CPT Codes CPT Codes: ANESTH REPAIR OF HERNIA - 42717 ([id number]) P3 - PATIENT W/SEVERE SYS DISEASE, QK - ADJUNCT LECTURER 2-4 CNCRNT ANES PROC, QX - LIME SPREADER SVC W/ MD MED DIRECTION
--- NOTE | 2025-03-15 10:05 | P.NB_ITS ---
Nerve Block Nerve Block Time Seen by Provider: 08:55 Date Seen: 03/15/25 Type of block requested by surgeon for post-operative analgesia: TAP Side: bilateral Time out performed: Yes Verification of patient name: Yes Verification of date of : Yes Site marking: site marked Name of person performing procedure: [place] Continuous monitoring Was continuous monitoring of O2 sat, B/P, painting and coating worker, recorded every 15 minutes?: Yes Procedure Checklist: sterile prep, needles and gloves Ultrasound guided. Images saved: Yes Medications given in 5ml increments after negative aspiration: Marcaine %: 0.25 mL: 30 Needle gauge: 20 and Exparel mL: 10 Patient tolerated procedure well: Yes Additional comments: Needle noted between internal oblique and transversus abdominus. Local spread visualized Block Charges Block Charge (with Pro Fee): TAP Bilateral Use of Ultrasound Machine for Block: Yes- US Guidance/pain block
--- NOTE | 2025-03-15 10:05 | W.ANESCHARGE ---
Anesthesia Charges Start Date/Time Anesthesia Start Date: 03/15/25 Anesthesia Start Time: 08:49 Stop Date/Time Anesthesia Stop Date: 03/15/25 Anesthesia Stop Time: 11:13 Coding CPT Codes CPT Codes: ANESTH REPAIR OF HERNIA - 06560 ([id number]) P3 - PATIENT W/SEVERE SYS DISEASE, QK - GAUGE INSPECTOR 2-4 CNCRNT ANES PROC, QX - BINDING CUTTER SVC W/ MD MED DIRECTION
--- NOTE | 2025-03-15 10:57 | W.PM.H&PU ---
History & Physical Update History & Physical Update H&P Reviewed and patient assessed: No changes noted
--- NOTE | 2025-03-15 10:57 | PM.GSPRC ---
Operative Note Date of procedure: 03/15/25 Pre-op diagnosis: Ventral hernia, complex multiple Post-op diagnosis: Same Type of Procedure: Open ventral hernia repair with retro rectus placement of mesh Indications: Patient is a 49-year-old male who presented to clinic with symptomatic hernia. Please see consultation note for full discussion regarding risks and benefits. Risks and benefits of operative intervention were discussed at length with the patient. Risks included but was not limited to: Bleeding, infection, risk of damage to surrounding structures, possible need for additional procedures, possible need to convert to an open operation, risk of recurrence and postoperative complications such as pneumonia, pulmonary emboli or CT. All questions and concerns were addressed with the patient agreeing to proceed. Procedure Description: After discussing the risks and benefits of the procedure, the patient signed informed consent.? The operative site was marked and the patient was brought to the operating room and placed on the operating table in supine position.? Care was taken to pad the patient's pressure points.?? The patient was then intubated by anesthesia.?? MIL blocks were performed bilaterally by anesthesia. The operative site was then prepped and draped in the usual sterile fashion.? A time-out was then performed. An elliptical incision was made around the well healed scar with a 15 blade scalpel in the midline. Cautery was used to remove the overlying scar tissue, which was then passed off the field for disposal. Several hernia sacs were identified in the midline of the incision. Starting on the superior aspect, the hernia sac was circumferentially dissected free. The incarcerated preperitoneal fat and hernia was then reduced into the abdomen. The fascial defect measured 4 x 3 cm in size. A preperitoneal pocket was created. The fascial edges were cleared off circumferentially. Just inferior to this fascial defect was a 1 cm hole in the midline. The bridge of fascial tissue was connected with the larger hernia. An additional large hernia was identified just at the umbilicus and extending inferiorly, which measured 4 x 4 cm in size. The hernia sac again was circumferentially dissected free. A small defect in the peritoneum was created during this dissection. The bowel was visualized underneath and remained out of the operative field. The hernia sac was circumferentially dissected free and a preperitoneal space created. This larger hernia was then connected with the superior hernia by dividing the fascial bridge. The resulting defect measured 8 cm vertically by 4 cm horizontally. Using cautery the posterior fascia was incised and circumferentially dissected off of the underlying muscle. The posterior fascial defect was then closed with 2 running 1 PDS suture. Hemostasis was assured with cautery. A piece of Phasix mesh measuring 15 x 20 cm was cut to size to fit into the retrorectus pocket, adequately covering the fascial defect. It laid nicely into this space. It was fixed in place with trans fascial stitches of 1 PDS suture. The anterior fascial defect was then closed with 2 looped 0 PDS suture. The wound was irrigated. The incision was closed in layers of interrupted 3 0 Vicryl and running 4-0 Monocryl stitch. A sterile dressing of Steri-Strips, 4 x 4 and Medipore tape was applied. An abdominal binder was placed. Patient tolerated procedure well. All counts were correct at the end of the case. Findings: Several large ventral hernias along the previous midline incision. Anesthesia: GETA Surgeon: Davina Gregory MD Estimated blood loss (mL): 25 Condition: stable Disposition: PACU
--- NOTE | 2025-03-15 11:19 | P.ANES_ITS ---
Anesthesia Charges Start Date/Time Anesthesia Start Date: 03/15/25 Anesthesia Start Time: 08:49 Stop Date/Time Anesthesia Stop Date: 03/15/25 Anesthesia Stop Time: 11:13 Coding CPT Codes CPT Codes: ANESTH REPAIR OF HERNIA - 69824 ([id number]) P3 - PATIENT W/SEVERE SYS DISEASE, QK - INFANTRY INDIRECT FIRE CREWMEMBER 2-4 CNCRNT ANES PROC, QX - METAL FENCE ERECTOR SVC W/ MD MED DIRECTION
--- NOTE | 2025-03-15 11:19 | W.ANESCHARGE ---
Anesthesia Charges Start Date/Time Anesthesia Start Date: 03/15/25 Anesthesia Start Time: 08:49 Stop Date/Time Anesthesia Stop Date: 03/15/25 Anesthesia Stop Time: 11:13 Coding CPT Codes CPT Codes: ANESTH REPAIR OF HERNIA - 87551 ([id number]) P3 - PATIENT W/SEVERE SYS DISEASE, QK - NONDESTRUCTIVE TESTER 2-4 CNCRNT ANES PROC, QX - FACILITIES DIRECTOR SVC W/ MD MED DIRECTION
[2025-03-15] MEDS: GABAPENTIN 300 MG CAPSULE 600 MG PO ×2 (13:51→20:41)
[2025-03-15] MEDS: CYCLOBENZAPRINE HCL 10 MG TABLET PO (14:59)
[2025-03-16 02:22] VITALS: BP 119/82; PULSE 87; RESP 16; TEMP 36.3; O2SAT 92
--- NOTE | 2025-03-16 06:35 | PC.NURSE ---
End of shift: Pt pleasant, alert and oriented.?VSS. Pain rated 7-9/10, oxy and dilaudid given. Pt educated on switching to oral medications, pt agreed to only use dilaudid for breakthrough pain. Pt independent in room, SBA in halls. Abd binder on though out shift, pt tolerated well. Pt educated on splinting with a pillow. Up walking halls several times during shift. Pt now in bed, appears to be resting, call light within reach.?
[2025-03-16 07:00] VITALS: RESP 18; O2SAT 95
[2025-03-16 08:00] VITALS: BP 120/80; PULSE 79; RESP 18; TEMP 36.4; O2SAT 95
[2025-03-16] MEDS: GABAPENTIN 300 MG CAPSULE 600 MG PO (08:35)
[2025-03-16] MEDS: CELECOXIB 200 MG CAPSULE PO (08:35)
--- NOTE | 2025-03-16 10:29 | PM.DS1 ---
DS: Providers Provider Date Seen: 03/16/25 Date of admission: 03/15/25 07:45 Primary care physician: Gonzalo Trinh MD Admitting Clinician: Davina Gregory MD Attending Physician on discharge: Davina Gregory MD DS: Diagnosis Discharge Diagnosis (1) Status post repair of ventral hernia: Status: Acute (2) Generalized anxiety disorder: Status: Acute (3) Chronic neck and back pain: Status: Acute DS: Summary Hospital Course Hospital Course: The patient is a 49-year-old male who underwent open repair of a ventral hernia. He was admitted postoperatively for pain control. On postop day 1 he was passing gas, tolerating a diet without nausea and had good pain control on oral meds. He was deemed safe for discharge home. Time Spent with Patient Time attestation: Total time spent providing and/or coordinating discharge services: Exam Narrative: Exam Narrative: General: No acute distress Respiratory: Breathing nonlabored on room air CV: Regular rate Abdomen: Soft dressing is clean without soilage. Const: Vital Signs, click to edit/add: Vital Signs - 24 hr 03/15/25 11:08 03/15/25 11:15 03/15/25 11:20 Temperature 98.3 F Pulse Rate 92 96 84 Pulse Rate [Left P ulse Oximeter] Respiratory Rate 14 16 14 Blood Pressure 136/89 128/88 130/81 Blood Pressure [Le ft Arm] Pulse Oximetry 96 99 100 Oxygen Delivery Me thod Room Air OxyMask OxyMask Oxygen Flow Rate 10 10 03/15/25 11:25 03/15/25 11:30 03/15/25 11:35 Temperature 98.4 F Pulse Rate 79 78 79 Pulse Rate [Left P ulse Oximeter] Respiratory Rate 14 12 14 Blood Pressure 131/87 121/79 121/86 Blood Pressure [Le ft Arm] Pulse Oximetry 100 99 100 Oxygen Delivery Me thod OxyMask OxyMask OxyMask Oxygen Flow Rate 6 6 6 03/15/25 11:40 03/15/25 11:45 03/15/25 11:50 Temperature 98.4 F Pulse Rate 74 86 76 Pulse Rate [Left P ulse Oximeter] Respiratory Rate 12 14 12 Blood Pressure 128/79 124/81 115/74 Blood Pressure [Le ft Arm] Pulse Oximetry 100 98 97 Oxygen Delivery Me thod Room Air Room Air Room Air Oxygen Flow Rate 03/15/25 11:55 03/15/25 12:00 03/15/25 12:04 Temperature 98.2 F 98.2 F Pulse Rate 80 81 83 Pulse Rate [Left P ulse Oximeter] Respiratory Rate 12 14 16 Blood Pressure 116/83 124/80 115/81 Blood Pressure [Le ft Arm] Pulse Oximetry 96 96 95 Oxygen Delivery Me thod Room Air Room Air Room Air Oxygen Flow Rate 03/15/25 12:12 03/15/25 12:27 03/15/25 12:42 Temperature 97.6 F 97.6 F 97.7 F Pulse Rate 74 73 71 Pulse Rate [Left P ulse Oximeter] Respiratory Rate 16 16 16 Blood Pressure 125/88 131/85 138/88 Blood Pressure [Le ft Arm] Pulse Oximetry 92 92 93 Oxygen Delivery Me thod Room Air Room Air Room Air Oxygen Flow Rate 03/15/25 12:57 03/15/25 13:27 03/15/25 13:57 Temperature 97.7 F 97.7 F 97.6 F Pulse Rate 74 73 77 Pulse Rate [Left P ulse Oximeter] Respiratory Rate 16 16 16 Blood Pressure 118/86 113/79 119/84 Blood Pressure [Le ft Arm] Pulse Oximetry 93 93 94 Oxygen Delivery Me thod Room Air Room Air Room Air Oxygen Flow Rate 03/15/25 14:00 03/15/25 15:00 03/15/25 15:00 Temperature 97.7 F 97.7 F Pulse Rate 82 82 Pulse Rate [Left P ulse Oximeter] Respiratory Rate 16 16 16 Blood Pressure 127/88 106/85 Blood Pressure [Le ft Arm] Pulse Oximetry 94 95 95 Oxygen Delivery Me thod Room Air Room Air Room Air Oxygen Flow Rate 7 03/15/25 16:00 03/15/25 17:00 03/15/25 18:00 Temperature 97.7 F 97.6 F 97.8 F Pulse Rate 85 89 85 Pulse Rate [Left P ulse Oximeter] Respiratory Rate 16 16 16 Blood Pressure 116/74 112/74 121/81 Blood Pressure [Le ft Arm] Pulse Oximetry 95 93 95 Oxygen Delivery Me thod Room Air Room Air Room Air Oxygen Flow Rate 03/15/25 20:20 03/15/25 23:00 03/15/25 23:00 Temperature 98.2 F Pulse Rate Pulse Rate [Left P ulse Oximeter] 84 84 Respiratory Rate 16 16 16 Blood Pressure Blood Pressure [Le ft Arm] 121/79 Pulse Oximetry 95 95 Oxygen Delivery Me thod Room Air Room Air Oxygen Flow Rate 7 03/15/25 23:00 03/16/25 02:22 03/16/25 07:00 Temperature 97.6 F 97.4 F L Pulse Rate Pulse Rate [Left P ulse Oximeter] 80 87 Respiratory Rate 18 16 18 Blood Pressure Blood Pressure [Le ft Arm] 134/91 H 119/82 Pulse Oximetry 94 92 95 Oxygen Delivery Me thod Room Air Room Air Oxygen Flow Rate 03/16/25 08:00 03/16/25 08:00 Temperature 97.5 F L Pulse Rate Pulse Rate [Left P ulse Oximeter] 79 79 Respiratory Rate 18 18 Blood Pressure Blood Pressure [Le ft Arm] 120/80 Pulse Oximetry 95 Oxygen Delivery Me thod Room Air Oxygen Flow Rate Discharge Plan Discharge Disposition: Home, Self-Care Date of Admission: 03/15/25 07:45 Primary Care Provider: Gonzalo Trinh Condition: Stable Anticipated Discharge Date/Time: 03/16/25 10:11 Discharge Medications: New oxycodone 5 mg Tablet 5 - 10 mg PO Q6H PRN (Reason: Pain) Qty: 30 0RF Continued cannabidiol 100 mg/mL solution 150 mg PO BID Rx Instructions: Medicinal Cannabis celecoxib [Celebrex] 200 mg capsule 200 mg PO DAILY gabapentin 300 mg capsule 600 mg PO TID Qty: 180 3RF cholecalciferol (vitamin D3) 1,250 mcg (50,000 unit) capsule 1,250 mcg PO QWEEK Qty: 4 5RF cyclobenzaprine 10 mg tablet 10 mg PO BID PRN (Reason: muscle spasm) Qty: 30 3RF Discontinued oxycodone 5 mg tablet 5 mg PO Q8H PRN (Reason: pain) Qty: 30 0RF Discharge Orders: Discharge Order (Routine); Ordered 03/16/25 Ordered By: Nelly Serra Patient Education: Oxycodone, Rapid Release (By mouth), Open Herniorrhaphy (DC), Deep Sedation (DC), NH+C Post-Operative Instructions: Hernia Repair Additional Instructions: Wound care: Your sutures are under the skin and will dissolve over time. Leave steri strips (white bandages) over incisions until they fall off (or remove after 7 days). OK to shower tomorrow but avoid bathing, soaking or swimming for 2 weeks. Pat the incisions dry. No need to wash or scrub the area. Apply ice to the area as needed for swelling. It is also OK to use a heating pad if this provides more comfort to you. Pain control: You were prescribed a pain medication. Take this dosing instead of your regular dose of oxycodone. As your pain improves, you can go back to your baseline dose. Take Tylenol as directed on packaging as well to help with pain. Take an [id number] stool softener while you are taking prescribed pain medications to help alleviate constipation. I recommend Senna and/or Colace. Take as directed on package. If you have not had a bowel movement in 3 days, try taking Miralax as directed on the package. All of these are available over the counter. Follow-up Follow up with Dr. Gregory in 2-3 weeks Please call if you are experiencing severe pain, nausea, vomiting, difficulty urinating, fever or have not had bowel movement in 4 days after surgery. Activity Level: No strenuous activity Activity Detail: No lifting more than 20 pounds for 4 weeks Discharge Diet: Regular Follow Up Appointments: Davina Gregory MD [Staff Physician, General Surgery] Gonzalo Trinh MD [Primary Care Provider, Internal Medicine] Forms: [facility] To [facility] Info Instructions
--- NOTE | 2025-03-16 11:40 | PC.NURSE ---
Discharge: Patient pleasant and cooperative, A&O. VSS, afebrile. SpO2 maintained above 90% on RA. Patient reports passing gas this shift. Reported pain in his abdomen this shift, managed with PRN medication, see MAR. Discharge instructions provided, all questions answered. Discharged to home at 1130
== END 2025-03-16 11:30 | disposition home or self-care (01) | DRG 227 ==
PROVIDERS: Admitting Provider Surgery; PCP Internal Medicine; Visit Provider Surgery
PROC: 0WUF0JZ Supplement Abdominal Wall with Synthetic Substitute, Open Approach (ICD-10-PCS; principal; 2025-03-15 09:00)
DX: K43.2 Incisional hernia without obstruction or gangrene (principal); K57.92 Diverticulitis of intestine, part unspecified, without perforation or abscess without bleeding; F41.1 Generalized anxiety disorder; G89.18 Other acute postprocedural pain; G89.29 Other chronic pain; M54.2 Cervicalgia; M54.9 Dorsalgia, unspecified; Z90.49 Acquired absence of other specified parts of digestive tract
CPT/HCPCS: 00752; 00832; 64488; 76942; A4467; A9270; C1781; J0665; J0666; J0690; J1100; J1171; J1885; J2405; J2704; J3010; J3490; J7120

== ENCOUNTER 2025-06-05 11:55 | Outpatient (CLI) | payer BC, SELFPAY | END 2025-06-05 11:56 | disposition home or self-care (01) | LOC: NFLDREF 06-07 10:48 | PROVIDERS: PCP Internal Medicine; Referring Provider Internal Medicine; Visit Provider Internal Medicine | DX: E78.5 Hyperlipidemia, unspecified (principal); K57.92 Diverticulitis of intestine, part unspecified, without perforation or abscess without bleeding; M54.50 Low back pain, unspecified; F41.1 Generalized anxiety disorder; Z12.5 Encounter for screening for malignant neoplasm of prostate | CPT/HCPCS: 80053; 80061; G0103 ==